=== PATIENT | female | born 1990 | race Caucasian/White ===

== ENCOUNTER 2020-06-14 10:40 | Outpatient (REF) | payer OTHER, SELFPAY | END 2020-06-14 10:41 | disposition home or self-care (01) | LOC: HO.LAB 10:40 | PROVIDERS: PCP Internal Medicine; Visit Provider Advanced Practice Midwife | DX: Z01.419 Encounter for gynecological examination (general) (routine) without abnormal findings (principal); N88.9 Noninflammatory disorder of cervix uteri, unspecified; B36.9 Superficial mycosis, unspecified | CPT/HCPCS: 88142 ==

== ENCOUNTER 2020-08-02 11:18 | Outpatient (REF) | payer OTHER, SELFPAY ==
[2020-08-02 17:09] LABS: CT PCR NOT DETECTED (Not Detect.); NG PCR NOT DETECTED (Not Detect.)
[2020-08-03 09:13] LABS: BV Int Neg Control Negative (Negative); BV Int Pos Control Positive (Positive)
== END 2020-08-02 11:19 | disposition home or self-care (01) ==
LOC: HO.LAB 11:18
PROVIDERS: Visit Provider Advanced Practice Midwife
DX: N89.8 Other specified noninflammatory disorders of vagina (principal); B37.3 Candidiasis of vulva and vagina
CPT/HCPCS: 81003; 81025; 87480; 87491; 87510; 87591; 87660; 99212

== ENCOUNTER → 2020-08-16 14:01 | Outpatient (BNVA) | payer OTHER, SELFPAY | PROVIDERS: Visit Provider Obstetrics & Gynecology | DX: N88.9 Noninflammatory disorder of cervix uteri, unspecified (principal) | CPT/HCPCS: 99212 ==

== ENCOUNTER 2021-02-17 09:26 | Outpatient (REF) | payer OTHER, SELFPAY ==
[2021-02-17 15:12] LABS: CT PCR NOT DETECTED (Not Detect.); NG PCR NOT DETECTED (Not Detect.)
[2021-02-18 14:47] LABS: BV Int Neg Control Negative (Negative); BV Int Pos Control Positive (Positive)
== END 2021-02-17 09:27 | disposition home or self-care (01) ==
LOC: HO.LAB 09:26
PROVIDERS: Visit Provider Advanced Practice Midwife
DX: Z01.419 Encounter for gynecological examination (general) (routine) without abnormal findings (principal); Z11.3 Encounter for screening for infections with a predominantly sexual mode of transmission; N89.8 Other specified noninflammatory disorders of vagina; Z20.2 Contact with and (suspected) exposure to infections with a predominantly sexual mode of transmission; B37.3 Candidiasis of vulva and vagina
CPT/HCPCS: 87480; 87491; 87510; 87591; 87660; 99212

== ENCOUNTER 2021-02-22 16:55 | Outpatient (REF) | payer OTHER, SELFPAY ==
[2021-02-22 17:49] LABS: Influenza A PCR NEGATIVE (Negative); Influenza B PCR NEGATIVE (Negative); Resp Syncy Virus RNA Qual PCR NEGATIVE (Negative); SARS COV2 PCR INHOUSE NEGATIVE (Negative)
== END 2021-02-22 16:56 | disposition home or self-care (01) ==
LOC: HO.LNP 16:55
PROVIDERS: Visit Provider Internal Medicine
DX: Z20.822 Contact with and (suspected) exposure to COVID-19 (principal); R43.9 Unspecified disturbances of smell and taste
CPT/HCPCS: 0241U

== ENCOUNTER 2021-07-06 11:36 | Outpatient (REF) | payer OTHER, SELFPAY ==
[2021-07-07 09:43] LABS: BV Int Neg Control Negative (Negative); BV Int Pos Control Positive (Positive)
[2021-07-07 09:46] LABS: CT PCR NOT DETECTED (Not Detect.); NG PCR NOT DETECTED (Not Detect.)
== END 2021-07-06 11:37 | disposition home or self-care (01) ==
LOC: HO.LAB 11:36
PROVIDERS: PCP Internal Medicine; Visit Provider Advanced Practice Midwife
DX: Z01.411 Encounter for gynecological examination (general) (routine) with abnormal findings (principal); L30.9 Dermatitis, unspecified; Z20.2 Contact with and (suspected) exposure to infections with a predominantly sexual mode of transmission
CPT/HCPCS: 87480; 87491; 87510; 87591; 87660

== ENCOUNTER 2021-11-24 09:23 | Outpatient (REF) | payer OTHER, SELFPAY ==
[2021-11-24 17:53] LABS: CT PCR NOT DETECTED (Not Detect.); NG PCR NOT DETECTED (Not Detect.)
[2021-11-25 15:12] LABS: BV Int Neg Control Negative (Negative); BV Int Pos Control Positive (Positive)
== END 2021-11-24 09:24 | disposition home or self-care (01) ==
LOC: HO.LAB 09:23
PROVIDERS: Visit Provider Advanced Practice Midwife
DX: Z30.09 Encounter for other general counseling and advice on contraception (principal); Z20.2 Contact with and (suspected) exposure to infections with a predominantly sexual mode of transmission; N92.6 Irregular menstruation, unspecified; D64.4 Congenital dyserythropoietic anemia
CPT/HCPCS: 87480; 87491; 87510; 87591; 87660; 99212

== ENCOUNTER 2021-12-13 12:08 | Outpatient (REF) | payer OTHER, SELFPAY ==
--- NOTE | ~2021-12-13 | XR_ITS ---
EXAMINATION: CERVICAL SPINE AND THORACIC SPINE CLINICAL INFORMATION: Neck pain and back pain COMPARISON: Cervical spine 05/12/2014 TECHNIQUE: 3 views cervical spine and 3 views dorsal spine. FINDINGS: Cervical spine: There is reversal of cervical lordosis. The vertebral heights and vertebral alignment is normal. Mild loss of C6-C7 and C7-T1 disc heights with mild ventral spondylosis. No visible acute fracture, dislocation or lytic process seen. The paravertebral soft tissues are normal. Dorsal spine: There is normal thoracic kyphosis. The vertebral heights and alignment is normal. There is mild dextro scoliosis mid dorsal spine. No aggressive lytic or sclerotic process seen. The paravertebral soft tissues are normal. XR/XR cervical spine 2V IMPRESSION: The disc changes C6-C7 and C7-T1 disc levels with moderate ventral bridging osteophyte. No acute fracture or dislocation seen. There is mild dextro scoliosis mid dorsal spine. No visible acute fracture or dislocation seen.
--- NOTE | ~2021-12-13 | XR_ITS ---
EXAMINATION: CERVICAL SPINE AND THORACIC SPINE CLINICAL INFORMATION: Neck pain and back pain COMPARISON: Cervical spine 05/12/2014 TECHNIQUE: 3 views cervical spine and 3 views dorsal spine. FINDINGS: Cervical spine: There is reversal of cervical lordosis. The vertebral heights and vertebral alignment is normal. Mild loss of C6-C7 and C7-T1 disc heights with mild ventral spondylosis. No visible acute fracture, dislocation or lytic process seen. The paravertebral soft tissues are normal. Dorsal spine: There is normal thoracic kyphosis. The vertebral heights and alignment is normal. There is mild dextro scoliosis mid dorsal spine. No aggressive lytic or sclerotic process seen. The paravertebral soft tissues are normal. XR/XR thoracic spine 2V IMPRESSION: The disc changes C6-C7 and C7-T1 disc levels with moderate ventral bridging osteophyte. No acute fracture or dislocation seen. There is mild dextro scoliosis mid dorsal spine. No visible acute fracture or dislocation seen.
== END 2021-12-13 12:09 | disposition home or self-care (01) ==
LOC: HO.XRAY 12:08
PROVIDERS: PCP Internal Medicine; Visit Provider Internal Medicine
DX: M54.6 Pain in thoracic spine (principal); M54.2 Cervicalgia
CPT/HCPCS: 72040; 72070

== ENCOUNTER → 2021-12-18 10:21 | Outpatient (BNVA) | payer OTHER, SELFPAY | PROVIDERS: PCP Internal Medicine; Visit Provider Anesthesiology | DX: M50.30 Other cervical disc degeneration, unspecified cervical region (principal); M47.812 Spondylosis without myelopathy or radiculopathy, cervical region; G56.01 Carpal tunnel syndrome, right upper limb; M41.9 Scoliosis, unspecified; G89.4 Chronic pain syndrome | CPT/HCPCS: 99202 ==

== ENCOUNTER 2022-01-02 | Outpatient (REF) | payer OTHER, SELFPAY | END 2022-01-02 00:01 | disposition home or self-care (01) | LOC: CF | PROVIDERS: Visit Provider Advanced Practice Midwife | DX: N89.8 Other specified noninflammatory disorders of vagina (principal); N88.8 Other specified noninflammatory disorders of cervix uteri; N86 Erosion and ectropion of cervix uteri | CPT/HCPCS: 99212 ==

== ENCOUNTER 2022-01-02 11:37 | Outpatient (REF) | payer OTHER, SELFPAY ==
[2022-01-03 05:17] LABS: CT PCR NOT DETECTED (Not Detect.); NG PCR NOT DETECTED (Not Detect.)
[2022-01-03 15:53] LABS: BV Int Neg Control Negative (Negative); BV Int Pos Control Positive (Positive)
== END 2022-01-02 11:38 | disposition home or self-care (01) ==
LOC: HO.LNP 11:37
PROVIDERS: Visit Provider Advanced Practice Midwife
DX: Z12.4 Encounter for screening for malignant neoplasm of cervix (principal); Z11.3 Encounter for screening for infections with a predominantly sexual mode of transmission; N89.8 Other specified noninflammatory disorders of vagina
CPT/HCPCS: 87480; 87491; 87510; 87591; 87660; 88142

== ENCOUNTER 2022-11-27 10:31 | Outpatient (AMB) | payer OTHER, SELFPAY ==
--- NOTE | 2022-11-27 10:39 | A.OFFVIS_ITS ---
Intake Vital Signs 11/27/22 10:41 Height 5 ft Weight 201 lb BMI 39.3 BP 124/72 Intake Visit Reasons: consult Intake Note: 3 hcg test at home and all were positive Saddle Mechanic Required: No Allergies sulfamethoxazole [From BACTRIM] Allergy (Unknown, Verified 11/27/22 10:44) HIVES trimethoprim [From BACTRIM] Allergy (Unknown, Verified 11/27/22 10:44) HIVES Medication List - Last Reconciled 11/27/22 by Sarah Orozco CNM No Known Home Meds Is last menstrual period known: Yes Last menstrual period: 10/16/22 Post menopausal: No Patient : Yes HPI consult HPI Details patient is here for test consult visit her LMP was October 16. And she had a period month before in August. She was not on control she and her partner were trying to get and then when they did not get they just decided to let it be what would happen. They are very happy about the and she is already told the children who are very happy as well. She denies any medical problems in her previous she has gained some weight over time she is home with the kids and they were both going to be in school this year. she delivered 1 baby at [facility] in 1 child here and is sad about the birthing center not being open. She feels used to the providers here in would like to stay here for care but I explained that we are sending women to [facility] to have their babies now and discussed all of the options that are available to her for care in the [facility] in also what circumstances would require transfer for care and what visits would occur here in any case and what ultrasounds would be ordered at [facility]. Discussed next steps if she decides to stay here which would include in this case an ultrasound for dating because her symptoms started exceptionally early given her LMP and we will have a follow-up visit after that and then after that if she decides to stay here next visit would be with the asp net software developer future visits would include a 12 week nuchal translucency ultrasound done at [facility]. I reviewed that no emergency facilities for are available at this [facility] now, so any obstetrical emergencies would be tended to at [facility] and she would be see evaluated at [facility]. I gave her list of practices at [facility] that she can consider and discussed pros and cons of having care here versus meeting the obstetrical team or midwifery team who might be involved in her care ahead of time also discussed the nausea she is having and offered her vitamin B6 and Unisom as well as the vitamins. I urged caution about weight gain as she has gained some weight over the last year. She had struggled with a lot of anxiety and she still does have anxiety but she is now seeing a therapist every week and finds that that really helps.. [facility] Medical History Allergic rhinitis Anxiety Neck pain Ophthalmoplegic migraine Surgical History No pertinent past surgical history Family History Mother COPD (chronic obstructive pulmonary disease) Social History Housing: Apartment Alcohol intake: never Patient Tobacco Use Status: Never used Tobacco e-Cigarette/Vaping Use: Never Used Second Hand Smoke Exposure: No service: No Current occupational status: unemployed Gender identity: Female Cognitive needs: No Hearing needs: No Vision needs: No Female Reproductive History Menstrual Age of Menarche: 15 Duration of menses: 3-5 days Date of last menstrual period: 10/16/22 control method: none Total pregnancies: 3 Full term: 2 Number of Living Children: 2 Date of last pap smear: 01/04/22 (unsatisfactory) History of abnormal pap smear: No Physical Exam Vital Signs: Last Vital Signs BP 124/72 11/27/22 10:41 BMI result Body Mass Index 39.3 Results AMB Test Urine AMB Test Urine Negative Last Edit by RUSS Duarte on 11/27/22 10:51 Results Reviewed Results Reviewed: Laboratory Last Values [facility] Negative 11/27/22 10:50 Assessment & Plan Assessment & Plan (1) at early stage: Code(s): Z34.90 - Encounter for supervision of normal , unspecified, unspecified trimester (2) Positive urine test: Code(s): Z32.01 - Encounter for test, result positive Plan patient is here for test consult visit her LMP was October 16. And she had a period month before in August. She was not on control she and her partner were trying to get and then when they did not get they just decided to let it be what would happen. They are very happy about the and she is already told the children who are very happy as well. She denies any medical problems in her previous she has gained some weight over time she is home with the kids and they were both going to be in school this year. she delivered 1 baby at [facility] in 1 child here and is sad about the birthing center not being open. She feels used to the providers here in would like to stay here for care but I explained that we are sending women to [facility] to have their babies now and discussed all of the options that are available to her for care in the [facility] in also what circumstances would require transfer for care and what visits would occur here in any case and what ultrasounds would be ordered at [facility]. Discussed next steps if she decides to stay here which would include in this case an ultrasound for dating because her symptoms started exceptionally early given her LMP and we will have a follow-up visit after that and then after that if she decides to stay here next visit would be with the asp net software developer future visits would include a 12 week nuchal translucency ultrasound done at [facility]. I reviewed that no emergency facilities for are available at this [facility] now, so any obstetrical emergencies would be tended to at [facility] and she would be see evaluated at [facility]. I gave her list of practices at [facility] that she can consider and discussed pros and cons of having care here versus meeting the obstetrical team or midwifery team who might be involved in her care ahead of time also discussed the nausea she is having and offered her vitamin B6 and Unisom as well as the vitamins. I urged caution about weight gain as she has gained some weight over the last year. She had struggled with a lot of anxiety and she still does have anxiety but she is now seeing a therapist every week and finds that that really helps.. Ultrasound ordered for dating and will have a follow up visit after that asp net software developer if she chooses to come here will be after that and nuchal translucency at 12 weeks if she chooses to come here. Orders: Orders US pelvic and transvaginal Today Z32.01 - Encounter for test, result positive, Z34.90 - Encounter for supervision of normal , unspecified, unspecified trimester AMB HCG Urine Test Today Z32.02 - Encounter for test, result negative Medications: New pyridoxine (vitamin B6) 25 mg PO TID 90 tabs 0RF PNV,calcium 79-pihe-nubnj acid 27 mg iron- 1 mg ( Vitamins Plus Low Iron) 1 tab PO DAILY 90 tabs 5RF doxylamine succinate (Unisom (doxylamine)) 25 mg PO BEDTIME PRN 30 tabs 0RF sleep Coding Level of Care Code Est Pt Level 3 (14663) Diagnoses at early stage Z34.90 Positive urine test Z32.01
[2022-11-27 10:41] VITALS: BP 124/72; BMI 39.3
== END 2022-11-27 11:34 | disposition home or self-care (01) ==
LOC: HO.HWS 10:31
PROVIDERS: PCP Internal Medicine; Visit Provider Advanced Practice Midwife
DX: Z34.90 Encounter for supervision of normal pregnancy, unspecified, unspecified trimester (principal)
CPT/HCPCS: 99213

== ENCOUNTER → 2022-11-27 10:31 | Outpatient (BNVA) | payer OTHER, SELFPAY | PROVIDERS: PCP Internal Medicine; Visit Provider Advanced Practice Midwife | DX: Z34.80 Encounter for supervision of other normal pregnancy, unspecified trimester (principal) | CPT/HCPCS: 81025; 99212 ==

== ENCOUNTER 2022-11-27 13:30 | Outpatient (REF) | payer OTHER, SELFPAY ==
--- NOTE | ~2022-11-27 | US_ITS ---
EXAMINATION: US OBSTETRICAL ULTRASOUND CLINICAL INFORMATION: Positive test. The ultrasound worksheet notes no quantitative beta-hCG available. Ultrasound exam requested to confirm dates. COMPARISON: None available. LMP: 10/16/2022. Gestational age by maternal dates is 6 weeks, 0 days. Estimated date of delivery by maternal dates is 07/23/2023. TECHNIQUE: Sonographic imaging of the pelvis performed using transabdominal and transvaginal transducers. FINDINGS: There is a single intrauterine gestational sac with visible yolk sac, embryo/fetus, and cardiac activity. No evidence of subchorionic hemorrhage. HR: 100 beats per minute. CRL (crown rump length): 0.43 cm (6 weeks, 1 day) DELORES (estimated date of delivery): 07/22/2023 MATERNAL ADNEXA: The right ovary is only visualized on transabdominal imaging and measures 3.4 x 1.9 x 2 cm. The left ovary is 4.1 x 2.6 x 4.3 cm. The left ovary has a follicle measuring up to 2.4 cm as well as a corpus luteum measuring up to 2.8 cm. US/US OB pelvic and transvaginal IMPRESSION: Single viable intrauterine gestation is present with ultrasound gestational age of 6 weeks, 1 day. The ultrasound dates are concordant with the clinical dates.
== END 2022-11-27 13:31 | disposition home or self-care (01) ==
LOC: HO.HMGCX 13:30
PROVIDERS: PCP Internal Medicine; Visit Provider Advanced Practice Midwife
DX: Z34.91 Encounter for supervision of normal pregnancy, unspecified, first trimester (principal)
CPT/HCPCS: 76801; 76817

== ENCOUNTER 2022-11-28 15:41 | Emergency (ER) | payer OTHER, SELFPAY ==
[2022-11-28 16:19] VITALS: BP 142/85; PULSE 95; RESP 18; TEMP 36.8; O2SAT 98; BMI 38.0
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
== END 2022-11-28 17:19 | disposition home or self-care (01) ==
LOC: HO.ED 17:07
PROVIDERS: Emergency Provider Emergency Medicine; PCP Internal Medicine
DX: O26.91 Pregnancy related conditions, unspecified, first trimester (principal); M54.2 Cervicalgia; M54.6 Pain in thoracic spine; Z3A.01 Less than 8 weeks gestation of pregnancy
CPT/HCPCS: 99282

== ENCOUNTER 2022-12-05 10:25 | Outpatient (AMB) | payer OTHER, SELFPAY ==
--- NOTE | 2022-12-05 10:45 | MHC.OFFVISPN ---
Intake Vital Signs 12/05/22 10:46 Height 5 ft Weight 200 lb BMI 39.1 BP 128/78 Blood Pressure Location Rt brachial Position Sitting Intake Visit Reasons: Ultrasound follow up Allergies sulfamethoxazole [From BACTRIM] Allergy (Unknown, Verified 12/05/22 10:46) HIVES trimethoprim [From BACTRIM] Allergy (Unknown, Verified 12/05/22 10:46) HIVES Medication List - Last Reconciled 12/05/22 by Sarah Orozco CNM doxylamine succinate (Unisom (doxylamine)) 25 mg PO BEDTIME PRN PNV,calcium 61-ytbm-pccea acid 27 mg iron- 1 mg ( Vitamins Plus Low Iron) 1 tab PO DAILY pyridoxine (vitamin B6) 25 mg PO TID Patient : Yes PFSH Medical History Allergic rhinitis Anxiety Neck pain Ophthalmoplegic migraine Surgical History No pertinent past surgical history Family History Mother COPD (chronic obstructive pulmonary disease) Social History Housing: Apartment Alcohol intake: never Patient Tobacco Use Status: Never used Tobacco e-Cigarette/Vaping Use: Never Used Second Hand Smoke Exposure: No Patient : Yes service: No Current occupational status: unemployed Gender identity: Female Cognitive needs: No Hearing needs: No Vision needs: No Female Reproductive History Menstrual Age of Menarche: 15 Total pregnancies: 3 Number of Living Children: 2 History History 3 Elective abortions Para Spontaneous abortions Hx # Term Pregnancies 2 Ectopic pregnancies Hx # Pregnancies Multiple births Questionnaire History History : 3 Coding Diagnoses
[2022-12-05 10:46] VITALS: BP 128/78; BMI 39.1
[2022-12-05 11:09] VITALS: BMI 39.1
--- NOTE | 2022-12-05 11:09 | MHC.OFFVIS ---
Intake Vital Signs 12/05/22 10:46 12/05/22 11:09 Height 5 ft Weight 200 lb BMI 39.1 39.1 BP 128/78 Blood Pressure Location Rt brachial Position Sitting Intake Visit Reasons: Ultrasound follow up Allergies sulfamethoxazole [From BACTRIM] Allergy (Unknown, Verified 12/05/22 10:46) HIVES trimethoprim [From BACTRIM] Allergy (Unknown, Verified 12/05/22 10:46) HIVES Medication List - Last Reconciled 12/05/22 by Sarah Orozco CNM doxylamine succinate (Unisom (doxylamine)) 25 mg PO BEDTIME PRN PNV,calcium 80-oheu-kelfn acid 27 mg iron- 1 mg ( Vitamins Plus Low Iron) 1 tab PO DAILY pyridoxine (vitamin B6) 25 mg PO TID HPI Ultrasound follow up HPI Details Patient is here for an ultrasound follow-up she had an ultrasound to verify the dates of her please see the previous visit for extensive discussion about issues with the and her history and options for going forward with care. She had the ultrasound on 11 27 and it was concordant with her dates giving her a EGA of 6 weeks and 1 day at that time. LMP was 10/16/2022 which would given DELORES of 07/24/2023. Ultrasound of 11/27/2022 6 weeks and 1 day would yield DELORES of 07/23/2023 concordant. So she is 7 weeks and 2 days today too early to listen to the heartbeat.. Her partner and children are with her very excited because they thought they were going to hear the heartbeat but it is too early. She has decided that she is going to stay here for her care because she likes coming here and even with her last she intended to meet everybody and the person new ended up helping her with her delivery with somebody she had never met. So she will be okay with meeting whoever she meets in labor. Her next visit will be with the RN for the intake, and labwork, and thereafter she will have the ultrasound for nuchal translucency and screening tests for anomalies at [facility] at 12 weeks [address] the order for and we will see her regularly here. She is has some nausea but is doing well with it and she has her vitamins and is not having any other issues and they are getting ready for school. [facility] Medical History Allergic rhinitis Anxiety Neck pain Ophthalmoplegic migraine Surgical History No pertinent past surgical history Family History Mother COPD (chronic obstructive pulmonary disease) Social History Housing: Apartment Alcohol intake: never Patient Tobacco Use Status: Never used Tobacco e-Cigarette/Vaping Use: Never Used Second Hand Smoke Exposure: No service: No Current occupational status: unemployed Gender identity: Female Cognitive needs: No Hearing needs: No Vision needs: No Female Reproductive History Menstrual Age of Menarche: 15 Physical Exam Vital Signs: Last Vital Signs BP 128/78 12/05/22 10:46 BMI result Body Mass Index 39.1 Results AMB Urinalysis, Automated UA Leukoctes 125 Ethan/uL Last Edit by Belkis Ferrara CMA on 12/05/22 11:28 UA Nitrite Last Edit by Belkis Ferrara CMA on 12/05/22 11:28 UA Urobilinogen 3.5 mg/dL Last Edit by Belkis Ferrara CMA on 12/05/22 11:28 UA Protein mg/dL Last Edit by Belkis Ferrara CMA on 12/05/22 11:28 UA pH 7.5 Last Edit by Belkis Ferrara CMA on 12/05/22 11:28 UA Blood John/uL Last Edit by Belkis Ferrara CMA on 12/05/22 11:28 UA Specific [place] 1.010 Last Edit by Belkis Ferrara CMA on 12/05/22 11:28 UA Ketone Last Edit by Belkis Ferrara CMA on 12/05/22 11:28 UA Bilirubin mg/dL Last Edit by Belkis Ferrara CMA on 12/05/22 11:28 UA Glucose mg/dL Last Edit by Belkis Ferrara CMA on 12/05/22 11:28 Results Reviewed Results Reviewed: [facility] [address] [address] Ultrasound Report Signed Patient: Monique Hayden MR#: [id number] : 1990 Acct:[id number] Age/Sex: 32 / F ADM Date: 11/27/22 Loc: HO.HMGCX Attending Dr: Sarah Orozco CNM Ordering Physician: Sarah Orozco CNM Date of Service: 11/27/22 Procedure(s): US OB pelvic and transvaginal Accession Number(s): [id number] cc: Sarah Orozco CNM~ EXAMINATION:? US OBSTETRICAL ULTRASOUND CLINICAL INFORMATION:? Positive test. The ultrasound worksheet notes no quantitative beta-hCG available. Ultrasound exam requested to confirm dates. COMPARISON:? None available.? LMP: 10/16/2022. Gestational age by maternal dates is 6 weeks, 0 days. Estimated date of delivery by maternal dates is 07/23/2023. TECHNIQUE: Sonographic imaging of the pelvis performed using transabdominal and transvaginal transducers. ? FINDINGS: There is a single intrauterine gestational sac with visible yolk sac, embryo/fetus, and cardiac activity.? No evidence of subchorionic hemorrhage. HR:? 100 beats per minute. CRL (crown rump length): ? 0.43 cm (6 weeks, 1 day) DELORES (estimated date of delivery): 07/22/2023 MATERNAL ADNEXA: The right ovary is only visualized on transabdominal imaging and measures 3.4 x 1.9 x 2 cm. The left ovary is 4.1 x 2.6 x 4.3 cm. The left ovary has a follicle measuring up to 2.4 cm as well as a corpus luteum measuring up to 2.8 cm. US/US OB pelvic and transvaginal IMPRESSION: Single viable intrauterine gestation is present with ultrasound gestational age of 6 weeks, 1 day. The ultrasound dates are concordant with the clinical dates. ? ? ? Dictated By: Sanchez Emery MD Signed By: <Electronically signed by Sanchez Emery MD in OV> 11/28/22 1510 DD/ 1404 TD/TT:? Sausage Inspector: PD Assessment & Plan Assessment & Plan (1) at early stage: Comment: LMP 10/16/22 DELORES 07/24/2023 ultrasound done 11/27/2022 at 6 and 1 sevens consistent yielding 07/23/2023. Use her DELORES. Code(s): Z34.90 - Encounter for supervision of normal , unspecified, unspecified trimester (2) Encounter for screening for malformation using ultrasound: Code(s): Z36.3 - Encounter for screening for malformations Plan Patient is here for an ultrasound follow-up she had an ultrasound to verify the dates of her please see the previous visit for extensive discussion about issues with the and her history and options for going forward with care. She had the ultrasound on 11 27 and it was concordant with her dates giving her a EGA of 6 weeks and 1 day at that time. LMP was 10/16/2022 which would given DELORES of 07/24/2023. Ultrasound of 11/27/2022 6 weeks and 1 day would yield DELORES of 07/23/2023 concordant. So she is 7 weeks and 2 days today too early to listen to the heartbeat.. Her partner and children are with her very excited because they thought they were going to hear the heartbeat but it is too early. She has decided that she is going to stay here for her care because she likes coming here and even with her last she intended to meet everybody and the person new ended up helping her with her delivery with somebody she had never met. So she will be okay with meeting whoever she meets in labor. Her next visit will be with the RN for the intake, and labwork, and thereafter she will have the ultrasound for nuchal translucency and screening tests for anomalies at [facility] at [address] the order for and we will see her regularly here. She is has some nausea but is doing well with it and she has her vitamins and is not having any other issues and they are getting ready for school. Orders: Orders US OB 1T nuc measure 5 Weeks Z34.90 - Encounter for supervision of normal , unspecified, unspecified trimester, Z36.3 - Encounter for screening for malformations AMB Urinalysis Automated Today Z32.01 - Encounter for test, result positive Coding Level of Care Code Est Pt Level 3 (75698) Diagnoses at early stage Z34.90 Encounter for screening for malformation using ultrasound Z36.3
== END 2022-12-05 11:26 | disposition home or self-care (01) ==
LOC: HO.HWS 10:25
PROVIDERS: PCP Internal Medicine; Visit Provider Advanced Practice Midwife
DX: Z34.90 Encounter for supervision of normal pregnancy, unspecified, unspecified trimester (principal); Z36.3 Encounter for antenatal screening for malformations; Z32.01 Encounter for pregnancy test, result positive
CPT/HCPCS: 99213

== ENCOUNTER → 2022-12-05 10:25 | Outpatient (BNVA) | payer OTHER, SELFPAY | PROVIDERS: PCP Internal Medicine; Visit Provider Advanced Practice Midwife | DX: Z36.3 Encounter for antenatal screening for malformations (principal); Z34.80 Encounter for supervision of other normal pregnancy, unspecified trimester; Z3A.01 Less than 8 weeks gestation of pregnancy | CPT/HCPCS: 81003; 99212 ==

== ENCOUNTER 2022-12-12 13:40 | Outpatient (AMB) | payer OTHER, SELFPAY ==
[2022-12-12 14:01] VITALS: BMI 37.2
--- NOTE | 2022-12-12 14:01 | A.OFFVISPN_ITS ---
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 Vertical Borer Required: No Allergies sulfamethoxazole [From BACTRIM] Allergy (Unknown, Verified 12/12/22 14:50) HIVES trimethoprim [From BACTRIM] Allergy (Unknown, Verified 12/12/22 14:50) HIVES Medication List - Last Reconciled 12/12/22 by Irina Mohr doxylamine succinate (Unisom (doxylamine)) 25 mg PO BEDTIME PRN PNV,calcium 38-vvib-gvuba acid 27 mg iron- 1 mg ( Vitamins Plus Low Iron) 1 tab PO DAILY pyridoxine (vitamin B6) 25 mg PO TID Is last menstrual period known: Yes Last menstrual period: 10/16/22 Post menopausal: No Patient : Yes Do you need a note to return to daycare/school/sports/work: No PFSH Medical History (Updated 12/12/22 @ 15:02 by Irina Mohr) Allergic rhinitis Anxiety Neck pain Ophthalmoplegic migraine Surgical History No pertinent past surgical history Family History Mother COPD (chronic obstructive pulmonary disease) Social History (Updated 12/12/22 @ 14:10 by Irina Mohr) Household Members: Spouse and Children Both parents involved: Yes Caregiver staying overnight: No Housing: Apartment Are you a primary dialysis patient care technician to a significant other at home: No Do you presently have visiting nurse or other home services: No 75 years or older and lives alone: No Alcohol intake: never Patient Tobacco Use Status: Never used Tobacco e-Cigarette/Vaping Use: Never Used Second Hand Smoke Exposure: No Agree to transfusion: Yes service: No Current occupational status: unemployed Current occupational exposures/hazards: No Gender identity: Female Cognitive needs: No Hearing needs: No Vision needs: No Female Reproductive History Menstrual Age of Menarche: 15 Duration of menses: 3-5 days Date of last menstrual period: 10/16/22 control method: none Total pregnancies: 3 Full term: 2 Premature: 0 Number of Living Children: 2 Ab induced: 0 Ab spontaneous: 0 Ectopics: 0 Multiple births: 0 History of abnormal pap smear: No History of STI: No History History 3 Elective abortions 0 Para 2 Spontaneous abortions 0 Hx # Term Pregnancies 2 Ectopic pregnancies 0 Hx # Pregnancies 0 Multiple births 0 Past Pregnancies Del. Date GA/Weeks Outcome Route Wt Inf Gender Labor Dilia Anesthesia Location Provider Complicate 05/13/13 42 live - full term vaginal delivery 9 lb 14 oz Male epidural [facility] none 12/06/17 40 live - full term vaginal delivery 7 lb Female epidural [facility] [place]- none Education First Trimester Education Checklist Plans/Education - by Trimester Counseled: Yes HIV and other routine tests: discussed Infectious disease exposure: chicken pox immunity discussed and hepatitis risk discussed Influenza vaccine: discussed Nutrition and weight gain counseling: special diet: discussed Sexual activity: discussed Exercise: discussed Tobacco use: No Alcohol use: No Substance use: No Environmental/home/work hazards: discussed Domestic violence: discussed Seatbelt use: discussed Toxoplasmosis precautions (cats/raw meat): discussed Testing education: group B strep education danger signs: Yes education packet: symptoms, vitamins and iron, diet and weight gain, fish and mercury intake, listeriosis prevention, caffeine use, exercise and activity, sexual activity, x-ray exposure, medication use, toxoplasmosis precautions, sauna/hot tub use and dental care Mental health: discussed Anticipated course of care: discussed Indications for ultrasound: discussed Health center information: personnel described, visit schedule reviewed, coverage 24 hours a day and signs of miscarriage reviewed Questionnaire History History : 3 Visit DELORES Calculator Estimated Delivery Date Method Current WG Current Estimate 07/23/23 LMP (Certain) 8w 1d Other Estimates 07/22/23 Ultrasound #1 8w 2d Expected Delivery Route/Plan Vaginal Specific Issues/Plans BMI 37.2--will order early glucose screen OB Visit Log Initial Weight: 200 lb Date -?-?-?-?-?-?-?-?-?-?-?-?- EGA Weight Gest Week Fundal Ht Present FHR move Efface % Edema BP PrePreg We Weight GTT -?-?-?-?-?-?-?-?-?-?-?-?- Glucose LV Protein Blood Type 12/12/22 -?-?-?-?-?-?-?-?-?-?-?-?- 8w 1d 197 lb 2 oz (-2 lb 14 oz) 197 lb 2 oz -?-?-?-?-?-?-?-?-?-?-?-?- Notes Visit Date: 12/12/22 Last Updated by: Irina Santacruz Onur Amaya is a very pleasant 32 year old here for nurse intake visit. This is her 3rd . She and her family are very excited about the . LMP 10/16/22 with DELORES 07/23/23 and GA today of 8w1d. Early US on 11/27/22 @ 6w1d gives DELORES of 07/22/23 and GA 8w2d. She is already scheduled for NT US/1st trimester screening [place] [facility] [place]. BMI 37.2 and early glucose has been added to labs. Pt was given the folder. She was advised MD coverage 12/11 and how to reach MD after hours/weekends and holidays. We discussed danger signs and to call or go to hospital if she experiences pelvic pain and or vaginal bleeding. Pt is aware she will deliver at [facility] and have ultrasounds there as well. Pt is having nausea and vomiting. She was given B 6/Unisom without relief. Pt was advised to take B6 tid even if she does not have nausea as it will work better. Taking Unisom before bed. She is also taking her PNV before bed. We reviewed first trimester education. Pt verbalizes understanding and agrees with plan. She will schedule her OB PE today and she is aware labs will be ordered. No further questions. Initial Infection History & Risk Profile History of STDs: No HIV risk evaluation: low risk Hepatitis B risk evaluation: low risk Patient or partner has history of Genital Herpes: No Varicella/chicken pox status: immunized Genetic Screening & Charge Authorizer Genetic Screening/Teratology Counseling - Includes patient, baby's father, or anyone in either family with: 1. Patient's age 35 years or older as of estimated date of delivery: No 2. Thalassemia (Korean, Russian, Mediterranean, or Background); MCV less than 80: No 3. Neural Tube Defect (Meningomyelocele, Spina Bifida, or Anencephaly): No 4. Congenital Heart Defect: No 5. Down Syndrome: No 6. Kayden-Sachs (Ashkenazi Shinto, Cajun, Azeri Icelandic): No 7. Aileen Disease (Ashkenazi Shinto): No 8. Familial Dysautonomia (Ashkenazi Shinto): No 9. Sickle Cell Disease or Trait (): No 10. Hemophilia or other blood disorders: No 11. Muscular Dystrophy: No 12. Cystic Fibrosis: No 13. Broadwater's Chorea: No 14. Intellectual disability/Autism: No 15. Other inherited genetic or chromosomal disorder: No 16. Maternal Metabolic Disorder (EG,TYPE 1 Diabetes, PKU): No 17. Patient or baby's father had a child with defects not listed above: No 18. Recurrent loss or a stillbirth: No 19. Medications (including supplements, vitamins, herbs or otc drugs)/illicit/recreational drugs/alcohol since last menstrual period: No Infection History 1. Live with someone with TB or exposed to TB: No 2. Rash or viral illness since last menstrual period: No 3. Hepatitis B,C: No Other (see comments) Source: [employer] Assessment & Plan Assessment & Plan (1) Obesity (BMI 35.0-39.9 without comorbidity): Code(s): E66.9 - Obesity, unspecified Category: Medical (2) at early stage: Comment: LMP 10/16/22 DELORES 07/24/2023 ultrasound done 11/27/2022 at 6 and 1 sevens consistent yielding 07/23/2023. Use her DELORES. Code(s): Z34.90 - Encounter for supervision of normal , unspecified, unspecified trimester Category: Medical (3) Anxiety: Code(s): F41.9 - Anxiety disorder, unspecified Category: Medical Orders: Orders Screen Today Z32. - Encounter for test, result positive CF Carrier Screen Today Z32. - Encounter for test, result positive Glucose 1 Hour PP 50gm Dose Today Z32. - Encounter for test, result positive Complete Blood Count no Diff Today Z32. - Encounter for test, result positive Urine Culture Today Z32. - Encounter for test, result positive Hepatitis B Surface Antigen Today Z32. - Encounter for test, result positive Hepatitis C Antibody Today Z32. - Encounter for test, result positive HIV Ab/Ag Today Z32.01 - Encounter for test, result positive Rubella IgG Antibody Today Z32.01 - Encounter for test, result positive Syphilis Screen Today Z32.01 - Encounter for test, result positive Varicella IgG Antibody Today Z32.01 - Encounter for test, result positive Drug Screen Urine Today Z32.01 - Encounter for test, result positive Coding Level of Care Code Established Pt Krista Patient Type Established History Problem Focused Medical Decision Making Low Complexity Diagnoses Obesity (BMI 35.0-39.9 without comorbidity) E66.9 at early stage Z34.90 Anxiety F41.9 Time Spent (min) 60
== END 2022-12-12 14:44 | disposition home or self-care (01) ==
LOC: HO.HWS 13:41
PROVIDERS: PCP Internal Medicine; Visit Provider Advanced Practice Midwife
DX: E66.9 Obesity, unspecified (principal); Z34.90 Encounter for supervision of normal pregnancy, unspecified, unspecified trimester; F41.9 Anxiety disorder, unspecified
CPT/HCPCS: 25942

== ENCOUNTER → 2022-12-12 13:40 | Outpatient (BNVA) | payer OTHER, SELFPAY | PROVIDERS: PCP Internal Medicine; Visit Provider Advanced Practice Midwife | DX: O99.211 Obesity complicating pregnancy, first trimester (principal); E66.9 Obesity, unspecified; O99.341 Other mental disorders complicating pregnancy, first trimester; F41.9 Anxiety disorder, unspecified; Z3A.08 8 weeks gestation of pregnancy | CPT/HCPCS: 99212 ==

== ENCOUNTER 2022-12-20 11:25 | Outpatient (AMB) | payer OTHER, SELFPAY ==
--- NOTE | 2022-12-20 11:35 | A.OFFVIS_ITS ---
Intake Vital Signs 12/20/22 11:36 Height 5 ft 1 in Weight 196 lb BMI 37.0 BP 130/80 Intake Visit Reasons: OBPE Allergies sulfamethoxazole [From BACTRIM] Allergy (Unknown, Verified 12/12/22 14:50) HIVES trimethoprim [From BACTRIM] Allergy (Unknown, Verified 12/12/22 14:50) HIVES PFSH Medical History Allergic rhinitis Anxiety Neck pain Ophthalmoplegic migraine Surgical History No pertinent past surgical history Family History Mother COPD (chronic obstructive pulmonary disease) Social History Household Members: Spouse and Children Both parents involved: Yes Caregiver staying overnight: No Housing: Apartment Are you a primary hearing care practitioner to a significant other at home: No Do you presently have visiting nurse or other home services: No 75 years or older and lives alone: No Alcohol intake: never Patient Tobacco Use Status: Never used Tobacco e-Cigarette/Vaping Use: Never Used Second Hand Smoke Exposure: No Agree to transfusion: Yes service: No Current occupational status: unemployed Current occupational exposures/hazards: No Gender identity: Female Cognitive needs: No Hearing needs: No Vision needs: No Female Reproductive History Menstrual Age of Menarche: 15 control method: none Total pregnancies: 3 Number of Living Children: 3 Date of last pap smear: 01/04/22 (unsatisfactory) Questionnaire Unity Depression Unity Depression Scale I have been able to laugh and see the funny side of things: As much as I always could I have looked forward with enjoyment to things: As much as I ever did I have blamed myself unnecessarily when things went wrong: No, never I have been anxious or worried for no reason: No, not at all I have felt scared of panicky for no very good reason at all: No, not at all Things have been getting on top of me: No, I have been coping as well as ever I have been so unhappy that I have had difficulty sleeping: No, not at all I have felt sad or miserable: No, not at all I have been so unhappy that I have been crying: No, never The thought of harming myself has occurred to me: Never 0 PHQ Assessment Billing PHQ Assessment Tool: PHQ Assessment 23821 Physical Exam Vital Signs: Last Vital Signs BP 130/80 12/20/22 11:36 BMI result Body Mass Index 37.0 Assessment & Plan Assessment & Plan Orders: Orders Bacterial Vaginosis Panel Today Z34.91 - Encounter for supervision of normal , unspecified, first trimester CT NG by PCR Today Z34.91 - Encounter for supervision of normal , unspecified, first trimester Pap Smear Today Z34.91 - Encounter for supervision of normal , unspeci fied, first trimester Coding Diagnoses
[2022-12-20 11:36] VITALS: BP 130/80; BMI 37.0
--- NOTE | 2022-12-20 12:39 | A.OFFVISPN_ITS ---
Intake Vital Signs 12/20/22 11:36 Height 5 ft 1 in Weight 196 lb BMI 37.0 BP 130/80 Intake Visit Reasons: OBPE Mold Setter Required: No Information Interpreted: non-clinical & clinical Peanut Grader: Peanut Grader Present ([place]am) Allergies sulfamethoxazole [From BACTRIM] Allergy (Unknown, Verified 12/20/22 12:39) HIVES trimethoprim [From BACTRIM] Allergy (Unknown, Verified 12/20/22 12:39) HIVES Medication List - Last Reconciled 12/20/22 by Sarah Oroczo CNM doxylamine succinate (Unisom (doxylamine)) 25 mg PO BEDTIME PRN PNV,calcium 65-mpoo-gyabe acid 27 mg iron- 1 mg ( Vitamins Plus Low Iron) 1 tab PO DAILY pyridoxine (vitamin B6) 25 mg PO TID Is last menstrual period known: Yes Last menstrual period: 10/16/22 Post menopausal: No Patient : Yes PFSH Medical History Allergic rhinitis Anxiety Neck pain Ophthalmoplegic migraine Surgical History No pertinent past surgical history Family History Mother COPD (chronic obstructive pulmonary disease) Social History Household Members: Spouse and Children Both parents involved: Yes Caregiver staying overnight: No Housing: Apartment Are you a primary day care provider to a significant other at home: No Do you presently have visiting nurse or other home services: No 75 years or older and lives alone: No Alcohol intake: never Patient Tobacco Use Status: Never used Tobacco e-Cigarette/Vaping Use: Never Used Second Hand Smoke Exposure: No Agree to transfusion: Yes service: No Current occupational status: unemployed Current occupational exposures/hazards: No Gender identity: Female Cognitive needs: No Hearing needs: No Vision needs: No Female Reproductive History Menstrual Age of Menarche: 15 Date of last menstrual period: 10/16/22 control method: none Date of last pap smear: 01/04/22 (unsatisfactory) History History 3 Elective abortions 0 Para 2 Spontaneous abortions 0 Hx # Term Pregnancies 2 Ectopic pregnancies 0 Hx # Pregnancies 0 Multiple births 0 Past Pregnancies Del. Date GA/Weeks Outcome Route Wt Inf Gender Labor Dilia Anesthesia Location Provider Complicate 05/13/13 42 live - full term vaginal delivery 9 lb 14 oz Male epidural [facility] none 12/06/17 40 live - full term vaginal delivery 7 lb Female epidural [facility] none Visit [facility] Calculator Estimated Delivery Date Method Current WG Current Estimate 07/23/23 LMP (Certain) 9w 2d Other Estimates 07/22/23 Ultrasound #1 9w 3d Expected Delivery Route/Plan Vaginal Specific Issues/Plans BMI 37.2--will order early glucose screen OB Visit Log Initial Weight: 200 lb Date -?-?-?-?-?-?-?-?-?-?-?-?- EGA Weight Gest Week Fundal Ht Present FHR move Efface % Edema BP PrePreg We Weight GTT -?-?-?-?-?-?-?-?-?-?-?-?- Glucose LV Protein Blood Type 12/12/22 -?-?-?-?-?-?-?-?-?-?-?-?- 8w 1d 197 lb 2 oz (-2 lb 14 oz) 197 lb 2 oz -?-?-?-?-?-?-?-?-?-?-?-?- 12/20/22 -?-?-?-?-?-?-?-?-?-?-?-?- 9w 2d 196 lb (-4 lb) 130/80 196 lb -?-?-?-?-?-?-?-?-?-?-?-?- Notes Visit Date: 12/20/22 Last Updated by: Sarah Orozco CNM Patient is here with her and little girl for their 1st visit her daughter is super excited about trying to be able to hear the heartbeat today she would be 9 weeks and 2 days by dates and ultrasound which concur essentially. She is starting to be able to eat a little bit more and has been eating a lot of watermelon and honeydew melon. She has her blood work already ordered but is going to be going some morning to get it because it involves a 1 hour GTT as well discussed caution with eating and trying not to gain much weight and being careful around carbs. Issues around care inside of delivery and ultrasounds of already been reviewed and she will have her nuchal translucency ultrasound on 01/03 at [facility]. She knows that for any complications we might transfer care. PE was within normal limits very difficult to palpate the uterus secondary to adipose Pap done as well as testing for STI and other vaginal shahid. Unable to auscultate heart despite efforts. Consistent with 9 weeks gestation with adipose. She will go for blood work some morning soon and NT ultrasound 914 I will see her in 1 month. Visit Date: 12/12/22 Last Updated by: Irina Santacruz Onur Amaya is a very pleasant 32 year old here for nurse intake visit. This is her 3rd . She and her family are very excited about the . LMP 10/16/22 with DELORES 07/23/23 and GA today of 8w1d. Early US on 11/27/22 @ 6w1d gives DELORES of 07/22/23 and GA 8w2d. She is already scheduled for NT US/1st trimester screening at [facility] on 01/03/23. BMI 37.2 and early glucose has been added to labs. Pt was given the folder. She was advised MD coverage 12/11 and how to reach MD after hours/weekends and holidays. We discussed danger signs and to call or go to hospital if she experiences pelvic pain and or vaginal bleeding. Pt is aware she will deliver at [facility] and have ultr asounds there as well. Pt is having nausea and vomiting. She was given B6/Unisom without relief. Pt was advised to take B6 tid even if she does not have nausea as it will work better. Taking Unisom before bed. She is also taking her PNV before bed. We reviewed first trimester education. Pt verbalizes understanding and agrees with plan. She will schedule her OB PE today and she is aware labs will be ordered. No further questions. Exam Const Constitutional General: cooperative, healthy appearing, comfortable, no acute distress and well developed Nutritional Appearance: average body habitus and well nourished Constitutional Limitations: no limitations HENMT Head: normocephalic and other Teeth and gingiva: dentition normal and gingiva normal Neck Thyroid: Thyroid normal Chest Breast/axilla inspection: normal inspection of the breasts and Other (nipples annie well) Breast/axilla palpation: normal palpation of the breasts and normal palpation of the axillae Resp Effort & Inspection: normal respiratory effort Auscultation: clear to auscultation bilaterally Cardio Heart sounds: S1 normal heart sound present and S2 normal heart sound present GI Inspection (GI): normal to inspection General Exam: Yes no CVA tenderness External Female Exam: normal external appearance Speculum exam - vagina: normal appearance of the vagina, normal discharge and other (normal appearance to vaginal secretions) Speculum Exam - Cervix: normal appearance of the cervix Bimanual exam- vagina & uterus: normal bimanual exam, uterine size normal (consistant w dating), consistency normal (consitent w gestational age), uterine mobility normal and uterine shape normal (c/w gestational age) Bimanual Exam- Adnexa, other: normal adnexae, no masses and normal (teaching re kegels done) Pelvic Support: normal (teaching re kegels done) OB/external & speculum: external exam normal Manual OB Exam: other (cervix =long/thick/closed/ and consistent w obstetric history) Assessment & Plan Assessment & Plan Orders: Orders Bacterial Vaginosis Panel Today Z34. - Encounter for supervision of normal , unspecified, first trimester CT NG by PCR Today Z34. - Encounter for supervision of normal , unspecified, first trimester Pap Smear Today Z34. - Encounter for supervision of normal , unspecified, first trimester Coding Level of Care Code [place] Diagnoses
== END 2022-12-20 15:06 | disposition home or self-care (01) ==
PROVIDERS: PCP Internal Medicine; Visit Provider Advanced Practice Midwife
DX: Z34.90 Encounter for supervision of normal pregnancy, unspecified, unspecified trimester (principal)
CPT/HCPCS: 25942

== ENCOUNTER 2022-12-20 11:25 | Outpatient (REF) | payer OTHER, SELFPAY ==
[2022-12-21 09:44] LABS: CT PCR NOT DETECTED (Not Detect.); NG PCR NOT DETECTED (Not Detect.)
[2022-12-21 12:07] LABS: BV Int Neg Control Negative (Negative); BV Int Pos Control Positive (Positive)
[2022-12-25 18:49] LABS: HPV mRNA E6/E7 rflx Not Detected (Not Detected)
== END 2022-12-20 11:26 | disposition home or self-care (01) ==
LOC: HO.LNP 11:25
PROVIDERS: PCP Internal Medicine; Visit Provider Advanced Practice Midwife
DX: Z34.91 Encounter for supervision of normal pregnancy, unspecified, first trimester (principal); Z3A.09 9 weeks gestation of pregnancy
CPT/HCPCS: 0353U; 87480; 87510; 87624; 87660; 88142; 99212

== ENCOUNTER 2023-01-17 10:36 | Outpatient (AMB) | payer OTHER, SELFPAY ==
--- NOTE | 2023-01-17 10:49 | MHC.OFFVISPN ---
Intake Vital Signs 01/17/23 10:50 Height 5 ft 1 in Weight 191 lb BMI 36.1 BP 112/70 Intake Visit Reasons: KIERRA Intake Note: The patient agreed to use of a medical billing and coding instructor during this encounter. Scribed for KRYSTEN Barber by Lauren Lynne, medical billing and coding instructor, on 01/17/2023 at 11:12 am EST. Allergies sulfamethoxazole [From BACTRIM] Allergy (Unknown, Verified 01/17/23 10:49) HIVES trimethoprim [From BACTRIM] Allergy (Unknown, Verified 01/17/23 10:49) HIVES Patient : Yes [facility] Medical History (Updated 01/17/23 @ 11:10 by Lauren Lynne) Encounter for supervision of other normal , second trimester Anxiety Neck pain Allergic rhinitis Ophthalmoplegic migraine Surgical History No pertinent past surgical history Family History Mother COPD (chronic obstructive pulmonary disease) Social History Household Members: Spouse and Children Both parents involved: Yes Caregiver staying overnight: No Housing: Apartment Are you a primary social worker palliative care to a significant other at home: No Do you presently have visiting nurse or other home services: No 75 years or older and lives alone: No Alcohol intake: never Patient Tobacco Use Status: Never used Tobacco e-Cigarette/Vaping Use: Never Used Second Hand Smoke Exposure: No Agree to transfusion: Yes service: No Current occupational status: unemployed Current occupational exposures/hazards: No Gender identity: Female Cognitive needs: No Hearing needs: No Vision needs: No Female Reproductive History Menstrual Age of Menarche: 15 History History 3 Elective abortions 0 Para 2 Spontaneous abortions 0 Hx # Term Pregnancies 2 Ectopic pregnancies 0 Hx # Pregnancies 0 Multiple births 0 Past Pregnancies Del. Date GA/Weeks Outcome Route Wt Inf Gender Labor Dilia Anesthesia Location Provider Complicate 05/13/13 42 live - full term vaginal delivery 9 lb 14 oz Male epidural [facility] none 12/06/17 40 live - full term vaginal delivery 7 lb Female epidural [facility] none Visit [facility] Calculator Estimated Delivery Date Method Current WG Current Estimate 07/23/23 LMP (Certain) 13w 2d Other Estimates 07/22/23 Ultrasound #1 13w 3d Expected Delivery Route/Plan Vaginal Specific Issues/Plans BMI 37.2--will order early glucose screen, 12/31/2022 diagnosed with COVID at [facility]. See telephone encounter activity EDC: 07/23/23 Problem List: 1. Obesity NT: pending 01/16/23... First trimester screen: FAS: WIC: enrolled Vaccination status: COVID: positive 12/2022 Tdap: Flu: Social hx: lives w/partner Romario, their two older children Labor support: Romario plan: control: OB Visit Log Initial Weight: 200 lb Date <del>?</del> EGA Weight Gest Week Fundal Ht Present FHR move Efface % Edema BP PrePreg We Weight GTT <del>?</del> Glucose LV Protein Blood Type 12/12/22 <del>?</del> 8w 1d 197 lb 2 oz (-2 lb 14 oz) 197 lb 2 oz <del>?</del> 12/20/22 <del>?</del> 9w 2d 196 lb (-4 lb) 130/80 196 lb <del>?</del> 01/17/23 <del>?</del> 13w 2d 191 lb (-9 lb) 160 112/70 191 lb <del>?</del> Notes Visit Date: 01/17/23 Last Updated by: Chely Redmond CNM Note author: Chely Redmond CNM/Lauren Lynne medical billing and coding instructor 13.2 wk KIERRA. Feeling well. Taking PNV. Hydrating well and good appetite Good FM, no LOF, VB or abd pain. Agreeable to do her Gtt. today due to nausea improving. Denies PEC, HTN or diabetes in previous . Discussed: PTL - LOF, VB, abd pain. FAS US in 5-6 weeks. NT is pending from 01/17. Call if any VB or other concerns. Informed re: Flu vaccine, she plans Flu vaccine when in stock at her next visit. Discussed to call the service here for any emergencies/deliveries to be directed to [facility]. All of her questions and concerns were addressed to the best of my ability and shared decision making. She is agreeable to plan of care. RTO 4 wks. Visit Date: 12/20/22 Last Updated by: Sarah Orozco CNM Patient is here with her and little girl for their 1st visit her daughter is super excited about trying to be able to hear the heartbeat today she would be 9 weeks and 2 days by dates and ultrasound which concur essentially. She is starting to be able to eat a little bit more and has been eating a lot of watermelon and honeydew melon. She has her blood work already ordered but is going to be going some morning to get it because it involves a 1 hour GTT as well discussed caution with eating and trying not to gain much weight and being careful around carbs. Issues around care inside of delivery and ultrasounds of already been reviewed and she will have her nuchal translucency ultrasound on 01/03 at [facility]. She knows that for any complications we might transfer care. PE was within normal limits very difficult to palpate the uterus secondary to adipose Pap done as well as testing for STI and other vaginal shahid. Unable to auscultate heart despite efforts. Consistent with 9 weeks gestation with adipose. She will go for blood work some morning soon and NT ultrasound 914 I will see her in 1 month. Visit Date: 12/12/22 Last Updated by: Irina Santacruz Onur Amaya is a very pleasant 32 year old here for nurse intake visit. This is her 3rd . She and her family are very excited about the . LMP 10/16/22 with DELORES 07/23/23 and GA today of 8w1d. Early US on 11/27/22 @ 6w1d gives DELORES of 07/22/23 and GA 8w2d. She is already scheduled for NT US/1st trimester screening at [facility] on 01/03/23. BMI 37.2 and early glucose has been added to labs. Pt was given the folder. She was advised MD coverage 12/11 and how to reach MD after hours/weekends and holidays. We discussed danger signs and to call or go to hospital if she experiences pelvic pain and or vaginal bleeding. Pt is aware she will deliver at [facility] and have ultrasounds there as well. Pt is having nausea and vomiting. She was given B6/Unisom without relief. Pt was advised to take B6 tid even if she does not have nausea as it will work better. Taking Unisom before bed. She is also taking her PNV before bed. We reviewed first trimester education. Pt verbalizes understanding and agrees with plan. She will schedule her OB PE today and she is aware labs will be ordered. No further questions. Results AMB Urinalysis, Automated UA Leukoctes 3 Ethan/uL Last Edit by RUSS Barnhart on 01/17/23 11:02 UA Nitrite Negative Last Edit by RUSS Barnhart on 01/17/23 11:02 UA Urobilinogen 0 mg/dL Last Edit by RUSS Barnhart on 01/17/23 11:02 UA Protein 1 mg/dL Last Edit by RUSS Barnhart on 01/17/23 11:02 UA pH 7.5 Last Edit by RUSS Barnhart on 01/17/23 11:02 UA Blood 0.5 John/uL Last Edit by VIVIAN Barnhart on 01/17/23 11:02 UA Specific [place] 1.015 Last Edit by RUSS Barnhart on 01/17/23 11:02 UA Ketone Negative Last Edit by Barbara Maguire Master on 01/17/23 11:02 UA Bilirubin 0 mg/dL Last Edit by RUSS Barnhart on 01/17/23 11:02 UA Glucose 0 mg/dL Last Edit by RUSS Barnhart on 01/17/23 11:02 Results Reviewed Results Reviewed: Laboratory Last Values Urine pH (Auto) 7.5 01/17/23 11:01 Specific [place] (Auto) 1.015 01/17/23 11:01 Urine Protein (Auto) 1 mg/dL 01/17/23 11:01 Glucose (UA)(Auto) 0 mg/dL 01/17/23 11:01 Urine Ketones (Auto) Negative 01/17/23 11:01 Urine Blood (Auto) 0.5 John/uL 01/17/23 11:01 Urine Nitrite (Auto) Negative 01/17/23 11:01 Urine Bilirubin (Auto) 0 mg/dL 01/17/23 11:01 Urine Urobilinogen (Auto) 0 mg/dL 01/17/23 11:01 Leukocyte Esterase (Auto) 3 Ethan/uL 01/17/23 11:01 Assessment & Plan Assessment & Plan (1) Encounter for supervision of other normal , second trimester: Code(s): Z34.82 - Encounter for supervision of other normal , second trimester Category: Medical Orders: Orders AMB Urinalysis Automated Today Z34.90 - Encounter for supervision of normal , unspecified, unspecified trimester US OB /maternal detail 02/20/23 Z34.82 - Encounter for supervision of other normal , second trimester Coding Level of Care Code [place] Diagnoses Encounter for supervision of other normal , second trimester Z34.82
[2023-01-17 10:50] VITALS: BP 112/70; BMI 36.1
== END 2023-01-17 11:28 | disposition home or self-care (01) ==
PROVIDERS: PCP Internal Medicine; Visit Provider Advanced Practice Midwife
DX: Z34.82 Encounter for supervision of other normal pregnancy, second trimester (principal); Z34.90 Encounter for supervision of normal pregnancy, unspecified, unspecified trimester
CPT/HCPCS: 25942

== ENCOUNTER → 2023-01-17 10:36 | Outpatient (BNVA) | payer OTHER, SELFPAY | PROVIDERS: PCP Internal Medicine; Visit Provider Advanced Practice Midwife | DX: Z34.82 Encounter for supervision of other normal pregnancy, second trimester (principal) | CPT/HCPCS: 81003; 99212 ==

== ENCOUNTER 2023-02-11 09:06 | Outpatient (REF) | payer OTHER, SELFPAY ==
[2023-02-11 09:43] LABS: Hematocrit 38.4 % (37.0-47.0); Hemoglobin 13.6 g/dl (12.0-16.0); Mean Corpuscular HGB Conc 35.4 g/dl (31.0-35.0); Mean Corpuscular Hemoglobin 29.9 pg (27.0-33.0); Mean Corpuscular Volume 84.4 fL (80.0-98.0); Mean Platelet Volume 9.2 fL (9.4-12.3); Platelet Count 417 X10*3/uL (160-400); Red Blood Count 4.55 X10*6/uL (4.20-5.50); Red Cell Distribution Width 12.3 % (11.0-16.0); White Blood Count 10.6 X10*3/uL (4.8-10.8)
[2023-02-11 10:30] LABS: HBsAGNum1 0.36 S/CO (0.00-0.99); HIV AB/AG Nonreactive (Nonreactive); HIV Num 1 0.05 S/CO (0.00-0.99); Hepatitis B Surface Antigen Negative (Negative); ~HepC Num1 0.06 S/CO (0.00-0.79); ~Hepatitis C Antibody Nonreactive (Nonreactive)
[2023-02-11 10:32] LABS: Syphilis Screen Nonreactive (Nonreactive)
[2023-02-11 11:41] LABS: Amphetamine Screen Urine Not Detected (Not Detect); Barbiturates, Urine Not Detected (Not Detect); Benzodiazepines Screen Urine Not Detected (Not Detect); Cannabinoid Screen Urine Not Detected (Not Detect); Cocaine Screen Urine Not Detected (Not Detect); Fentanyl, urine Not Detected (Not Detect); Opiate Screen Urine Not Detected (Not Detect); Phencyclidine Screen Urine Not Detected (Not Detect)
[2023-02-12 21:28] LABS: Varicella IgG Antibody <135.00 index
[2023-02-25 13:03] LABS: CF Ethnicity NG; Cystic Fibrosis NEGATIVE (NEGATIVE)
== END 2023-02-11 09:07 | disposition home or self-care (01) ==
LOC: HO.LAB 09:06
PROVIDERS: PCP Internal Medicine; Visit Provider Advanced Practice Midwife
DX: Z32.01 Encounter for pregnancy test, result positive (principal); E66.9 Obesity, unspecified
CPT/HCPCS: 80307; 81220; 85027; 86762; 86780; 86787; 86803; 86850; 86900; 87086; 87340; 87389

== ENCOUNTER 2023-02-14 13:06 | Outpatient (AMB) | payer OTHER, SELFPAY ==
[2023-02-14 13:08] VITALS: BP 110/74; BMI 35.3
--- NOTE | 2023-02-14 13:08 | A.OFFVISPN_ITS ---
Intake Vital Signs 02/14/23 13:08 Height 5 ft 1 in Weight 187 lb BMI 35.3 BP 110/74 Intake Visit Reasons: KIERRA Intake Note: The patient agreed to use of a medical physics teacher during this encounter. Scribed for KRYSTEN Barber by Clau Richardson medical physics teacher, on 02/14/2023 at 1:25 pm EST Allergies sulfamethoxazole [From BACTRIM] Allergy (Unknown, Verified 02/14/23 13:08) HIVES trimethoprim [From BACTRIM] Allergy (Unknown, Verified 02/14/23 13:08) HIVES Patient : Yes [facility] Medical History (Updated 01/17/23 @ 11:10 by Lauren Lynne) Encounter for supervision of other normal , second trimester Anxiety Neck pain Allergic rhinitis Ophthalmoplegic migraine Surgical History No pertinent past surgical history Family History Mother COPD (chronic obstructive pulmonary disease) Social History Household Members: Spouse and Children Both parents involved: Yes Caregiver staying overnight: No Housing: Apartment Are you a primary critical care educator to a significant other at home: No Do you presently have visiting nurse or other home services: No 75 years or older and lives alone: No Alcohol intake: never Patient Tobacco Use Status: Never used Tobacco e-Cigarette/Vaping Use: Never Used Second Hand Smoke Exposure: No Agree to transfusion: Yes service: No Current occupational status: unemployed Current occupational exposures/hazards: No Gender identity: Female Cognitive needs: No Hearing needs: No Vision needs: No Female Reproductive History Menstrual Age of Menarche: 15 History History 3 Elective abortions 0 Para 2 Spontaneous abortions 0 Hx # Term Pregnancies 2 Ectopic pregnancies 0 Hx # Pregnancies 0 Multiple births 0 Past Pregnancies Del. Date GA/Weeks Outcome Route Wt Inf Gender Labor Dilia Anesthesia Location Provider Complicate 05/13/13 42 live - full term vaginal delivery 9 lb 14 oz Male epidural [facility] none 12/06/17 40 live - full term vaginal delivery 7 lb Female epidural [facility] none Visit [facility] Calculator Estimated Delivery Date Method Current WG Current Estimate 07/23/23 LMP (Certain) 17w 2d Other Estimates 07/22/23 Ultrasound #1 17w 3d Expected Delivery Route/Plan Vaginal Specific Issues/Plans EDC: 07/23/23 O pos Problem List: 1. Obesity BMI 37.2--not able to tolerate the first Gtt due to being sick, will attempt th is again when feeling better. 2. Varicella non immune: advised pp vaccination 3. 12/31/2022 diagnosed with COVID at [facility]. See telephone encounter activity NT: pending 01/16/23... First trimester screen: FAS: 03/05/23 WIC: enrolled Vaccination status: COVID: positive 12/2022 Tdap: Flu: encouraged Social hx: lives w/partner Romario, their two older children Labor support: Romario plan: control: OB Visit Log Initial Weight: 200 lb Date -?-?-?-?-?-?-?-?-?-?-?-?- EGA Weight Gest Week Fundal Ht Present FHR move Efface % Edema BP PrePreg We Weight GTT -?-?-?-?-?-?-?-?-?-?-?-?- Glucose LV Protein Blood Type 12/12/22 -?-?-?-?-?-?-?-?-?-?-?-?- 8w 1d 197 lb 2 oz (-2 lb 14 oz) 197 lb 2 oz -?-?-?-?-?-?-?-?-?-?-?-?- 12/20/22 -?-?-?-?-?-?-?-?-?-?-?-?- 9w 2d 196 lb (-4 lb) 130/80 196 lb -?-?-?-?-?-?-?-?-?-?-?-?- 01/17/23 -?-?-?-?-?-?-?-?-?-?-?-?- 13w 2d 191 lb (-9 lb) 160 112/70 191 lb -?-?-?-?-?-?-?-?-?-?-?-?- 02/14/23 -?-?-?-?-?-?-?-?-?-?-?-?- 17w 2d 187 lb (-13 lb) 17 150 110/74 187 lb -?-?-?-?-?-?-?-?-?--?-?-?- Notes Visit Date: 02/14/23 Last Updated by: Chely eRdmond CNM Note author: Chely Redmond CNM/Clau Richardson, Performance Solutions Specialist. 17.2 wk. KIERRA. Taking PNV, Doing well with no concerns. Good appetite, stays well hydrated. Denies any LOF, VB, abd. pain. or urinary symptoms. Reports quickening. She had strep throat last week, feeling better. FAS is scheduled for 03/05/23. Could not tolerate GTT, vomited 2x. She has tried to do the test since feeling better. Discussed: PTL s/s-LOF/Ctx's/VB, when to seek emergent care. Hydrate well, 8-10 glasses of water daily. Encouraged flu vaccine. Recommended trying GTT next week. If she cannot tolerate, will consider glucometer testing. RTO 4 weeks. Visit Date: 01/17/23 Last Updated by: Chely Redmond CNM Note author: Chely Redmond CNM/Lauren Lynne medical physics teacher 13.2 wk KIERRA. Feeling well. Taking PNV. Hydrating well and good appetite Good FM, no LOF, VB or abd pain. Agreeable to do her Gtt. today due to nausea improving. Denies PEC, HTN or diabetes in previous . Discussed: PTL - LOF, VB, abd pain. FAS US in 5-6 weeks. NT is pending from 01/17. Call if any VB or other concerns. Informed re: Flu vaccine, she plans Flu vaccine when in stock at her next visit. Discussed to call the service here for any emergencies/deliveries to be directed to [facility]. All of her questions and concerns were addressed to the best of my ability and shared decision making. She is agreeable to plan of care. RTO 4 wks. Visit Date: 12/20/22 Last Updated by: Sarah Orozco CNM Patient is here with her and little girl for their 1st visit her daughter is super excited about trying to be able to hear the heartbeat today she would be 9 weeks and 2 days by dates and ultrasound which concur essentially. She is starting to be able to eat a little bit more and has been eating a lot of watermelon and honeydew melon. She has her blood work already ordered but is going to be going some morning to get it because it involves a 1 hour GTT as well discussed caution with eating and trying not to gain much weight and being careful around carbs. Issues around care inside of delivery and ultrasounds of already been reviewed and she will have her nuchal translucency ultrasound on 01/03 at [facility]. She knows that for any complications we might transfer care. PE was within normal limits very difficult to palpate the uterus secondary to adipose Pap done as well as testing for STI and other vaginal shahid. Unable to auscultate heart despite efforts. Consistent with 9 weeks gestation with adipose. She will go for blood work some morning soon and NT ultrasound 914 I will see her in 1 month. Visit Date: 12/12/22 Last Updated by: Irina Santacruz Onur Amaya is a very pleasant 32 year old here for nurse intake visit. This is her 3rd . She and her family are very excited about the . LMP 10/16/22 with DELORES 07/23/23 and GA today of 8w1d. Early US on 11/27/22 @ 6w1d gives DELORES of 07/22/23 and GA 8w2d. She is already scheduled for NT US/1st trimester screening [place] [facility] [place]. BMI 37.2 and early glucose has been added to labs. Pt was given the folder. She was advised MD coverage 12/11 and how to reach MD after hours/weekends and holidays. We discussed danger signs and to call or go to hospital if she experiences pelvic pain and or vaginal bleeding. Pt is aware she will deliver at [facility] and have ultrasounds there as well. Pt is having nausea and vomiting. She was given B6/Unisom without relief. Pt was advised to take B6 tid even if she does not have nausea as it will work better. Taking Unisom before bed. She is also taking her PNV before bed. We reviewed first trimester education. Pt verbalizes understanding and agrees with plan. She will schedule her OB PE today and she is aware labs will be ordered. No further questions. Results AMB Urinalysis, Automated UA Leukoctes 0.5 Ethan/uL Last Edit by [facility] on 02/14/23 13:1 5 UA Nitrite Negative Last Edit by Barbara [facility] on 02/14/23 13:15 UA Urobilinogen 0 mg/dL Last Edit by Barbara Maguire, [facility] on 02/14/23 13:1 5 UA Protein 0 mg/dL Last Edit by Barbara [facility] on 02/14/23 13:15 UA pH 6.0 Last Edit by Barbara Maguire, [facility] on 02/14/23 13:15 UA Blood 0.5 John/uL Last Edit by Barbara [facility] on 02/14/23 13:15 UA Specific [place] 1.015 Last Edit by Barbara [facility] on 02/14/23 13:15 UA Ketone Negative Last Edit by Barbara [facility] on 02/14/23 13:15 UA Bilirubin 0 mg/dL Last Edit by Barbara [facility] on 02/14/23 13:15 UA Glucose 0 mg/dL Last Edit by Barbara [facility] on 02/14/23 13:15 Results Reviewed Results Reviewed: Laboratory Last Values Urine pH (Auto) 6.0 02/14/23 13:15 Specific [place] (Auto) 1.015 02/14/23 13:15 Urine Protein (Auto) 0 mg/dL 02/14/23 13:15 Glucose (UA)(Auto) 0 mg/dL 02/14/23 13:15 Urine Ketones (Auto) Negative 02/14/23 13:15 Urine Blood (Auto) 0.5 John/uL 02/14/23 13:15 Urine Nitrite (Auto) Negative 02/14/23 13:15 Urine Bilirubin (Auto) 0 mg/dL 02/14/23 13:15 Urine Urobilinogen (Auto) 0 mg/dL 02/14/23 13:15 Leukocyte Esterase (Auto) 0.5 Ethan/uL 02/14/23 13:15 Assessment & Plan Assessment & Plan (1) Encounter for supervision of other normal , second trimester: Code(s): Z34.82 - Encounter for supervision of other normal , second trimester Category: Medical Orders: Orders AMB Urinalysis Automated Today Z34.82 - Encounter for supervision of other normal , second trimester Glucose 1 Hour PP 50gm Dose Today E66.9 - Obesity, unspecified Coding Level of Care Code [place] Diagnoses Encounter for supervision of other normal , second trimester Z34.82
== END 2023-02-14 14:17 | disposition home or self-care (01) ==
LOC: HO.HWS 13:06
PROVIDERS: PCP Internal Medicine; Visit Provider Advanced Practice Midwife
DX: Z34.82 Encounter for supervision of other normal pregnancy, second trimester (principal)
CPT/HCPCS: 25942

== ENCOUNTER → 2023-02-14 13:06 | Outpatient (BNVA) | payer OTHER, SELFPAY | PROVIDERS: PCP Internal Medicine; Visit Provider Advanced Practice Midwife | DX: Z34.82 Encounter for supervision of other normal pregnancy, second trimester (principal); Z3A.17 17 weeks gestation of pregnancy | CPT/HCPCS: 81003; 99212 ==

== ENCOUNTER 2023-03-12 10:18 | Outpatient (AMB) | payer OTHER, SELFPAY ==
--- NOTE | 2023-03-12 10:20 | A.OFFVISPN_ITS ---
Intake Vital Signs 03/12/23 10:21 Height 5 ft 1 in Weight 189 lb BMI 35.7 BP 114/66 Intake Visit Reasons: KIERRA 20-24 week Allergies sulfamethoxazole [From BACTRIM] Allergy (Unknown, Verified 03/12/23 10:20) HIVES trimethoprim [From BACTRIM] Allergy (Unknown, Verified 03/12/23 10:20) HIVES Patient : Yes [facility] Medical History (Updated 01/17/23 @ 11:10 by Lauren Lynne) Encounter for supervision of other normal , second trimester Anxiety Neck pain Allergic rhinitis Ophthalmoplegic migraine Surgical History No pertinent past surgical history Family History Mother COPD (chronic obstructive pulmonary disease) Household Members: Spouse and Children Both parents involved: Yes Caregiver staying overnight: No Housing: Apartment Are you a primary child care centre director to a significant other at home: No Do you presently have visiting nurse or other home services: No 75 years or older and lives alone: No Alcohol intake: never Patient Tobacco Use Status: Never used Tobacco e-Cigarette/Vaping Use: Never Used Second Hand Smoke Exposure: No Agree to transfusion: Yes service: No Current occupational status: unemployed Current occupational exposures/hazards: No Gender identity: Female Cognitive needs: No Hearing needs: No Vision needs: No Female Reproductive History Menstrual Age of Menarche: 15 History History 3 Elective abortions 0 Para 2 Spontaneous abortions 0 Hx # Term Pregnancies 2 Ectopic pregnancies 0 Hx # Pregnancies 0 Multiple births 0 Past Pregnancies Del. Date GA/Weeks Outcome Route Wt Inf Gender Labor Dilia Anesthesia Location Provider Complicate 05/13/13 42 live - full term vaginal delivery 9 lb 14 oz Male epidural [facility] none 12/06/17 40 live - full term vaginal delivery 7 lb Female epidural [facility] none Visit [facility] Calculator Estimated Delivery Date Method Current WG Current Estimate 07/23/23 LMP (Certain) 21w 0d Other Estimates 07/22/23 Ultrasound #1 21w 1d Expected Delivery Route/Plan Vaginal Specific Issues/Plans EDC: 07/23/23 O pos Problem List: 1. Obesity BMI 37.2--not able to tolerate the first Gtt due to being sick, will attempt this again when feeling better. 2. Varicella non immune: advised pp vaccination 3. 12/31/2022 diagnosed with COVID at [facility]. See telephone encounter activity NT: pending 01/16/23... First trimester screen: FAS: 03/05/23 WIC: enrolled Vaccination status: COVID: positive 12/2022 Tdap: Flu: Social hx: lives w/partner Romario, their two older children Labor support: Romario plan: control: OB Visit Log Initial Weight: 200 lb Date -?-?-?-?-?-?-?-?-?-?-?-?- EGA Weight Gest Week Fundal Ht Present FHR move Efface % Edema BP PrePreg We Weight GTT -?-?-?-?-?-?-?-?-?-?-?-?- Glucose LV Protein Blood Type 12/12/22 -?-?-?-?-?-?-?-?-?-?-?-?- 8w 1d 197 lb 2 oz (-2 lb 14 oz) 197 lb 2 oz -?-?-?-?-?-?-?-?-?-?-?-?- 12/20/22 -?-?-?-?-?-?-?-?-?-?-?-?- 9w 2d 196 lb (-4 lb) 130/80 196 lb -?-?-?-?-?-?-?-?-?-?-?-?- 01/17/23 -?-?-?-?-?-?-?-?-?-?-?-?- 13w 2d 191 lb (-9 lb) 160 112/70 191 lb -?-?-?-?-?-?-?-?-?-?-?-?- 02/14/23 -?-?-?-?-?-?-?-?-?-?-?-?- 17w 2d 187 lb (-13 lb) 17 150 110/74 187 lb -?-?-?-?-?-?-?-?-?-?-?-?- 03/12/23 -?-?-?-?-?-?-?-?-?-?-?-?- 21w 0d 189 lb (-11 lb) 22 150 114/66 189 lb -?-?-?-?-?-?-?-?-?-?-?-?- Notes Visit Date: 03/12/23 Last Updated by: Chely Redmond CNM Note author: Chely Redmond CNM 21wk. KIERRA. Taking PNV, Doing well with no concerns. Good appetite, stays well hydrated. Denies any LOF, VB, abd. pain. or urinary symptoms. Quickening noted. Had US and is concerned about the placenta she was told to speak to me about. Ant. marginal insertion noted. Reviewed: PTL s/s-LOF/Ctx's/VB, when to seek emergent care. discomforts, self help measures. Kick counts/FM and when to call for further evaluation. Encouraged a healthy well balanced diet, regular walking/exercise in . Hydrate well, 8-10 glasses of water daily. Flu vaccine today. Placenta, findings. follow up 3rd trimester growth check or prn. RTO 4wk. Visit Date: 02/14/23 Last Updated by: Chely Redmond CNM Note author: Chely Redmond CNM/Clau Richardson, Parts Counter Sales Person. 17.2 wk. KIERRA. Taking PNV, Doing well with no concerns. Good appetite, stays well hydrated. Denies any LOF, VB, abd. pain. or urinary symptoms. Reports quickening. She had strep throat last week, feeling better. FAS is scheduled for 03/05/23. Could not tolerate GTT, vomited 2x. She has tried to do the test since feeling better. Discussed: PTL s/s-LOF/Ctx's/VB, when to seek emergent care. Hydrate well, 8-10 glasses of water daily. Encouraged flu vaccine. Recommended trying GTT next week. If she cannot tolerate, will consider glucometer testing. RTO 4 weeks. Visit Date: 01/17/23 Last Updated by: Chely Redmond CNM Note author: Chely Redmond CNM/Lauren Lynne medical billing supervisor 13.2 wk KIERRA. Feeling well. Taking PNV. Hydrating well and good appetite Good FM, no LOF, VB or abd pain. Agreeable to do her Gtt. today due to nausea improving. Denies PEC, HTN or diabetes in previous . Discussed: PTL - LOF, VB, abd pain. FAS US in 5-6 weeks. NT is pending from 01/17. Call if any VB or other concerns. Informed re: Flu vaccine, she plans Flu vaccine when in stock at her next visit. Discussed to call the service here for any emergencies/deliveries to be directed to [facility]. All of her questions and concerns were addressed to the best of my ability and shared decision making. She is agreeable to plan of care. RTO 4 wks. Visit Date: 12/20/22 Last Updated by: Sarah Orozco CNM Patient is here with her and little girl for their 1st visit her daughter is super excited about trying to be able to hear the heartbeat today she would be 9 weeks and 2 days by dates and ultrasound which concur essentially. She is starting to be able to eat a little bit more and has been eating a lot of watermelon and honeydew melon. She has her blood work already ordered but is going to be going some morning to get it because it involves a 1 hour GTT as well discussed caution with eating and trying not to gain much weight and being careful around carbs. Issues around care inside of delivery and ultrasounds of already been reviewed and she will have her nuchal translucency ultrasound on 01/03 at [facility]. She knows that for any complications we might transfer care. PE was within normal limits very difficult to palpate the uterus secondary to adipose Pap done as well as testing for STI and other vaginal shahid. Unable to auscultate heart despite efforts. Consistent with 9 weeks gestation with adipose. She will go for blood work some morning soon and NT ultrasound 914 I will see her in 1 month. Visit Date: 12/12/22 Last Updated by: Irina Santacruz Onur Amaya is a very pleasant 32 year old here for nurse intake visit. This is her 3rd . She and her family are very excited about the . LMP 10/16/22 with DELORES 07/23/23 and GA today of 8w1d. Early US on 11/27/22 @ 6w1d gives DELORES of 07/22/23 and GA 8w2d. She is already scheduled for NT US/1st trimester screening at [facility] on 01/03/23. BMI 37.2 and early glucose has been added to labs. Pt was given the folder. She was advised MD coverage 12/11 and how to reach MD after hours/weekends and holidays. We discussed danger signs and to call or go to hospital if she experiences pelvic pain and or vaginal bleeding. Pt is aware she will deliver at [facility] and have ultrasounds there as well. Pt is having nausea and vomiting. She was given B6/Unisom without relief. Pt was advised to take B6 tid even if she does not have nausea as it will work better. Taking Unisom before bed. She is also taking her PNV before bed. We reviewed first trimester education. Pt verbalizes understanding and agrees with plan. She will schedule her OB PE today and she is aware labs will be ordered. No further questions. Office Procedures Flu Questionnaire Does the patient have a severe egg allergy?: No Does the patient have severe life threatening allergies?: No Does the patient have a fever or illness today?: No Has the patient ever had Guillain-[place] Syndrome?: No Has the patient ever had any past reaction to a flu shot?: No Results AMB Urinalysis, Automated UA Leukoctes 2 Ethan/uL Last Edit by RUSS Barnhart on 03/12/23 10:29 UA Nitrite Negative Last Edit by RUSS Barnhart on 03/12/23 10:29 UA Urobilinogen 0 mg/dL Last Edit by RUSS Barnhart on 03/12/23 10:2 9 UA Protein 0.5 mg/dL Last Edit by RUSS Barnhart on 03/12/23 10:29 UA pH 6.0 Last Edit by RUSS Barnhart on 03/12/23 10:29 UA Blood 0 John/uL Last Edit by RUSS Barnhart on 03/12/23 10:29 UA Specific [place] 1.025 Last Edit by RUSS Barnhart on 03/12/23 10:29 UA Ketone Negative Last Edit by RUSS Barnhart on 03/12/23 10:29 UA Bilirubin 0 mg/dL Last Edit by RUSS Barnhart on 03/12/23 10:29 UA Glucose 0 mg/dL Last Edit by RUSS Barnhart on 03/12/23 10:29 Immunizations flu vacc [id number] 6mos up(PF) 60 mcg(15 mcgx4)/0.5 mL IM syringe Performing Provider: Chely Redmond CNM Performing Location: [facility] Administered by: Irina Mohr on 03/12/23 11:23 Dose Route Admin Location Dispensed Lot Number Expiration Date [facility] [employer] 0.5 mL IM Right Deltoid 0.5 mL [id number] 10/20/23 [id number] Medical Envelope VIS Given Date VIS Provided VIS Publication Date 03/12/23 Single Vaccine 20 Eligibility Eligibility Date Funding Source Not [facility] Eligible 03/12/23 Private Results Reviewed Results Reviewed: Laboratory Last Values Urine pH (Auto) 6.0 03/12/23 10:28 Specific [place] (Auto) 1.025 03/12/23 10:28 Urine Protein (Auto) 0.5 mg/dL 03/12/23 10:28 Glucose (UA)(Auto) 0 mg/dL 03/12/23 10:28 Urine Ketones (Auto) Negative 03/12/23 10:28 Urine Blood (Auto) 0 John/uL 03/12/23 10:28 Urine Nitrite (Auto) Negative 03/12/23 10:28 Urine Bilirubin (Auto) 0 mg/dL 03/12/23 10:28 Urine Urobilinogen (Auto) 0 mg/dL 03/12/23 10:28 Leukocyte Esterase (Auto) 2 Ethan/uL 03/12/23 10:28 Assessment & Plan Assessment & Plan Orders: Orders AMB Urinalysis Automated Today Z34.82 - Encounter for supervision of other normal , second trimester Influenza [id number] Immunization Today Z23 - Encounter for immunization Coding Level of Care Code [place]
[2023-03-12 10:21] VITALS: BP 114/66; BMI 35.7
== END 2023-03-12 11:14 | disposition home or self-care (01) ==
LOC: HO.HWS 10:18
PROVIDERS: PCP Internal Medicine; Visit Provider Advanced Practice Midwife
DX: Z23 Encounter for immunization (principal); Z34.82 Encounter for supervision of other normal pregnancy, second trimester
CPT/HCPCS: 25942

== ENCOUNTER → 2023-03-12 10:18 | Outpatient (BNVA) | payer OTHER, SELFPAY | PROVIDERS: PCP Internal Medicine; Visit Provider Advanced Practice Midwife | DX: Z34.82 Encounter for supervision of other normal pregnancy, second trimester (principal); Z23 Encounter for immunization; Z3A.21 21 weeks gestation of pregnancy | CPT/HCPCS: 81003; 90471; 90686; 99212 ==

== ENCOUNTER 2023-04-09 08:52 | Outpatient (AMB) | payer OTHER, SELFPAY ==
[2023-04-09 09:06] VITALS: BP 100/66; BMI 35.5
--- NOTE | 2023-04-09 09:06 | MHC.OFFVISPN ---
Intake Vital Signs 04/09/23 09:06 Height 5 ft 1 in Weight 188 lb BMI 35.5 BP 100/66 Intake Visit Reasons: KIERRA Allergies sulfamethoxazole [From BACTRIM] Allergy (Unknown, Verified 04/09/23 09:06) HIVES trimethoprim [From BACTRIM] Allergy (Unknown, Verified 04/09/23 09:06) HIVES Patient : Yes [facility] Medical History (Updated 04/09/23 @ 09:27 by Chely Redmond CNM) Marginal insertion of umbilical cord affecting management of mother Encounter for supervision of other normal , second trimester Anxiety Neck pain Allergic rhinitis Ophthalmoplegic migraine Surgical History No pertinent past surgical history Family History Mother COPD (chronic obstructive pulmonary disease) Social History Household Members: Spouse and Children Both parents involved: Yes Caregiver staying overnight: No Housing: Apartment Are you a primary respiratory care technician to a significant other at home: No Do you presently have visiting nurse or other home services: No 75 years or older and lives alone: No Alcohol intake: never Patient Tobacco Use Status: Never used Tobacco e-Cigarette/Vaping Use: Never Used Second Hand Smoke Exposure: No Agree to transfusion: Yes service: No Current occupational status: unemployed Current occupational exposures/hazards: No Gender identity: Female Cognitive needs: No Hearing needs: No Vision needs: No Female Reproductive History Menstrual Age of Menarche: 15 History History 3 Elective abortions 0 Para 2 Spontaneous abortions 0 Hx # Term Pregnancies 2 Ectopic pregnancies 0 Hx # Pregnancies 0 Multiple births 0 Past Pregnancies Del. Date GA/Weeks Outcome Route Wt Inf Gender Labor Dilia Anesthesia Location Provider Complicate 05/13/13 42 live - full term vaginal delivery 9 lb 14 oz Male epidural [facility] none 12/06/17 40 live - full term vaginal delivery 7 lb Female epidural [facility] none Visit [facility] Calculator Estimated Delivery Date Method Current WG Current Estimate 07/23/23 LMP (Certain) 25w 0d Other Estimates 07/22/23 Ultrasound #1 25w 1d Expected Delivery Route/Plan Vaginal Specific Issues/Plans EDC: 07/23/23 O pos Problem List: 1. Obesity BMI 37.2--not able to tolerate the first Gtt due to being sick, will attempt this again when feeling better. 2. Varicella non immune: advised pp vaccination 3. 12/31/2022 diagnosed with COVID at [facility]. See telephone encounter activity 4. Marginal insertion cord. Follow up 32 wks. NT: pending 01/16/23... 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 Labor support: Romario plan: control: OB Visit Log Initial Weight: 200 lb Date <del>?</del> EGA Weight Gest Week Fundal Ht Present FHR move Efface % Edema BP PrePreg We Weight GTT <del>?</del> Glucose LV Protein Blood Type 12/12/22 <del>?</del> 8w 1d 197 lb 2 oz (-2 lb 14 oz) 197 lb 2 oz <del>?</del> 12/20/22 <del>?</del> 9w 2d 196 lb (-4 lb) 130/80 196 lb <del>?</del> 01/17/23 <del>?</del> 13w 2d 191 lb (-9 lb) 160 112/70 191 lb <del>?</del> 02/14/23 <del>?</del> 17w 2d 187 lb (-13 lb) 17 150 110/74 187 lb <del>?</del> 03/12/23 <del>?</del> 21w 0d 189 lb (-11 lb) 22 150 114/66 189 lb <del>?</del> 04/09/23 <del>?</del> 25w 0d 188 lb (-12 lb) 25 140 active 100/66 188 lb <del>?</del> Notes Visit Date: 04/09/23 Last Updated by: Chely Redmond CNM Note author: Chely Redmond CNM. 25wk. KIERRA. Taking PNV, Doing well with no concerns. Good appetite, stays well hydrated. Denies any LOF, VB, abd. pain or urinary symptoms. Good FM. Reviewed: PTL s/s-LOF/Ctx's/VB, when to seek emergent care. discomforts, self help measures. FMC and when to call for further evaluation. Encouraged a healthy well balanced diet, regular walking/exercise in . Hydrate well, 8-10 glasses of water daily. Glucose testing at next visit. RSV information provided. Discussed control-uncertain. Follow-up ultrasound for third-trimester ordered. Consider transferred to [facility] to meet the midwives in [facility]. She declines, and reports she did that with the [place] midwives, met several of them but when it came time to deliver not 1 of them she met was present, her preference is to stay here for the remaining . RTO 3. Visit Date: 03/12/23 Last Updated by: Chely Redmond CNM Note author: Chely Redmond CNM 21wk. KIERRA. Taking PNV, Doing well with no concerns. Good appetite, stays well hydrated. Denies any LOF, VB, abd. pain. or urinary symptoms. Quickening noted. Had US and is concerned about the placenta she was told to speak to me about. Ant. marginal insertion noted. Reviewed: PTL s/s-LOF/Ctx's/VB, when to seek emergent care. discomforts, self help measures. Kick counts/FM and when to call for further evaluation. Encouraged a healthy well balanced diet, regular walking/exercise in . Hydrate well, 8-10 glasses of water daily. Flu vaccine today. Placenta, findings. follow up 3rd trimester growth check or prn. RTO 4wk. Visit Date: 02/14/23 Last Updated by: Chely Redmond CNM Note author: Chely Redmond CNM/Clau Richardson Design Quality Engineer. 17.2 wk. KIERRA. Taking PNV, Doing well with no concerns. Good appetite, stays well hydrated. Denies any LOF, VB, abd. pain. or urinary symptoms. Reports quickening. She had strep throat last week, feeling better. FAS is scheduled for 03/05/23. Could not tolerate GTT, vomited 2x. She has tried to do the test since feeling better. Discussed: PTL s/s-LOF/Ctx's/VB, when to seek emergent care. Hydrate well, 8-10 glasses of water daily. Encouraged flu vaccine. Recommended trying GTT next week. If she cannot tolerate, will consider glucometer testing. RTO 4 weeks. Visit Date: 01/17/23 Last Updated by: Chely Redmond CNM Note author: Chely Redmond CNM/Lauren Lynne medical staff director 13.2 wk KIERRA. Feeling well. Taking PNV. Hydrating well and good appetite Good FM, no LOF, VB or abd pain. Agreeable to do her Gtt. today due to nausea improving. Denies PEC, HTN or diabetes in previous . Discussed: PTL - LOF, VB, abd pain. FAS US in 5-6 weeks. NT is pending from 01/17. Call if any VB or other concerns. Informed re: Flu vaccine, she plans Flu vaccine when in stock at her next visit. Discussed to call the service here for any emergencies/deliveries to be directed to [facility]. All of her questions and concerns were addressed to the best of my ability and shared decision making. She is agreeable to plan of care. RTO 4 wks. Visit Date: 12/20/22 Last Updated by: Sarah Orozco CNM Patient is here with her and little girl for their 1st visit her daughter is super excited about trying to be able to hear the heartbeat today she would be 9 weeks and 2 days by dates and ultrasound which concur essentially. She is starting to be able to eat a little bit more and has been eating a lot of watermelon and honeydew melon. She has her blood work already ordered but is going to be going some morning to get it because it involves a 1 hour GTT as well discussed caution with eating and trying not to gain much weight and being careful around carbs. Issues around care inside of delivery and ultrasounds of already been reviewed and she will have her nuchal translucency ultrasound on 01/03 at [facility]. She knows that for any complications we might transfer care. PE was within normal limits very difficult to palpate the uterus secondary to adipose Pap done as well as testing for STI and other vaginal shahid. Unable to auscultate heart despite efforts. Consistent with 9 weeks gestation with adipose. She will go for blood work some morning soon and NT ultrasound 914 I will see her in 1 month. Visit Date: 12/12/22 Last Updated by: Irina Santacruz Onur Amaya is a very pleasant 32 year old here for nurse intake visit. This is her 3rd . She and her family are very excited about the . LMP 10/16/22 with DELORES 07/23/23 and GA today of 8w1d. Early US on 11/27/22 @ 6w1d gives DELORES of 07/22/23 and GA 8w2d. She is already scheduled for NT US/1st trimester screening at [facility] on 01/03/23. BMI 37.2 and early glucose has been added to labs. Pt was given the folder. She was advised MD coverage 12/11 and how to reach MD after hours/weekends and holidays. We discussed danger signs and to call or go to hospital if she experiences pelvic pain and or vaginal bleeding. Pt is aware she will deliver at [facility] and have ultrasounds there as well. Pt is having nausea and vomiting. She was given B6/Unisom without relief. Pt was advised to take B6 tid even if she does not have nausea as it will work better. Taking Unisom before bed. She is also taking her PNV before bed. We reviewed first trimester education. Pt verbalizes understanding and agrees with plan. She will schedule her OB PE today and she is aware labs will be ordered. No further questions. Results AMB Urinalysis, Automated UA Leukoctes 0.5 Ethan/uL Last Edit by RUSS Barnhart on 04/09/23 09:15 UA Nitrite Negative Last Edit by Barbara Maguire [facility] on 04/09/23 09:15 UA Urobilinogen 0 mg/dL Last Edit by Barbara Maguire [facility] on 04/09/23 09:15 UA Protein 0.5 mg/dL Last Edit by Barbara Maguire A on 04/09/23 09:15 UA pH 6.0 Last Edit by Barbara Maguire [facility] on 04/09/23 09:15 UA Blood 0 John/uL Last Edit by Barbara Maguire A on 04/09/23 09:15 UA Specific [place] 1.025 Last Edit by Barbara Maguire [facility] on 04/09/23 09:15 UA Ketone Negative Last Edit by Barbara Maguire [facility] on 04/09/23 09:15 UA Bilirubin 0 mg/dL Last Edit by Barbara Maguire [facility] on 04/09/23 09:15 UA Glucose 0 mg/dL Last Edit by Barbara Maguire [facility] on 04/09/23 09:15 Results Reviewed Results Reviewed: Laboratory Last Values Urine pH (Auto) 6.0 04/09/23 09:14 Specific [place] (Auto) 1.025 04/09/23 09:14 Urine Protein (Auto) 0.5 mg/dL 04/09/23 09:14 Glucose (UA)(Auto) 0 mg/dL 04/09/23 09:14 Urine Ketones (Auto) Negative 04/09/23 09:14 Urine Blood (Auto) 0 John/uL 04/09/23 09:14 Urine Nitrite (Auto) Negative 04/09/23 09:14 Urine Bilirubin (Auto) 0 mg/dL 04/09/23 09:14 Urine Urobilinogen (Auto) 0 mg/dL 04/09/23 09:14 Leukocyte Esterase (Auto) 0.5 Ethan/uL 04/09/23 09:14 Coding Level of Care Code Jansen Diagnoses Encounter for supervision of other normal , second trimester Z34.82 Marginal insertion of umbilical cord affecting management of mother O43.199 Assessment & Plan Assessment & Plan (1) Encounter for supervision of other normal , second trimester: Code(s): Z34.82 - Encounter for supervision of other normal , second trimester Category: Medical (2) Marginal insertion of umbilical cord affecting management of mother: Code(s): O43.199 - Other malformation of placenta, unspecified trimester Category: Medical Orders: Orders AMB Urinalysis Automated Today Z34.82 - Encounter for supervision of other normal , second trimester Syphilis Screen Today Z20.2 - Contact with and (suspected) exposure to infections with a predominantly sexual mode of transmission, Z34.82 - Encounter for supervision of other normal , second trimester Complete Blood Count no Diff Today Z34.82 - Encounter for supervision of other normal , second trimester Glucose 1 Hour PP 50gm Dose Today Z34.82 - Encounter for supervision of other normal , second trimester OB follow up 05/28/23 O43.199 - Other malformation of placenta, unspecified trimester
== END 2023-04-09 09:35 | disposition home or self-care (01) ==
LOC: HO.HWS 08:52
PROVIDERS: PCP Internal Medicine; Visit Provider Advanced Practice Midwife
DX: Z34.82 Encounter for supervision of other normal pregnancy, second trimester (principal); O43.199 Other malformation of placenta, unspecified trimester
CPT/HCPCS: 25942

== ENCOUNTER → 2023-04-09 08:52 | Outpatient (BNVA) | payer OTHER, SELFPAY | PROVIDERS: PCP Internal Medicine; Visit Provider Advanced Practice Midwife | DX: O43.192 Other malformation of placenta, second trimester (principal); Z3A.25 25 weeks gestation of pregnancy | CPT/HCPCS: 81003; 99212 ==

== ENCOUNTER 2023-04-30 09:29 | Outpatient (AMB) | payer OTHER, SELFPAY ==
--- NOTE | 2023-04-30 09:40 | A.OFFVISPN_ITS ---
Intake Vital Signs 04/30/23 09:42 Height 5 ft 1 in Weight 193 lb BMI 36.5 BP 120/70 Intake Visit Reasons: KIERRA Utilization Management Manager Required: No Information Interpreted: clinical only Allergies sulfamethoxazole [From BACTRIM] Allergy (Unknown, Verified 04/30/23 09:45) HIVES trimethoprim [From BACTRIM] Allergy (Unknown, Verified 04/30/23 09:45) HIVES Patient : Yes Do you need a note to return to daycare/school/sports/work: No PFSH Medical History Marginal insertion of umbilical cord affecting management of mother Encounter for supervision of other normal , second trimester Anxiety Neck pain Allergic rhinitis Ophthalmoplegic migraine Surgical History No pertinent past surgical history Family History Mother COPD (chronic obstructive pulmonary disease) Social History Household Members: Spouse and Children Both parents involved: Yes Caregiver staying overnight: No Housing: Apartment Are you a primary client care coordinator to a significant other at home: No Do you presently have visiting nurse or other home services: No 75 years or older and lives alone: No Alcohol intake: never Patient Tobacco Use Status: Never used Tobacco e-Cigarette/Vaping Use: Never Used Second Hand Smoke Exposure: No Agree to transfusion: Yes Patient : Yes service: No Current occupational status: unemployed Current occupational exposures/hazards: No Gender identity: Female Cognitive needs: No Hearing needs: No Vision needs: No Female Reproductive History Menstrual Age of Menarche: 15 Total pregnancies: 3 Full term: 2 History History 3 Elective abortions 0 Para 2 Spontaneous abortions 0 Hx # Term Pregnancies 2 Ectopic pregnancies 0 Hx # Pregnancies 0 Multiple births 0 Past Pregnancies Del. Date GA/Weeks Outcome Route Wt Inf Gender Labor Dilia Anesthesia Location Provider Complicate 05/13/13 42 live - full term vaginal delivery 9 lb 14 oz Male epidural [facility] none 12/06/17 40 live - full term vaginal delivery 7 lb Female epidural [facility] none Questionnaire History History : 3 Visit [facility] Calculator Estimated Delivery Date Method Current WG Current Estimate 07/23/23 LMP (Certain) 28w 0d Other Estimates 07/22/23 Ultrasound #1 28w 1d Expected Delivery Route/Plan Vaginal Specific Issues/Plans EDC: 07/23/23 O pos Problem List: 1. Obesity BMI 37.2--not able to tolerate the first Gtt due to being sick, will attempt this again when feeling better. 2. Varicella non immune: advised pp vaccination 3. 12/31/2022 diagnosed with COVID at [facility]. See telephone encounter activity 4. Marginal insertion cord. Follow up 32 wks. NT: pending 01/16/23... 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 Labor support: Romario plan: control: ? [place] OB Visit Log Initial Weight: 200 lb Date -?-?-?-?-?-?-?-?-?-?-?-?- EGA Weight Gest Week Fundal Ht Present FHR move Efface % Edema BP PrePreg We Weight GTT -?-?-?-?-?-?-?-?-?-?-?-?- Glucose LV Protein Blood Type 12/12/22 -?-?-?-?-?-?-?-?-?-?-?-?- 8w 1d 197 lb 2 oz (-2 lb 14 oz) 197 lb 2 oz -?-?-?-?-?-?-?-?-?-?-?-?- 12/20/22 -?-?-?-?-?-?-?-?-?-?-?-?- 9w 2d 196 lb (-4 lb) 130/80 196 lb -?-?-?-?-?-?-?-?-?-?-?-?- 01/17/23 -?-?-?-?-?-?-?-?-?-?-?-?- 13w 2d 191 lb (-9 lb) 160 112/70 191 lb -?-?-?-?-?-?-?-?-?-?-?-?- 02/14/23 -?-?-?-?-?-?-?-?-?-?-?-?- 17w 2d 187 lb (-13 lb) 17 150 110/74 187 lb -?-?-?-?-?-?-?-?-?-?-?-?- 03/12/23 -?-?-?-?-?-?-?-?-?-?-?-?- 21w 0d 189 lb (-11 lb) 22 150 114/66 189 lb -?-?-?-?-?-?-?-?-?-?-?-?- 04/09/23 -?-?-?-?-?-?-?-?-?-?-?-?- 25w 0d 188 lb (-12 lb) 25 140 active 100/66 188 lb -?-?-?-?-?-?-?-?-?-?-?-?- 04/30/23 -?-?-?-?-?-?-?-?-?-?-?-?- 28w 0d 193 lb (-7 lb) 29 140 active 120/70 193 lb -?-?-?-?-?-?-?-?-?-?-?-?- Notes Visit Date: 04/30/23 Last Updated by: Chely Redmond CNM Note author: Chely Redmond CNM. 28wk. KIERRA. Taking PNV, Doing well with concerns: She reports heartburn, not taking anything. Good appetite, stays well hydrated. Denies any LOF, VB, abd. pain or urinary symptoms. Good FM. Romario in. US follow up 06/17/23. Reviewed: Tdap, RSV. Rx for Pepcid, diet avoidances/triggers. discomforts, self help measures. FMC and when to call for further evaluation. Encouraged a healthy well balanced diet, regular walking/exercise in . Hydrate well, 8-10 glasses of water daily. Plans 28wk labs tomorrow. RTO 2 wks. Visit Date: 04/09/23 Last Updated by: Chely Redmond CNM Note author: Chely Redmond CNM. 25wk. KIERRA. Taking PNV, Doing well with no concerns. Good appetite, stays well hydrated. Denies any LOF, VB, abd. pain or urinary symptoms. Good FM. Reviewed: PTL s/s-LOF/Ctx's/VB, when to seek emergent care. discomforts, self help measures. FMC and when to call for further evaluation. Encouraged a healthy well balanced diet, regular walking/exercise in . Hydrate well, 8-10 glasses of water daily. Glucose testing at next visit. RSV information provided. Discussed control-uncertain. Follow-up ultrasound for third-trimester ordered. Consider transferred to [facility] to meet the midwives in [facility]. She declines, and reports she did that with the [place] midwives, met several of them but when it came time to deliver not 1 of them she met was present, her preference is to stay here for the remaining . RTO 3. Visit Date: 03/12/23 Last Updated by: Chely Redmond CNM Note author: Chely Redmond CNM 21wk. KIERRA. Taking PNV, Doing well with no concerns. Good appetite, stays well hydrated. Denies any LOF, VB, abd. pain. or urinary symptoms. Quickening noted. Had US and is concerned about the placenta she was told to speak to me about. Ant. marginal insertion noted. Reviewed: PTL s/s-LOF/Ctx's/VB, when to seek emergent care. discomforts, self help measures. Kick counts/FM and when to call for further evaluation. Encouraged a healthy well balanced diet, regular walking/exercise in . Hydrate well, 8-10 glasses of water daily. Flu vaccine today. Placenta, findings. follow up 3rd trimester growth check or prn. RTO 4wk. Visit Date: 02/14/23 Last Updated by: Chely Redmond CNM Note author: Chely Redmond CNM/Clau Richardson, Air Conditioning Equipment Mechanic. 17.2 wk. KIERRA. Taking PNV, Doing well with no concerns. Good appetite, stays well hydrated. Denies any LOF, VB, abd. pain. or urinary symptoms. Reports quickening. She had strep throat last week, feeling better. FAS is scheduled for 03/05/23. Could not tolerate GTT, vomited 2x. She has tried to do the test since feeling better. Discussed: PTL s/s-LOF/Ctx's/VB, when to seek emergent care. Hydrate well, 8-10 glasses of water daily. Encouraged flu vaccine. Recommended trying GTT next week. If she cannot tolerate, will consider glucometer testing. RTO 4 weeks. Visit Date: 01/17/23 Last Updated by: Chely Redmond CNM Note author: Chely Redmond CNM/Lauren Lynne ophthalmic medical assistant 13.2 wk KIERRA. Feeling well. Taking PNV. Hydrating well and good appetite Good FM, no LOF, VB or abd pain. Agreeable to do her Gtt. today due to nausea improving. Denies PEC, HTN or diabetes in previous . Discussed: PTL - LOF, VB, abd pain. FAS US in 5-6 weeks. NT is pending from 01/17. Call if any VB or other concerns. Informed re: Flu vaccine, she plans Flu vaccine when in stock at her next visit. Discussed to call the service here for any emergencies/deliveries to be di rected to [facility]. All of her questions and concerns were addressed to the best of my ability and shared decision making. She is agreeable to plan of care. RTO 4 wks. Visit Date: 12/20/22 Last Updated by: Sarah Orozco CNM Patient is here with her and little girl for their 1st visit her daughter is super excited about trying to be able to hear the heartbeat today she would be 9 weeks and 2 days by dates and ultrasound which concur essentially. She is starting to be able to eat a little bit more and has been eating a lot of watermelon and honeydew melon. She has her blood work already ordered but is going to be going some morning to get it because it involves a 1 hour GTT as well discussed caution with eating and trying not to gain much weight and being careful around carbs. Issues around care inside of delivery and ultrasounds of already been reviewed and she will have her nuchal translucency ultrasound on 01/03 at [facility]. She knows that for any complications we might transfer care. PE was within normal limits very difficult to palpate the uterus secondary to adipose Pap done as well as testing for STI and other vaginal shahid. Unable to auscultate heart despite efforts. Consistent with 9 weeks gestation with adipose. She will go for blood work some morning soon and NT ultrasound 914 I will see her in 1 month. Visit Date: 12/12/22 Last Updated by: Irina Santacruz Onur Amaya is a very pleasant 32 year old here for nurse intake visit. This is her 3rd . She and her family are very excited about the . LMP 10/16/22 with DELORES 07/23/23 and GA today of 8w1d. Early US on 11/27/22 @ 6w1d gives DELORES of 07/22/23 and GA 8w2d. She is already scheduled for NT US/1st trimester screening at [facility] on 01/03/23. BMI 37.2 and early glucose has been added to labs. Pt was given the folder. She was advised MD coverage 12/11 and how to reach MD after hours/weekends and holidays. We discussed danger signs and to call or go to hospital if she experiences pelvic pain and or vaginal bleeding. Pt is aware she will deliver at [facility] and have ultrasounds there as well. Pt is having nausea and vomiting. She was given B6/Unisom without relief. Pt was advised to take B6 tid even if she does not have nausea as it will work better. Taking Unisom before bed. She is also taking her PNV before bed. We reviewed first trimester education. Pt verbalizes understanding and agrees with plan. She will schedule her OB PE today and she is aware labs will be ordered. No further questions. Results AMB Urinalysis, Automated UA Leukoctes 0 Ethan/uL Last Edit by Siobhan Motley CMA on 04/30/23 10:09 UA Nitrite Negative Last Edit by Siobhan Motley CMA on 04/30/23 10:09 UA Urobilinogen 0 mg/dL Last Edit by Siobhan Motley CMA on 04/30/23 10:09 3.5 Siobhan Motley 04/30/23 10:09 UA Protein 0 mg/dL Last Edit by Siobhan Motley CMA on 04/30/23 10:09 UA pH 6.0 Last Edit by Siobhan Motley CMA on 04/30/23 10:09 UA Blood 0 John/uL Last Edit by Siobhan Motley CMA on 04/30/23 10:09 UA Specific [place] 1.015 Last Edit by Siobhan Motley CMA on 04/30/23 10: 09 UA Ketone Negative Last Edit by Siobhan Motley CMA on 04/30/23 10:09 UA Bilirubin 0 mg/dL Last Edit by Siobhan Motley CMA on 04/30/23 10:09 UA Glucose 0 mg/dL Last Edit by Siobhan Motley CMA on 04/30/23 10:09 Coding Level of Care Code [place] Assessment & Plan Assessment & Plan Orders: Orders AMB Urinalysis Automated Today Z34.82 - Encounter for supervision of other normal , second trimester Medications: New famotidine (Pepcid AC) 10 mg PO BID 30 days 120 tabs 1RF
[2023-04-30 09:42] VITALS: BP 120/70; BMI 36.5
== END 2023-04-30 10:27 | disposition home or self-care (01) ==
LOC: HO.HWS 09:29
PROVIDERS: PCP Internal Medicine; Visit Provider Advanced Practice Midwife
DX: Z34.82 Encounter for supervision of other normal pregnancy, second trimester (principal)
CPT/HCPCS: 25942

== ENCOUNTER → 2023-04-30 09:29 | Outpatient (BNVA) | payer OTHER, SELFPAY | PROVIDERS: PCP Internal Medicine; Visit Provider Advanced Practice Midwife | DX: Z34.83 Encounter for supervision of other normal pregnancy, third trimester (principal); Z3A.28 28 weeks gestation of pregnancy | CPT/HCPCS: 81003; 99212 ==

== ENCOUNTER 2023-05-15 15:48 | Outpatient (AMB) | payer OTHER, SELFPAY ==
--- NOTE | 2023-05-15 16:00 | A.OFFVISPN_ITS ---
Intake Vital Signs 05/15/23 16:01 Height 5 ft 1 in Weight 196 lb BMI 37.0 BP 120/72 Intake Visit Reasons: KIERRA Accompanied by: Spouse Allergies sulfamethoxazole [From BACTRIM] Allergy (Unknown, Verified 05/15/23 16:01) HIVES trimethoprim [From BACTRIM] Allergy (Unknown, Verified 05/15/23 16:01) HIVES Patient : Yes PFSH Medical History Marginal insertion of umbilical cord affecting management of mother Encounter for supervision of other normal , second trimester Anxiety Neck pain Allergic rhinitis Ophthalmoplegic migraine Surgical History No pertinent past surgical history Family History Mother COPD (chronic obstructive pulmonary disease) Social History Household Members: Spouse and Children Both parents involved: Yes Caregiver staying overnight: No Housing: Apartment Are you a primary intensive care unit nurse to a significant other at home: No Do you presently have visiting nurse or other home services: No 75 years or older and lives alone: No Alcohol intake: never Patient Tobacco Use Status: Never used Tobacco e-Cigarette/Vaping Use: Never Used Second Hand Smoke Exposure: No Agree to transfusion: Yes service: No Current occupational status: unemployed Current occupational exposures/hazards: No Gender identity: Female Cognitive needs: No Hearing needs: No Vision needs: No Female Reproductive History Menstrual Age of Menarche: 15 History History 3 Elective abortions 0 Para 2 Spontaneous abortions 0 Hx # Term Pregnancies 2 Ectopic pregnancies 0 Hx # Pregnancies 0 Multiple births 0 Past Pregnancies Del. Date GA/Weeks Outcome Route Wt Inf Gender Labor Dilia Anesthesia Location Provider Complicate 05/13/13 42 live - full term vaginal delivery 9 lb 14 oz Male epidural [facility] none 12/06/17 40 live - full term vaginal delivery 7 lb Female epidural [facility] none Visit [facility] Calculator Estimated Delivery Date Method Current WG Current Estimate 07/23/23 LMP (Certain) 30w 1d Other Estimates 07/22/23 Ultrasound #1 30w 2d Expected Delivery Route/Plan Vaginal Specific Issues/Plans EDC: 07/23/23 O pos Problem List: 1. Obesity BMI 37.2--not able to tolerate the first Gtt due to being sick, will attempt this again when feeling better. 2. Varicella non immune: advised pp vaccination 3. 12/31/2022 diagnosed with COVID at [facility]. See telephone encounter activity 4. Marginal insertion cord. Follow up 32 wks. NT: pending 01/16/23... 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 Labor support: Romario plan: control: ? Nj OB Visit Log Initial Weight: 200 lb Date -?-?-?-?-?-?-?-?-?-?-?-?- EGA Weight Gest Week Fundal Ht Present FHR move Efface % Edema BP PrePreg We Weight GTT -?-?-?-?-?-?-?-?-?-?-?-?- Glucose LV Protein Blood Type 12/12/22 -?-?-?-?-?-?-?-?-?-?-?-?- 8w 1d 197 lb 2 oz (-2 lb 14 oz) 197 lb 2 oz -?--?-?-?-?-?-?-?-?-?-?-?- 12/20/22 -?-?-?-?-?-?-?-?-?-?-?-?- 9w 2d 196 lb (-4 lb) 130/80 196 lb -?-?-?-?-?-?-?-?-?-?-?-?- 01/17/23 -?-?-?-?-?-?-?-?-?-?-?-?- 13w 2d 191 lb (-9 lb) 160 112/70 191 lb -?-?-?-?-?-?-?-?-?-?-?-?- 02/14/23 -?-?-?-?-?-?-?-?-?-?-?-?- 17w 2d 187 lb (-13 lb) 17 150 110/74 187 lb -?-?-?-?-?-?-?-?-?-?-?-?- 03/12/23 -?-?-?-?-?-?-?-?-?-?-?-?- 21w 0d 189 lb (-11 lb) 22 150 114/66 189 lb -?-?-?-?-?-?-?-?-?-?-?-?- 04/09/23 -?-?-?-?-?-?-?-?-?-?-?-?- 25w 0d 188 lb (-12 lb) 25 140 active 100/66 188 lb -?-?-?-?-?-?-?-?-?-?-?-?- 04/30/23 -?-?-?-?-?-?-?-?-?-?-?-?- 28w 0d 193 lb (-7 lb) 29 140 active 120/70 193 lb -?-?-?-?-?-?-?-?-?-?-?-?- 05/15/23 -?-?-?-?-?-?-?-?-?-?-?-?- 30w 1d 196 lb (-4 lb) 32 140 active 120/72 196 lb -?-?-?-?-?-?-?-?-?-?-?-?- Notes Visit Date: 05/15/23 Last Updated by: Chely Redmond CNM Note author: Chely Redmond CNM. 30wk. KIERRA. Taking PNV, Doing well with no concerns. Good appetite, stays well hydrated. Denies any LOF, VB, abd. pain or urinary symptoms. Romario an kids in today's visit. Reviewed: PTL s/s-LOF/Ctx's/VB, when to seek emergent care. discomforts, self help measures. FM and when to call the office for further eval. Encouraged a healthy well balanced diet, regular walking/exercise in . Hydrate well, 8-10 glasses of water daily. RTO 2wks. Visit Date: 04/30/23 Last Updated by: Chely Redmond CNM Note author: Chely Redmond CNM. 28wk. KIERRA. Taking PNV, Doing well with concerns: She reports heartburn, not taking anything. Good appetite, stays well hydrated. Denies any LOF, VB, abd. pain or urinary symptoms. Good FM. Romario in. US follow up 06/17/23. Reviewed: Tdap, RSV. Rx for Pepcid, diet avoidances/triggers. discomforts, self help measures. FMC and when to call for further evaluation. Encouraged a healthy well balanced diet, regular walking/exercise in . Hydrate well, 8-10 glasses of water daily. Plans 28wk labs tomorrow. RTO 2 wks. Visit Date: 04/09/23 Last Updated by: Chely Redmond CNM Note author: Chely Redmond CNM. 25wk. KIERRA. Taking PNV, Doing well with no concerns. Good appetite, stays well hydrated. Denies any LOF, VB, abd. pain or urinary symptoms. Good FM. Reviewed: PTL s/s-LOF/Ctx's/VB, when to seek emergent care. discomforts, self help measures. FMC and when to call for further evaluation. Encouraged a healthy well balanced diet, regular walking/exercise in . Hydrate well, 8-10 glasses of water daily. Glucose testing at next visit. RSV information provided. Discussed control-uncertain. Follow-up ultrasound for third-trimester ordered. Consider transferred to [facility] to meet the midwives in [facility]. She declines, and reports she did that with the [facility] midwives, met several of them but when it came time to deliver not 1 of them she met was present, her preference is to stay here for the remaining . RTO 3. Visit Date: 03/12/23 Last Updated by: Chely Redmond CNM Note author: Chely Redmond CNM 21wk. KIERRA. Taking PNV, Doing well with no concerns. Good appetite, stays well hydrated. Denies any LOF, VB, abd. pain. or urinary symptoms. Quickening noted. Had US and is concerned about the placenta she was told to speak to me about. Ant. marginal insertion noted. Reviewed: PTL s/s-LOF/Ctx's/VB, when to seek emergent care. discomforts, self help measures. Kick counts/FM and when to call for further evaluation. Encouraged a healthy well balanced diet, regular walking/exercise in . Hydrate well, 8-10 glasses of water daily. Flu vaccine today. Placenta, findings. follow up 3rd trimester growth check or prn. RTO 4wk. Visit Date: 02/14/23 Last Updated by: Chely Redmond CNM Note author: Chely Redmond CNM/Clau Richardson, Ui Programmer. 17.2 wk. KIERRA. Taking PNV, Doing well with no concerns. Good appetite, stays well hydrated. Denies any LOF, VB, abd. pain. or urinary symptoms. Reports quickening. She had strep throat last week, feeling better. FAS is scheduled for 03/05/23. Could not tolerate GTT, vomited 2x. She has tried to do the test since feeling better. Discussed: PTL s/s-LOF/Ctx's/VB, when to seek emergent care. Hydrate well, 8-10 glasses of water daily. Encouraged flu vaccine. Recommended trying GTT next week. If she cannot tolerate, will consider glucometer testing. RTO 4 weeks. Visit Date: 01/17/23 Last Updated by: Chely Redmond CNM Note author: Chely Redmond CNM/Lauren Lynne medical certification specialist 13.2 wk KIERRA. Feeling well. Taking PNV. Hydrating well and good appetite Good FM, no LOF, VB or abd pain. Agreeable to do her Gtt. today due to nausea improving. Denies PEC, HTN or diabetes in previous . Discussed: PTL - LOF, VB, abd pain. FAS US in 5-6 weeks. NT is pending from 01/17. Call if any VB or other concerns. Informed re: Flu vaccine, she plans Flu vaccine when in stock at her next visit. Discussed to call the service here for any emergencies/deliveries to be directed to [facility]. All of her questions and concerns were addressed to the best of my ability and shared decision making. She is agreeable to plan of care. RTO 4 wks. Visit Date: 12/20/22 Last Updated by: Sarah Orozco CNM Patient is here with her and little girl for their 1st visit her daughter is super excited about trying to be able to hear the heartbeat today she would be 9 weeks and 2 days by dates and ultrasound which concur essentially. She is starting to be able to eat a little bit more and has been eating a lot of watermelon and honeydew melon. She has her blood work already ordered but is going to be going some morning to get it because it invol ves a 1 hour GTT as well discussed caution with eating and trying not to gain much weight and being careful around carbs. Issues around care inside of delivery and ultrasounds of already been reviewed and she will have her nuchal translucency ultrasound on 01/03 at [facility]. She knows that for any complications we might transfer care. PE was within normal limits very difficult to palpate the uterus secondary to adipose Pap done as well as testing for STI and other vaginal shahid. Unable to auscultate heart despite efforts. Consistent with 9 weeks gestation with adipose. She will go for blood work some morning soon and NT ultrasound 914 I will see her in 1 month. Visit Date: 12/12/22 Last Updated by: Irina Santacruz Onur Amaya is a very pleasant 32 year old here for nurse intake visit. This is her 3rd . She and her family are very excited about the pre gnancy. LMP 10/16/22 with DELORES 07/23/23 and GA today of 8w1d. Early US on 11/27/22 @ 6w1d gives DELORES of 07/22/23 and GA 8w2d. She is already scheduled for NT US/1st trimester screening at [facility] on 01/03/23. BMI 37.2 and early glucose has been added to labs. Pt was given the folder. She was advised MD coverage 12/11 and how to reach MD after hours/weekends and holidays. We discussed danger signs and to call or go to hospital if she experiences pelvic pain and or vaginal bleeding. Pt is aware she will deliver at [facility] and have ultrasounds there as well. Pt is having nausea and vomiting. She was given B6/Unisom without relief. Pt was advised to take B6 tid even if she does not have nausea as it will work better. Taking Unisom before bed. She is also taking her PNV before bed. We reviewed first trimester education. Pt verbalizes understanding and agrees with plan. She will schedule her OB PE today and she is aware labs will be ordered. No further questions. Results AMB Urinalysis, Automated UA Leukoctes 0 Ethan/uL Last Edit by RUSS Barnhart on 05/15/23 16:03 UA Nitrite Negative Last Edit by RUSS Barnhart on 05/15/23 16:03 UA Urobilinogen 0 mg/dL Last Edit by Barbara Maguire Master on 05/15/23 16:0 3 UA Protein 0 mg/dL Last Edit by RUSS Barnhart on 05/15/23 16:03 UA pH 7.5 Last Edit by Barbara Maguire [facility] on 05/15/23 16:03 UA Blood 0 John/uL Last Edit by Barbara Maguire Master on 05/15/23 16:03 UA Specific [place] 1.015 Last Edit by RUSS Barnahrt on 05/15/23 16:03 UA Ketone Negative Last Edit by Barbara Maguire Master on 05/15/23 16:03 UA Bilirubin 0 mg/dL Last Edit by RUSS Barnhart on 05/15/23 16:03 UA Glucose 0 mg/dL Last Edit by Barbara Maguire Master on 05/15/23 16:03 Results Reviewed Results Reviewed: Laboratory Last Values Urine pH (Auto) 7.5 05/15/23 16:02 Specific [place] (Auto) 1.015 05/15/23 16:02 Urine Protein (Auto) 0 mg/dL 05/15/23 16:02 Glucose (UA)(Auto) 0 mg/dL 05/15/23 16:02 Urine Ketones (Auto) Negative 05/15/23 16:02 Urine Blood (Auto) 0 John/uL 05/15/23 16:02 Urine Nitrite (Auto) Negative 05/15/23 16:02 Urine Bilirubin (Auto) 0 mg/dL 05/15/23 16:02 Urine Urobilinogen (Auto) 0 mg/dL 05/15/23 16:02 Leukocyte Esterase (Auto) 0 Ethan/uL 05/15/23 16:02 Coding Level of Care Code Krista Assessment & Plan Assessment & Plan Orders: Orders AMB Urinalysis Automated Today Z34.93 - Encounter for supervision of normal , unspecified, third trimester
[2023-05-15 16:01] VITALS: BP 120/72; BMI 37.0
== END 2023-05-15 16:22 | disposition home or self-care (01) ==
LOC: HO.HWS 15:48
PROVIDERS: PCP Internal Medicine; Visit Provider Advanced Practice Midwife
DX: Z34.93 Encounter for supervision of normal pregnancy, unspecified, third trimester (principal)
CPT/HCPCS: 25942

== ENCOUNTER → 2023-05-15 15:48 | Outpatient (BNVA) | payer OTHER, SELFPAY | PROVIDERS: PCP Internal Medicine; Visit Provider Advanced Practice Midwife | DX: Z34.83 Encounter for supervision of other normal pregnancy, third trimester (principal); Z3A.30 30 weeks gestation of pregnancy | CPT/HCPCS: 81003; 99212 ==

== ENCOUNTER 2023-05-28 13:26 | Outpatient (REF) | payer OTHER, SELFPAY ==
[2023-05-28 15:25] LABS: Hematocrit 32.1 % (37.0-47.0); Hemoglobin 11.3 g/dl (12.0-16.0); Mean Corpuscular HGB Conc 35.2 g/dl (31.0-35.0); Mean Corpuscular Hemoglobin 30.1 pg (27.0-33.0); Mean Corpuscular Volume 85.4 fL (80.0-98.0); Mean Platelet Volume 9.7 fL (9.4-12.3); Platelet Count 271 X10*3/uL (160-400); Red Blood Count 3.76 X10*6/uL (4.20-5.50); Red Cell Distribution Width 12.8 % (11.0-16.0); White Blood Count 8.5 X10*3/uL (4.8-10.8)
[2023-05-28 16:01] LABS: Glucose 1 Hour PP 50gm Dose 112 mg/dL (60-140)
[2023-05-29 05:02] LABS: Syphilis Screen Nonreactive (Nonreactive)
== END 2023-05-28 13:27 | disposition home or self-care (01) ==
LOC: HO.LAB 13:26
PROVIDERS: PCP Internal Medicine; Visit Provider Advanced Practice Midwife
DX: Z34.82 Encounter for supervision of other normal pregnancy, second trimester (principal); Z20.2 Contact with and (suspected) exposure to infections with a predominantly sexual mode of transmission
CPT/HCPCS: 36415; 82950; 85027; 86780

== ENCOUNTER 2023-06-07 14:01 | Outpatient (AMB) | payer OTHER, SELFPAY ==
--- NOTE | 2023-06-07 14:05 | A.OFFVISPN_ITS ---
Intake Vital Signs 06/07/23 14:09 Height 5 ft 1 in Weight 195 lb BMI 36.8 BP 118/72 Intake Visit Reasons: KIERRA Manager R D Required: No Information Interpreted: non-clinical & clinical Accompanied by: Spouse Allergies sulfamethoxazole [From BACTRIM] Allergy (Unknown, Verified 06/07/23 14:10) HIVES trimethoprim [From BACTRIM] Allergy (Unknown, Verified 06/07/23 14:10) HIVES Patient : Yes PFSH Medical History Marginal insertion of umbilical cord affecting management of mother Encounter for supervision of other normal , second trimester Anxiety Neck pain Allergic rhinitis Ophthalmoplegic migraine Surgical History No pertinent past surgical history Family History Mother COPD (chronic obstructive pulmonary disease) Social History Household Members: Spouse and Children Both parents involved: Yes Caregiver staying overnight: No Housing: Apartment Are you a primary infant caregiver to a significant other at home: No Do you presently have visiting nurse or other home services: No 75 years or older and lives alone: No Alcohol intake: never Patient Tobacco Use Status: Never used Tobacco e-Cigarette/Vaping Use: Never Used Second Hand Smoke Exposure: No Agree to transfusion: Yes Patient : Yes service: No Current occupational status: unemployed Current occupational exposures/hazards: No Gender identity: Female Cognitive needs: No Hearing needs: No Vision needs: No Female Reproductive History Menstrual Age of Menarche: 15 History History 3 Elective abortions 0 Para 2 Spontaneous abortions 0 Hx # Term Pregnancies 2 Ectopic pregnancies 0 Hx # Pregnancies 0 Multiple births 0 Past Pregnancies Del. Date GA/Weeks Outcome Route Wt Inf Gender Labor Dilia Anesthesia Location Provider Complicate 05/13/13 42 live - full term vaginal delivery 9 lb 14 oz Male epidural [facility] none 12/06/17 40 live - full term vaginal delivery 7 lb Female epidural [facility] none Visit [facility] Calculator Estimated Delivery Date Method Current WG Current Estimate 07/23/23 LMP (Certain) 33w 3d Other Estimates 07/22/23 Ultrasound #1 33w 4d Expected Delivery Route/Plan Vaginal Specific Issues/Plans EDC: 07/23/23 O pos Problem List: 1. Obesity BMI 37.2--not able to tolerate the first Gtt due to being sick, will attempt this again when feeling better. 2. Varicella non immune: advised pp vaccination 3. 12/31/2022 diagnosed with COVID at [facility]. See telephone encounter activity 4. Marginal insertion cord. Follow up 32 wks. 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 Labor support: Romario plan: control: ? Nj OB Visit Log Initial Weight: 200 lb Date -?-?-?-?-?-?-?-?-?-?-?-?- EGA Weight Gest Week Fundal Ht Present FHR move Efface % Edema BP PrePreg We Weight GTT -?-?-?-?-?-?-?-?-?-?-?-?- Glucose LV Protein Blood Type 12/12/22 -?-?-?-?-?-?-?-?-?-?-?-?- 8w 1d 197 lb 2 oz (-2 lb 14 oz) 197 lb 2 oz -?-?-?-?-?-?-?-?-?-?-?-?- 12/20/22 -?-?-?-?-?-?-?-?-?-?-?-?- 9w 2d 196 lb (-4 lb) 130/80 196 lb -?-?-?-?-?-?-?-?-?-?-?-?- 01/17/23 -?-?-?-?-?-?-?-?-?-?-?-?- 13w 2d 191 lb (-9 lb) 160 112/70 191 lb -?-?-?-?-?-?-?-?-?-?-?-?- 02/14/23 -?-?-?-?-?-?-?-?-?-?-?-?- 17w 2d 187 lb (-13 lb) 17 150 110/74 187 lb -?-?-?-?-?-?-?-?-?-?-?-?- 03/12/23 -?-?-?-?-?-?-?-?-?-?-?-?- 21w 0d 189 lb (-11 lb) 22 150 114/66 189 lb -?-?-?-?-?-?-?-?--?-?-?-?- 04/09/23 -?-?-?-?-?-?-?-?-?-?-?-?- 25w 0d 188 lb (-12 lb) 25 140 active 100/66 188 lb -?-?-?-?-?-?-?-?-?-?-?-?- 04/30/23 -?-?-?-?-?-?-?-?-?-?-?-?- 28w 0d 193 lb (-7 lb) 29 140 active 120/70 193 lb -?-?-?-?-?-?-?-?-?-?-?-?- 05/15/23 -?-?-?-?-?-?-?-?-?-?-?-?- 30w 1d 196 lb (-4 lb) 32 140 active 120/72 196 lb -?-?-?-?-?-?-?-?-?-?-?-?- 06/07/23 -?-?-?-?-?-?-?-?-?-?-?-?- 33w 3d 195 lb (-5 lb) 34 140 active 118/72 195 lb -?-?-?-?-?-?-?-?-?-?-?-?- Notes Visit Date: 06/07/23 Last Updated by: Chely Redmond CNM Note author: Chely Redmond CNM. 33.2wk. KIERRA. Taking PNV, and iron. Doing well with no concerns. Good appetite, stays well hydrated. Denies any LOF, VB, abd. pain or urinary symptoms. Good FM. US growth check 05/28/23-nl scan. Reviewed: PTL s/s-LOF/Ctx's/VB, when to seek emergent care. discomforts, self help measures. FMC and when to call for further evaluation. Plan Tdap today. RTO 2wks. Visit Date: 05/15/23 Last Updated by: Chely Redmond CNM Note author: Chely Redmond CNM. 30wk. KIERRA. Taking PNV, Doing well with no concerns. Good appetite, stays well hydrated. Denies any LOF, VB, abd. pain or urinary symptoms. Romario an kids in today's visit. Reviewed: PTL s/s-LOF/Ctx's/VB, when to seek emergent care. discomforts, self help measures. FM and when to call the office for further eval. Encouraged a healthy well balanced diet, regular walking/exercise in . Hydrate well, 8-10 glasses of water daily. RTO 2wks. Visit Date: 04/30/23 Last Updated by: Chely Redmond CNM Note author: Chely Redmond CNM. 28wk. KIERRA. Taking PNV, Doing well with concerns: She reports heartburn, not taking anything. Good appetite, stays well hydrated. Denies any LOF, VB, abd. pain or urinary symptoms. Good FM. Romario in. US follow up 06/17/23. Reviewed: Tdap, RSV. Rx for Pepcid, diet avoidances/triggers. discomforts, self help measures. FMC and when to call for further evaluation. Encouraged a healthy well balanced diet, regular walking/exercise in . Hydrate well, 8-10 glasses of water daily. Plans 28wk labs tomorrow. RTO 2 wks. Visit Date: 04/09/23 Last Updated by: Chely Redmond CNM Note author: Chely Redmond CNM. 25wk. KIERRA. Taking PNV, Doing well with no concerns. Good appetite, stays well hydrated. Denies any LOF, VB, abd. pain or urinary symptoms. Good FM. Reviewed: PTL s/s-LOF/Ctx's/VB, when to seek emergent care. discomforts, self help measures. FMC and when to call for further evaluation. Encouraged a healthy well balanced diet, regular walking/exercise in . Hydrate well, 8-10 glasses of water daily. Glucose testing at next visit. RSV information provided. Discussed control-uncertain. Follow-up ultrasound for third-trimester ordered. Consider transferred to [facility] to meet the midwives in [facility]. She declines, and reports she did that with the [facility] midwives, met several of them but when it came time to deliver not 1 of them she met was present, her preference is to stay here for the remaining . RTO 3. Visit Date: 03/12/23 Last Updated by: Chely Redmond CNM Note author: Chely Redmond CNM 21wk. KIERRA. Taking PNV, Doing well with no concerns. Good appetite, stays well hydrated. Denies any LOF, VB, abd. pain. or urinary symptoms. Quickening noted. Had US and is concerned about the placenta she was told to speak to me about. Ant. marginal insertion noted. Reviewed: PTL s/s-LOF/Ctx's/VB, when to seek emergent care. discomforts, self help measures. Kick counts/FM and when to call for further evaluation. Encouraged a healthy well balanced diet, regular walking/exercise in . Hydrate well, 8-10 glasses of water daily. Flu vaccine today. Placenta, findings. follow up 3rd trimester growth check or prn. RTO 4wk. Visit Date: 02/14/23 Last Updated by: Chely Redmond CNM Note author: Chely Redmond CNM/Clau Richardson, Clothing Room Supervisor. 17.2 wk. KIERRA. Taking PNV, Doing well with no concerns. Good appetite, stays well hydrated. Denies any LOF, VB, abd. pain. or urinary symptoms. Reports quickening. She had strep throat last week, feeling better. FAS is scheduled for 03/05/23. Could not tolerate GTT, vomited 2x. She has tried to do the test since feeling better. Discussed: PTL s/s-LOF/Ctx's/VB, when to seek emergent care. Hydrate well, 8-10 glasses of water daily. Encouraged flu vaccine. Recommended trying GTT next week. If she cannot tolerate, will consider glucometer testing. RTO 4 weeks. Visit Date: 01/17/23 Last Updated by: Chely Redmond CNM Note author: Chely Redmond CNM/Lauren Lynne medical dosimetrist 13.2 wk KIERRA. Feeling well. Taking PNV. Hydrating well and good appetite Good FM, no LOF, VB or abd pain. Agreeable to do her Gtt. today due to nausea improving. Denies PEC, HTN or diabetes in previous . Discussed: PTL - LOF, VB, abd pain. FAS US in 5-6 weeks. NT is pending from 01/17. Call if any VB or other concerns. Informed re: Flu vaccine, she plans Flu vaccine when in stock at her next visit. Discussed to call the service here for any emergencies/deliveries to be directed to [facility]. All of her questions and concerns were addressed to the best of my ability and shared decision making. She is agreeable to plan of care. RTO 4 wks. Visit Date: 12/20/22 Last Updated by: Sarah Orozco CNM Patient is here with her and little girl for their 1st visit her daughter is super excited about trying to be able to hear the heartbeat today she would be 9 weeks and 2 days by dates and ultrasound which concur essentially. She is starting to be able to eat a little bit more and has been eating a lot of watermelon and honeydew melon. She has her blood work already ordered but is going to be going some morning to get it because it involves a 1 hour GTT as well discussed caution with eating and trying not to gain much weight and being careful around carbs. Issues around care inside of delivery and ultrasounds of already been reviewed and she will have her nuchal translucency ultrasound on 01/03 at [facility]. She knows that for any complications we might transfer care. PE was within normal limits very difficult to palpate the uterus secondary to adipose Pap done as well as testing for STI and other vaginal shahid. Unable to auscultate heart despite efforts. Consistent with 9 weeks gestation with adipose. She will go for blood work some morning soon and NT ultrasound 914 I will see her in 1 month. Visit Date: 12/12/22 Last Updated by: Irina Jimunique Amaya is a very pleasant 32 year old here for nurse intake visit. This is her 3rd . She and her family are very excited about the . LMP 10/16/22 with DELORES 07/23/23 and GA today of 8w1d. Early US on 11/27/22 @ 6w1d gives DELORES of 07/22/23 and GA 8w2d. She is already scheduled for NT US/1st trimester screening at [facility] on 01/03[facility]23. BMI 37.2 and early glucose has been added to labs. Pt was given the folder. She was advised MD coverage 12/11 and how to reach MD after hours/weekends and holidays. We discussed danger signs and to call or go to hospital if she experiences pelvic pain and or vaginal bleeding. Pt is aware she will deliver at [facility] and have ultrasounds there as well. Pt is having nausea and vomiting. She was given B6/Unisom without relief. Pt was advised to take B6 tid even if she does not campbell ve nausea as it will work better. Taking Unisom before bed. She is also taking her PNV before bed. We reviewed first trimester education. Pt verbalizes understanding and agrees with plan. She will schedule her OB PE today and she is aware labs will be ordered. No further questions. Immunizations Boostrix Tdap 2.5 Lf unit-8 mcg-5 Lf/0.5 mL intramuscular suspension Performing Provider: Chely Redmond CNM Performing Location: [facility] Administered by: Irina Mohr on 06/07/23 15:07 Dose Route Admin Location Dispensed Lot Number Expiration Date [facility] Marketing Information Coordinator 0.5 mL IM Right Deltoid 0.5 mL [id number] 01/15/25 [id number] Triangulate VIS Given Date VIS Provided VIS Publication Date 06/07/23 Single Vaccine 20 Eligibility Eligibility Date Funding Source Not [facility] Eligible 06/07/23 Private Coding Level of Care Code Preston Assessment & Plan Assessment & Plan Orders: Orders TDaP Immunization Today Z23 - Encounter for immunization
[2023-06-07 14:09] VITALS: BP 118/72; BMI 36.8
== END 2023-06-07 14:48 | disposition home or self-care (01) ==
LOC: HO.HWS 14:01
PROVIDERS: PCP Internal Medicine; Visit Provider Advanced Practice Midwife
DX: Z23 Encounter for immunization (principal); Z34.90 Encounter for supervision of normal pregnancy, unspecified, unspecified trimester
CPT/HCPCS: 25942

== ENCOUNTER → 2023-06-07 14:01 | Outpatient (BNVA) | payer OTHER, SELFPAY | PROVIDERS: PCP Internal Medicine; Visit Provider Advanced Practice Midwife | DX: Z34.83 Encounter for supervision of other normal pregnancy, third trimester (principal); Z3A.33 33 weeks gestation of pregnancy; Z23 Encounter for immunization | CPT/HCPCS: 90471; 90715; 96360; 99212 ==

== ENCOUNTER 2023-06-20 15:44 | Outpatient (AMB) | payer OTHER, SELFPAY ==
[2023-06-20 15:50] VITALS: BP 134/72; BMI 38.0
--- NOTE | 2023-06-20 15:50 | A.OFFVISPN_ITS ---
Intake Vital Signs 06/20/23 15:50 Height 5 ft 1 in Weight 201 lb BMI 38.0 BP 134/72 Intake Visit Reasons: KIERRA Hands Hanger Required: No Accompanied by: family Allergies sulfamethoxazole [From BACTRIM] Allergy (Unknown, Verified 06/20/23 16:03) HIVES trimethoprim [From BACTRIM] Allergy (Unknown, Verified 06/20/23 16:03) HIVES Is last menstrual period known: Yes Last menstrual period: 10/16/22 Post menopausal: No Patient : Yes PFSH Medical History Marginal insertion of umbilical cord affecting management of mother Encounter for supervision of other normal , second trimester Anxiety Neck pain Allergic rhinitis Ophthalmoplegic migraine Surgical History No pertinent past surgical history Family History Mother COPD (chronic obstructive pulmonary disease) Social History Household Members: Spouse and Children Both parents involved: Yes Caregiver staying overnight: No Housing: Apartment Are you a primary rn care manager to a significant other at home: No Do you presently have visiting nurse or other home services: No 75 years or older and lives alone: No Alcohol intake: never Patient Tobacco Use Status: Never used Tobacco e-Cigarette/Vaping Use: Never Used Second Hand Smoke Exposure: No Agree to transfusion: Yes Patient : Yes service: No Current occupational status: unemployed Current occupational exposures/hazards: No Gender identity: Female Cognitive needs: No Hearing needs: No Vision needs: No Female Reproductive History Menstrual Age of Menarche: 15 Date of last menstrual period: 10/16/22 control method: none Total pregnancies: 3 Full term: 2 Number of Living Children: 2 Date of last pap smear: 12/21/22 (negative) History History 3 Elective abortions 0 Para 2 Spontaneous abortions 0 Hx # Term Pregnancies 2 Ectopic pregnancies 0 Hx # Pregnancies 0 Multiple births 0 Past Pregnancies Del. Date GA/Weeks Outcome Route Wt Inf Gender Labor Dilia Anesthesia Location Provider Complicate 05/13/13 42 live - full term vaginal delivery 9 lb 14 oz Male epidural [facility] none 12/06/17 40 live - full term vaginal delivery 7 lb Female epidural [facility] none Questionnaire History History : 3 Visit [facility] Calculator Estimated Delivery Date Method Current WG Current Estimate 07/23/23 LMP (Certain) 35w 2d Other Estimates 07/22/23 Ultrasound #1 35w 3d Expected Delivery Route/Plan Vaginal Specific Issues/Plans EDC: 07/23/23 O pos Problem List: 1. Obesity BMI 37.2--not able to tolerate the first Gtt due to being sick, will attempt this again when feeling better. 2. Varicella non immune: advised pp vaccination 3. 12/31/2022 diagnosed with COVID at [facility]. See telephone encounter activity 4. Marginal insertion cord. 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 Labor support: Romario plan: Prefers a birthing center atmosphere control: ? [place] [facility] Visit Log Initial Weight: 200 lb Date -?-?-?-?-?-?-?-?-?-?-?-?- EGA Weight Gest Week Fundal Ht Present FHR move Efface % Edema BP PrePreg We Weight GTT -?-?-?-?-?-?-?-?-?-?-?-?- Glucose LV Protein Blood Type 12/12/22 -?-?-?-?-?-?-?-?-?-?-?-?- 8w 1d 197 lb 2 oz (-2 lb 14 oz) 197 lb 2 oz -?-?-?-?-?-?-?-?-?-?-?-?- 12/20/22 -?-?-?-?-?-?-?-?-?-?-?-?- 9w 2d 196 lb (-4 lb) 130/80 196 lb -?-?-?-?-?-?-?-?-?-?-?-?- 01/17/23 -?-?-?-?-?-?-?-?-?-?-?-?- 13w 2d 191 lb (-9 lb) 160 112/70 191 lb -?-?-?-?-?-?-?-?-?-?-?-?- 02/14/23 -?-?-?-?-?-?-?-?-?-?-?-?- 17w 2d 187 lb (-13 lb) 17 150 110/74 187 lb -?-?-?-?-?-?-?-?-?-?-?-?- 03/12/23 -?-?-?-?-?-?-?-?-?-?-?-?- 21w 0d 189 lb (-11 lb) 22 150 114/66 189 lb -?-?-?-?-?-?-?-?-?-?-?-?- 04/09/23 -?-?-?-?-?-?-?-?-?-?-?-?- 25w 0d 188 lb (-12 lb) 25 140 active 100/66 188 lb -?--?-?-?-?-?-?-?-?-?-?-?- 04/30/23 -?-?-?-?-?-?-?-?-?-?-?-?- 28w 0d 193 lb (-7 lb) 29 140 active 120/70 193 lb -?-?-?-?-?-?-?-?-?-?-?-?- 05/15/23 -?-?-?-?-?-?-?-?-?-?-?-?- 30w 1d 196 lb (-4 lb) 32 140 active 120/72 196 lb -?-?-?-?-?-?-?-?-?-?-?-?- 06/07/23 -?-?-?-?-?-?-?-?-?-?-?-?- 33w 3d 195 lb (-5 lb) 34 140 active 118/72 195 lb -?-?-?-?-?-?-?-?-?-?-?-?- 06/20/23 -?-?-?-?-?-?-?-?-?-?-?-?- 35w 2d 201 lb (+16 oz) 36 vtx 130 active 134/72 201 lb -?-?-?-?-?-?-?-?-?-?-?-?- Notes Visit Date: 06/20/23 Last Updated by: Chely Redmond CNM Note author: Chely Redmond CNM. 35.2wk. KIERRA. Family in for her visit today. Taking PNV, Doing well with no concerns. Good appetite, stays well hydrated. Denies any LOF, VB, abd. pain or urinary symptoms. Prepping at home this weekend for the new baby. Reviewed: PTL s/s-LOF/Ctx's/VB, when to seek emergent care. FM and when to call the office for further eval. Encouraged a healthy well balanced diet, regular walking/exercise in pregn riki. Hydrate well, 8-10 glasses of water daily. Has decided to transition her care to the [address] [place] [address], records provided today. She has an appointment on June 24 for her consult and tour. Advised she will need her group B strep done at her next visit. RTO 1wks. Visit Date: 06/07/23 Last Updated by: Chely Redmond CNM Note author: Chely Redmond CNM. 33.2wk. KIERRA. Taking PNV, and iron. Doing well with no concerns. Good appetite, stays well hydrated. Denies any LOF, VB, abd. pain or urinary symptoms. Good FM. US growth check 05/28/23-nl scan. Reviewed: PTL s/s-LOF/Ctx's/VB, when to seek emergent care. discomforts, self help measures. FMC and when to call for further evaluation. Plan Tdap today. RTO 2wks. Visit Date: 05/15/23 Last Updated by: Chely Redmond CNM Note author: Chely Redmond CNM. 30wk. KIERRA. Taking PNV, Doing well with no concerns. Good appetite, stays well hydrated. Denies any LOF, VB, abd. pain or urinary symptoms. Romario an kids in today's visit. Reviewed: PTL s/s-LOF/Ctx's/VB, when to seek emergent care. discomforts, self help measures. FM and when to call the office for further eval. Encouraged a healthy well balanced diet, regular walking/exercise in . Hydrate well, 8-10 glasses of water daily. RTO 2wks. Visit Date: 04/30/23 Last Updated by: Chely Redmond CNM Note author: Chely Redmond CNM. 28wk. KIERRA. Taking PNV, Doing well with concerns: She reports heartburn, not taking anything. Good appetite, stays well hydrated. Denies any LOF, VB, abd. pain or urinary symptoms. Good FM. Romario in. follow up 06/17/23. Reviewed: Tdap, RSV. Rx for Pepcid, diet avoidances/triggers. discomforts, self help measures. FMC and when to call for further evaluation. Encouraged a healthy well balanced diet, regular walking/exercise in . Hydrate well, 8-10 glasses of water daily. Plans 28wk labs tomorrow. RTO 2 wks. Visit Date: 04/09/23 Last Updated by: Chely Redmond CNM Note author: Chely Redmond CNM. 25wk. KIERRA. Taking PNV, Doing well with no concerns. Good appetite, stays well hydrated. Denies any LOF, VB, abd. pain or urinary symptoms. Good FM. Reviewed: PTL s/s-LOF/Ctx's/VB, when to seek emergent care. discomforts, self help measures. FMC and when to call for further evaluation. Encouraged a healthy well balanced diet, regular walking/exercise in . Hydrate well, 8-10 glasses of water daily. Glucose testing at next visit. RSV information provided. Discussed control-uncertain. Follow-up ultrasound for third-trimester ordered. Consider transferred to [facility] to meet the midwives in [facility] care. She declines, and reports she did that with the [facility] midwives, met several of them but when it came time to deliver not 1 of them she met was present, her preference is to stay here for the remaining . RTO 3. Visit Date: 03/12/23 Last Updated by: Chely Redmond CNM Note author: Chely Redmond CNM 21wk. KIERRA. Taking PNV, Doing well with no concerns. Good appetite, stays well hydrated. Denies any LOF, VB, abd. pain. or urinary symptoms. Quickening noted. Had US and is concerned about the placenta she was told to speak to me about. Ant. marginal insertion noted. Reviewed: PTL s/s-LOF/Ctx's/VB, when to seek emergent care. discomforts, self help measures. Kick counts/FM and when to call for further evaluation. Encouraged a healthy well balanced diet, regular walking/exercise in . Hydrate well, 8-10 glasses of water daily. Flu vaccine today. Placenta, findings. follow up 3rd trimester growth check or prn. RTO 4wk. Visit Date: 02/14/23 Last Updated by: Chely Redmond CNM Note author: Chely Redmond CNM/Clau Richardson, Pricing Coordinator. 17.2 wk. KIERRA. Taking PNV, Doing well with no concerns. Good appetite, stays well hydrated. Denies any LOF, VB, abd. pain. or urinary symptoms. Reports quickening. She had strep throat last week, feeling better. FAS is scheduled for 03/05/23. Could not tolerate GTT, vomited 2x. She has tried to do the test since feeling better. Discussed: PTL s/s-LOF/Ctx's/VB, when to seek emergent care. Hydrate well, 8-10 glasses of water daily. Encouraged flu vaccine. Recommended trying GTT next week. If she cannot tolerate, will consider glucometer testing. RTO 4 weeks. Visit Date: 01/17/23 Last Updated by: Chely Redmond CNM Note author: Chely Redmond CNM/Lauren Lynne medical records director 13.2 wk KIERRA. Feeling well. Taking PNV. Hydrating well and good appetite Good FM, no LOF, VB or abd pain. Agreeable to do her Gtt. today due to nausea improving. Denies PEC, HTN or diabetes in previous . Discussed: PTL - LOF, VB, abd pain. FAS US in 5-6 weeks. NT is pending from 01/17. Call if any VB or other concerns. Informed re: Flu vaccine, she plans Flu vaccine when in stock at her next visit. Discussed to call the service here for any emergencies/deliveries to be directed to [facility]. All of her questions and concerns were addressed to the best of my ability and shared decision making. She is agreeable to plan of care. RTO 4 wks. Visit Date: 12/20/22 Last Updated by: Sarah Orozco CNM Patient is here with her and little girl for their 1st visit her daughter is super excited about trying to be able to hear the heartbeat today she would be 9 weeks and 2 days by dates and ultrasound which concur essentially. She is starting to be able to eat a little bit more and has been eating a lot of watermelon and honeydew melon. She has her blood work already ordered but is going to be going some morning to get it because it involves a 1 hour GTT as well discussed caution with eating and trying not to gain much weight and being careful around carbs. Issues around care inside of delivery and ultrasounds of already been reviewed and she will have her nuchal translucency ultrasound on 01/03 at [facility]. She knows that for any complications we might transfer care. PE was within normal limits very difficult to palpate the uterus secondary to adipose Pap done as well as testing for STI and other vaginal shahid. Unable to auscultate heart despite efforts. Consistent with 9 weeks gestation with adipose. She will go for blood work some morning soon and NT ultrasound 914 I will see her in 1 month. Visit Date: 12/12/22 Last Updated by: Irina Santacruz Onur Amaya is a very pleasant 32 year old here for nurse intake visit. This is her 3rd . She and her family are very excited about the . LMP 10/16/22 with DELORES 07/23/23 and GA today of 8w1d. Early US on 11/27/22 @ 6w1d gives DELORES of 07/22/23 and GA 8w2d. She is already scheduled for NT US/1st trimester screening at [facility] on 01/03/23. BMI 37.2 and early glucose has been added to labs. Pt was given the folder. She was advised MD coverage 12/11 and how to reach MD after hours/weekends and holidays. We discussed danger signs and to call or go to hospital if she experiences pelvic pain and or vaginal bleeding. Pt is aware she will deliver at [facility] and have ultrasounds there as well. Pt is having nausea and vomiting. She was given B6/Unisom without relief. Pt was advised to take B6 tid even if she does not have nausea as it will work better. Taking Unisom before bed. She is also taking her PNV before bed. We reviewed first trimester education. Pt verbalizes und erstanding and agrees with plan. She will schedule her OB PE today and she is aware labs will be ordered. No further questions. Coding Level of Care Code Krista
== END 2023-06-20 16:19 | disposition home or self-care (01) ==
LOC: HO.HWS 15:45
PROVIDERS: PCP Internal Medicine; Visit Provider Advanced Practice Midwife
DX: Z34.90 Encounter for supervision of normal pregnancy, unspecified, unspecified trimester (principal)
CPT/HCPCS: 25942

== ENCOUNTER → 2023-06-20 15:44 | Outpatient (BNVA) | payer OTHER, SELFPAY | PROVIDERS: PCP Internal Medicine; Visit Provider Advanced Practice Midwife | DX: Z34.83 Encounter for supervision of other normal pregnancy, third trimester (principal); Z3A.35 35 weeks gestation of pregnancy | CPT/HCPCS: 99212 ==

== ENCOUNTER 2023-06-26 15:19 | Outpatient (REF) | payer OTHER, SELFPAY ==
[2023-06-27 02:42] LABS: CT PCR NOT DETECTED (Not Detect.); NG PCR NOT DETECTED (Not Detect.)
== END 2023-06-26 15:20 | disposition home or self-care (01) ==
LOC: HO.LNP 15:19
PROVIDERS: PCP Internal Medicine; Visit Provider Advanced Practice Midwife
DX: Z34.93 Encounter for supervision of normal pregnancy, unspecified, third trimester (principal); Z3A.36 36 weeks gestation of pregnancy
CPT/HCPCS: 0353U; 81003; 87081; 87147; 99212

== ENCOUNTER 2023-06-26 15:19 | Outpatient (AMB) | payer OTHER, SELFPAY ==
[2023-06-26 15:29] VITALS: BP 100/60; BMI 37.4
--- NOTE | 2023-06-26 15:29 | A.OFFVISPN_ITS ---
Intake Vital Signs 06/26/23 15:29 Height 5 ft 1 in Weight 198 lb BMI 37.4 BP 100/60 Intake Visit Reasons: KIERRA Intake Note: 07/02/23 Chari Intake appointment Seo Specialist: Seo Specialist Present (Sima) Allergies sulfamethoxazole [From [facility]ACTRIM] Allergy (Unknown, Verified 06/26/23 15:29) HIVES trimethoprim [From BACTRIM] Allergy (Unknown, Verified 06/26/23 15:29) HIVES Patient : Yes PFSH Medical History Marginal insertion of umbilical cord affecting management of mother Encounter for supervision of other normal , second trimester Anxiety Neck pain Allergic rhinitis Ophthalmoplegic migraine Surgical History No pertinent past surgical history Family History Mother COPD (chronic obstructive pulmonary disease) Social History Household Members: Spouse and Children Both parents involved: Yes Caregiver staying overnight: No Housing: Apartment Are you a primary career services officer to a significant other at home: No Do you presently have visiting nurse or other home services: No 75 years or older and lives alone: No Alcohol intake: never Patient Tobacco Use Status: Never used Tobacco e-Cigarette/Vaping Use: Never Used Second Hand Smoke Exposure: No Agree to transfusion: Yes service: No Current occupational status: unemployed Current occupational exposures/hazards: No Gender identity: Female Cognitive needs: No Hearing needs: No Vision needs: No Female Reproductive History Menstrual Age of Menarche: 15 History History 3 Elective abortions 0 Para 2 Spontaneous abortions 0 Hx # Term Pregnancies 2 Ectopic pregnancies 0 Hx # Pregnancies 0 Multiple births 0 Past Pregnancies Del. Date GA/Weeks Outcome Route Wt Inf Gender Labor Dilia Anesthesia Location Provider Complicate 05/13/13 42 live - full term vaginal delivery 9 lb 14 oz Male epidural [facility] none 12/06/17 40 live - full term vaginal delivery 7 lb Female epidural [facility] none Visit [facility] Calculator Estimated Delivery Date Method Current WG Current Estimate 07/23/23 LMP (Certain) 36w 1d Other Estimates 07/22/23 Ultrasound #1 36w 2d Expected Delivery Route/Plan Vaginal Specific Issues/Plans EDC: 07/23/23 O pos Problem List: 1. Obesity BMI 37.2--not able to tolerate the first Gtt due to being sick, will attempt this again when feeling better. 2. Varicella non immune: advised pp vaccination 3. 12/31/2022 diagnosed with COVID at [facility]. See telephone encounter activity 4. Marginal insertion cord. 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 Labor support: Romario plan: Prefers a birthing center atmosphere control: ? [facility] Visit Log Initial Weight: 200 lb Date -?-?-?-?-?-?-?-?-?-?-?-?- EGA Weight Gest Week Fundal Ht Present FHR move Efface % Edema BP PrePreg We Weight GTT -?-?-?-?-?-?-?-?-?-?-?-?- Glucose LV Protein Blood Type 12/12/22 -?-?-?-?-?-?-?-?-?-?-?-?- 8w 1d 197 lb 2 oz (-2 lb 14 oz) 197 lb 2 oz -?-?-?-?-?-?-?-?-?-?-?-?- 12/20/22 -?-?-?-?-?-?-?-?-?-?-?-?- 9w 2d 196 lb (-4 lb) 130/80 196 lb -?-?-?-?-?-?-?-?-?-?-?-?- 01/17/23 -?-?-?-?-?-?-?-?-?-?-?-?- 13w 2d 191 lb (-9 lb) 160 112/70 191 lb -?-?-?-?-?-?-?-?-?-?-?-?- 02/14/23 -?-?-?-?-?-?-?-?-?-?-?-?- 17w 2d 187 lb (-13 lb) 17 150 110/74 187 lb -?-?-?-?-?-?-?-?-?-?-?-?- 03/12/23 -?-?-?-?-?-?-?-?-?-?-?-?- 21w 0d 189 lb (-11 lb) 22 150 114/66 189 lb -?-?-?-?-?-?-?-?-?--?-?-?- 04/09/23 -?-?-?-?-?-?-?-?-?-?-?-?- 25w 0d 188 lb (-12 lb) 25 140 active 100/66 188 lb -?-?-?-?-?-?-?-?-?-?-?-?- 04/30/23 -?-?-?-?-?-?-?-?-?-?-?-?- 28w 0d 193 lb (-7 lb) 29 140 active 120/70 193 lb -?-?-?-?-?-?-?-?-?-?-?-?- 05/15/23 -?-?-?-?-?-?-?-?-?-?-?-?- 30w 1d 196 lb (-4 lb) 32 140 active 120/72 196 lb -?-?-?-?-?-?-?-?-?-?-?-?- 06/07/23 -?-?-?-?-?-?-?-?-?-?-?-?- 33w 3d 195 lb (-5 lb) 34 140 active 118/72 195 lb -?-?-?-?-?-?-?-?-?-?-?-?- 06/20/23 -?-?-?-?-?-?-?-?-?-?-?-?- 35w 2d 201 lb (+16 oz) 36 vtx 130 active 134/72 201 lb -?-?-?-?-?-?-?-?-?-?-?-?- 06/26/23 -?-?-?-?-?-?-?-?-?-?-?-?- 36w 1d 198 lb (-2 lb) 37 vtx 140 active 100/60 198 l b -?-?-?-?-?-?-?-?-?-?-?-?- Notes Visit Date: 06/26/23 Last Updated by: Chely Redmond CNM Note author: Chely Redmond CNM. 36.1wk. KIERRA. Taking PNV, Doing well with no concerns. Good appetite, stays well hydrated. Denies any LOF, VB, abd. pain or urinary symptoms. Good FM. Monique had an interview at [address] [place] [address] this week and decided not to go there due to the short stay of 4 hours, and the inability to have an epidural if she desired. She was referred to [facility] as her 2nd choice and has an intake on 07/02/23. GBS, GC chlamydia obtained, cervix long thick and closed. Reviewed: Labor s/s-LOF/Ctx's/VB, when to seek emergent care. [facility]MC and when to call for further evaluation. Sign a release of records to [facility]. Lab results available in 2 days. RTO 1wks. Visit Date: 06/20/23 Last Updated by: Chely Redmond CNM Note author: Chely Redmond CNM. 35.2wk. KIERRA. Family in for her visit today. Taking PNV, Doing well with no concerns. Good appetite, stays well hydrated. Denies any LOF, VB, abd. pain or urinary symptoms. Prepping at home this weekend for the new baby. Reviewed: PTL s/s-LOF/Ctx's/VB, when to seek emergent care. FM and when to call the office for further eval. Encouraged a healthy well balanced diet, regular walking/exercise in . Hydrate well, 8-10 glasses of water daily. Has decided to transition her care to the [address] [place] [address], re cords provided today. She has an appointment on June 24 for her consult and tour. Advised she will need her group B strep done at her next visit. RTO 1wks. Visit Date: 06/07/23 Last Updated by: Chely Redmond CNM Note author: Chely Redmond CNM. 33.2wk. KIERRA. Taking PNV, and iron. Doing well with no concerns. Good appetite, stays well hydrated. Denies any LOF, VB, abd. pain or urinary symptoms. Good FM. US growth check 05/28/23-nl scan. Reviewed: PTL s/s-LOF/Ctx's/VB, when to seek emergent care. discomforts, self help measures. FMC and when to call for further evaluation. Plan Tdap today. RTO 2wks. Visit Date: 05/15/23 Last Updated by: Chely Redmond CNM Note author: Chely Redmond CNM. 30wk. KIERRA. Taking PNV, Doing well with no concerns. Good appetite, stays well hydrated. Denies any LOF, VB, abd. pain or urinary symptoms. Romario an kids in today's visit. Reviewed: PTL s/s-LOF/Ctx's/VB, when to seek emergent care. discomforts, self help measures. FM and when to call the office for further eval. Encouraged a healthy well balanced diet, regular walking/exercise in preg ken. Hydrate well, 8-10 glasses of water daily. RTO 2wks. Visit Date: 04/30/23 Last Updated by: Chely Redmond CNM Note author: Chely Redmond CNM. 28wk. KIERRA. Taking PNV, Doing well with concerns: She reports heartburn, not taking anything. Good appetite, stays well hydrated. Denies any LOF, VB, abd. pain or urinary symptoms. Good FM. Romario in. US follow up 06/17/23. Reviewed: Tdap, RSV. Rx for Pepcid, diet avoidances/triggers. discomforts, self help measures. FMC and when to call for further evaluation. Encouraged a healthy well balanced diet, regular walking/exercise in . Hydrate well, 8-10 glasses of water daily. Plans 28wk labs tomorrow. RTO 2 wks. Visit Date: 04/09/23 Last Updated by: Chely Redmond CNM Note author: Chely Redmond CNM. 25wk. KIERRA. Taking PNV, Doing well with no concerns. Good appetite, stays well hydrated. Denies any LOF, VB, abd. pain or urinary symptoms. Good FM. Reviewed: PTL s/s-LOF/Ctx's/VB, when to seek emergent care. discomforts, self help measures. FMC and when to call for further evaluation. Encouraged a healthy well balanced diet, regular walking/exercise in . Hydrate well, 8-10 glasses of water daily. Glucose testing at next visit. RSV information provided. Discussed control-uncertain. Follow-up ultrasound for third-trimester ordered. Consider transferred to [facility] to meet the midwives in [facility]. She declines, and reports she did that with the [facility] midwives, met several of them but when it came time to deliver not 1 of them she met was present, her preference is to stay here for the remaining . RTO 3. Visit Date: 03/12/23 Last Updated by: Chely Redmond CNM Note author: Chely Redmond CNM 21wk. KIERRA. Taking PNV, Doing well with no concerns. Good appetite, stays well hydrated. Denies any LOF, VB, abd. pain. or urinary symptoms. Quickening noted. Had US and is concerned about the placenta she was told to speak to me about. Ant. marginal insertion noted. Reviewed: PTL s/s-LOF/Ctx's/VB, when to seek emergent care. discomforts, self help measures. Kick counts/FM and when to call for further evaluation. Encouraged a healthy well balanced diet, regular walking/exercise in . Hydrate well, 8-10 glasses of water daily. Flu vaccine today. Placenta, findings. follow up 3rd trimester growth check or prn. RTO 4wk. Visit Date: 02/14/23 Last Updated by: Chely Redmond CNM Note author: Chely Redmond CNM/Clau Richardson Canal Tender. 17.2 wk. KIERRA. Taking PNV, Doing well with no concerns. Good appetite, stays well hydrated. Denies any LOF, VB, abd. pain. or urinary symptoms. Reports quickening. She had strep throat last week, feeling better. FAS is scheduled for 03/05/23. Could not tolerate GTT, vomited 2x. She has tried to do the test since feeling better. Discussed: PTL s/s-LOF/Ctx's/VB, when to seek emergent care. Hydrate well, 8-10 glasses of water daily. Encouraged flu vaccine. Recommended trying GTT next week. If she cannot tolerate, will consider glucometer testing. RTO 4 weeks. Visit Date: 01/17/23 Last Updated by: Chely Redmond CNM Note author: Chely Redmond CNM/Lauren Lynne hospitalist medical director 13.2 wk KIERRA. Feeling well. Taking PNV. Hydrating well and good appetite Good FM, no LOF, VB or abd pain. Agreeable to do her Gtt. today due to nausea improving. Denies PEC, HTN or diabetes in previous . Discussed: PTL - LOF, VB, abd pain. FAS US in 5-6 weeks. NT is pending from 01/17. Call if any VB or other concerns. Informed re: Flu vaccine, she plans Flu vaccine when in stock at her next visit. Discussed to call the service here for any emergencies/deliveries to be directed to [facility]. All of her questions and concerns were addressed to the best of my ability and shared decision making. She is agreeable to plan of care. RTO 4 wks. Visit Date: 12/20/22 Last Updated by: Sarah Orozco CNM Patient is here with her and little girl for their 1st visit her daughter is super excited about trying to be able to hear the heartbeat today she would be 9 weeks and 2 days by dates and ultrasound which concur essentially. She is starting to be able to eat a little bit more and has been eating a lot of watermelon and honeydew melon. She has her blood work already ordered but is going to be going some morning to get it because it involves a 1 hour GTT as well discussed caution with eating and trying not to gain much weight and being careful around carbs. Issues around care inside of delivery and ultrasounds of already been reviewed and she will have her nuchal translucency ultrasound on 01/03 at [facility]. She knows that for any complications we might transfer care. PE was within normal limits very difficult to palpate the uterus secondary to adipose Pap done as well as testing for STI and other vaginal shahid. Unable to auscultate heart despite efforts. Consistent with 9 weeks gestation with adipose. She will go for blood work some morning soon and NT ultrasound 914 I will see her in 1 month. Visit Date: 12/12/22 Last Updated by: Irina Santacruz Onur Amaya is a very pleasant 32 year old here for nurse intake visit. This is her 3rd . She and her family are very excited about the . LMP 10/16/22 with DELORES 07/23/23 and GA today of 8w1d. Early US on 11/27/22 @ 6w1d gives DELORES of 07/22/23 and GA 8w2d. She is already scheduled for NT US/1st trimester screening at [facility] on 01/03/23. BMI 37.2 and early glucose has been added to labs. Pt was given the folder. She was advised MD coverage 12/11 and how to reach MD after hours/weekends and holidays. We discussed danger signs and to call or go to hospital if she experiences pelvic pain and or vaginal bleeding. Pt is aware she will deliver at [facility] and have ultrasounds there as well. Pt is having nausea and vomiting. She was given B6/Unisom without relief. Pt was advised to take B6 tid even if she does not have nausea as it will work better. Taking Unisom before bed. She is also taking her PNV before bed. We reviewed first trimester education. Pt verbalizes understanding and agrees with plan. She will schedule her OB PE today and she is aware labs will be ordered. No further questions. Results AMB Urinalysis, Automated UA Leukoctes 0.5 Ethan/uL Last Edit by RUSS Barnhart on 06/26/23 15:3 4 UA Nitrite Negative Last Edit by RUSS Barnhart on 06/26/23 15:34 UA Urobilinogen 0 mg/dL Last Edit by RUSS Barnhart on 06/26/23 15:3 4 UA Protein 0 mg/dL Last Edit by RUSS Barnhart on 06/26/23 15:34 UA pH 6.5 Last Edit by RUSS Barnhart on 06/26/23 15:34 UA Blood 0 John/uL Last Edit by RUSS Barnhart on 06/26/23 15:34 UA Specific Garfield 1.015 Last Edit by RUSS Barnhart on 06/26/23 15:34 UA Ketone Negative Last Edit by RUSS Barnhart on 06/26/23 15:34 UA Bilirubin 0 mg/dL Last Edit by RUSS Barnhart on 06/26/23 15:34 UA Glucose 0 mg/dL Last Edit by RUSS Barnhart on 06/26/23 15:34 Results Reviewed Results Reviewed: Laboratory Last Values Urine pH (Auto) 6.5 06/26/23 15:33 Specific Garfield (Auto) 1.015 06/26/23 15:33 Urine Protein (Auto) 0 mg/dL 06/26/23 15:33 Glucose (UA)(Auto) 0 mg/dL 06/26/23 15:33 Urine Ketones (Auto) Negative 06/26/23 15:33 Urine Blood (Auto) 0 John/uL 06/26/23 15:33 Urine Nitrite (Auto) Negative 06/26/23 15:33 Urine Bilirubin (Auto) 0 mg/dL 06/26/23 15:33 Urine Urobilinogen (Auto) 0 mg/dL 06/26/23 15:33 Leukocyte Esterase (Auto) 0.5 Ethan/uL 06/26/23 15:33 Coding Level of Care Code [place] Assessment & Plan Assessment & Plan Orders: Orders AMB Urinalysis Automated Today Z34 - Encounter for supervision of normal pre gnancy, unspecified, third trimester Group B Strep Culture Today Z34. - Encounter for supervision of normal , unspecified, third trimester CT NG by PCR Today Z34.93 - Encounter for supervision of normal , unspecified, third trimester
== END 2023-06-26 16:00 | disposition home or self-care (01) ==
LOC: HO.HWS 15:19
PROVIDERS: PCP Internal Medicine; Visit Provider Advanced Practice Midwife
DX: Z34.93 Encounter for supervision of normal pregnancy, unspecified, third trimester (principal)
CPT/HCPCS: 25942

== ENCOUNTER 2023-07-03 15:23 | Outpatient (AMB) | payer OTHER, SELFPAY ==
--- NOTE | 2023-07-03 15:24 | A.OFFVISPN_ITS ---
Intake Vital Signs 07/03/23 15:25 Height 5 ft 1 in Weight 199 lb BMI 37.6 BP 118/82 Intake Visit Reasons: KIERRA Allergies sulfamethoxazole [From [facility]ACTRIM] Allergy (Unknown, Verified 07/03/23 15:25) HIVES trimethoprim [From BACTRIM] Allergy (Unknown, Verified 07/03/23 15:25) HIVES Patient : Yes PFSH Medical History Marginal insertion of umbilical cord affecting management of mother Encounter for supervision of other normal , second trimester Anxiety Neck pain Allergic rhinitis Ophthalmoplegic migraine Surgical History No pertinent past surgical history Family History Mother COPD (chronic obstructive pulmonary disease) Social History Household Members: Spouse and Children Both parents involved: Yes Caregiver staying overnight: No Housing: Apartment Are you a primary career coordinator to a significant other at home: No Do you presently have visiting nurse or other home services: No 75 years or older and lives alone: No Alcohol intake: never Patient Tobacco Use Status: Never used Tobacco e-Cigarette/Vaping Use: Never Used Second Hand Smoke Exposure: No Agree to transfusion: Yes service: No Current occupational status: unemployed Current occupational exposures/hazards: No Gender identity: Female Cognitive needs: No Hearing needs: No Vision needs: No Female Reproductive History Menstrual Age of Menarche: 15 History History 3 Elective abortions 0 Para 2 Spontaneous abortions 0 Hx # Term Pregnancies 2 Ectopic pregnancies 0 Hx # Pregnancies 0 Multiple births 0 Past Pregnancies Del. Date GA/Weeks Outcome Route Wt Inf Gender Labor Dilia Anesthesia Location Provider Complicate 05/13/13 42 live - full term vaginal delivery 9 lb 14 oz Male epidural [facility] none 12/06/17 40 live - full term vaginal delivery 7 lb Female epidural [facility] none Visit [facility] Calculator Estimated Delivery Date Method Current WG Current Estimate 07/23/23 LMP (Certain) 37w 1d Other Estimates 07/22/23 Ultrasound #1 37w 2d Expected Delivery Route/Plan Vaginal Specific Issues/Plans EDC: 07/23/23 O pos Problem List: 1. Obesity BMI 37.2--not able to tolerate the first Gtt due to being sick, will attempt this again when feeling better. 2. Varicella non immune: advised pp vaccination 3. 12/31/2022 diagnosed with COVID at [facility]. See telephone encounter activity 4. Marginal insertion cord. 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 Labor support: Romario plan: Prefers a birthing center atmosphere control: ? [facility] Visit Log Initial Weight: 200 lb Date -?-?-?-?-?-?-?-?-?-?-?-?- EGA Weight Gest Week Fundal Ht Present FHR move Efface % Edema BP PrePreg We Weight GTT -?-?-?-?-?-?-?-?-?-?-?-?- Glucose LV Protein Blood Type 12/12/22 -?-?-?-?-?-?-?-?-?-?-?-?- 8w 1d 197 lb 2 oz (-2 lb 14 oz) 197 lb 2 oz -?-?-?-?-?-?-?-?-?-?-?-?- 12/20/22 -?-?-?-?-?-?-?-?-?-?-?-?- 9w 2d 196 lb (-4 lb) 130/80 196 lb -?-?-?-?-?-?-?-?-?-?-?-?- 01/17/23 -?-?-?-?-?-?-?-?-?-?-?-?- 13w 2d 191 lb (-9 lb) 160 112/70 191 lb -?-?-?-?-?-?-?-?-?-?-?-?- 02/14/23 -?-?-?-?-?-?-?-?-?-?-?-?- 17w 2d 187 lb (-13 lb) 17 150 110/74 187 lb -?-?-?-?-?-?-?-?-?-?-?-?- 03/12/23 -?-?-?-?-?-?-?-?-?-?-?-?- 21w 0d 189 lb (-11 lb) 22 150 114/66 189 lb -?-?-?-?-?-?-?-?-?-?-?-?- 04/09/23 -?-?-?-?-?-?-?-?-?-?-?-?- 25w 0d 188 lb (-12 lb) 25 140 active 100/66 188 lb -?-?-?-?-?-?-?-?-?-?-?-?- 04/30/23 -?-?-?-?-?-?-?-?-?-?-?-?- 28w 0d 193 lb (-7 lb) 29 140 active 120/70 193 lb -?-?-?-?-?-?-?-?-?-?-?-?- 05/15/23 -?-?-?-?-?-?-?-?-?-?-?-?- 30w 1d 196 lb (-4 lb) 32 140 active 120/72 196 lb -?-?-?-?-?-?-?-?-?-?-?-?- 06/07/23 -?-?-?-?-?-?-?-?-?-?-?-?- 33w 3d 195 lb (-5 lb) 34 140 active 118/72 195 lb -?-?-?-?-?-?-?-?-?-?-?-?- 06/20/23 -?-?-?-?-?-?-?-?-?-?-?-?- 35w 2d 201 lb (+16 oz) 36 vtx 130 active 134/72 201 lb -?-?-?-?-?-?-?-?-?-?-?-?- 06/26/23 -?-?-?-?-?-?-?-?-?-?-?-?- 36w 1d 198 lb (-2 lb) 37 vtx 140 active 100/60 198 l b -?-?-?-?-?-?-?-?-?-?-?-?- 07/03/23 -?-?-?-?-?-?-?-?-?-?-?-?- 37w 1d 199 lb (-16 oz) 38 vtx 140 active 118/82 199 lb -?-?-?-?-?-?-?-?-?-?-?-?- Notes Visit Date: 07/03/23 Last Updated by: Chely Redmond CNM Note author: Chely Redmond CNM. 37.1wk. KIERRA. Taking PNV, Doing well with no concerns. Patient has appointment at [facility] was canceled she was told she needed to be seen in person but then there was no availability to be seen. Has a good appetite, stays well hydrated. Denies any LOF, VB, abd. pain or urinary symptoms. Good FM. GBS positive patient counseled about treatment in labor and delivery. Reviewed: Labor/ LOF/Ctx's/VB, when to seek emergent care. [facility] and when to call for further evaluation. Encouraged a healthy well balanced diet, regular walking/exercise in . Hydrate well, 8-10 glasses of water daily. Up-to-date chart copies to be sent to [facility] along with the GBS report. RTO 1wks. Visit Date: 06/26/23 Last Updated by: Chely Redmond CNM Note author: Chely Redmond CNM. 36.1wk. KIERRA. Taking PNV, Doing well with no concerns. Good appetite, stays well hydrated. Denies any LOF, VB, abd. pain or urinary symptoms. Good FM. Monique had an interview at [address] [place] [address] this week and decided not to go there due to the short stay of 4 hours, and the inability to have an epidural if she desired. She was referred to [facility] as her 2nd choice and has an intake on 07/02/23. GBS, GC chlamydia obtained, cervix long thick and closed. Reviewed: Labor s/s-LOF/Ctx's/VB, when to seek emergent care. [facility]MC and when to call for further evaluation. Sign a release of records to [facility]. Lab results available in 2 days. RTO 1wks. Visit Date: 06/20/23 Last Updated by: Chely Redmond CNM Note author: Chely Redmond CNM. 35.2wk. KIERRA. Family in for her visit today. Taking PNV, Doing well with no concerns. Good appetite, stays well hydrated. Denies any LOF, VB, abd. pain or urinary symptoms. Prepping at home this weekend for the new baby. Reviewed: PTL s/s-LOF/Ctx's/VB, when to seek emergent care. FM and when to call the office for further eval. Encouraged a healthy well balanced diet, regular walking/exercise in . Hydrate well, 8-10 glasses of water daily. Has decided to transition her care to the [address] [place] [address], records provided today. She has an appointment on June 24 for her consult and tour. Advised she will need her group B strep done at her next visit. RTO 1wks. Visit Date: 06/07/23 Last Updated by: Chely Redmond CNM Note author: Chely Redmond CNM. 33.2wk. KIERRA. Taking PNV, and iron. Doing well with no concerns. Good appetite, stays well hydrated. Denies any LOF, VB, abd. pain or urinary symptoms. Good FM. US growth check 05/28/23-nl scan. Reviewed: PTL s/s-LOF/Ctx's/VB, when to seek emergent care. discomforts, self help measures. FMC and when to call for further evaluation. Plan Tdap today. RTO 2wks. Visit Date: 05/15/23 Last Updated by: Chely Redmond CNM Note author: Chely Redmond CNM. 30wk. KIERRA. Taking PNV, Doing well with no concerns. Good appetite, stays well hydrated. Denies any LOF, VB, abd. pain or urinary symptoms. Romario an kids in today's visit. Reviewed: PTL s/s-LOF/Ctx's/VB, when to seek emergent care. discomforts, self help measures. FM and when to call the office for further eval. Encouraged a healthy well balanced diet, regular walking/exercise in . Hydrate well, 8-10 glasses of water daily. RTO 2wks. Visit Date: 04/30/23 Last Updated by: Chely Redmond CNM Note author: Chely Redmond CNM. 28wk. KIERRA. Taking PNV, Doing well with concerns: She reports heartburn, not taking anything. Good appetite, stays well hydrated. Denies any LOF, VB, abd. pain or urinary symptoms. Good FM. Romario in. US follow up 06/17/23. Reviewed: Tdap, RSV. Rx for Pepcid, diet avoidances/triggers. discomforts, self help measures. FMC and when to call for further evaluation. Encouraged a healthy well balanced diet, regular walking/exercise in . Hydrate well, 8-10 glasses of water daily. Plans 28wk labs tomorrow. RTO 2 wks. Visit Date: 04/09/23 Last Updated by: Chely Redmond CNM Note author: Chely Redmond CNM. 25wk. KIERRA. Taking PNV, Doing well with no concerns. Good appetite, stays well hydrated. Denies any LOF, VB, abd. pain or urinary symptoms. Good FM. Reviewed: PTL s/s-LOF/Ctx's/VB, when to seek emergent care. discomforts, self help measures. FMC and when to call for further evaluation. Encouraged a healthy well balanced diet, regular walking/exercise in . Hydrate well, 8-10 glasses of water daily. Glucose testing at next visit. RSV information provided. Discussed control-uncertain. Follow-up ultrasound for third-trimester ordered. Consider transferred to [facility] to meet the midwives in count includes the [facility] care. She declines, and reports she did that with the [facility] midwives, met several of them but when it came time to deliver not 1 of them she met was present, her preference is to stay here for the remaining . RTO 3. Visit Date: 03/12/23 Last Updated by: Chely Redmond CNM Note author: Chely Redmond CNM 21wk. KIERRA. Taking PNV, Doing well with no concerns. Good appetite, stays well hydrated. Denies any LOF, VB, abd. pain. or urinary symptoms. Quickening noted. Had US and is concerned about the placenta she was told to speak to me about. Ant. marginal insertion noted. Reviewed: PTL s/s-LOF/Ctx's/VB, when to seek emergent care. discomforts, self help measures. Kick counts/FM and when to call for further evaluation. Encouraged a healthy well balanced diet, regular walking/exercise in . Hydrate well, 8-10 glasses of water daily. Flu vaccine today. Placenta, findings. follow up 3rd trimester growth check or prn. RTO 4wk. Visit Date: 02/14/23 Last Updated by: Chely Redmond CNM Note author: Chely Redmond CNM/Clau Richardson Permanent Waver. 17.2 wk. KIERRA. Taking PNV, Doing well with no concerns. Good appetite, stays well hydrated. Denies any LOF, VB, abd. pain. or urinary symptoms. Reports quickening. She had strep throat last week, feeling better. FAS is scheduled for 03/05/23. Could not tolerate GTT, vomited 2x. She has tried to do the test since feeling better. Discussed: PTL s/s-LOF/Ctx's/VB, when to seek emergent care. Hydrate well, 8-10 glasses of water daily. Encouraged flu vaccine. Recommended trying GTT next week. If she cannot tolerate, will consider glucometer testing. RTO 4 weeks. Visit Date: 01/17/23 Last Updated by: Chely Redmond CNM Note author: Chely Redmond CNM/Lauren Lynne bilingual medical receptionist 13.2 wk KIERRA. Feeling well. Taking PNV. Hydrating well and good appetite Good FM, no LOF, VB or abd pain. Agreeable to do her Gtt. today due to nausea improving. Denies PEC, HTN or diabetes in previous . Discussed: PTL - LOF, VB, abd pain. FAS US in 5-6 weeks. NT is pending from 01/17. Call if any VB or other concerns. Informed re: Flu vaccine, she plans Flu vaccine when in stock at her next visit. Discussed to call the service here for any emergencies/deliveries to be directed to [facility]. All of her questions and concerns were addressed to the best of my ability and shared decision making. She is agreeable to plan of care. RTO 4 wks. Visit Date: 12/20/22 Last Updated by: Sarah Orozco CNM Patient is here with her and little girl for their 1st visit her daughter is super excited about trying to be able to hear the heartbeat today she would be 9 weeks and 2 days by dates and ultrasound which concur essentially. She is starting to be able to eat a little bit more and has been eating a lot of watermelon and honeydew melon. She has her blood work already ordered but is going to be going some morning to get it because it involves a 1 hour GTT as well discussed caution with eating and trying not to gain much weight and being careful around carbs. Issues around care inside of delivery and ultrasounds of already been reviewed and she will have her nuchal translucency ultrasound on 01/03 at [facility]. She knows that for any complications we might transfer care. PE was within normal limits very difficult to palpate the uterus secondary to adipose Pap done as well as testing for STI and other vaginal shahid. Unable to auscultate heart despite efforts. Consistent with 9 weeks gestation with adipose. She will go for blood work some morning soon and NT ultrasound 914 I will see her in 1 month. Visit Date: 12/12/22 Last Updated by: Irina Santacruz Onur Amaya is a very pleasant 32 year old here for nurse intake visit. This is her 3rd . She and her family are very excited about the . LMP 10/16/22 with DELORES 07/23/23 and GA today of 8w1d. Early US on 11/27/22 @ 6w1d gives DELORES of 07/22/23 and GA 8w2d. She is already scheduled for NT US/1st trimester screening at [facility] on 01/03/23. BMI 37.2 and early glucose has been added to labs. Pt was given the folder. She was advised MD coverage 12/11 and how to reach MD after hours/weekends and holidays. We discussed danger signs and to call or go to hospital if she experiences pelvic pain and or vaginal bleeding. Pt is aware she will deliver at [facility] and have ultrasounds there as well. Pt is having nausea and vomiting. She was given B6/Unisom without relief. Pt was advised to take B6 tid even if she does not have nausea as it will work better. Taking Unisom before bed. She is also taking her PNV before bed. We reviewed first trimester education. Pt verbalizes understanding and agrees with plan. She will schedule her OB PE today and she is aware labs will be ordered. No further questions. Results AMB Urinalysis, Automated UA Leukoctes 1 Ethan/uL Last Edit by RUSS Barnhart on 07/03/23 15:47 UA Nitrite Negative Last Edit by Barbara Maguire [facility] on 07/03/23 15:47 UA Urobilinogen 0 mg/dL Last Edit by RUSS Barnhart on 07/03/23 15:4 7 UA Protein 0.5 mg/dL Last Edit by RUSS Barnhart on 07/03/23 15:47 UA pH 6.0 Last Edit by RUSS Barnhart on 07/03/23 15:47 UA Blood 0 John/uL Last Edit by Barbara Maguire [facility] on 07/03/23 15:47 UA Specific Natalia 1.025 Last Edit by RUSS Barnhart on 07/03/23 15:47 UA Ketone Positive Last Edit by RUSS Barnhart on 07/03/23 15:47 3 Barbara Maguire 07/03/23 15:47 UA Bilirubin 0 mg/dL Last Edit by RUSS Barnhart on 07/03/23 15:47 UA Glucose 0 mg/dL Last Edit by Barbara Maguire [facility] on 07/03/23 15:47 Results Reviewed Results Reviewed: Laboratory Last Values Urine pH (Auto) 6.0 07/03/23 15:46 Specific Natalia (Auto) 1.025 07/03/23 15:46 Urine Protein (Auto) 0.5 mg/dL 07/03/23 15:46 Glucose (UA)(Auto) 0 mg/dL 07/03/23 15:46 Urine Ketones (Auto) Positive 07/03/23 15:46 Urine Blood (Auto) 0 John/uL 07/03/23 15:46 Urine Nitrite (Auto) Negative 07/03/23 15:46 Urine Bilirubin (Auto) 0 mg/dL 07/03/23 15:46 Urine Urobilinogen (Auto) 0 mg/dL 07/03/23 15:46 Leukocyte Esterase (Auto) 1 Ethan/uL 07/03/23 15:46 Coding Level of Care Code [place] Assessment & Plan Assessment & Plan Orders: Orders AMB Urinalysis Automated Today Z34.93 - Encounter for supervision of normal , unspecified, third trimester
[2023-07-03 15:25] VITALS: BP 118/82; BMI 37.6
== END 2023-07-03 15:49 | disposition home or self-care (01) ==
LOC: HO.HWS 15:23
PROVIDERS: PCP Internal Medicine; Visit Provider Advanced Practice Midwife
DX: Z34.93 Encounter for supervision of normal pregnancy, unspecified, third trimester (principal)
CPT/HCPCS: 25942

== ENCOUNTER → 2023-07-03 15:23 | Outpatient (BNVA) | payer OTHER, SELFPAY | PROVIDERS: PCP Internal Medicine; Visit Provider Advanced Practice Midwife | DX: O99.213 Obesity complicating pregnancy, third trimester (principal); Z3A.37 37 weeks gestation of pregnancy; Z68.37 Body mass index [BMI] 37.0-37.9, adult | CPT/HCPCS: 81003; 99212 ==

== ENCOUNTER → 2023-07-10 14:48 | Outpatient (BNVA) | payer OTHER, SELFPAY | PROVIDERS: PCP Internal Medicine; Visit Provider Advanced Practice Midwife ==

== ENCOUNTER 2023-07-11 12:40 | Outpatient (AMB) | payer OTHER, SELFPAY ==
--- NOTE | 2023-07-11 12:40 | A.OFFVISPN_ITS ---
Intake Vital Signs 07/11/23 12:41 Height 5 ft 1 in Weight 201 lb BMI 38.0 BP 120/84 Blood Pressure Location Rt brachial Position Sitting Intake Visit Reasons: myah Intake Note: Pt presents to the office today for MYAH. She states she is feeling well. Allergies sulfamethoxazole [From BACTRIM] Allergy (Unknown, Verified 07/11/23 12:41) HIVES trimethoprim [From BACTRIM] Allergy (Unknown, Verified 07/11/23 12:41) HIVES Patient : Yes PFSH Medical History Marginal insertion of umbilical cord affecting management of mother Encounter for supervision of other normal , second trimester Anxiety Neck pain Allergic rhinitis Ophthalmoplegic migraine Surgical History No pertinent past surgical history Family History Mother COPD (chronic obstructive pulmonary disease) Social History Household Members: Spouse and Children Both parents involved: Yes Caregiver staying overnight: No Housing: Apartment Are you a primary child day care teacher to a significant other at home: No Do you presently have visiting nurse or other home services: No 75 years or older and lives alone: No Alcohol intake: never Patient Tobacco Use Status: Never used Tobacco e-Cigarette/Vaping Use: Never Used Second Hand Smoke Exposure: No Agree to transfusion: Yes service: No Current occupational status: unemployed Current occupational exposures/hazards: No Gender identity: Female Cognitive needs: No Hearing needs: No Vision needs: No Female Reproductive History Menstrual Age of Menarche: 15 Total pregnancies: 3 Full term: 2 Date of last pap smear: 12/21/22 History of abnormal pap smear: No History History 3 Elective abortions 0 Para 2 Spontaneous abortions 0 Hx # Term Pregnancies 2 Ectopic pregnancies 0 Hx # Pregnancies 0 Multiple births 0 Past Pregnancies Del. Date GA/Weeks Outcome Route Wt Inf Gender Labor Dilia Anesthesia Location Provider Complicate 05/13/13 42 live - full term vaginal delivery 9 lb 14 oz Male epidural [facility] none 12/06/17 40 live - full term vaginal delivery 7 lb Female epidural [facility] none Questionnaire History History : 3 Visit [facility] Calculator Estimated Delivery Date Method Current WG Current Estimate 07/23/23 LMP (Certain) 38w 2d Other Estimates 07/22/23 Ultrasound #1 38w 3d Expected Delivery Route/Plan Vaginal Specific Issues/Plans EDC: 07/23/23 O pos Problem List: 1. Obesity BMI 37.2--not able to tolerate the first Gtt due to being sick, will attempt this again when feeling better. 2. Varicella non immune: advised pp vaccination 3. 12/31/2022 diagnosed with COVID at [facility]. See telephone encounter activity 4. Marginal insertion cord. Follow up 32 wks.- growth at 58% NT: nl First trimester screen: FAS: 03/05/23 5. 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 Labor support: Romario plan: Prefers a birthing center atmosphere control: ? [place] [facility] Visit Log Initial Weight: 200 lb Date -?-?-?-?-?-?-?-?-?-?-?-?- EGA Weight Gest Week Fundal Ht Present FHR move Efface % Edema BP PrePreg We Weight GTT -?-?-?-?-?-?-?-?-?-?-?-?- Glucose LV Protein Blood Type 12/12/22 -?-?-?-?-?-?-?-?-?-?-?-?- 8w 1d 197 lb 2 oz (-2 lb 14 oz) 197 lb 2 oz -?-?-?-?-?-?-?-?-?-?-?-?- 12/20/22 -?-?-?-?-?-?-?-?-?-?-?-?- 9w 2d 196 lb (-4 lb) 130/80 196 lb -?-?-?-?-?-?-?-?-?-?-?-?- 01/17/23 -?-?-?-?-?-?-?-?-?-?-?-?- 13w 2d 191 lb (-9 lb) 160 112/70 191 lb -?-?-?-?-?-?-?-?-?-?-?-?- 02/14/23 -?-?-?-?-?-?-?-?-?-?-?-?- 17w 2d 187 lb (-13 lb) 17 150 110/74 187 lb -?-?-?-?-?-?-?-?-?-?-?-?- 03/12/23 -?-?-?-?-?-?-?-?-?-?-?-?- 21w 0d 189 lb (-11 lb) 22 150 114/66 189 lb -?-?-?-?-?-?-?-?-?-?-?-?- 04/09/23 -?-?-?-?-?-?-?-?-?-?-?-?- 25w 0d 188 lb (-12 lb) 25 140 active 100/66 188 lb -?-?-?-?-?-?-?-?-?-?-?-?- 04/30/23 -?-?-?-?-?-?-?-?-?-?-?-?- 28w 0d 193 lb (-7 lb) 29 140 active 120/70 193 lb -?-?-?-?-?-?-?-?-?-?-?-?- 05/15/23 -?-?-?-?-?-?-?-?-?-?-?-?- 30w 1d 196 lb (-4 lb) 32 140 active 120/72 196 lb -?-?-?-?-?-?-?-?-?-?-?-?- 06/07/23 -?-?-?-?-?-?-?-?-?-?-?-?- 33w 3d 195 lb (-5 lb) 34 140 active 118/72 195 lb -?-?-?-?-?-?-?-?-?-?-?-?- 06/20/23 -?-?-?-?-?-?-?-?-?-?-?-?- 35w 2d 201 lb (+16 oz) 36 vtx 130 active 134/72 201 lb -?-?-?-?-?-?-?-?-?-?-?-?- 06/26/23 -?-?-?-?-?-?-?-?-?-?-?-?- 36w 1d 198 lb (-2 lb) 37 vtx 140 active 100/60 198 l b -?-?-?-?-?-?-?-?-?-?-?-?- 07/03/23 -?-?-?-?-?-?-?-?-?-?-?-?- 37w 1d 199 lb (-16 oz) 38 vtx 140 active 118/82 199 lb -?-?-?-?-?-?-?-?-?-?-?-?- 07/11/23 -?-?-?-?-?-?-?-?-?-?-?-?- 38w 2d 201 lb (+16 oz) term 40 op 140 active 120/84 201 lb -?-?-?-?-?-?-?-?-?-?-?-?- Notes Visit Date: 07/11/23 Last Updated by: Sarah Orozco CNM Patient is here the [facility] office today, with her Romario for her visit at 38 weeks and 2 days she is having some tightening but no real contractions. She has no questions really about when to go to the hospital she re told her labor stories her 1st baby was delivered at 42 weeks 9 lb 14 oz. Her 2nd baby at 40 weeks. She is planning on an epidural. She knows she is group B strep positive she is NOT penicillin allergic so she will be getting penicillin IV in labor. She is sticking with [facility] at this point she had consider transferring elsewhere but it was too complicated. She says she had not decided about control so we discussed it she did not like how she felt on the control pills. She was thinking about an IUD this time but she had not decided which 1 I discussed the differences between the hormone using Mirena IU S and the hormone free ParaGard IUD and there different sets of side effects. She said that with her own periods she can liked how she felt and her periods were not a problem for her. She may choose to get a ParaGard IUD but she is going to think about it for the next week and I recommend if she that is the 1 she wants that she signed the p aperwork so it could be ordered so it is available to her when it is necessary . I also discussed that they may offer her a Mirena IU S immediately at [facility] and that is something she could consider and the concern there is that sometimes they may not stay but that is something that can be checked. Discussed also that if she is getting an IUD placed we would not want to inserted until at least 8 weeks and in fact if her uterus is very expanded from having a very large baby at term i.e. if she had a 10 pounder, she might want to wait even a week or 2 longer to make sure that involution is complete. At this point might estimated EFW by [facility]era[facility] is 7-3/4-8 lb baby feels 0 P today extremely active. RTC 1 week and weekly until delivered in the office of her choice. Visit Date: 07/03/23 Last Updated by: Chely Redmond CNM Note author: Chely Redmond CNM. 37.1wk. MYAH. Taking PNV, Doing well with no concerns. Patient has appointment at [facility] was canceled she was told she needed to be seen in person but then there was no availability to be seen. Has a good appetite, stays well hydrated. Denies any LOF, VB, abd. pain or urinary symptoms. Good FM. GBS positive patient counseled about treatment in labor and delivery. Reviewed: Labor/ LOF/Ctx's/VB, when to seek emergent care. [facility]MC and when to call for further evaluation. Encouraged a healthy well balanced diet, regular walking/exercise in . Hydrate well, 8-10 glasses of water daily. Up-to-date chart copies to be sent to [facility] along with the GBS report. RTO 1wks. Visit Date: 06/26/23 Last Updated by: Chely Redmond CNM Note author: Chely Redmond CNM. 36.1wk. MYAH. Taking PNV, Doing well with no concerns. Good appetite, stays well hydrated. Denies any LOF, VB, abd. pain or urinary symptoms. Good FM. Monique had an interview at [address] [place] [address] this week and decided not to go there due to the short stay of 4 hours, and the inability to have an epidural if she desired. She was referred to [facility] as her 2nd choice and has an intake on 07/02/23. GBS, GC chlamydia obtained, cervix long thick and closed. Reviewed: Labor s/s-LOF/Ctx's/VB, when to seek emergent care. [facility]MC and when to call for further evaluation. Sign a release of records to [facility]. Lab results available in 2 days. RTO 1wks. Visit Date: 06/20/23 Last Updated by: Chely Redmond CNM Note author: Chely Redmond CNM. 35.2wk. MYAH. Family in for her visit today. Taking PNV, Doing well with no concerns. Good appetite, stays well hydrated. Denies any LOF, VB, abd. pain or urinary symptoms. Prepping at home this weekend for the new baby. Reviewed: PTL s/s-LOF/Ctx's/VB, when to seek emergent care. FM and when to call the office for further eval. Encouraged a healthy well balanced diet, regular walking/exercise in . Hydrate well, 8-10 glasses of water daily. Has decided to transition her care to the [address] [place] [address], records provided today. She has an appointment on June 24 for her consult and tour. Advised she will need her group B strep done at her next visit. RTO 1wks. Visit Date: 06/07/23 Last Updated by: Chely Redmond CNM Note author: Chely Redmond CNM. 33.2wk. MYAH. Taking PNV, and iron. Doing well with no concerns. Good appe tite, stays well hydrated. Denies any LOF, VB, abd. pain or urinary symptoms. Good FM. US growth check 05/28/23-nl scan. Reviewed: PTL s/s-LOF/Ctx's/VB, when to seek emergent care. discomforts, self help measures. FMC and when to call for further evaluation. Plan Tdap today. RTO 2wks. Visit Date: 05/15/23 Last Updated by: Chely Redmond CNM Note author: Chely Redmond CNM. 30wk. MYAH. Taking PNV, Doing well with no concerns. Good appetite, stays well hydrated. Denies any LOF, VB, abd. pain or urinary symptoms. Romario an kids in today's visit. Reviewed: PTL s/s-LOF/Ctx's/VB, when to seek emergent care. discomforts, self help measures. FM and when to call the office for further eval. Encouraged a healthy well balanced diet, regular walking/exercise in . Hydrate well, 8-10 glasses of water daily. RTO 2wks. Visit Date: 04/30/23 Last Updated by: Chely Redmond CNM Note author: Chely Redmond CNM. 28wk. MYAH. Taking PNV, Doing well with concerns: She reports heartburn, not taking anything. Good appetite, stays well hydrated. Denies any LOF, VB, abd. pain or urinary symptoms. Good FM. Romario in. follow up 06/17/23. Reviewed: Tdap, RSV. Rx for Pepcid, diet avoidances/triggers. discomforts, self help measures. FMC and when to call for further evaluation. Encouraged a healthy well balanced diet, regular walking/exercise in . Hydrate well, 8-10 glasses of water daily. Plans 28wk labs tomorrow. RTO 2 wks. Visit Date: 04/09/23 Last Updated by: Chely Redmond CNM Note author: Chely Redmond CNM. 25wk. MYAH. Taking PNV, Doing well with no concerns. Good appetite, stays well hydrated. Denies any LOF, VB, abd. pain or urinary symptoms. Good FM. Reviewed: PTL s/s-LOF/Ctx's/VB, when to seek emergent care. discomforts, self help measures. FMC and when to call for further evaluation. Encouraged a healthy well balanced diet, regular walking/exercise in . Hydrate well, 8-10 glasses of water daily. Glucose testing at next visit. RSV information provided. Discussed control-uncertain. Follow-up ultrasound for third-trimester ordered. Consider transferred to [facility] to meet the midwives in [facility] care. She declines, and reports she did that with the [facility] midwives, met several of them but when it came time to deliver not 1 of them she met was present, her preference is to stay here for the remaining . RTO 3. Visit Date: 03/12/23 Last Updated by: Chely Redmond CNM Note author: Chely Redmond CNM 21wk. MYAH. Taking PNV, Doing well with no concerns. Good appetite, stays well hydrated. Denies any LOF, VB, abd. pain. or urinary symptoms. Quickening noted. Had US and is concerned about the placenta she was told to speak to me about. Ant. marginal insertion noted. Reviewed: PTL s/s-LOF/Ctx's/VB, when to seek emergent care. discomforts, self help measures. Kick counts/FM and when to call for further evaluation. Encouraged a healthy well balanced diet, regular walking/exercise in p regnancy. Hydrate well, 8-10 glasses of water daily. Flu vaccine today. Placenta, findings. follow up 3rd trimester growth check or prn. RTO 4wk. Visit Date: 02/14/23 Last Updated by: Chely Redmond CNM Note author: Chely Redmond CNM/Clau Richardson, Emergency Care Attendant. 17.2 wk. MYAH. Taking PNV, Doing well with no concerns. Good appetite, stays well hydrated. Denies any LOF, VB, abd. pain. or urinary symptoms. Reports quickening. She had strep throat last week, feeling better. FAS is scheduled for 03/05/23. Could not tolerate GTT, vomited 2x. She has tried to do the test since feeling better. Discussed: PTL s/s-LOF/Ctx's/VB, when to seek emergent care. Hydrate well, 8-10 glasses of water daily. Encouraged flu vaccine. Recommended trying GTT next week. If she cannot tolerate, will consider glucometer testing. RTO 4 weeks. Visit Date: 01/17/23 Last Updated by: Chely Redmond CNM Note author: Chely Redmond CNM/Lauren Lynne clinical medical assistant 13.2 wk MYAH. Feeling well. Taking PNV. Hydrating well and good appetite Good FM, no LOF, VB or abd pain. Agreeable to do her Gtt. today due to nausea improving. Denies PEC, HTN or diabetes in previous . Discussed: PTL - LOF, VB, abd pain. FAS US in 5-6 weeks. NT is pending from 01/17. Call if any VB or other concerns. Informed re: Flu vaccine, she plans Flu vaccine when in stock at her next visit. Discussed to call the service here for any emergencies/deliveries to be directed to [facility]. All of her questions and concerns were addressed to the best of my ability and shared decision making. She is agreeable to plan of care. RTO 4 wks. Visit Date: 12/20/22 Last Updated by: Sarah Orozco CNM Patient is here with her and little girl for their 1st visit her daughter is super excited about trying to be able to hear the heartbeat today she would be 9 weeks and 2 days by dates and ultrasound which concur essentially. She is starting to be able to eat a little bit more and has been eating a lot of watermelon and honeydew melon. She has her blood work already ordered but is going to be going some morning to get it because it involves a 1 hour GTT as well discussed caution with eating and trying not to gain much weight and being careful around carbs. Issues around care inside of delivery and ultrasounds of already been reviewed and she will have her nuchal translucency ultrasound on 01/03 at [facility]. She knows that for any complications we might transfer care. PE was within normal limits very difficult to palpate the uterus secondary to adipose Pap done as well as testing for STI and other vaginal shahid. Unable to auscultate heart despite efforts. Consistent with 9 weeks gestation with adipose. She will go for blood work some morning soon and NT ultrasound 914 I will see her in 1 month. Visit Date: 12/12/22 Last Updated by: Irina Santacruz Onur Amaya is a very pleasant 32 year old here for nurse intake visit. This is her 3rd . She and her family are very excited about the . LMP 10/16/22 with DELORES 07/23/23 and GA today of 8w1d. Early US on 11/27/22 @ 6w1d gives DELORES of 07/22/23 and GA 8w2d. She is already scheduled for NT US/1st trimester screening at [facility] on 01/03/23. BMI 37.2 and early glucose has been added to labs. Pt was given the folder. She was advised MD coverage 12/11 and how to reach MD after hours/weekends and holidays. We discussed danger signs and to call or go to hospital if she experiences pelvic pain and or vaginal bleeding. Pt is aware she will deliver at [facility] and have ultrasounds there as well. Pt is having nausea and vomiting. She was given B6/Unisom without relief. Pt was advised to take B6 tid even if she does not have nausea as it will work better. Taking Unisom before bed. She is also taking her PNV before bed. We reviewed first trimester education. Pt verbalizes understanding and agrees with plan. She will schedule her OB PE today and she is aware labs will be ordered. No further questions. Results AMB Urinalysis Dipstick UR Leukocytes Small Last Edit by Deysi Garcia MA on 07/11/23 13:10 UR Nitrite Negative Last Edit by Deysi Garcia MA on 07/11/23 13:10 UR Urobilinogen Last Edit by Deysi Garcia MA on 07/11/23 13:10 UR Protein 30 Last Edit by Deysi Garcia MA on 07/11/23 13:10 UR Ph 6.5 Last Edit by Deysi Garcia MA on 07/11/23 13:10 UR Blood Negative Last Edit by Deysi Garcia MA on 07/11/23 13:10 UR Specific [place] 1.020 Last Edit by Deysi Garcia MA on 07/11/23 13:10 UR Ketone Trace Last Edit by Deysi Garcia MA on 07/11/23 13:10 UR Bilirubin Last Edit by Deysi Garcia MA on 07/11/23 13:10 UR Glucose 100 Last Edit by Deysi Garcia MA on 07/11/23 13:10 Coding Level of Care Code [place] Diagnoses Encounter for supervision of normal in third trimester Z34.93 Assessment & Plan Assessment & Plan (1) Encounter for supervision of normal in third trimester: Code(s): Z34.93 - Encounter for supervision of normal , unspecified, third trimester Category: Medical Orders: Orders AMB Urinalysis Dipstick Today Z13.9 - Encounter for screening, unspecified
[2023-07-11 12:41] VITALS: BP 120/84; BMI 38.0
== END 2023-07-11 13:22 | disposition home or self-care (01) ==
LOC: HO.HWSM 12:40
PROVIDERS: PCP Internal Medicine; Visit Provider Advanced Practice Midwife
DX: Z34.93 Encounter for supervision of normal pregnancy, unspecified, third trimester (principal)
CPT/HCPCS: 25942

== ENCOUNTER → 2023-07-11 12:40 | Outpatient (BNVA) | payer OTHER, SELFPAY | PROVIDERS: PCP Internal Medicine; Visit Provider Advanced Practice Midwife | DX: O99.213 Obesity complicating pregnancy, third trimester (principal); Z3A.38 38 weeks gestation of pregnancy | CPT/HCPCS: 99212 ==

== ENCOUNTER 2023-07-18 15:07 | Outpatient (AMB) | payer OTHER, SELFPAY ==
--- NOTE | 2023-07-18 15:10 | A.OFFVISPN_ITS ---
Intake Vital Signs 07/18/23 15:11 Height 5 ft 1 in Weight 202 lb BMI 38.2 BP 118/72 Intake Visit Reasons: KIERRA Allergies sulfamethoxazole [From BACTRIM] Allergy (Unknown, Verified 07/18/23 15:10) HIVES trimethoprim [From BACTRIM] Allergy (Unknown, Verified 07/18/23 15:10) HIVES Patient : Yes PFSH Medical History Marginal insertion of umbilical cord affecting management of mother Encounter for supervision of other normal , second trimester Anxiety Neck pain Allergic rhinitis Ophthalmoplegic migraine Surgical History No pertinent past surgical history Family History Mother COPD (chronic obstructive pulmonary disease) Social History Household Members: Spouse and Children Both parents involved: Yes Caregiver staying overnight: No Housing: Apartment Are you a primary pediatric critical care nurse to a significant other at home: No Do you presently have visiting nurse or other home services: No 75 years or older and lives alone: No Alcohol intake: never Patient Tobacco Use Status: Never used Tobacco e-Cigarette/Vaping Use: Never Used Second Hand Smoke Exposure: No Agree to transfusion: Yes service: No Current occupational status: unemployed Current occupational exposures/hazards: No Gender identity: Female Cognitive needs: No Hearing needs: No Vision needs: No Female Reproductive History Menstrual Age of Menarche: 15 History History 3 Elective abortions 0 Para 2 Spontaneous abortions 0 Hx # Term Pregnancies 2 Ectopic pregnancies 0 Hx # Pregnancies 0 Multiple births 0 Past Pregnancies Del. Date GA/Weeks Outcome Route Wt Inf Gender Labor Dilia Anesthesia Location Provider Complicate 05/13/13 42 live - full term vaginal delivery 9 lb 14 oz Male epidural [facility] none 12/06/17 40 live - full term vaginal delivery 7 lb Female epidural [facility] none Visit DELORES Calculator Estimated Delivery Date Method Current WG Current Estimate 07/23/23 LMP (Certain) 39w 2d Other Estimates 07/22/23 Ultrasound #1 39w 3d Expected Delivery Route/Plan Vaginal Specific Issues/Plans EDC: 07/23/23 O pos Problem List: 1. Obesity BMI 37.2--not able to tolerate the first Gtt due to being sick, will attempt this again when feeling better. 2. Varicella non immune: advised pp vaccination 3. 12/31/2022 diagnosed with COVID at [facility]. See telephone encounter activity 4. Marginal insertion cord. Follow up 32 wks.- growth at 58% NT: nl First trimester screen: FAS: 03/05/23 5. gbs positive 6. 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 Labor support: Romario plan: Prefers a birthing center atmosphere control: ? [place] [facility] Visit Log Initial Weight: 200 lb Date -?-?-?-?-?-?-?-?-?-?-?-?- EGA Weight Gest Week Fundal Ht Present FHR move Efface % Edema BP PrePreg We Weight GTT -?-?-?-?-?-?-?-?-?-?-?-?- Glucose LV Protein Blood Type 12/12/22 -?-?-?-?-?-?-?-?-?-?-?-?- 8w 1d 197 lb 2 oz (-2 lb 14 oz) 197 lb 2 oz -?-?-?-?-?-?-?-?-?-?-?-?- 12/20/22 -?-?-?-?-?-?-?-?-?-?-?-?- 9w 2d 196 lb (-4 lb) 130/80 196 lb -?-?-?-?-?-?-?-?-?-?-?-?- 01/17/23 -?-?-?-?-?-?-?-?-?-?-?-?- 13w 2d 191 lb (-9 lb) 160 112/70 191 lb -?-?-?-?-?-?-?-?-?-?-?-?- 02/14/23 -?-?-?-?-?-?-?-?-?-?-?-?- 17w 2d 187 lb (-13 lb) 17 150 110/74 187 lb -?-?-?-?-?-?-?-?-?-?-?-?- 03/12/23 -?-?-?-?-?-?-?-?-?-?-?-?- 21w 0d 189 lb (-11 lb) 22 150 114/66 189 lb -?-?-?-?-?-?-?-?-?-?-?-?- 04/09/23 -?-?-?-?-?-?-?-?-?-?-?-?- 25w 0d 188 lb (-12 lb) 25 140 active 100/66 188 lb -?-?-?-?-?-?-?-?-?-?-?-?- 04/30/23 -?-?-?-?-?-?-?-?-?-?-?-?- 28w 0d 193 lb (-7 lb) 29 140 active 120/70 193 lb -?-?-?-?-?-?-?-?-?-?-?-?- 05/15/23 -?-?-?-?-?-?-?-?-?-?-?-?- 30w 1d 196 lb (-4 lb) 32 140 active 120/72 196 lb -?-?-?-?-?-?-?-?-?-?-?-?- 06/07/23 -?-?-?-?-?-?-?-?-?-?-?-?- 33w 3d 195 lb (-5 lb) 34 140 active 118/72 195 lb -?-?-?-?-?-?-?-?-?-?-?-?- 06/20/23 -?-?-?-?-?-?-?-?-?-?-?-?- 35w 2d 201 lb (+16 oz) 36 vtx 130 active 134/72 201 lb -?-?-?-?-?-?-?-?-?-?-?-?- 06/26/23 -?-?-?-?-?-?-?-?-?-?-?-?- 36w 1d 198 lb (-2 lb) 37 vtx 140 active 100/60 198 l b -?-?-?-?-?-?-?-?-?-?-?-?- 07/03/23 -?-?-?-?-?-?-?-?-?-?-?-?- 37w 1d 199 lb (-16 oz) 38 vtx 140 active 118/82 199 lb -?-?-?-?-?-?-?-?-?-?-?-?- 07/11/23 -?-?-?-?-?-?-?-?-?-?-?-?- 38w 2d 201 lb (+16 oz) term 40 op 140 active 120/84 201 lb -?-?-?-?-?-?-?-?-?--?-?-?- 07/18/23 -?-?-?-?-?-?-?-?-?-?-?-?- 39w 2d 202 lb (+2 lb) 40 vtx 150 active 118/72 202 l b -?-?-?-?-?-?-?-?-?-?-?-?- Notes Visit Date: 07/18/23 Last Updated by: Chely Redmond CNM Note author: Chely Redmond CNM. 39.2wk. KIERRA. Taking PNV, Doing well with concerns: Back pain keeping her up at night, she is tried everything in the past nothing helps she is hoping to deliver soon. She has a plan with pain management and has to see a neurosurgeon for possible spinal surgery. Good appetite, stays well hydrated. Denies any LOF, VB, abd. pain or urinary symptoms. She reports pressure and some contractions noted during her visit, VE-1 cm, thick, vertex -2. Reviewed: Labor s/s-LOF/Ctx's/VB, when to seek emergent care. GBS treatment in labor discomforts, self help measures, including heating pad ice to the back [id number] medications. FM and when to call the office for further eval. Encouraged a healthy well balanced diet, regular walking/exercise in . Hydrate well, 8-10 glasses of water daily. RTO 1wks. Visit Date: 07/11/23 Last Updated by: Sarah Orozco CNM Patient is here the [facility] office today, with her Romario for her visit at 38 weeks and 2 days she is having some tightening but no real contractions. She has no questions really about when to go to the hospital she re told her labor stories her 1st baby was delivered at 42 weeks 9 lb 14 oz. Her 2nd baby at 40 weeks. She is planning on an epidural. She knows she is group B strep positive she is NOT penicillin allergic so she will be getting penicillin IV in labor. She is sticking with [facility] at this point she had consider transferring elsewhere but it was too complicated. She says she had not decided about control so we discussed it she did not like how she felt on the control pills. She was thinking about an IUD this time but she had not decided which 1 I discussed the differences between the hormone using Mirena IU S and the hormone free ParaGard IUD and there different sets of side effects. She said that with her own periods she can liked how she felt and her periods were not a problem for her. She may choose to get a ParaGard IUD but she is going to think about it for the next week and I recommend if she that is the 1 she wants that she signed the paperwork so it could be ordered so it is available to her when it is necessary . I also discussed that they may offer her a Mirena IU S immediately at [facility] and that is something she could consider and the concern there is that sometimes they may not stay but that is something that can be checked. Discussed also that if she is getting an IUD placed we would not want to inserted until at least 8 weeks and in fact if her uterus is very expanded from having a very large baby at term i.e. if she had a 10 pounder, she might want to wait even a week or 2 longer to make sure that involution is complete. At this point might estimated EFW by Gera's is 7-3/4-8 lb baby feels 0 P today extremely active. RTC 1 week and weekly until delivered in the office of her choice. Visit Date: 07/03/23 Last Updated by: Chely Redmond CNM Note author: Chely Redmond CNM. 37.1wk. KIERRA. Taking PNV, Doing well with no concerns. Patient has appointment at [facility] was canceled she was told she needed to be seen in person but then there was no availability to be seen. Has a good appetite, stays well hydrated. Denies any LOF, VB, abd. pain or urinary symptoms. Good FM. GBS positive patient counseled about treatment in labor and delivery. Reviewed: Labor/ LOF/Ctx's/VB, when to seek emergent care. FMC and when to call for further evaluation. Encouraged a healthy well balanced diet, regular walking/exercise in . Hydrate well, 8-10 glasses of water daily. Up-to-date chart copies to be sent to [facility] along with the GBS report. RTO 1wks. Visit Date: 06/26/23 Last Updated by: Chely Redmond CNM Note author: Chely Redmond CNM. 36.1wk. KIERRA. Taking PNV, Doing well with no concerns. Good appetite, stays well hydrated. Denies any LOF, VB, abd. pain or urinary symptoms. Good FM. Monique had an interview at [address] [place] [address] this week and decided not to go there due to the short stay of 4 hours, and the inability to have an epidural if she desired. She was referred to [facility] as her 2nd choice and has an intake on 07/02/23. GBS, GC chlamydia obtained, cervix long thick and closed. Reviewed: Labor s/s-LOF/Ctx's/VB, when to seek emergent care. FMC and when to call for further evaluation. Sign a release of records to [facility]. Lab results available in 2 days. RTO 1wks. Visit Date: 06/20/23 Last Updated by: Chely Redmond CNM Note author: Chely Redmond CNM. 35.2wk. KIERRA. Family in for her visit today. Taking PNV, Doing well with no concerns. Good appetite, stays well hydrated. Denies any LOF, VB, abd. pain or urinary symptoms. Prepping at home this weekend for the new baby. Reviewed: PTL s/s-LOF/Ctx's/VB, when to seek emergent care. FM and when to call the office for further eval. Encouraged a healthy well balanced diet, regular walking/exercise in . Hydrate well, 8-10 glasses of water daily. Has decided to transition her care to the [address] [place] [address], records provided today. She has an appointment on June 24 for her consult and tour. Advised she will need her group B strep done at her next visit. RTO 1wks. Visit Date: 06/07/23 Last Updated by: Chely Redmond CNM Note author: Chely Redmond CNM. 33.2wk. KIERRA. Taking PNV, and iron. Doing well with no concerns. Good appetite, stays well hydrated. Denies any LOF, VB, abd. pain or urinary symptoms. Good FM. US growth check 05/28/23-nl scan. Reviewed: PTL s/s-LOF/Ctx's/VB, when to seek emergent care. discomforts, self help measures. FMC and when to call for further evaluation. Plan Tdap today. RTO 2wks. Visit Date: 05/15/23 Last Updated by: Chely Redmond CNM Note author: Chely Redmond CNM. 30wk. KIERRA. Taking PNV, Doing well with no concerns. Good appetite, stays well hydrated. Denies any LOF, VB, abd. pain or urinary symptoms. Romario an kids in today's visit. Reviewed: PTL s/s-LOF/Ctx's/VB, when to seek emergent care. discomforts, self help measures. FM and when to call the office for further eval. Encouraged a healthy well balanced diet, regular walking/exercise in . Hydrate well, 8-10 glasses of water daily. RTO 2wks. Visit Date: 04/30/23 Last Updated by: Chely Redmond CNM Note author: Chely Redmond CNM. 28wk. KIERRA. Taking PNV, Doing well with concerns: She reports heartburn, not taking anything. Good appetite, stays well hydrated. Denies any LOF, VB, abd. pain or urinary symptoms. Good FM. Romario in. US follow up 06/17/23. Reviewed: Tdap, RSV. Rx for Pepcid, diet avoidances/triggers. discomforts, self help measures. FMC and when to call for further evaluation. Encouraged a healthy well balanced diet, regular walking/exercise in . Hydrate well, 8-10 glasses of water daily. Plans 28wk labs tomorrow. RTO 2 wks. Visit Date: 04/09/23 Last Updated by: Chely Redmond CNM Note author: Chely Redmond CNM. 25wk. KIERRA. Taking PNV, Doing well with no concerns. Good appetite, stays well hydrated. Denies any LOF, VB, abd. pain or urinary symptoms. Good FM. Reviewed: PTL s/s-LOF/Ctx's/VB, when to seek emergent care. discomforts, self help measures. FMC and when to call for further evaluation. Encouraged a healthy well balanced diet, regular walking/exercise in . Hydrate well, 8-10 glasses of water daily. Glucose testing at next visit. RSV information provided. Discussed control-uncertain. Follow-up ultrasound for third-trimester ordered. Consider transferred to [facility] to meet the midwives in [facility]. She declines, and reports she did that with the [place] midwives, met several of them but when it came time to deliver not 1 of them she met was present, her preference is to stay here for the remaining . RTO 3. Visit Date: 03/12/23 Last Updated by: Chely Redmond CNM Note author: Chely Redmond CNM 21wk. KIERRA. Taking PNV, Doing well with no concerns. Good appetite, stays well hydrated. Denies any LOF, VB, abd. pain. or urinary symptoms. Quickening noted. Had US and is concerned about the placenta she was told to speak to me about. Ant. marginal insertion noted. Reviewed: PTL s/s-LOF/Ctx's/VB, when to seek emergent care. discomforts, self help measures. Kick counts/FM and when to call for further evaluation. Encouraged a healthy well balanced diet, regular walking/exercise in . Hydrate well, 8-10 glasses of water daily. Flu vaccine today. Placenta, findings. follow up 3rd trimester growth check or prn. RTO 4wk. Visit Date: 02/14/23 Last Updated by: Chely Redmond CNM Note author: Chely Redmond CNM/Clau Richardson, Fixture Maker. 17.2 wk. KIERRA. Taking PNV, Doing well with no concerns. Good appetite, stays well hydrated. Denies any LOF, VB, abd. pain. or urinary symptoms. Reports quickening. She had strep throat last week, feeling better. FAS is scheduled for 03/05/23. Could not tolerate GTT, vomited 2x. She has tried to do the test since feeling better. Discussed: PTL s/s-LOF/Ctx's/VB, when to seek emergent care. Hydrate well, 8-10 glasses of water daily. Encouraged flu vaccine. Recommended trying GTT next week. If she cannot tolerate, will consider glucometer testing. RTO 4 weeks. Visit Date: 01/17/23 Last Updated by: Chely Redmond CNM Note author: Chely Redmond CNM/Lauren Lynne medical specialist 13.2 wk KIERRA. Feeling well. Taking PNV. Hydrating well and good appetite Good FM, no LOF, VB or abd pain. Agreeable to do her Gtt. today due to nausea improving. Denies PEC, HTN or diabetes in previous . Discussed: PTL - LOF, VB, abd pain. FAS US in 5-6 weeks. NT is pending from 01/17. Call if any VB or other concerns. Informed re: Flu vaccine, she plans Flu vaccine when in stock at her next visit. Discussed to call the service here for any emergencies/deliveries to be directed to [facility]. All of her questions and concerns were addressed to the best of my ability and shared decision making. She is agreeable to plan of care. RTO 4 wks. Visit Date: 12/20/22 Last Updated by: Sarah Orozco CNM Patient is here with her and little girl for their 1st visit her daughter is super excited about trying to be able to hear the heartbeat today she would be 9 weeks and 2 days by dates and ultrasound which concur essentially. She is starting to be able to eat a little bit more and has been eating a lot of watermelon and honeydew melon. She has her blood work already ordered but is going to be going some morning to get it because it involves a 1 hour GTT as well discussed caution with eating and trying not to gain much weight and being careful around carbs. Issues around care inside of delivery and ultrasounds of already been reviewed and she will have her nuchal translucency ultrasound on 01/03 at [facility]. She knows that for any complications we might transfer care. PE was within normal limits very difficult to palpate the uterus secondary to adipose Pap done as well as testing for STI and other vaginal shahid. Unable to auscultate heart despite efforts. Consistent with 9 weeks gestation with adipose. She will go for blood work some morning soon and NT ultrasound 914 I will see her in 1 month. Visit Date: 12/12/22 Last Updated by: Irina Santacruz Onur Amaya is a very pleasant 32 year old here for nurse intake visit. This is her 3rd . She and her family are very excited about the . LMP 10/16/22 with DELORES 07/23/23 and GA today of 8w1d. Early US on 11/27/22 @ 6w1d gives DELORES of 07/22/23 and GA 8w2d. She is already scheduled for NT US/1st trimester screening at [facility] on 01/03/23. BMI 37.2 and early glucose has been added to labs. Pt was given the folder. She was advised MD coverage 12/11 and how to reach MD after hours/weekends and holidays. We discussed danger signs and to call or go to hospital if she experiences pelvic pain and or vaginal bleeding. Pt is aware she will deliver at [facility] and have ultrasounds there as well. Pt is having nausea and vomiting. She was given B6/Un gutierrez without relief. Pt was advised to take B6 tid even if she does not have nausea as it will work better. Taking Unisom before bed. She is also taking her PNV before bed. We reviewed first trimester education. Pt verbalizes understanding and agrees with plan. She will schedule her OB PE today and she is aware labs will be ordered. No further questions. Results AMB Urinalysis, Automated UA Leukoctes 2 Ethan/uL Last Edit by RUSS Barnhart on 07/18/23 15:17 UA Nitrite Negative Last Edit by RUSS Barnhart on 07/18/23 15:17 UA Urobilinogen 0 mg/dL Last Edit by Barbara Maguire A on 07/18/23 15:1 7 UA Protein 0 mg/dL Last Edit by Barbara Maguire A on 07/18/23 15:17 UA pH 8.0 Last Edit by Barbara Maguire A on 07/18/23 15:17 UA Blood 0 John/uL Last Edit by Barbara Maguire [facility] on 07/18/23 15:17 UA Specific [place] 1.010 Last Edit by Barbara Maguire A on 07/18/23 15:17 UA Ketone Negative Last Edit by Barbara Maguire A on 07/18/23 15:17 UA Bilirubin 0 mg/dL Last Edit by Barbara Maguire [facility] on 07/18/23 15:17 UA Glucose 0 mg/dL Last Edit by Barbara Maguire A on 07/18/23 15:17 Results Reviewed Results Reviewed: Laboratory Last Values Urine pH (Auto) 8.0 07/18/23 15:16 Specific [place] (Auto) 1.010 07/18/23 15:16 Urine Protein (Auto) 0 mg/dL 07/18/23 15:16 Glucose (UA)(Auto) 0 mg/dL 07/18/23 15:16 Urine Ketones (Auto) Negative 07/18/23 15:16 Urine Blood (Auto) 0 John/uL 07/18/23 15:16 Urine Nitrite (Auto) Negative 07/18/23 15:16 Urine Bilirubin (Auto) 0 mg/dL 07/18/23 15:16 Urine Urobilinogen (Auto) 0 mg/dL 07/18/23 15:16 Leukocyte Esterase (Auto) 2 Ethan/uL 07/18/23 15:16 Coding Level of Care Code [place] Assessment & Plan Assessment & Plan Orders: Orders AMB Urinalysis Automated Today Z34.93 - Encounter for supervision of normal , unspecified, third trimester
[2023-07-18 15:11] VITALS: BP 118/72; BMI 38.2
== END 2023-07-18 15:33 | disposition home or self-care (01) ==
LOC: HO.HWS 15:07
PROVIDERS: PCP Internal Medicine; Visit Provider Advanced Practice Midwife
DX: Z34.93 Encounter for supervision of normal pregnancy, unspecified, third trimester (principal)
CPT/HCPCS: 25942; 59426

== ENCOUNTER → 2023-07-18 15:07 | Outpatient (BNVA) | payer OTHER, SELFPAY | PROVIDERS: PCP Internal Medicine; Visit Provider Advanced Practice Midwife | DX: Z34.83 Encounter for supervision of other normal pregnancy, third trimester (principal); Z3A.39 39 weeks gestation of pregnancy | CPT/HCPCS: 81003; 99212 ==

== ENCOUNTER 2023-09-06 14:43 | Outpatient (REF) | payer OTHER, SELFPAY ==
[2023-09-07 03:57] LABS: CT PCR NOT DETECTED (Not Detect.); NG PCR NOT DETECTED (Not Detect.)
== END 2023-09-06 14:44 | disposition home or self-care (01) ==
LOC: HO.LNP 14:43
PROVIDERS: PCP Internal Medicine; Visit Provider Advanced Practice Midwife
DX: Z39.2 Encounter for routine postpartum follow-up (principal); Z20.2 Contact with and (suspected) exposure to infections with a predominantly sexual mode of transmission
CPT/HCPCS: 0353U

== ENCOUNTER 2023-09-06 14:43 | Outpatient (AMB) | payer OTHER, SELFPAY ==
[2023-09-06 14:58] VITALS: BP 106/74; BMI 33.1
--- NOTE | 2023-09-06 14:58 | MHC.OFFVISPN ---
Intake Vital Signs 09/06/23 14:58 Height 5 ft 1 in Weight 79.379 kg BMI 33.1 BP 106/74 Intake Visit Reasons: 6 week post Training Generalist Required: No Information Interpreted: non-clinical & clinical Physical Education Professor: Physical Education Professor Present (Crystal Ernst RUSS) Accompanied by: Self / Same As Patient Allergies sulfamethoxazole [From BACTRIM] Allergy (Unknown, Verified 09/06/23 14:59) HIVES trimethoprim [From BACTRIM] Allergy (Unknown, Verified 09/06/23 14:59) HIVES PFSH Medical History Marginal insertion of umbilical cord affecting management of mother Encounter for supervision of other normal , second trimester Anxiety Neck pain Allergic rhinitis Ophthalmoplegic migraine Surgical History No pertinent past surgical history Family History Mother COPD (chronic obstructive pulmonary disease) Social History Household Members: Spouse and Children Both parents involved: Yes Caregiver staying overnight: No Housing: Apartment Are you a primary menagerie caretaker to a significant other at home: No Do you presently have visiting nurse or other home services: No 75 years or older and lives alone: No Alcohol intake: never Patient Tobacco Use Status: Never used Tobacco e-Cigarette/Vaping Use: Never Used Second Hand Smoke Exposure: No Agree to transfusion: Yes service: No Current occupational status: unemployed Current occupational exposures/hazards: No Gender identity: Female Cognitive needs: No Hearing needs: No Vision needs: No Female Reproductive History Menstrual Age of Menarche: 15 History History 3 Elective abortions 0 Para 2 Spontaneous abortions 0 Hx # Term Pregnancies 2 Ectopic pregnancies 0 Hx # Pregnancies 0 Multiple births 0 Past Pregnancies Del. Date GA/Weeks Outcome Route Wt Inf Gender Labor Dilia Anesthesia Location Provider Complicate 05/13/13 42 live - full term vaginal delivery 4.479 kg Male epidural [facility] none 12/06/17 40 live - full term vaginal delivery 3.175 kg Female epidural [facility] none Visit [facility] Calculator Estimated Delivery Date Method Current WG Current Estimate 07/23/23 LMP (Certain) 46w 3d Other Estimates 07/22/23 Ultrasound #1 46w 4d Expected Delivery Route/Plan Vaginal Specific Issues/Plans EDC: 07/23/23 O pos Problem List: 1. Obesity BMI 37.2--not able to tolerate the first Gtt due to being sick, will attempt this again when feeling better. 2. Varicella non immune: advised pp vaccination 3. 12/31/2022 diagnosed with COVID at [facility]. See telephone encounter activity 4. Marginal insertion cord. Follow up 32 wks.- growth at 58% NT: nl First trimester screen: FAS: 03/05/23 5. gbs positive 6. 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 Labor support: Romario plan: Prefers a birthing center atmosphere control: ? [place] Patient is here today for a 6 weeks examination. OB Visit Log Initial Weight: 90.718 kg Date <del>?</del> EGA Weight Gest Week Fundal Ht Present FHR move Efface % Edema BP PrePreg We Weight GTT <del>?</del> Glucose LV Protein Blood Type 12/12/22 <del>?</del> 8w 1d 89.414 kg (-1.304 kg) 89.414 kg <del>?</del> 12/20/22 <del>?</del> 9w 2d 88.904 kg (-1.814 kg) 130/80 88.904 kg <del>?</del> 01/17/23 <del>?</del> 13w 2d 86.636 kg (-4.082 kg) 160 112/70 86.636 kg <del>?</del> 02/14/23 <del>?</del> 17w 2d 84.822 kg (-5.897 kg) 17 150 110/74 84.822 kg <del>?</del> 03/12/23 <del>?</del> 21w 0d 85.729 kg (-4.99 kg) 22 150 114/66 85.729 kg <del>?</del> 04/09/23 <del>?</del> 25w 0d 85.275 kg (-5.443 kg) 25 140 active 100/66 85.275 kg <del>?</del> 04/30/23 <del>?</del> 28w 0d 87.543 kg (-3.175 kg) 29 140 active 120/70 87.543 kg <del>?</del> 05/15/23 <del>?</del> 30w 1d 88.904 kg (-1.814 kg) 32 140 active 120/72 88.904 kg <del>?</del> 06/07/23 <del>?</del> 33w 3d 88.451 kg (-2.268 kg) 34 140 active 118/72 88.451 kg <del>?</del> 06/20/23 <del>?</del> 35w 2d 91.172 kg (+453.592 g) 36 vtx 130 active 134/72 91.172 kg <del>?</del> 06/26/23 <del>?</del> 36w 1d 89.811 kg (-907.185 g) 37 vtx 140 active 100/60 89.811 kg <del>?</del> 07/03/23 <del>?</del> 37w 1d 90.265 kg (-453.593 g) 38 vtx 140 active 118/82 90.265 kg <del>?</del> 07/11/23 <del>?</del> 38w 2d 91.172 kg (+453.592 g) term 40 op 140 active 120/84 91.172 kg <del>?</del> 07/18/23 <del>?</del> 39w 2d 91.626 kg (+907.184 g) 40 vtx 150 active 118/72 91.626 kg <del>?</del> Notes Visit Date: 07/18/23 Last Updated by: Chely Redmond CNM Note author: Chely Redmond CNM. 39.2wk. KIERRA. Taking PNV, Doing well with concerns: Back pain keeping her up at night, she is tried everything in the past nothing helps she is hoping to deliver soon. She has a plan with pain management and has to see a neurosurgeon for possible spinal surgery. Good appetite, stays well hydrated. Denies any LOF, VB, abd. pain or urinary symptoms. She reports pressure and some contractions noted during her visit, VE-1 cm, thick, vertex -2. Reviewed: Labor s/s-LOF/Ctx's/VB, when to seek emergent care. GBS treatment in labor discomforts, self help measures, including heating pad ice to the back [id number] medications. FM and when to call the office for further eval. Encouraged a healthy well balanced diet, regular walking/exercise in . Hydrate well, 8-10 glasses of water daily. RTO 1wks. Visit Date: 07/11/23 Last Updated by: Sarah Orozco CNM Patient is here the [facility] office today, with her Romario for her visit at 38 weeks and 2 days she is having some tightening but no real contractions. She has no questions really about when to go to the hospital she re told her labor stories her 1st baby was delivered at 42 weeks 9 lb 14 oz. Her 2nd baby at 40 weeks. She is planning on an epidural. She knows she is group B strep positive she is NOT penicillin allergic so she will be getting penicillin IV in labor. She is sticking with [facility] at this point she had consider transferring elsewhere but it was too complicated. She says she had not decided about control so we discussed it she did not like how she felt on the control pills. She was thinking about an IUD this time but she had not decided which 1 I discussed the differences between the hormone using Mirena IU S and the hormone free ParaGard IUD and there different sets of side effects. She said that with her own periods she can liked how she felt and her periods were not a problem for her. She may choose to get a ParaGard IUD but she is going to think about it for the next week and I recommend if she that is the 1 she wants that she signed the paperwork so it could be ordered so it is available to her when it is necessary . I also discussed that they may offer her a Mirena IU S immediately at [facility] and that is something she could consider and the concern there is that sometimes they may not stay but that is something that can be checked. Discussed also that if she is getting an IUD placed we would not want to inserted until at least 8 weeks and in fact if her uterus is very expanded from having a very large baby at term i.e. if she had a 10 pounder, she might want to wait even a week or 2 longer to make sure that involution is complete. At this point might estimated EFW by Gera's is 7-3/4-8 lb baby feels 0 P today extremely active. RTC 1 week and weekly until delivered in the office of her choice. Visit Date: 07/03/23 Last Updated by: Chely Redmond CNM Note author: Chely Redmond, CNM. 37.1wk. KIERRA. Taking PNV, Doing well with no concerns. Patient has appointment at [facility] was canceled she was told she needed to be seen in person but then there was no availability to be seen. Has a good appetite, stays well hydrated. Denies any LOF, VB, abd. pain or urinary symptoms. Good FM. GBS positive patient counseled about treatment in labor and delivery. Reviewed: Labor/ LOF/Ctx's/VB, when to seek emergent care. [facility]MC and when to call for further evaluation. Encouraged a healthy well balanced diet, regular walking/exercise in . Hydrate well, 8-10 glasses of water daily. Up-to-date chart copies to be sent to [facility] along with the GBS report. RTO 1wks. Visit Date: 06/26/23 Last Updated by: Chely Redmond CNM Note author: Chely Redmond CNM. 36.1wk. KIERRA. Taking PNV, Doing well with no concerns. Good appetite, stays well hydrated. Denies any LOF, VB, abd. pain or urinary symptoms. Good FM. Monique had an interview at [address] [place] [address] this week and decided not to go there due to the short stay of 4 hours, and the inability to have an epidural if she desired. She was referred to [facility] as her 2nd choice and has an intake on 07/02/23. GBS, GC chlamydia obtained, cervix long thick and closed. Reviewed: Labor s/s-LOF/Ctx's/VB, when to seek emergent care. [facility] and when to call for further evaluation. Sign a release of records to [facility]. Lab results available in 2 days. RTO 1wks. Visit Date: 06/20/23 Last Updated by: Chely Redmond CNM Note author: Chely Redmond CNM. 35.2wk. KIERRA. Family in for her visit today. Taking PNV, Doing well with no concerns. Good appetite, stays well hydrated. Denies any LOF, VB, abd. pain or urinary symptoms. Prepping at home this weekend for the new baby. Reviewed: PTL s/s-LOF/Ctx's/VB, when to seek emergent care. FM and when to call the office for further eval. Encouraged a healthy well balanced diet, regular walking/exercise in . Hydrate well, 8-10 glasses of water daily. Has decided to transition her care to the [address] [place] [address], records provided today. She has an appointment on June 24 for her consult and tour. Advised she will need her group B strep done at her next visit. RTO 1wks. Visit Date: 06/07/23 Last Updated by: Chely Redmond CNM Note author: Chely Redmond CNM. 33.2wk. KIERRA. Taking PNV, and iron. Doing well with no concerns. Good appetite, stays well hydrated. Denies any LOF, VB, abd. pain or urinary symptoms. Good FM. US growth check 05/28/23-nl scan. Reviewed: PTL s/s-LOF/Ctx's/VB, when to seek emergent care. discomforts, self help measures. [facility]MC and when to call for further evaluation. Plan Tdap today. RTO 2wks. Visit Date: 05/15/23 Last Updated by: Chely Redmond CNM Note author: Chely Redmond CNM. 30wk. KIERRA. Taking PNV, Doing well with no concerns. Good appetite, stays well hydrated. Denies any LOF, VB, abd. pain or urinary symptoms. Romario desais in today's visit. Reviewed: PTL s/s-LOF/Ctx's/VB, when to seek emergent care. discomforts, self help measures. FM and when to call the office for further eval. Encouraged a healthy well balanced diet, regular walking/exercise in . Hydrate well, 8-10 glasses of water daily. RTO 2wks. Visit Date: 04/30/23 Last Updated by: Chely Redmond CNM Note author: Chely Redmond CNM. 28wk. KIERRA. Taking PNV, Doing well with concerns: She reports heartburn, not taking anything. Good appetite, stays well hydrated. Denies any LOF, VB, abd. pain or urinary symptoms. Good FM. Romario in. US follow up 06/17/23. Reviewed: Tdap, RSV. Rx for Pepcid, diet avoidances/triggers. discomforts, self help measures. FMC and when to call for further evaluation. Encouraged a healthy well balanced diet, regular walking/exercise in . Hydrate well, 8-10 glasses of water daily. Plans 28wk labs tomorrow. RTO 2 wks. Visit Date: 04/09/23 Last Updated by: Chely Redmond CNM Note author: Chely Redmond CNM. 25wk. KIERRA. Taking PNV, Doing well with no concerns. Good appetite, stays well hydrated. Denies any LOF, VB, abd. pain or urinary symptoms. Good FM. Reviewed: PTL s/s-LOF/Ctx's/VB, when to seek emergent care. discomforts, self help measures. [facility]MC and when to call for further evaluation. Encouraged a healthy well balanced diet, regular walking/exercise in . Hydrate well, 8-10 glasses of water daily. Glucose testing at next visit. RSV information provided. Discussed control-uncertain. Follow-up ultrasound for third-trimester ordered. Consider transferred to [facility] to meet the midwives in [facility] care. She declines, and reports she did that with the [facility] midwives, met several of them but when it came time to deliver not 1 of them she met was present, her preference is to stay here for the remaining . RTO 3. Visit Date: 03/12/23 Last Updated by: Chely Redmond CNM Note author: Chely Redmond CNM 21wk. KIERRA. Taking PNV, Doing well with no concerns. Good appetite, stays well hydrated. Denies any LOF, VB, abd. pain. or urinary symptoms. Quickening noted. Had US and is concerned about the placenta she was told to speak to me about. Ant. marginal insertion noted. Reviewed: PTL s/s-LOF/Ctx's/VB, when to seek emergent care. discomforts, self help measures. Kick counts/FM and when to call for further evaluation. Encouraged a healthy well balanced diet, regular walking/exercise in . Hydrate well, 8-10 glasses of water daily. Flu vaccine today. Placenta, findings. follow up 3rd trimester growth check or prn. RTO 4wk. Visit Date: 02/14/23 Last Updated by: Chely Redmond CNM Note author: Chely Redmond CNM/Clau Richardson, Aviculturist. 17.2 wk. KIERRA. Taking PNV, Doing well with no concerns. Good appetite, stays well hydrated. Denies any LOF, VB, abd. pain. or urinary symptoms. Reports quickening. She had strep throat last week, feeling better. FAS is scheduled for 03/05/23. Could not tolerate GTT, vomited 2x. She has tried to do the test since feeling better. Discussed: PTL s/s-LOF/Ctx's/VB, when to seek emergent care. Hydrate well, 8-10 glasses of water daily. Encouraged flu vaccine. Recommended trying GTT next week. If she cannot tolerate, will consider glucometer testing. RTO 4 weeks. Visit Date: 01/17/23 Last Updated by: Chely Redmond CNM Note author: Chely Redmond CNM/Lauren Lynne medical technician assistant 13.2 wk KIERRA. Feeling well. Taking PNV. Hydrating well and good appetite Good FM, no LOF, VB or abd pain. Agreeable to do her Gtt. today due to nausea improving. Denies PEC, HTN or diabetes in previous . Discussed: PTL - LOF, VB, abd pain. FAS US in 5-6 weeks. NT is pending from 01/17. Call if any VB or other concerns. Informed re: Flu vaccine, she plans Flu vaccine when in stock at her next visit. Discussed to call the service here for any emergencies/deliveries to be directed to [facility]. All of her questions and concerns were addressed to the best of my ability and shared decision making. She is agreeable to plan of care. RTO 4 wks. Visit Date: 12/20/22 Last Updated by: Sarah Orozco CNM Patient is here with her and little girl for their 1st visit her daughter is super excited about trying to be able to hear the heartbeat today she would be 9 weeks and 2 days by dates and ultrasound which concur essentially. She is starting to be able to eat a little bit more and has been eating a lot of watermelon and honeydew melon. She has her blood work already ordered but is going to be going some morning to get it because it involves a 1 hour GTT as well discussed caution with eating and trying not to gain much weight and being careful around carbs. Issues around care inside of delivery and ultrasounds of already been reviewed and she will have her nuchal translucency ultrasound on 01/03 at [facility]. She knows that for any complications we might transfer care. PE was within normal limits very difficult to palpate the uterus secondary to adipose Pap done as well as testing for STI and other vaginal shahid. Unable to auscultate heart despite efforts. Consistent with 9 weeks gestation with adipose. She will go for blood work some morning soon and NT ultrasound 914 I will see her in 1 month. Visit Date: 12/12/22 Last Updated by: Irina Jimunique Amaya is a very pleasant 32 year old here for nurse intake visit. This is her 3rd . She and her family are very excited about the . LMP 10/16/22 with DELORES 07/23/23 and GA today of 8w1d. Early US on 11/27/22 @ 6w1d gives DELORES of 07/22/23 and GA 8w2d. She is already scheduled [place]/1st trimester [place] [facility] [place]. BMI 37.2 and early glucose has been added to labs. Pt was given the folder. She was advised MD coverage 12/11 and how to reach MD after hours/weekends and holidays. We discussed danger signs and to call or go to hospital if she experiences pelvic pain and or vaginal bleeding. Pt is aware she will deliver [place] [facility] and [place] there as well. Pt is having nausea and vomiting. She was given B6/Unisom without relief. Pt was advised to take B6 tid even if she does not have nausea as it will work better. Taking Unisom before bed. She is also taking her PNV before bed. We reviewed first trimester education. Pt verbalizes understanding and agrees with plan. She will schedule her OB PE today and she is aware labs will be ordered. No further questions. Coding
--- NOTE | 2023-09-06 14:58 | MHC.OFFVISPN ---
Intake Vital Signs 09/06/23 14:58 Height 5 ft 1 in Weight 175 lb BMI 33.1 BP 106/74 Intake Visit Reasons: 6 week post Allergies sulfamethoxazole [From BACTRIM] Allergy (Unknown, Verified 09/06/23 14:59) HIVES trimethoprim [From BACTRIM] Allergy (Unknown, Verified 09/06/23 14:59) HIVES PFSH Medical History (Updated 09/06/23 @ 15:08 by Chely Redmond CNM) Obesity (BMI 35.0-39.9 without comorbidity) Anxiety Neck pain Allergic rhinitis Ophthalmoplegic migraine Surgical History No pertinent past surgical history Family History Mother COPD (chronic obstructive pulmonary disease) Social History Household Members: Spouse and Children Both parents involved: Yes Caregiver staying overnight: No Housing: Apartment Are you a primary care manager to a significant other at home: No Do you presently have visiting nurse or other home services: No 75 years or older and lives alone: No Alcohol intake: never Patient Tobacco Use Status: Never used Tobacco e-Cigarette/Vaping Use: Never Used Second Hand Smoke Exposure: No Agree to transfusion: Yes service: No Current occupational status: unemployed Current occupational exposures/hazards: No Gender identity: Female Cognitive needs: No Hearing needs: No Vision needs: No Female Reproductive History Menstrual Age of Menarche: 15 History History 3 Elective abortions 0 Para 2 Spontaneous abortions 0 Hx # Term Pregnancies 2 Ectopic pregnancies 0 Hx # Pregnancies 0 Multiple births 0 Past Pregnancies Del. Date GA/Weeks Outcome Route Wt Inf Gender Labor Dilia Anesthesia Location Provider Complicate 05/13/13 42 live - full term vaginal delivery 9 lb 14 oz Male epidural [facility] none 12/06/17 40 live - full term vaginal delivery 7 lb Female epidural [facility] none Questionnaire Portland Depression Portland Depression Scale I have been able to laugh and see the funny side of things: Not at all I have looked forward with enjoyment to things: Hardly at all I have blamed myself unnecessarily when things went wrong: No, never I have been anxious or worried for no reason: No, not at all I have felt scared of panicky for no very good reason at all: No, not at all Things have been getting on top of me: No, I have been coping as well as ever I have been so unhappy that I have had difficulty sleeping: No, not at all I have felt sad or miserable: No, not at all I have been so unhappy that I have been crying: No, never The thought of harming myself has occurred to me: Never 6 Visit DELORES Calculator Estimated Delivery Date Method Current WG Current Estimate 07/23/23 LMP (Certain) 46w 3d Other Estimates 07/22/23 Ultrasound #1 46w 4d Expected Delivery Route/Plan Vaginal Specific Issues/Plans EDC: 07/23/23 O pos Problem List: 1. Obesity BMI 37.2--not able to tolerate the first Gtt due to being sick, will attempt this again when feeling better. 2. Varicella non immune: advised pp vaccination 3. 12/31/2022 diagnosed with COVID at [facility]. See telephone encounter activity 4. Marginal insertion cord. Follow up 32 wks.- growth at 58% NT: nl First trimester screen: FAS: 03/05/23 5. gbs positive 6. 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 Labor support: Romario plan: Prefers a birthing center atmosphere control: [facility] Initial Weight: 200 lb Date <del>?</del> EGA Weight Gest Week Fundal Ht Present FHR move Efface % Edema BP PrePreg We Weight GTT <del>?</del> Glucose LV Protein Blood Type 12/12/22 <del>?</del> 8w 1d 197 lb 2 oz (-2 lb 14 oz) 197 lb 2 oz <del>?</del> 12/20/22 <del>?</del> 9w 2d 196 lb (-4 lb) 130/80 196 lb <del>?</del> 01/17/23 <del>?</del> 13w 2d 191 lb (-9 lb) 160 112/70 191 lb <del>?</del> 02/14/23 <del>?</del> 17w 2d 187 lb (-13 lb) 17 150 110/74 187 lb <del>?</del> 03/12/23 <del>?</del> 21w 0d 189 lb (-11 lb) 22 150 114/66 189 lb <del>?</del> 04/09/23 <del>?</del> 25w 0d 188 lb (-12 lb) 25 140 active 100/66 188 lb <del>?</del> 04/30/23 <del>?</del> 28w 0d 193 lb (-7 lb) 29 140 active 120/70 193 lb <del>?</del> 05/15/23 <del>?</del> 30w 1d 196 lb (-4 lb) 32 140 active 120/72 196 lb <del>?</del> 06/07/23 <del>?</del> 33w 3d 195 lb (-5 lb) 34 140 active 118/72 195 lb <del>?</del> 06/20/23 <del>?</del> 35w 2d 201 lb (+16 oz) 36 vtx 130 active 134/72 201 lb <del>?</del> 06/26/23 <del>?</del> 36w 1d 198 lb (-2 lb) 37 vtx 140 active 100/60 198 lb <del>?</del> 07/03/23 <del>?</del> 37w 1d 199 lb (-16 oz) 38 vtx 140 active 118/82 199 lb <del>?</del> 07/11/23 <del>?</del> 38w 2d 201 lb (+16 oz) term 40 op 140 active 120/84 201 lb <del>?</del> 07/18/23 <del>?</del> 39w 2d 202 lb (+2 lb) 40 vtx 150 active 118/72 202 lb <del>?</del> 09/06/23 <del>?</del> 46w 3d 175 lb (-25 lb) 106/74 175 lb <del>?</del> Notes Visit Date: 09/06/23 Last Updated by: Chely Redmond CNM Patient is here today for a 6 weeks examination. Delivered 07/26/23, girl, , 9lb.,bottle feeding, no stitched. She is interested in control, worried she will forget pills. Hx. of optical migraine, Counseled regarding options including for the IUDs, she is decided to try the Mirena IUD. Visit Date: 07/18/23 Last Updated by: Chely Redmond CNM Note author: Chely Redmond CNM. 39.2wk. KIERRA. Taking PNV, Doing well with concerns: Back pain keeping her up at night, she is tried everything in the past nothing helps she is hoping to deliver soon. She has a plan with pain management and has to see a neurosurgeon for possible spinal surgery. Good appetite, stays well hydrated. Denies any LOF, VB, abd. pain or urinary symptoms. She reports pressure and some contractions noted during her visit, VE-1 cm, thick, vertex -2. Reviewed: Labor s/s-LOF/Ctx's/VB, when to seek emergent care. GBS treatment in labor discomforts, self help measures, including heating pad ice to the back [id number] medications. FM and when to call the office for further eval. Encouraged a healthy well balanced diet, regular walking/exercise in . Hydrate well, 8-10 glasses of water daily. RTO 1wks. Visit Date: 07/11/23 Last Updated by: Sarah Orozco CNM Patient is here the [facility] office today, with her Romario for her visit at 38 weeks and 2 days she is having some tightening but no real contractions. She has no questions really about when to go to the hospital she re told her labor stories her 1st baby was delivered at 42 weeks 9 lb 14 oz. Her 2nd baby at 40 weeks. She is planning on an epidural. She knows she is group B strep positive she is NOT penicillin allergic so she will be getting penicillin IV in labor. She is sticking with [facility] at this point she had consider transferring elsewhere but it was too complicated. She says she had not decided about control so we discussed it she did not like how she felt on the control pills. She was thinking about an IUD this time but she had not decided which 1 I discussed the differences between the hormone using Mirena IU S and the hormone free ParaGard IUD and there different sets of side effects. She said that with her own periods she can liked how she felt and her periods were not a problem for her. She may choose to get a ParaGard IUD but she is going to think about it for the next week and I recommend if she that is the 1 she wants that she signed the paperwork so it could be ordered so it is available to her when it is necessary . I also discussed that they may offer her a Mirena IU S immediately at [facility] and that is something she could consider and the concern there is that sometimes they may not stay but that is something that can be checked. Discussed also that if she is getting an IUD placed we would not want to inserted until at least 8 weeks and in fact if her uterus is very expanded from having a very large baby at term i.e. if she had a 10 pounder, she might want to wait even a week or 2 longer to make sure that involution is complete. At this point might estimated EFW by [facility]era[facility] is 7-3/4-8 lb baby feels 0 P today extremely active. RTC 1 week and weekly until delivered in the office of her choice. Visit Date: 07/03/23 Last Updated by: Chely Redmond CNM Note author: Chely Redmond CNM. 37.1wk. KIERRA. Taking PNV, Doing well with no concerns. Patient has appointment at [facility] was canceled she was told she needed to be seen in person but then there was no availability to be seen. Has a good appetite, stays well hydrated. Denies any LOF, VB, abd. pain or urinary symptoms. Good FM. GBS positive patient counseled about treatment in labor and delivery. Reviewed: Labor/ LOF/Ctx's/VB, when to seek emergent care. [facility] and when to call for further evaluation. Encouraged a healthy well balanced diet, regular walking/exercise in . Hydrate well, 8-10 glasses of water daily. Up-to-date chart copies to be sent to [facility] along with the GBS report. RTO 1wks. Visit Date: 06/26/23 Last Updated by: Chely Redmond CNM Note author: Chely Redmond CNM. 36.1wk. KIERRA. Taking PNV, Doing well with no concerns. Good appetite, stays well hydrated. Denies any LOF, VB, abd. pain or urinary symptoms. Good FM. Monique had an interview at [address] [place] [address] this week and decided not to go there due to the short stay of 4 hours, and the inability to have an epidural if she desired. She was referred to [facility] as her 2nd choice and has an intake on 07/02/23. GBS, GC chlamydia obtained, cervix long thick and closed. Reviewed: Labor s/s-LOF/Ctx's/VB, when to seek emergent care. FMC and when to call for further evaluation. Sign a release of records to [facility]. Lab results available in 2 days. RTO 1wks. Visit Date: 06/20/23 Last Updated by: Chely Redmond CNM Note author: Chely Redmond CNM. 35.2wk. KIERRA. Family in for her visit today. Taking PNV, Doing well with no concerns. Good appetite, stays well hydrated. Denies any LOF, VB, abd. pain or urinary symptoms. Prepping at home this weekend for the new baby. Reviewed: PTL s/s-LOF/Ctx's/VB, when to seek emergent care. FM and when to call the office for further eval. Encouraged a healthy well balanced diet, regular walking/exercise in . Hydrate well, 8-10 glasses of water daily. Has decided to transition her care to the [address] [place] [address], records provided today. She has an appointment on June 24 for her consult and tour. Advised she will need her group B strep done at her next visit. RTO 1wks. Visit Date: 06/07/23 Last Updated by: Chely Redmond CNM Note author: Chely Redmond CNM. 33.2wk. KIERRA. Taking PNV, and iron. Doing well with no concerns. Good appetite, stays well hydrated. Denies any LOF, VB, abd. pain or urinary symptoms. Good FM. US growth check 05/28/23-nl scan. Reviewed: PTL s/s-LOF/Ctx's/VB, when to seek emergent care. discomforts, self help measures. FMC and when to call for further evaluation. Plan Tdap today. RTO 2wks. Visit Date: 05/15/23 Last Updated by: Chely Redmond CNM Note author: Chely Redmond CNM. 30wk. KIERRA. Taking PNV, Doing well with no concerns. Good appetite, stays well hydrated. Denies any LOF, VB, abd. pain or urinary symptoms. Romario an kids in today's visit. Reviewed: PTL s/s-LOF/Ctx's/VB, when to seek emergent care. discomforts, self help measures. FM and when to call the office for further eval. Encouraged a healthy well balanced diet, regular walking/exercise in . Hydrate well, 8-10 glasses of water daily. RTO 2wks. Visit Date: 04/30/23 Last Updated by: Chely Redmond CNM Note author: Chely Redmond CNM. 28wk. KIERRA. Taking PNV, Doing well with concerns: She reports heartburn, not taking anything. Good appetite, stays well hydrated. Denies any LOF, VB, abd. pain or urinary symptoms. Good FM. Romario in. US follow up 06/17/23. Reviewed: Tdap, RSV. Rx for Pepcid, diet avoidances/triggers. discomforts, self help measures. FMC and when to call for further evaluation. Encouraged a healthy well balanced diet, regular walking/exercise in . Hydrate well, 8-10 glasses of water daily. Plans 28wk labs tomorrow. RTO 2 wks. Visit Date: 04/09/23 Last Updated by: Chely Redmond CNM Note author: Chely Redmond CNM. 25wk. KIERRA. Taking PNV, Doing well with no concerns. Good appetite, stays well hydrated. Denies any LOF, VB, abd. pain or urinary symptoms. Good FM. Reviewed: PTL s/s-LOF/Ctx's/VB, when to seek emergent care. discomforts, self help measures. FMC and when to call for further evaluation. Encouraged a healthy well balanced diet, regular walking/exercise in . Hydrate well, 8-10 glasses of water daily. Glucose testing at next visit. RSV information provided. Discussed control-uncertain. Follow-up ultrasound for third-trimester ordered. Consider transferred to [facility] to meet the midwives in [facility] care. She declines, and reports she did that with the [facility] midwives, met several of them but when it came time to deliver not 1 of them she met was present, her preference is to stay here for the remaining . RTO 3. Visit Date: 03/12/23 Last Updated by: Chely Redmond CNM Note author: Chely Redmond CNM 21wk. KIERRA. Taking PNV, Doing well with no concerns. Good appetite, stays well hydrated. Denies any LOF, VB, abd. pain. or urinary symptoms. Quickening noted. Had US and is concerned about the placenta she was told to speak to me about. Ant. marginal insertion noted. Reviewed: PTL s/s-LOF/Ctx's/VB, when to seek emergent care. discomforts, self help measures. Kick counts/FM and when to call for further evaluation. Encouraged a healthy well balanced diet, regular walking/exercise in . Hydrate well, 8-10 glasses of water daily. Flu vaccine today. Placenta, findings. follow up 3rd trimester growth check or prn. RTO 4wk. Visit Date: 02/14/23 Last Updated by: Chely Redmond CNM Note author: Chely Redmond CNM/Clau Richardson, Body Coverer. 17.2 wk. KIERRA. Taking PNV, Doing well with no concerns. Good appetite, stays well hydrated. Denies any LOF, VB, abd. pain. or urinary symptoms. Reports quickening. She had strep throat last week, feeling better. FAS is scheduled for 03/05/23. Could not tolerate GTT, vomited 2x. She has tried to do the test since feeling better. Discussed: PTL s/s-LOF/Ctx's/VB, when to seek emergent care. Hydrate well, 8-10 glasses of water daily. Encouraged flu vaccine. Recommended trying GTT next week. If she cannot tolerate, will consider glucometer testing. RTO 4 weeks. Visit Date: 01/17/23 Last Updated by: Chely Redmond CNM Note author: Chely Redmond CNM/Lauren Lynne medical biller 13.2 wk KIERRA. Feeling well. Taking PNV. Hydrating well and good appetite Good FM, no LOF, VB or abd pain. Agreeable to do her Gtt. today due to nausea improving. Denies PEC, HTN or diabetes in previous . Discussed: PTL - LOF, VB, abd pain. FAS US in 5-6 weeks. NT is pending from 01/17. Call if any VB or other concerns. Informed re: Flu vaccine, she plans Flu vaccine when in stock at her next visit. Discussed to call the service here for any emergencies/deliveries to be [facility]. All of her questions and concerns were addressed to the best of my ability and shared decision making. She is agreeable to plan of care. RTO 4 wks. Visit Date: 12/20/22 Last Updated by: Sarah Orozoc CNM Patient is here with her and little girl for their 1st visit her daughter is super excited about trying to be able to hear the heartbeat today she would be 9 weeks and 2 days by dates and ultrasound which concur essentially. She is starting to be able to eat a little bit more and has been eating a lot of watermelon and honeydew melon. She has her blood work already ordered but is going to be going some morning to get it because it involves a 1 hour GTT as well discussed caution with eating and trying not to gain much weight and being careful around carbs. Issues around care inside of delivery and ultrasounds of already been reviewed and she will have her nuchal translucency ultrasound on 01/03 at [facility]. She knows that for any complications we might transfer care. PE was within normal limits very difficult to palpate the uterus secondary to adipose Pap done as well as testing for STI and other vaginal shahid. Unable to auscultate heart despite efforts. Consistent with 9 weeks gestation with adipose. She will go for blood work some morning soon and NT ultrasound 914 I will see her in 1 month. Visit Date: 12/12/22 Last Updated by: Irina Santacruz Onur Amaya is a very pleasant 32 year old here for nurse intake visit. This is her 3rd . She and her family are very excited about the . LMP 10/16/22 with DELORES 07/23/23 and GA today of 8w1d. Early US on 11/27/22 @ 6w1d gives DELORES of 07/22/23 and GA 8w2d. She is already scheduled for NT US/1st trimester screening at [facility] on 01/03/23. BMI 37.2 and early glucose has been added to labs. Pt was given the folder. She was advised MD coverage 12/11 and how to reach MD after hours/weekends and holidays. We discussed danger signs and to call or go to hospital if she experiences pelvic pain and or vaginal bleeding. Pt is aware she will deliver at [facility] and have ultrasounds there as well. Pt is having nausea and vomiting. She was given B6/Unisom without relief. Pt was advised to take B6 tid even if she does not have nausea as it will work better. Taking Unisom before bed. She is also taking her PNV before bed. We reviewed first trimester education. Pt verbalizes understanding and agrees with plan. She will schedule her OB PE today and she is aware labs will be ordered. No further questions. Review of Systems Const All systems reviewed & are unremarkable except as noted in HPI and below Reports as per HPI Eyes Reports no additional complaints ENT Reports no additional complaints Card Reports no additional complaints Resp Reports no additional complaints GI Reports as per HPI and Reports no additional complaints Reports as per HPI Musc Reports no additional complaints Skin/Breast Reports as per HPI Neuro Reports no additional complaints Psych Reports no additional complaints Endo Reports no additional complaints Vincent/Lymph Reports no additional complaints Aller/Immun Reports no additional complaints Exam Const Constitutional General: cooperative, healthy appearing and no acute distress Orientation/consciousness: patient oriented x3 HENMT Head: normal to inspection Eyes General: appearance normal, both eyes and all related structures Neck Neck: normal visual inspection Thyroid: Thyroid normal Chest Chest palpation & inspection: normal inspection of the chest and other (no puckering, dimpling, peau de orange, retraction, discharge, masses) Breast/axilla inspection: normal inspection of the breasts Breast/axilla palpation: normal palpation of the breasts Resp Effort & Inspection: normal respiratory effort GI Inspection (GI): normal to inspection Palpation (GI): Soft to palpation and Other GI palpation findings present (Nontender) General Exam: Yes bladder normal to palpation External Female Exam: normal appearance of the urethra Urethra: normal appearance of the urethra Speculum exam - vagina: normal appearance of the vagina and normal discharge Speculum Exam - Cervix: normal appearance of the cervix Bimanual exam- vagina & uterus: normal bimanual exam, normal palpation, uterine size normal, bladder normal to palpation, normal palpation, uterine shape normal and non-tender Bimanual Exam- Adnexa, other: normal adnexae Skin General skin exam: no rashes or lesions noted Rashes: no rashes Neuro Cognition (Neuro): normal cognition Extrem General: normal to inspection Psych Attitude: cooperative Thought process: Normal thought process present Coding Level of Care Code [place] Diagnoses exam Z39.2 Assessment & Plan Assessment & Plan (1) exam: Code(s): Z39.2 - Encounter for routine follow-up Plan Discussed: transitioning, exercising including Kegel's and abdominal toning, safe sex condoms or abstinence to prevent any unwanted until the Mirena is established. No UPI. Return to the office in 2 weeks for a Mirena insert, informed of pre insertion planning with eating and having something to drink and take 2 Tylenol or 3 ibuprofen if no contraindications, per manufacture's recommendation 1 hour before the procedure. Mirena booklet given. Counseled on Mirena IUD side effects, procedure anticipatory guidance, and general information on the device expulsion rate, rate, migration rate, and common side effects as noted. GC and chlamydia cultures obtained today. All of her questions and concerns were addressed to the best of my ability and shared decision making. She is agreeable to the plan of care. This note is constructed using voice recognition software. While every effort has been made to ensure accuracy, trombone slide assembler errors may have been included. Orders: Orders CT NG by PCR Today Z11.3 - Encounter for screening for infections with a predominantly sexual mode of transmission
== END 2023-09-06 15:27 | disposition home or self-care (01) ==
LOC: HO.HWS 14:43
PROVIDERS: PCP Internal Medicine; Visit Provider Advanced Practice Midwife
DX: Z39.2 Encounter for routine postpartum follow-up (principal)
CPT/HCPCS: 59430

== ENCOUNTER 2023-12-03 15:11 | Outpatient (AMB) | payer OTHER, SELFPAY ==
--- NOTE | 2023-12-03 15:14 | MHC.OFFVIS ---
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 She reports her cycles are normal since her delivery. LMP November 07. She also reports hair loss and some fatigue, has 3 children. Currently bottle-feeding. She denies any contraindications to control such as: migraines with aura, history of DVT or pulmonary emboli, high blood pressure, liver disease, thrombolic disorders, Lupus, +CAYDEN, breast cancer, or smoking. [facility] Medical History (Updated 09/06/23 @ 15:08 by Chely Redmond CNM) Obesity (BMI 35.0-39.9 without comorbidity) Anxiety Neck pain Allergic rhinitis Ophthalmoplegic migraine Surgical History No pertinent past surgical history Family History Mother COPD (chronic obstructive pulmonary disease) Social History Household Members: Spouse and Children Both parents involved: Yes Caregiver staying overnight: No Housing: Apartment Are you a primary intensive care medicine specialist to a significant other at home: No Do you presently have visiting nurse or other home services: No 75 years or older and lives alone: No Alcohol intake: never Patient Tobacco Use Status: Never used Tobacco e-Cigarette/Vaping Use: Never Used Second Hand Smoke Exposure: No Agree to transfusion: Yes service: No Current occupational status: unemployed Current occupational exposures/hazards: No Gender identity: Female Cognitive needs: No Hearing needs: No Vision needs: No Female Reproductive History Menstrual Age of Menarche: 15 Date of last menstrual period: 11/08/23 Review of Systems Const All systems reviewed & are unremarkable except as noted in HPI and below Endo Reports no additional complaints Physical Exam Vital Signs: Last Vital Signs BP 100/60 12/03/23 15:16 Const General: cooperative, healthy appearing and no acute distress Psych Appearance: well kempt Attitude: cooperative Thought process: Normal thought process present Assessment & Plan Assessment & Plan (1) control counseling: Code(s): Z30.09 - Encounter for other general counseling and advice on contraception Plan Discussed: Reviewed control options with the use of CDC guidelines, to include all methods including vasectomy. She is interested in going on the control pills, and possibly doing the Mirena IUD later on. Instructed on pill use. Contraindications with smokers over the age of 35. Persons with a history of blood clots (DVT) or breast cancer. Start of pill: within 5 days of a normal menses, if greater than that, use a back up method or abstain for 7 days. Also may start if NO unprotected intimacy since the last normal menses (use a back up method for seven days)9. How to take: Take at the same time of day. Take with food if nausea occurs, and closer to bedtime may be helpful. What to do when missing a pill or taking one late: take as soon as you remember, and use a back up method (condoms, or abstinence is required) for 7 days. Side effects: break through bleeding, nausea, mood changes, breast tenderness, headaches, bloating. Most of these all resolve in the first 2-3 months of use. Warnings: serious complications from the pill associated with a DVT (deep viem thrombosis), risks to stroke, PE (pulmonary emboli), potentially fatal. Report any serious side effects: call 911 and seek medical emergenct treatment for any ACHES . Abdominal pain (sever). Chest pain (difficulty breathing). Headache (severe). Extremity pain(sudden pain in one extermity). Sudden blindness/loss of vision. Report any medical changes to our office so that we can determine if the pill is an appropriate method for continued use. Keep all follow up appointments for pill use surveilance as directed. Pill check in 3 months. Plan labs for CBC and thyroid, encouraged to healthy balanced diet including proteins. Discuss normal hair loss in the 1st year . Follow up with her PCP if any other concerns including checking her vitamin-D level she reports her follow up with her PCP is in April. Orders: Orders Thyroid Stimulating Hormone Today L65.9 - Nonscarring hair loss, unspecified, R53.83 - Other fatigue Complete Blood Count no Diff Today L65.9 - Nonscarring hair loss, unspecified, R53.83 - Other fatigue Coding Level of Care Code Est Pt Level 3 (11094) Diagnoses control counseling Z30.09
[2023-12-03 15:16] VITALS: BP 100/60
== END 2023-12-03 15:54 | disposition home or self-care (01) ==
LOC: HO.HWS 15:11
PROVIDERS: PCP Internal Medicine; Visit Provider Advanced Practice Midwife
DX: Z30.09 Encounter for other general counseling and advice on contraception (principal)
CPT/HCPCS: 99213

== ENCOUNTER → 2023-12-03 15:11 | Outpatient (BNVA) | payer OTHER, SELFPAY | PROVIDERS: PCP Internal Medicine; Visit Provider Advanced Practice Midwife | DX: Z30.09 Encounter for other general counseling and advice on contraception (principal) | CPT/HCPCS: 99212 ==

== ENCOUNTER 2024-05-07 15:49 | Outpatient (AMB) | payer OTHER, SELFPAY ==
--- NOTE | 2024-05-07 15:53 | A.OFFPC_ITS ---
Vital Signs 05/07/24 15:54 Height 5 ft 1 in Weight 177 lb BMI 33.4 BP 126/80 Blood Pressure Location Lt brachial Position Sitting Intake Visit Reasons: Physical Intake Note: Patient here for a physical exam Head Of Conservation Required: No Accompanied by: Self / Same As Patient Allergies sulfamethoxazole [From BACTRIM] Allergy (Unknown, Verified 05/07/24 16:12) HIVES trimethoprim [From BACTRIM] Allergy (Unknown, Verified 05/07/24 16:12) HIVES Medication List - Last Reconciled 05/07/24 by Madeline Joseph MD desogestrel-ethinyl estradiol 0.15-0.03 mg (Apri) 1 tab PO DAILY 90 days fluticasone propionate 50 mcg/actuation (Flonase Allergy Relief) 1 spray intranasal DAILY 30 days methocarbamol 750 mg PO Q8H 5 days mupirocin 2% 1 appl topical BID 2 weeks oxycodone 5 mg PO BID PRN 14 days sumatriptan succinate 25 mg PO Q2-4H PRN Tobacco use date assessed: 05/07/24 Dental Screening Dental Screen Date: 05/07/24 Did you have a dental visit in the last 12 months?: Yes Did you have a dental problem in the last 6 months where you did not have access to dental care?: No Was dental information given to patient?: Patient has dentist HPI HPI Comments History of Present Illness Details The patient is a 34-year-old female presenting for her annual physical examination. She reports intermittent neck and back pain that has worsened over time, particularly since the of her daughter nine months ago. The pain radiates down her right side from the neck to the calf, sometimes causing her leg to feel as though it might give way while walking. There have been no previous surgeries, though an X-ray was conducted in the past which she wishes to follow up on due to worsening symptoms. The patient has a family history notable for her mother, who is alive but has been diagnosed with Chronic Obstructive Pulmonary Disease (COPD) and small cell lung cancer, the latter currently stabilized with unspecified treatment thought to be radiotherapy or a similar therapeutic regimen. 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 The patient denies consumption of alcohol, smoking, or drug use. - Pap smear in 2022, normal with HPV neg ative. - Regular screenings for cholesterol, pulido gar, kidney, and liver function were planned. - Discussions regarding weight managemen t were held, with recommendations for dietary adjustments and exercise. [facility] Medical History (Updated 05/07/24 @ 16:25 by Madeline Joseph MD) Obesity (BMI 35.0-39.9 without comorbidity) Anxiety Neck pain Allergic rhinitis Ophthalmoplegic migraine Surgical History No pertinent past surgical history Family History (Updated 05/07/24 @ 16:17 by Madeline Joseph MD) Mother COPD (chronic obstructive pulmonary disease) Small cell lung cancer Social History Household Members: Spouse and Children Both parents involved: Yes Caregiver staying overnight: No Housing: Apartment Are you a primary career services coordinator to a significant other at home: No Do you presently have visiting nurse or other home services: No 75 years or older and lives alone: No Alcohol intake: never Patient Tobacco Use Status: Never used Tobacco e-Cigarette/Vaping Use: Never Used Second Hand Smoke Exposure: No Agree to transfusion: Yes service: No Current occupational status: unemployed Current occupational exposures/hazards: No Gender identity: Female Cognitive needs: No Hearing needs: No Vision needs: No Female Reproductive History Menstrual Age of Menarche: 15 Questionnaire PHQ-9 Over the last 2 weeks, how often have you been bothered by any of the following problems? 1. Little interest or pleasure in doing things: not at all 2. Feeling down, depressed, or hopeless: not at all 3. Trouble falling or staying asleep, or sleeping too much: several days 4. Feeling tired or having little energy: several days 5. Poor appetite or overeating: not at all 6. Feeling bad about yourself - or that you are a failure or have let yourself or your family down: not at all 7. Trouble concentrating on things, such as reading the newspaper or watching television: not at all 8. Moving or speaking so slowly that other people could have noticed. Or the opposite - being so fidgety or restless that you have been moving around a lot more than usual: not at all 9. Thoughts that you would be better off or of hurting yourself in some way: not at all Total score: 2 Depression Screening Interpretation: Negative Depression Screening Done: Yes 58322 - PHQ-9 Billing: Yes Source: Developed by Drs. Max Wang, Anastasiya Kidd, Bereket Ramirez and colleagues, with an educational colby from [employer]. Thrive Questionnaire Date Thrive assessed: 05/07/24 I am a: Patient What is your living situation today?: I have a steady place to live Within the past 12 months, did the food you bought not last and you didn't have the money to get more?: Never true Within the past 12 months, did you worry whether your food would run out before you got money to buy more?: Never true Do you have trouble paying for medicines?: No Do you have trouble getting transportation to medical appointments?: No Do you have trouble paying your heating and electricity bill?: No Do you have trouble taking care of your child, family member or friend?: No Do you have trouble with day-to-day activities such as bathing, preparing meals, shopping, managing finances, etc.?: No Are you currently unemployed and looking for a job?: No Are you interested in more education?: No Please select the resources that you would like help with: None Currently or been in a relationship where the following occur: No concerns reported THRIVE Score: 0 AUDIT C Alcohol Use Questionnaire (AUDIT-C) 1. How often do you have a drink containing alcohol?: Never Total Score: 0 Score Reviewed/Action Taken: No RONNIE-7 AMB Questionnaire RONNIE-7 Date RONNIE - 7 assessed: 05/07/24 Feeling nervous, anxious, or on edge: 0 = Not at all Not being able to stop or control worryin = Not at all Worrying too much about different things: 0 = Not at all Trouble relaxin = Not at all Being so restless that it is hard to sit still: 0 = Not at all Becoming easily annoyed or irritable: 0 = Not at all Feeling afraid as if something awful might happen: 0 = Not at all Total RONNIE-7 score (0-4 normal; 5-9 mild; 10-14 moderate; 15-21 severe): 0 Source: Developed by Drs. Max Wang, Anastasiya Kidd, Bereket Ramirez and colleagues, with an educational colby from [employer]. RONNIE-7 Assessment Billing RONNIE-7 Assessment Tool: RONNIE-7 Assessment 73621 Review of Systems Const All systems reviewed & are unremarkable except as noted in HPI and below Card Denies chest pain at rest, Denies chest pain with activity, Denies edema, Denies irregular heart rhythm, Denies claudication, Denies dyspnea, Denies dyspnea on exertion, Denies orthopnea, Denies paroxysmal nocturnal dyspnea and Denies slow heart rate Resp Denies cough, Denies dyspnea and Denies dyspnea on exertion Physical exam (Primary Care) Vital Signs: Last Vital Signs BP 126/80 05/07/24 15:54 BMI result Body Mass Index 33.4 Tobacco/Smoking Status: Tobacco use Status Tobacco use date assessed 05/07/24 05/07/24 15:59 Patient Tobacco Use Status Never used Tobacco 05/07/24 15:59 e-Cigarette/Vaping Use Never Used 05/07/24 15:59 PHQ-9: PHQ-9 Score PHQ-9: Total score 2 05/07/24 16:25 Depression Screening Interpretation: Negative Thrive Assessment: Date of Thrive Assessment Date Thrive assessed 05/07/24 05/07/24 15:59 Currently or been in a relationship where the following occur: No concerns reported [facility] Head: Yes normal to inspection, Yes normocephalic and Yes atraumatic Ears: external ears normal Eyes General: appearance normal, both eyes and all related structures Eyelids: Yes eyelids normal Conjunctivae: conjunctivae normal Neck Neck: Yes normal visual inspection and Yes supple Resp Effort & Inspection: normal respiratory effort Auscultation: clear to auscultation bilaterally Cardio Jugular venous distension: no JVD Rate: regular rate Rhythm: regular rhythm Heart sounds: S1 normal heart sound present and S2 normal heart sound present GI Inspection: Yes normal to inspection Palpation (GI): Soft to palpation and nontender Auscultation: normal bowel sounds Skin General skin exam: no rashes or lesions noted Neuro General: no focal motor deficits Extrem General: Yes full ROM Psych Appearance: grossly normal Office Procedures Flu Questionnaire Does the patient have a severe egg allergy?: No Immunizations Fluarix Triv [id number] (PF) 45 mcg (15 mcg x 3)/0.5 mL IM syringe Performing Provider: Madeline Joseph MD [facility] Documented (not given) by: RUSS Valencia on 05/07/24 16:25 Reason Not Given: Not Given Coding Level of Care Code Est Pt Level 3 (85613) Est Pt Prev Care 18-39y(11915) Diagnoses Physical exam Z00.00 Lumbar radiculopathy M54.16 Spondylosis, cervical M47.812 Additional Codes RONNIE-7 Assessment Billing - RONNIE-7 Assessment Tool: RONNIE-7 Assessment 27374 ([id number]) PHQ-9 - 58138 - PHQ-9 Billing: Yes ([id number]) Time Spent (min) 33 Assessment & Plan Assessment & Plan (1) Physical exam: Code(s): Z00.00 - Encounter for general adult medical examination without abnormal findings Category: Medical (2) Lumbar radiculopathy: Code(s): M54.16 - Radiculopathy, lumbar region Category: Medical (3) Spondylosis, cervical: Code(s): M47.812 - Spondylosis without myelopathy or radiculopathy, cervical region Category: Medical Plan - Order X-rays for further evaluation of worsening neck and back pain. - Referral to Pain Management for ongoing treatment of neck and back pain. - Conduct blood work to assess cholesterol, blood sugar, renal, and hepatic function. - Follow up with a polisher dial or neurologist as needed based on X-ray results and pain management findings. - Continue anxiety management, with therapy sessions maintained for mental health support. Patient was informed and verbally consented to the use of an ambient scribe for clinic note documentation during this visit. I discussed the management of the patient's neck and back pain, highlighting the referral to Pain Management to ensure comprehensive evaluation and treatment plans. Blood tests have been ordered to establish baseline metrics for marcos sterol, liver, and renal function. We addressed the risks associated with non- modifiable family history conditions and provided guidance for lifestyle modifications appropriate for obesity management. The patient was informed about the necessity of ongoing mental health monitoring, particularly in relation to her resolved depression. Orders: Orders IRON PROFILE 05/07/24 D64.9 - Anemia, unspecified XR cervical spine 2V 05/07/24 M47.812 - Spondylosis without myelopathy or radiculopathy, cervical region XR lumbar spine 2-3V 05/07/24 M54.16 - Radiculopathy, lumbar region Comprehensive Marine. Panel Fast 05/07/24 Z00.00 - Encounter for general adult medical examination without abnormal findings Complete Blood Count Auto Diff 05/07/24 D64.9 - Anemia, unspecified Influenza [id number] Immunization 05/07/24 Z23 - Encounter for immunization Referrals Pain Management Referral M47.812 - Spondylosis without myelopathy or radiculopathy, cervical region, M54.16 - Radiculopathy, lumbar region Medications: Refilled fluticasone propionate 50 mcg/actuation (Flonase Allergy Relief) administer into each nostril 1 spray intranasal DAILY 16 grams 0RF 30 days Patient Instructions: - Attend scheduled X-ray appointment. - Follow up with Pain Management as directed. - Adhere to dietary recommendations and exercise plan for weight management. - Continue therapy and follow-up sessions for anxiety management. - Maintain regular health check-ups and blood work evaluations.
[2024-05-07 15:54] VITALS: BP 126/80; BMI 33.4
== END 2024-05-07 16:25 | disposition home or self-care (01) ==
PROVIDERS: PCP Internal Medicine; Visit Provider Internal Medicine
DX: Z23 Encounter for immunization (principal)

== ENCOUNTER → 2024-05-07 15:49 | Outpatient (BNVA) | payer OTHER, SELFPAY | PROVIDERS: PCP Internal Medicine; Visit Provider Internal Medicine | DX: Z00.00 Encounter for general adult medical examination without abnormal findings (principal); M54.16 Radiculopathy, lumbar region; M47.812 Spondylosis without myelopathy or radiculopathy, cervical region | CPT/HCPCS: 90471; 96127; 99212; 99395 ==

== ENCOUNTER 2024-05-21 07:32 | Outpatient (AMB) | payer OTHER, SELFPAY ==
--- NOTE | 2024-05-21 07:41 | A.OFFVIS_ITS ---
Intake Visit Reasons: vag irritation Check Grader: Check Grader Present (Sima) Allergies sulfamethoxazole [From BACTRIM] Allergy (Unknown, Verified 05/21/24 07:41) HIVES trimethoprim [From BACTRIM] Allergy (Unknown, Verified 05/21/24 07:41) HIVES Is last menstrual period known: Yes Last menstrual period: 04/18/24 HPI Comments Details: Patient is here today with concerns of vaginal irritation. She reports her pe riod was twice in March early in the month and later on 04/18. Uses condoms consistently. UPT today is positive. She denies any pelvic pain or vaginal bleeding outside of her LMP. Delivered 10 months ago. [facility] Medical History Obesity (BMI 35.0-39.9 without comorbidity) Anxiety Neck pain Allergic rhinitis Ophthalmoplegic migraine Surgical History No pertinent past surgical history Family History (Updated 05/07/24 @ 16:17 by Madeline Joseph MD) Mother COPD (chronic obstructive pulmonary disease) Small cell lung cancer Social History Household Members: Spouse and Children Housing: Apartment Are you a primary assistant child care teacher to a significant other at home: No Do you presently have visiting nurse or other home services: No Alcohol intake: never Patient Tobacco Use Status: Never used Tobacco e-Cigarette/Vaping Use: Never Used Second Hand Smoke Exposure: No Agree to transfusion: Yes service: No Current occupational status: unemployed Current occupational exposures/hazards: No Gender identity: Female Cognitive needs: No Hearing needs: No Vision needs: No Female Reproductive History Menstrual Age of Menarche: 15 Date of last menstrual period: 04/18/24 Review of Systems Const All systems reviewed & are unremarkable except as noted in HPI and below Physical Exam Const General: cooperative, healthy appearing and no acute distress Orientation/consciousness: patient oriented x3 GI Inspection: Yes normal to inspection Palpation (GI): Soft to palpation and Other GI palpation findings present (Nontender) Rectal Exam - Female: visual inspection normal General: Yes bladder normal to palpation External Female Exam: normal appearance of the urethra and erythema Speculum Exam - Vagina: normal appearance of the vagina, normal palpation and no rmal vaginal discharge (Pale yellow) Speculum Exam - Cervix: normal appearance of the cervix and normal palpation Bimanual exam- vagina & uterus: normal bimanual exam, normal palpation, uterine size normal, bladder normal to palpation, normal palpation, uterine shape normal and non-tender Bimanual Exam- Adnexa, other: normal adnexae Neuro General: patient oriented x3 Results AMB Test Urine AMB Test Urine Positive Last Edit by RUSS Barnhart on 05/21/24 07:55 AMB Urinalysis, Automated UA Leukoctes 3 Ethan/uL Last Edit by Barbara Maguire Master on 05/21/24 07:55 UA Nitrite Negative Last Edit by Barbara Maguire Master on 05/21/24 07:55 UA Urobilinogen 0 mg/dL Last Edit by RUSS Barnhart on 05/21/24 07:5 5 UA Protein 0.5 mg/dL Last Edit by Barbara Maguire Master on 05/21/24 07:55 UA pH 5.5 Last Edit by Barbara Maguire [facility] on 05/21/24 07:55 UA Blood 0 John/uL Last Edit by Barbara Maguire Master on 05/21/24 07:55 UA Specific [place] 1.025 Last Edit by Barbara Maguire [facility] on 05/21/24 07:55 UA Ketone Negative Last Edit by Barbara Maguire Master on 05/21/24 07:55 UA Bilirubin 0 mg/dL Last Edit by Barbara Maguire [facility] on 05/21/24 07:55 UA Glucose 0 mg/dL Last Edit by Barbara Maguire [facility] on 05/21/24 07:55 Results Reviewed Results Reviewed: Laboratory Last Values Urine pH (Auto) 5.5 05/21/24 07:49 Specific [place] (Auto) 1.025 05/21/24 07:49 Urine Protein (Auto) 0.5 mg/dL 05/21/24 07:49 Glucose (UA)(Auto) 0 mg/dL 05/21/24 07:49 Urine Ketones (Auto) Negative 05/21/24 07:49 Urine Blood (Auto) 0 John/uL 05/21/24 07:49 Urine Nitrite (Auto) Negative 05/21/24 07:49 Urine Bilirubin (Auto) 0 mg/dL 05/21/24 07:49 Urine Urobilinogen (Auto) 0 mg/dL 05/21/24 07:49 Leukocyte Esterase (Auto) 3 Ethan/uL 05/21/24 07:49 Tst Clinic Positive 05/21/24 07:49 Assessment & Plan Assessment & Plan (1) Acute vaginitis: Code(s): N76.0 - Acute vaginitis Plan: Instructions: Clean with warm water, no soaps, scented products. Wear loose, cotton underclothes, avoid tight outer clothing. Air when possible. No coitus until well healed. Complete all medications as prescribed. Await final pending results for any changes in the plan of care. Call the office if there is no improvement in 24-48hrs., or if worsening sympto ms. (2) Unplanned unwanted : Code(s): Z64.0 - Problems related to unwanted Plan: Discussed options, she prefers to not continue with -[facility] information provided. (3) Encounter for general counseling and advice on contraceptive management: Code(s): Z30.09 - Encounter for other general counseling and advice on contraception Plan: Counseled regarding control options, reviewed CDC efficacy chart, was considering a tubal ligation and has now decided to do a Mirena IUD. Agrees to call when ready for insertion, advised in the 1st 5 days of her cycle and to take 3 Advil with food and fluids 1 hour before her insertion time. Call sooner if any concerns or questions. Plan The patient expressed understanding and agreement with the plan of care. All of her questions and concerns were addressed to the best of my ability. This note is constructed using voice recognition software. While every effort has been made to ensure accuracy, manager life sciences errors may have been included. Orders: Orders AMB HCG Urine Test Today Z32.01 - Encounter for test, result positive AMB Urinalysis Automated Today N89.8 - Other specified noninflammatory disorders of vagina Bacterial Vaginosis Panel Today N89.8 - Other specified noninflammatory disorders of vagina CT NG by PCR Today N89.8 - Other specified noninflammatory disorders of vagina Medications: New clotrimazole-betamethasone 1-0.05 % apply a thin coat to the area 1 appl topical BID 45 grams 0RF itching 7 days Coding Level of Care Code Est Pt Level 4 (78311) Diagnoses Acute vaginitis N76.0 Unplanned unwanted Z64.0 Encounter for general counseling and advice on contraceptive management Z30.09
--- OUTSIDE RECORDS SUMMARY | 2024-05-21 10:37 | XMS_ITS | Clinical Summary ---
Author Organization [facility] Address [address] [place] [address] Phone Care Team Providers Care Grease Rack Worker Name Role Phone Unavailable Primary Care Provider Unavailabl e Immunizations Name Administration Dates Next Due DTP 04/11/1995, 3,1991,08/26,1991 HPV, Quadrivalent 06/15/2008,02/10/2008,12/09/19 08 Hep B, ped/adol 07/18/1995,01/17/1995,11/29/1994 Hib (PRP-T) 07/21/1992, 2,1991,06/24 MMR 1996,07/21/1992 Meningococcal Conj (Menactra) MCV4P 06/13/2006 OPV 08/14/1996, 3,1991,06/24 Td (adult) (MBL), 2 Lf tetan us toxoid, PF, adsorbed 08/26/2003 Tdap 12/14/2008 Unknown Vaccine 06/15/2006 Varicella 12/09/2007,05/26/1996 Family History Relation Name Status Comments Mother Alive Mother: Alive a nd well Sister Alive Sister: Alive a nd well Social History Tobacco Use Types Packs/Day Years Used Date Smoking Tobacco: Never Comments:Never smoker Comments Unknown Sex and Gender Information Value Date Recorded Sex Assigned at Not on file Legal Sex Female 4:39 PM EDT Gender Identity Not on file Sexual Orientation Not on file Last Filed Vital Signs Vital Sign Reading Time Taken Comments Blood Pressure 102/60 07/18/2011 12:00 AM EDT Pulse - - Temperature 36.4 ??C (97.5 ??F) 01/16/2011 12:00 AM E DT Respiratory Rate - - Oxygen Saturation - - Inhaled Oxygen Concentration - - Weight 49 kg (108 lb) 07/18/2011 12:00 AM EDT Height 158.2 cm (5' 2.3 ) 07/18/2011 12:00 AM ED T Body Mass Index 19.56 07/18/2011 12:00 AM EDT Plan of Treatment Health Maintenance Due Date Last Done Comments DTaP,Tdap,and Td Vaccines (7 - Td or Tdap) 12/14/2018 12/14/2008, 08/26/2003, 04/11/1995, Additional history exists Influenza Vaccines (#1) 2023 COVID-19 Vaccine ( season) 2023 HIB Vaccines Completed 07/21/1992, 10/20, 1991, Additional history exists Hepatitis B Vaccines Completed 07/18/1995, 01/17/1995, 11/29/1994 MMR Vaccines Completed 1996, 07/21/1992 IPV Vaccines Completed 08/14/1996, 04/1992, 1991, Additional history exists Meningococcal Vaccine Aged Out 06/13/2006 No sabiha james eligible based on patient's age to complete this topic Varicella Vaccines Completed 12/09/2007, 05/26/1996 HPV Vaccines Completed 06/15/2008, 01/21, 12/09/2007 Hepatitis A Vaccines Aged Out No long er eligible based on patient's age to complete this topic Men B Vaccine Aged Out No longer elig ible based on patient's age to complete this topic Pneumococcal Vaccine Aged Out No long er eligible based on patient's age to complete this topic Procedures * Due to [place] law, this organization might not be sharing sensitive test results. Procedure Name Priority Date/Time Associated Diagnosis Comments CHLAMYDIA AND GONORRHEA, AMPLIFIED Routine 07/19/2011 1:02 PM EDT from Last 3 Months or Most Recently Relevant to Health Maintenance Results * Due to [place] law, this organization might not be sharing sensitive test results. * Chlamydia and Gonorrhoea, Amplified (07/19/2011 1:02 PM EDT) URINE GC AMP PROBE NEGATIVE [facility] Comment: NO NEISSERIA GONORRHOEAE RNA DETECTED IN THIS PATIENT'S SAMPLE. ? (REFERENCE RANGE/NORMAL VALUE: NOT DETECTED) ? NOTE: THIS TEST USES ACETYLENE CYLINDER PACKING MIXER MEDIATED AMPLIFICATION METHOD TO DETECT rRNA FROM C.TRACHOMATIS AND N.GONORRHOEAE. A NEGATIVE RESULT DOES NOT PRECLUDE INFECTION WITH C.TRACHOMATIS OR N.GONORRHOEAE BECAUSE RESULTS ARE DEPENDENT ON ADEQUATE SPECIMEN COLLECTION, ABSENCE OF INHIBITORS, AND SUFFICIENT rRNA TO BE DETECTED. THE APTIMA COMBO2 ASSAY IS NOT INTENDED FOR THE EVALUATION OF SUSPECTED SEXUAL ABUSE OR FOR OTHER MEDICO LEGAL INDICATIONS. IS TRUE FOR ALL NON CULTURE METHODS, A POSITIVE SPECIMEN OBTAINED FROM A PATIENT AFTER THERAPEUTIC TREATMENT CANNOT BE INTERPRETED INDICATING THE PRESENCE OF VIABLE C.TRACHOMATIS OR N.GONORRHOEAE. THERAPEUTIC FAILURE OR SUCCESS CANNOT BE DETERMINED WITH THE APTIMA COMBO2 ASSAY SINCE NUCLEIC ACID MAY PERSIST FOLLOWING APPROPRIATE ANTIMICROBIAL THERAPY. A NEGATIVE URINE RESULT FOR A PATIENT WHO IS CLINICALLY SUSPECTED OF HAVING A CHLAMYDIAL OR GONOCOCCAL INFECTION DOES NOT RULE OUT THE PRESENCE OF C.TRACHOMATIS OR N.GONORRHOEAE IN THE UROGENITAL TRACT. TESTING OF AN ENDOCERVICAL(FEMALE) OR URETHRAL(MALE) SPECIMEN IS RECOMMENDED IF THERE IS HIGH CLINICAL SUSPICION OF INFECTION. PRESERVCYT LIQUID PAP AND URINE SAMPLING ARE NOT DESIGNED TO REPLACE CERVICAL EXAMS AND ENDOCERVICAL SAMPLES FOR DIAGNOSIS OF FEMALE UROGENITAL INFECTIONS. PATIENTS MAY HAVE CERVICITIS, URETHRITIS, URINARY TRACT INFECTIONS, OR VAGINAL INFECTIONS DUE TO OTHER CAUSES OR CONCURRENT INFECTIONS WITH OTHER AGENTS. URINE CHLAMYDIA AMP PROBE NEGATIVE [facility] Comment: NO CHLAMYDIA TRACHOMATIS RNA DETECTED IN THIS PATIENT'S SAMPLE. ? (REFERENCE RANGE/NORMAL VALUE: NOT DETECTED) 07/19/2011 1:02 PM EDT Narrative [facility] - 07/19/2011 1:02 PM EDT URINE CHLAMYDIA GC AMP PROBE us Daly Canales MD LAB MICROBIOLOGY - GENERAL ORDERABLES Final Result [facility] [address] [place] [address], [place] from Last 3 Months or Most Recently Relevant to Health Maintenance
--- OUTSIDE RECORDS SUMMARY | 2024-05-21 10:37 | XMS_ITS | Encounter Summary ---
Author Organization [facility] Address [address] [place] [phone] Phone Care Team Providers Care Electromedical Equipment Repairer Name Role Phone Daly Canales MD Primary Care Provider [phone] Encounter Details Date Type Department Care Team (Late st Contact Info) Description 09/16/2013 Documentation [facility] [place] [facility] [address] [place] [address] Family Medicine, Physician [address] [place], [place] [phone] Social History Tobacco Use Types Packs/Day Years Used Date Smoking Tobacco: Never Assessed Comments Unknown Sex and Gender Information Value Date Recorded Sex Assigned at Not on file Legal Sex Female 4:39 PM EDT Gender Identity Not on file Sexual Orientation Not on file documented as of this encounter Plan of Treatment Not on file documented as of this encounter Visit Diagnoses Not on filedocumented in this encounter Care Teams Electromedical Equipment Repairer Relationship Specialty Start Date End Date Daly Canales MD [address] [place] [id number] PCP - General 11/30/16 08/01/22 documented as of this encounter
--- OUTSIDE RECORDS SUMMARY | 2024-05-21 10:37 | XMS_ITS | Encounter Summary ---
Author Organization [facility] Address [address] [place] [address] Phone Care Team Providers Care Oil Well Services Field Supervisor Name Role Phone Daly Canales MD Primary Care Provider Encounter Details Date Type Department Care Team (Late st Contact Info) Description 12/06/2016 Conversion Encounter [facility] [place] [address] [place] [address] Social History Tobacco Use Types Packs/Day Years [...] on filedocumented in this encounter Care Teams Oil [employer] Services Field Supervisor Relationship Specialty Start Date End Date Daly Canales MD [address] [place] [address] PCP - General 11/30/16 08/01/22 documented as of this encounter
--- OUTSIDE RECORDS SUMMARY | 2024-05-21 10:37 | XMS_ITS | Encounter Summary ---
Author Organization [facility] Address [address] [place] [phone] Phone Care Team Providers Care Nibbler Operator Name Role Phone Daly Canales MD Primary Care Provider Encounter Details Date Type Department Care Team (Late st Contact Info) Description 12/19/2009 Documentation [facility] [place] [address] [place] [address] Family Medicine, Physician [address] [place], [place] [phone] Social History Tobacco Use Types Packs/Day Years [...] on filedocumented in this encounter Care Teams Nibbler Operator Relationship Specialty Start Date End Date Daly Canales MD [address] [place] [id number] PCP - General 11/30/16 08/01/22 documented as of this encounter
--- OUTSIDE RECORDS SUMMARY | 2024-05-21 10:37 | XMS_ITS | Encounter Summary ---
Author Organization [facility] Address [address] [place] [phone] Phone Care Team Providers Care Size Cutter Name Role Phone Daly Canales MD Primary Care Provider Encounter Details Date Type Department Care Team (Late st Contact Info) Description 12/19/2009 Documentation [facility] [place] [facility] [address] [place] [address] Family Medicine, Physician [address] [place], [place] [phone] Social History Tobacco Use Types Packs/Day Years [...] on filedocumented in this encounter Care Teams Size Cutter Relationship Specialty Start Date End Date Daly Canales MD [address] [place] [id number] PCP - General 11/30/16 08/01/22 documented as of this encounter
== END 2024-05-21 08:13 | disposition home or self-care (01) ==
LOC: HO.HWS 07:32
PROVIDERS: PCP Internal Medicine; Visit Provider Advanced Practice Midwife
DX: N76.0 Acute vaginitis (principal); Z64.0 Problems related to unwanted pregnancy; Z30.09 Encounter for other general counseling and advice on contraception; Z32.01 Encounter for pregnancy test, result positive; N89.8 Other specified noninflammatory disorders of vagina
CPT/HCPCS: 99214

== ENCOUNTER 2024-05-21 07:32 | Outpatient (REF) | payer OTHER, SELFPAY ==
[2024-05-22 05:40] LABS: CT PCR NOT DETECTED (Not Detect.); NG PCR NOT DETECTED (Not Detect.)
[2024-05-22 10:25] LABS: Bacterial Vaginosis PCR NEGATIVE (Negative); Candida Group PCR NOT DETECTED (Not Detect); Candida glab krusei PCR NOT DETECTED (Not Detect); Trichomonas vaginalis PCR DETECTED (Not Detect)
== END 2024-05-21 07:33 | disposition home or self-care (01) ==
LOC: HO.LAB 07:32
PROVIDERS: PCP Internal Medicine; Visit Provider Advanced Practice Midwife
DX: N76.0 Acute vaginitis (principal); Z30.09 Encounter for other general counseling and advice on contraception; Z64.0 Problems related to unwanted pregnancy
CPT/HCPCS: 81003; 81025; 81515; 87491; 87591; 99212

== ENCOUNTER 2024-05-21 08:06 | Outpatient (REF) | payer OTHER, SELFPAY | END 2024-05-21 08:07 | disposition home or self-care (01) | LOC: HO.LNP 08:06 | PROVIDERS: Visit Provider Advanced Practice Midwife | DX: Z13.89 Encounter for screening for other disorder (principal) ==

== ENCOUNTER → 2024-05-25 12:56 | Outpatient (BNV) | payer OTHER, SELFPAY | PROVIDERS: PCP Internal Medicine; Visit Provider Radiology Diagnostic Radiology | DX: M54.16 Radiculopathy, lumbar region (principal); M25.551 Pain in right hip; M47.812 Spondylosis without myelopathy or radiculopathy, cervical region | CPT/HCPCS: 72040; 72100; 73502 ==

== ENCOUNTER 2024-05-25 13:28 | Outpatient (AMB) | payer OTHER, SELFPAY ==
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
[2024-05-25 13:38] VITALS: BP 173/90; PULSE 83; BMI 33.0
== END 2024-05-25 14:04 | disposition home or self-care (01) ==
PROVIDERS: PCP Internal Medicine; Visit Provider Nurse Practitioner Family
DX: M54.6 Pain in thoracic spine (principal); M47.812 Spondylosis without myelopathy or radiculopathy, cervical region; M50.30 Other cervical disc degeneration, unspecified cervical region; M41.9 Scoliosis, unspecified; M25.551 Pain in right hip; M54.50 Low back pain, unspecified; M79.604 Pain in right leg; G89.4 Chronic pain syndrome
CPT/HCPCS: 99214; G2211

== ENCOUNTER 2024-07-01 07:41 | Outpatient (AMB) | payer OTHER, SELFPAY ==
--- NOTE | 2024-07-01 07:42 | MHC.OFFVIS ---
Vital Signs 07/01/24 07:54 BP 122/76 Intake Visit Reasons: ANNETTA Road Crossing Guard: Road Crossing Guard Present (Sima) Allergies sulfamethoxazole [From BACTRIM] Allergy (Unknown, Verified 07/01/24 07:53) HIVES trimethoprim [From BACTRIM] Allergy (Unknown, Verified 07/01/24 07:53) HIVES Is last menstrual period known: Yes Last menstrual period: 04/18/24 HPI Comments Details: Patient is here today for a follow up test of cure for Trichomonas. She reports her partner and her have completed treatment. He tested negative. She is ambivalent about [facility], still questioning her decision on and has a uncertainty. She is currently taking a multivitamin. Denies any pelvic pain or bleeding. LMP April 19 through April 22. [facility] Medical History (Updated 05/25/24 @ 14:38 by ERNST Hunter) Chronic pain syndrome Sinusitis Spondylosis, cervical Degeneration, intervertebral disc, cervical Thoracic scoliosis Thoracic spine pain Obesity (BMI 35.0-39.9 without comorbidity) Anxiety Neck pain Allergic rhinitis Ophthalmoplegic migraine Surgical History No pertinent past surgical history Family History Mother COPD (chronic obstructive pulmonary disease) Small cell lung cancer Social History Household Members: Spouse and Children Housing: Apartment Are you a primary health careers instructor to a significant other at home: No Do you presently have visiting nurse or other home services: No Alcohol intake: never Patient Tobacco Use Status: Never used Tobacco e-Cigarette/Vaping Use: Never Used Second Hand Smoke Exposure: No Agree to transfusion: Yes service: No Current occupational status: unemployed Current occupational exposures/hazards: No Gender identity: Female Cognitive needs: No Hearing needs: No Vision needs: No Female Reproductive History Menstrual Age of Menarche: 15 Date of last menstrual period: 04/18/24 Review of Systems Const All systems reviewed & are unremarkable except as noted in HPI and below Physical Exam Vital Signs: Last Vital Signs BP 122/76 07/01/24 07:54 Const General: cooperative, healthy appearing and no acute distress Orientation/consciousness: patient oriented x3 GI Inspection: Yes normal to inspection Palpation (GI): Soft to palpation and Other GI palpation findings present (Nontender) Rectal Exam - Female: visual inspection normal General: Yes bladder normal to palpation External Female Exam: normal appearance of the urethra Speculum Exam - Vagina: normal appearance of the vagina, normal palpation and normal vaginal discharge Speculum Exam - Cervix: normal appearance of the cervix and normal palpation Bimanual exam- vagina & uterus: normal bimanual exam, normal palpation, uterine size normal, bladder normal to palpation, normal palpation, uterine shape normal and non-tender Bimanual Exam- Adnexa, other: normal adnexae Neuro General: patient oriented x3 Assessment & Plan Assessment & Plan (1) Trichomonas contact, treated: Code(s): Z20.2 - Contact with and (suspected) exposure to infections with a predominantly sexual mode of transmission Plan Discussed: BV panel and GC chlamydia obtained. Await results for plan of care. Discussed options for her either to continue or [facility] Encouraged time spent with partner xavi to evaluate her plan. Notify office if she needs a follow up here. The patient expressed understanding and agreement with the plan of care. All of her questions and concerns were addressed to the best of my ability. This note is constructed using voice recognition software. While every effort has been made to ensure accuracy, cathode ray tube salvage processor errors may have been included. Orders: Orders Bacterial Vaginosis Panel Today Z20.2 - Contact with and (suspected) exposure to infections with a predominantly sexual mode of transmission CT NG by PCR Today Z20.2 - Contact with and (suspected) exposure to infections with a predominantly sexual mode of transmission Coding Level of Care Code Est Pt Level 3 (97957) Diagnoses Trichomonas contact, treated Z20.2
--- OUTSIDE RECORDS SUMMARY | 2024-07-01 07:44 | XMS_ITS | Clinical Summary ---
Author Organization [facility] Address [address] [place] [address] Phone Care Team Providers Care Billiard Table Mechanic Name Role Phone Unavailable Primary Care Provider Unavailabl e Immunizations Immunization Administration Dates Next Due DTP 04/11/1995, 3,1991,08/26,1991 [...] complete this topic Procedures * Due to [place] [employer] law, this organization might not be sharing sensitive test results. Procedure Name Priority Date/Time Associated Diagnosis Comments CHLAMYDIA AND GONORRHEA, AMPLIFIED Routine 07/19/2011 1:02 PM EDT from Last 3 Months or Most Recently Relevant to Health Maintenance Results * Due to [place] [employer] law, this organization might not be sharing sensitive test results. * Chlamydia and Gonorrhoea, Amplified (07/19/2011 1:02 PM EDT) URINE GC AMP PROBE NEGATIVE [facility] Comment: NO NEISSERIA GONORRHOEAE RNA DETECTED IN THIS PATIENT'S SAMPLE. ? (REFERENCE RANGE/NORMAL VALUE: NOT DETECTED) ? NOTE: THIS TEST USES ACCOUNTANT ASSISTANT MEDIATED AMPLIFICATION METHOD TO DETECT rRNA FROM [...] OTHER AGENTS. URINE CHLAMYDIA AMP PROBE NEGATIVE [facility] Comment: NO CHLAMYDIA TRACHOMATIS RNA DETECTED IN THIS PATIENT'S SAMPLE. ? (REFERENCE RANGE/NORMAL VALUE: NOT DETECTED) 07/19/2011 1:02 PM EDT Narrative [facility] - 07/19/2011 1:02 PM EDT URINE CHLAMYDIA GC AMP PROBE us Daly Canales MD LAB MICROBIOLOGY - GENERAL ORDERABLES Final Result [facility] [address] [place] [address], [place] from Last 3 Months or Most Recently Relevant to Health Maintenance
--- OUTSIDE RECORDS SUMMARY | 2024-07-01 07:44 | XMS_ITS | Encounter Summary ---
Author Organization [facility] Address [address] [place] [address] Phone Care Team Providers Care Diabetes Specialist Name Role Phone Daly Canales MD Primary Care Provider [phone] Encounter Details Date Type Department Care Team (Late st Contact Info) Description 12/19/2009 Documentation [facility] Family Medicine [address] [place] [address] Family Medicine, Physician [address] [place], [place] [phone] Social History Tobacco Use Types Packs/Day Years [...] on filedocumented in this encounter Care Teams Diabetes Specialist Relationship Specialty Start Date End Date aDly Canales MD [address] [place] [address] PCP - General 11/30/16 08/01/22 documented as of this encounter
--- OUTSIDE RECORDS SUMMARY | 2024-07-01 07:44 | XMS_ITS | Encounter Summary ---
Author Organization [facility] Address [address] [place] [address] Phone Care Team Providers Care Project Administrator Name Role Phone Daly Canales MD Primary Care Provider [phone] Encounter Details Date Type Department Care Team (Late st Contact Info) Description 12/06/2016 Conversion Encounter [facility] [address] [place] [address] Social History Tobacco Use Types Packs/Day Years [...] on filedocumented in this encounter Care Teams Project Administrator Relationship Specialty Start Date End Date Daly Canales MD [address] [place] [address] PCP - General 11/30/16 08/01/22 documented as of this encounter
--- OUTSIDE RECORDS SUMMARY | 2024-07-01 07:44 | XMS_ITS | Encounter Summary ---
Author Organization [facility] Address [address] [place] [address] Phone Care Team Providers Care Cable Installation Manager Name Role Phone Daly Canales MD Primary Care Provider [phone] Encounter Details Date Type Department Care Team (Late st Contact Info) Description 12/19/2009 Documentation [facility] Family Medicine [address] [place] [address] Family Medicine, Physician [address] [place], [place] [phone] Social History Tobacco Use Types Packs/Day Years [...] on filedocumented in this encounter Care Teams Cable Installation Manager Relationship Specialty Start Date End Date Daly Canales MD [address] [place] [address] PCP - General 11/30/16 08/01/22 documented as of this encounter
--- OUTSIDE RECORDS SUMMARY | 2024-07-01 07:44 | XMS_ITS | Encounter Summary ---
Author Organization [facility] Address [address] [place] [address] Phone Care Team Providers Care Rating Clerk Name Role Phone Daly Canales MD Primary Care Provider Encounter Details Date Type Department Care Team (Late st Contact Info) Description 09/16/2013 Documentation [facility] Family Medicine [address] [place] [address] Family Medicine, Physician [address] [place], [place] [phone] Social History Tobacco Use Types Packs/Day Years [...] on filedocumented in this encounter Care Teams Rating Clerk Relationship Specialty Start Date End Date Daly Canales MD [address] [place] [address] PCP - General 11/30/16 08/01/22 documented as of this encounter
[2024-07-01 07:54] VITALS: BP 122/76
== END 2024-07-01 08:04 | disposition home or self-care (01) ==
LOC: HO.HWS 07:41
PROVIDERS: PCP Internal Medicine; Visit Provider Advanced Practice Midwife
DX: Z20.2 Contact with and (suspected) exposure to infections with a predominantly sexual mode of transmission (principal)
CPT/HCPCS: 99213

== ENCOUNTER 2024-07-01 07:41 | Outpatient (REF) | payer OTHER, SELFPAY | END 2024-07-01 07:42 | disposition home or self-care (01) | LOC: HO.LAB 07:41 | PROVIDERS: PCP Internal Medicine; Visit Provider Advanced Practice Midwife | DX: Z20.2 Contact with and (suspected) exposure to infections with a predominantly sexual mode of transmission (principal) | CPT/HCPCS: 99212 ==

== ENCOUNTER 2024-07-01 07:58 | Outpatient (REF) | payer OTHER, SELFPAY ==
[2024-07-02 05:37] LABS: CT PCR NOT DETECTED (Not Detect.); NG PCR NOT DETECTED (Not Detect.)
[2024-07-02 09:00] LABS: Bacterial Vaginosis PCR NEGATIVE (Negative); Candida Group PCR NOT DETECTED (Not Detect); Candida glab krusei PCR NOT DETECTED (Not Detect); Trichomonas vaginalis PCR NOT DETECTED (Not Detect)
== END 2024-07-01 07:59 | disposition home or self-care (01) ==
LOC: HO.LNP 07:58
PROVIDERS: Visit Provider Advanced Practice Midwife
DX: Z20.2 Contact with and (suspected) exposure to infections with a predominantly sexual mode of transmission (principal)
CPT/HCPCS: 81515; 87491; 87591

== ENCOUNTER 2024-09-02 14:16 | Outpatient (REF) | payer OTHER, SELFPAY ==
--- OUTSIDE RECORDS SUMMARY | 2024-09-02 15:02 | XMS_ITS | Clinical Summary ---
Author Organization [facility] Address [address] [place] [address] Phone Care Team Providers Care Corporate Logistics Manager Name Role Phone Unavailable Primary Care Provider [...] complete this topic Procedures * Due to [place] [employer] law, this organization might not be sharing sensitive test results. Procedure Name Priority Date/Time Associated Diagnosis Comments CHLAMYDIA AND GONORRHEA, AMPLIFIED Routine 07/19/2011 1:02 PM EDT from Last 3 Months or Most Recently Relevant to Health Maintenance Results * Due to [place] [employer] law, this organization might not be sharing sensitive test results. * Chlamydia and Gonorrhoea, Amplified (07/19/2011 1:02 PM EDT) URINE GC AMP PROBE NEGATIVE [facility] Comment: NO NEISSERIA GONORRHOEAE RNA DETECTED IN THIS PATIENT'S SAMPLE. ? (REFERENCE RANGE/NORMAL VALUE: NOT DETECTED) ? NOTE: THIS TEST USES METAL BUMPER MEDIATED AMPLIFICATION METHOD TO DETECT rRNA FROM [...] Result [facility] [address] [place] [address], [place] from Last 3 Months or Most Recently Relevant to Health Maintenance
--- OUTSIDE RECORDS SUMMARY | 2024-09-02 15:02 | XMS_ITS | Encounter Summary ---
Author Organization [facility] Address [address] [place] [address] Phone Care Team Providers Care Gristmill Operator Name Role Phone Daly Canales MD Primary Care Provider Encounter Details Date Type Department Care Team (Late st Contact Info) Description 12/19/2009 Documentation [facility] Family Medicine [address] [place] [address] Family Medicine, Physician [address] [place], [place] [phone] Social History Tobacco Use Types Packs/Day Years [...] on filedocumented in this encounter Care Teams Gristmill Operator Relationship Specialty Start Date End Date Daly Canales MD [address] [place] [address] PCP - General 11/30/16 08/01/22 documented as of this encounter
--- OUTSIDE RECORDS SUMMARY | 2024-09-02 15:02 | XMS_ITS | Encounter Summary ---
Author Organization [facility] Address [address] [place] [address] Phone Care Team Providers Care Lieutenant Firefighter Name Role Phone Daly Canales MD Primary Care Provider Encounter Details Date Type Department Care Team (Late st Contact Info) Description 12/06/2016 Conversion Encounter [facility] [place] [address] [place] [address] Social History Tobacco Use Types Packs/Day Years [...] on filedocumented in this encounter Care Teams Lieutenant Firefighter Relationship Specialty Start Date End Date Daly Canales MD [address] [place] [address] PCP - General 11/30/16 08/01/22 documented as of this encounter
--- OUTSIDE RECORDS SUMMARY | 2024-09-02 15:02 | XMS_ITS | Encounter Summary ---
Author Organization [facility] Address [address] [place] [address] Phone Care Team Providers Care Ingredient Handler Name Role Phone Daly Canales MD Primary Care Provider Encounter Details Date Type Department Care Team (Late st Contact Info) Description 12/19/2009 Documentation [facility] [place] Family Medicine [address] [place] [address] Family Medicine, Physician [address] [place], [place] [phone] Social History Tobacco Use Types Packs/Day Years [...] on filedocumented in this encounter Care Teams Ingredient Handler Relationship Specialty Start Date End Date Daly Canales MD [address] [place] [address] PCP - General 11/30/16 08/01/22 documented as of this encounter
--- OUTSIDE RECORDS SUMMARY | 2024-09-02 15:02 | XMS_ITS | Encounter Summary ---
Author Organization [facility] Address [address] [address] Phone Care Team Providers Care Relay Shop Tester Name Role Phone Daly Canales MD Primary Care Provider [phone] Encounter Details Date Type Department Care Team (Late st Contact Info) Description 09/16/2013 Documentation [facility] Family Medicine [address] [place] [address] Family Medicine, Physician [address] [place], [place] [phone] Social History Tobacco Use Types Packs/Day Years [...] on filedocumented in this encounter Care Teams Relay Shop Tester Relationship Specialty Start Date End Date Daly Canales MD [address] [place] [address] PCP - General 11/30/16 08/01/22 documented as of this encounter
[2024-09-02 17:59] LABS: Bacterial Vaginosis PCR NEGATIVE (Negative); Candida Group PCR NOT DETECTED (Not Detect); Candida glab krusei PCR NOT DETECTED (Not Detect); Trichomonas vaginalis PCR NOT DETECTED (Not Detect)
[2024-09-02 21:58] LABS: CT PCR NOT DETECTED (Not Detect.); NG PCR NOT DETECTED (Not Detect.)
== END 2024-09-02 14:17 | disposition home or self-care (01) ==
LOC: HO.LAB 14:16
PROVIDERS: PCP Internal Medicine; Visit Provider Advanced Practice Midwife
DX: O09.32 Supervision of pregnancy with insufficient antenatal care, second trimester (principal); Z36.9 Encounter for antenatal screening, unspecified
CPT/HCPCS: 81515; 87491; 87591; 99395; 99459

== ENCOUNTER 2024-09-02 14:16 | Outpatient (AMB) | payer OTHER, SELFPAY ==
--- OUTSIDE RECORDS SUMMARY | 2024-09-02 14:21 | XMS_ITS | Encounter Summary ---
Author Organization [facility] Address [address] [place] [address] Phone Care Team Providers Care Specimen Processor Name Role Phone Daly Canales MD Primary Care Provider Encounter Details Date Type Department Care Team (Late st Contact Info) Description 12/06/2016 Conversion Encounter [facility] [address] [place] [address] Social History Tobacco Use Types Packs/Day Years [...] on filedocumented in this encounter Care Teams Specimen Processor Relationship Specialty Start Date End Date Daly Canales MD [address] [place] [address] PCP - General 11/30/16 08/01/22 documented as of this encounter
--- OUTSIDE RECORDS SUMMARY | 2024-09-02 14:21 | XMS_ITS | Encounter Summary ---
Author Organization [facility] Address [address] [place] [address] Phone Care Team Providers Care Bookkeeper Name Role Phone Daly Canales MD Primary Care Provider Encounter Details Date Type Department Care Team (Late st Contact Info) Description 09/16/2013 Documentation [facility] Family Medicine [address] [place] [address] Family Medicine, Physician [address] [place], [place] [phone] Social History Tobacco Use Types Packs/Day Years [...] on filedocumented in this encounter Care Teams Bookkeeper Relationship Specialty Start Date End Date Daly Canales MD [address] [place] [address] PCP - General 11/30/16 08/01/22 documented as of this encounter
--- OUTSIDE RECORDS SUMMARY | 2024-09-02 14:21 | XMS_ITS | Encounter Summary ---
Author Organization [facility] Address [address] [place] [address] Phone Care Team Providers Care Clutch Rebuilder Name Role Phone Daly Canales MD Primary Care Provider Encounter Details Date Type Department Care Team (Late st Contact Info) Description 12/19/2009 Documentation [facility] [place] [address] [place] [address] Family Medicine, Physician [address] [place], [place] [phone] Social History Tobacco Use Types Packs/Day Years [...] on filedocumented in this encounter Care Teams Clutch Rebuilder Relationship Specialty Start Date End Date Daly Canales MD [address] [place] [address] PCP - General 11/30/16 08/01/22 documented as of this encounter
--- OUTSIDE RECORDS SUMMARY | 2024-09-02 14:21 | XMS_ITS | Encounter Summary ---
Author Organization [facility] Address [address] [place] [address] Phone Care Team Providers Care Contracting Specialist Name Role Phone Daly Canales MD Primary Care Provider Encounter Details Date Type Department Care Team (Late st Contact Info) Description 12/19/2009 Documentation [facility] Family Medicine [address] [place] [address] Family Medicine, Physician [address] [place], [place] [phone] Social History Tobacco Use Types Packs/Day Years [...] on filedocumented in this encounter Care Teams Contracting Specialist Relationship Specialty Start Date End Date Daly Canales MD [address] [place] [address] PCP - General 11/30/16 08/01/22 documented as of this encounter
--- OUTSIDE RECORDS SUMMARY | 2024-09-02 14:21 | XMS_ITS | Clinical Summary ---
Author Organization [facility] Address [address] [place] [address] Phone Care Team Providers Care Internal Grinder Set Up Operator Name Role Phone Unavailable Primary Care Provider [...] complete this topic Procedures * Due to [place] [employer] law, this organization might not be sharing sensitive test results. Procedure Name Priority Date/Time Associated Diagnosis Comments CHLAMYDIA AND GONORRHEA, AMPLIFIED Routine 07/19/2011 1:02 PM EDT from Last 3 Months or Most Recently Relevant to Health Maintenance Results * Due to [place] [employer] law, this organization might not be sharing sensitive test results. * Chlamydia and Gonorrhoea, Amplified (07/19/2011 1:02 PM EDT) URINE GC AMP PROBE NEGATIVE [facility] Comment: NO NEISSERIA GONORRHOEAE RNA DETECTED IN THIS PATIENT'S SAMPLE. ? (REFERENCE RANGE/NORMAL VALUE: NOT DETECTED) ? NOTE: THIS TEST USES AQUATIC LABORER MEDIATED AMPLIFICATION METHOD TO DETECT rRNA FROM [...] OTHER AGENTS. URINE CHLAMYDIA AMP PROBE NEGATIVE [facility] Comment: NO CHLAMYDIA TRACHOMATIS RNA DETECTED IN THIS PATIENT'S SAMPLE. ? (REFERENCE RANGE/NORMAL VALUE: NOT DETECTED) 07/19/2011 1:02 PM EDT Narrative [facility] - 07/19/2011 1:02 PM EDT URINE CHLAMYDIA GC AMP PROBE us Daly Canales MD LAB MICROBIOLOGY - GENERAL ORDERABLES Final Result [facility] [address] [place] [address], [place] from Last 3 Months or Most Recently Relevant to Health Maintenance
--- NOTE | 2024-09-02 14:26 | MHC.OFFVIS ---
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 Currently unknown LMP, [facility]24 was approximately 14.2 weeks gestation. Reports movements. Denies any vaginal bleeding. leakage of fluid or abdominal pain. Taking vitamins. Desires to remain in the practice and not be transferred at this time to [facility]. Pap 2022. [facility] Medical History Encounter for supervision of other normal , second trimester Chronic pain syndrome Sinusitis Spondylosis, cervical Degeneration, intervertebral disc, cervical Thoracic scoliosis Thoracic spine pain Obesity (BMI 35.0-39.9 without comorbidity) Anxiety Neck pain Allergic rhinitis Ophthalmoplegic migraine Surgical History No pertinent past surgical history Family History Mother COPD (chronic obstructive pulmonary disease) Small cell lung cancer Social History Household Members: Spouse and Children Both parents involved: Yes Caregiver staying overnight: No Housing: Apartment Are you a primary career coordinator to a significant other at home: No Do you presently have visiting nurse or other home services: No 75 years or older and lives alone: No Alcohol intake: never Patient Tobacco Use Status: Never used Tobacco e-Cigarette/Vaping Use: Never Used Second Hand Smoke Exposure: No Agree to transfusion: Yes service: No Current occupational status: unemployed Current occupational exposures/hazards: No Gender identity: Female Cognitive needs: No Hearing needs: No Vision needs: No Female Reproductive History Menstrual Age of Menarche: 15 Total pregnancies: 4 Full term: 3 Number of Living Children: 3 Date of last pap smear: 12/20/22 (neg pap and hpv) History of STI: Yes (05/21/24 +Trich) Review of Systems Const All systems reviewed & are unremarkable except as noted in HPI and below Reports as per HPI Eyes Reports no additional complaints ENT Reports no additional complaints Card Reports no additional complaints Resp Reports no additional complaints GI Reports as per HPI and Reports no additional complaints Reports as per HPI Musc Reports no additional complaints Skin/Breast Reports as per HPI Neuro Reports no additional complaints Psych Reports no additional complaints Endo Reports no additional complaints Vincent/Lymph Reports no additional complaints Aller/Immun Reports no additional complaints Physical Exam Vital Signs: Last Vital Signs BP 114/70 09/02/24 14:27 BMI result Body Mass Index 32.3 Const General: cooperative, healthy appearing, no acute distress, well developed and alert Orientation/consciousness: patient oriented x3 HEENT Head: Yes normal to inspection Eyes General: appearance normal, both eyes and all related structures Neck Neck: Yes normal visual inspection Thyroid: Thyroid normal Chest Chest palpation & inspection: normal inspection of the chest and other (no puckering, dimpling, peau de orange, retraction, discharge, masses) Breast/axilla inspection: normal inspection of the breasts Breast/axilla palpation: normal palpation of the breasts Resp Effort & Inspection: normal respiratory effort Auscultation: clear to auscultation bilaterally Cardio Rate: regular rate Rhythm: regular rhythm Heart sounds: S1 normal heart sound present GI Inspection: Yes normal to inspection Palpation (GI): Soft to palpation Rectal Exam - Female: deferred General: Yes bladder normal to palpation External Female Exam: normal external appearance and normal appearance of the urethra Speculum Exam - Vagina: normal appearance of the vagina, normal palpation and normal vaginal discharge (Yellow, creamy) Speculum Exam - Cervix: normal appearance of the cervix and normal palpation Bimanual exam- vagina & uterus: normal bimanual exam, normal palpation, uterine size normal, bladder normal to palpation, normal palpation, non-tender and enlarged (20wk, heart rate 150BPM) Bimanual Exam- Adnexa, other: no masses Skin General skin exam: no rashes or lesions noted Rashes: no rashes Neuro General: patient oriented x3 Cognition (Neuro): normal cognition Extrem General: Yes normal to inspection Psych Attitude: cooperative Thought process: Normal thought process present Assessment & Plan Assessment & Plan (1) Encounter for supervision of other normal , second trimester: Code(s): Z34.82 - Encounter for supervision of other normal , second trimester Category: Medical (2) Well woman exam with routine gynecological exam: Code(s): Z01.419 - Encounter for gynecological examination (general) (routine) without abnormal findings Category: Medical (3) Late care affecting : Code(s): O09.30 - Supervision of with insufficient care, unspecified trimester Qualifiers: Trimester: second trimester Qualified Code(s): O09.32 - Supervision of with insufficient care, second trimester Plan Continue with vitamins. Encouraged healthy well-balanced diet. GC chlamydia and BV panel obtained. warnings reviewed and when to call for emergent care and to be seen at [facility] for emergency services. Return to the office in 4 weeks for OB visit. Counseled and is aware of options for OB care. FSA ordered to be scheduled. Plan OB workup with the nurse and labs. The patient expressed understanding and agreement with the plan of care. All of her questions and concerns were addressed to the best of my ability. This note is constructed using voice recognition software. While every effort has been made to ensure accuracy, regional training manager errors may have been included. Orders: Orders Bacterial Vaginosis Panel Today Z34.82 - Encounter for supervision of other normal , second trimester CT NG by PCR Today Z34.82 - Encounter for supervision of other normal , second trimester US OB /maternal detail Today Z34.82 - Encounter for supervision of other normal , second trimester Coding Level of Care Code Est Pt Prev Care [id number]) Diagnoses Encounter for supervision of other normal , second trimester Z34.82 Well woman exam with routine gynecological exam Z01.419 Late care affecting in second trimester O09.32 Trimester: second trimester
[2024-09-02 14:27] VITALS: BP 114/70; BMI 32.3
== END 2024-09-02 15:27 | disposition home or self-care (01) ==
LOC: HO.HWS 14:17
PROVIDERS: PCP Internal Medicine; Visit Provider Advanced Practice Midwife
DX: Z01.419 Encounter for gynecological examination (general) (routine) without abnormal findings (principal)
CPT/HCPCS: 99395; 99459

== ENCOUNTER 2024-09-02 14:58 | Outpatient (REF) | payer OTHER, SELFPAY | END 2024-09-02 14:59 | disposition home or self-care (01) | LOC: HO.LNP 14:58 | PROVIDERS: Visit Provider Advanced Practice Midwife | DX: Z13.89 Encounter for screening for other disorder (principal) ==

== ENCOUNTER 2024-09-07 09:55 | Outpatient (AMB) | payer OTHER, SELFPAY ==
[2024-09-07 10:00] VITALS: BMI 32.3
--- NOTE | 2024-09-07 10:00 | MHC.OFFVISPN ---
Intake Vital Signs 09/07/24 10:00 Height 5 ft 1 in Weight 171 lb BMI 32.3 Intake Visit Reasons: OB intake Aerial Tram Operator Required: No Allergies sulfamethoxazole [From BACTRIM] Allergy (Unknown, Verified 09/07/24 10:02) HIVES trimethoprim [From BACTRIM] Allergy (Unknown, Verified 09/07/24 10:02) HIVES Medication List - Last Reconciled 09/07/24 by Poonam Vargas LPN acetaminophen 500 mg PO Q6H PRN 30 days fluticasone propionate 50 mcg/actuation (Flonase Allergy Relief) 1 spray intranasal DAILY 30 days methocarbamol 750 mg PO Q8H 5 days oxycodone 5 mg PO BID PRN 14 days PNV [id number] 90 mg iron- 1 mg-200 mg 1 cap PO DAILY Is last menstrual period known: Yes Last menstrual period: 04/18/24 Post menopausal: No Patient : Yes Do you need a note to return to daycare/school/sports/work: No [facility] Medical History Encounter for supervision of other normal , second trimester Chronic pain syndrome Sinusitis Spondylosis, cervical Degeneration, intervertebral disc, cervical Thoracic scoliosis Thoracic spine pain Obesity (BMI 35.0-39.9 without comorbidity) Anxiety Neck pain Allergic rhinitis Ophthalmoplegic migraine Surgical History No pertinent past surgical history Family History Mother COPD (chronic obstructive pulmonary disease) Small cell lung cancer Social History Household Members: Spouse and Children Both parents involved: Yes Caregiver staying overnight: No Housing: Apartment Are you a primary primary care provider to a significant other at home: No Do you presently have visiting nurse or other home services: No 75 years or older and lives alone: No Alcohol intake: never Patient Tobacco Use Status: Never used Tobacco e-Cigarette/Vaping Use: Never Used Second Hand Smoke Exposure: No Agree to transfusion: Yes service: No Current occupational status: unemployed Current occupational exposures/hazards: No Gender identity: Female Cognitive needs: No Hearing needs: No Vision needs: No Female Reproductive History Menstrual Age of Menarche: 15 Duration of menses: 3-5 days Date of last menstrual period: 04/18/24 control method: none Total pregnancies: 4 Full term: 3 Premature: 0 Number of Living Children: 3 Ab induced: 0 Ab spontaneous: 0 Ectopics: 0 Multiple births: 0 Date of last pap smear: 08/01/22 History of abnormal pap smear: No History of STI: Yes History History 4 Elective abortions 0 Para 3 Spontaneous abortions 0 Hx # Term Pregnancies 3 Ectopic pregnancies 0 Hx # Pregnancies 0 Multiple births 0 History Other: Late to care, HX of positive GBS. Past Pregnancies Del. Date GA/Weeks Outcome Route Wt Inf Gender Labor Dilia Anesthesia Location Provider Complicate 05/13/13 42 live - full term vaginal delivery 9 lb 14 oz Male epidural [facility] none 12/06/17 40 live - full term vaginal delivery 7 lb Female epidural [facility] none 07/26/23 41 live - full term vaginal delivery 9 lb Female 6 epidural [facility] other Education First Trimester Education Checklist Plans/Education - by Trimester Counseled: Yes HIV and other routine tests: discussed Infectious disease exposure: chicken pox immunity discussed Influenza vaccine: discussed Nutrition and weight gain counseling: special diet: discussed Sexual activity: discussed Exercise: discussed Tobacco use: No Smoking counseling: discussed Alcohol use: No Alcohol (Ask, Advise, Assess, Assist, and Arrange): discussed Use of any medications (including supplements, vitamins, herbs, or OTC drugs): discussed Substance use: No Substance use (Ask, Advise, Assess, Assist, and Arrange): discussed Environmental/home/work hazards: discussed Domestic violence: discussed Travel: discussed Seatbelt use: discussed Toxoplasmosis precautions (cats/raw meat): discussed Childbirth education/discussion: symptoms education/discussion and group B strep education/discussion Risk factors identified by history: discussed Testing education: cystic fibrosis testing education done danger signs: Yes education packet: Child education class information, symptoms, vitamins and iron, diet and weight gain, fish and mercury intake, listeriosis prevention, caffeine use, eating disorder history, exercise and activity, work issues, sexual activity, x-ray exposure, medication use, toxoplasmosis precautions, sauna/hot tub use, dental care and HIV education and counseling Mental health: discussed (Pt has Counselor) Anticipated course of care: discussed Indications for ultrasound: discussed Health center information: nature of practice discussed, personnel described, visit schedule reviewed, no show policy reviewed, ultrasounds policy reviewed, coverage 24 hours a day, participation of father in care and office visits and signs of miscarriage reviewed Questionnaire History History : 4 Marital status: unmarried, living together Visit [facility] Calculator Estimated Delivery Date Method Current WG Current Estimate 01/18/25 Ultrasound #1 21w 0d Other Estimates 01/23/25 LMP (Certain) 20w 2d Comments: Monique is here today for her OB history. Pt is . Pt is late to care, reports feeling well, and good movement. Pt reports she is eating healthy, drinking plenty of fluids. Reviewed healthy food choices, avoid cold cuts and blue and feta cheeses. Pt is scheduled for her FAS on 09/17/24 @13:00. Pt aware she will [place] [facility] [place] FOB is involved. Good FHT heard today. Discussed how to reach chemical dependency professional MD after hours. Pt is scheduled for her next visit in 4 weeks. Pt aware if any issues she is to be seen at [facility]. Pt verbs understanding. labs ordered. Expected Delivery Route/Plan Specific Issues/Plans LATE to care, HX GBS positive OB Visit Log Initial Weight: 175 lb Initial Infection History & Risk Profile History of STDs: Yes HIV risk evaluation: low risk Hepatitis B risk evaluation: low risk Patient or partner has history of Genital Herpes: No Varicella/chicken pox status: immunized Genetic Screening & Final Dressing Cutter Genetic Screening/Teratology Counseling - Includes patient, baby's father, or anyone in either family with: 1. Patient's age 35 years or older as of estimated date of delivery: No 2. Thalassemia (Cameroonian, Persian, Mediterranean, or Background); MCV less than 80: No 3. Neural Tube Defect (Meningomyelocele, Spina Bifida, or Anencephaly): No 4. Congenital Heart Defect: No 5. Down Syndrome: No 6. Kayden-Sachs (Ashkenazi Confucianism, Cajun, Burundian Andorran): No 7. Aileen Disease (Ashkenazi Confucianism): No 8. Familial Dysautonomia (Ashkenazi Confucianism): No 9. Sickle Cell Disease or Trait (): No 10. Hemophilia or other blood disorders: No 11. Muscular Dystrophy: No 12. Cystic Fibrosis: No 13. Hopewell's Chorea: No 14. Intellectual disability/Autism: No 15. Other inherited genetic or chromosomal disorder: No 16. Maternal Metabolic Disorder (EG,TYPE 1 Diabetes, PKU): No 17. Patient or baby's father had a child with defects not listed above: No 18. Recurrent loss or a stillbirth: No 19. Medications (including supplements, vitamins, herbs or otc drugs)/illicit/recreational drugs/alcohol since last menstrual period: Yes 20. Any other: No Infection History 1. Live with someone with TB or exposed to TB: No 2. Rash or viral illness since last menstrual period: No 3. Hepatitis B,C: No Other (see comments) Comments: hx of Trichomonas Source: [employer] Coding Level of Care Code Established Pt Krista Patient Type Established History Problem Focused Exam Problem Focused Medical Decision Making Low Complexity Time Spent (min) 60 Assessment & Plan Assessment & Plan Orders: Orders Complete Blood Count no Diff Today Z32. - Encounter for test, result positive Syphilis Screen Today Z32. - Encounter for test, result positive Hepatitis C Antibody Today 32. - Encounter for test, result positive HIV Ab/Ag Today Z32. - Encounter for test, result positive Drug Screen Urine Today Z32. - Encounter for test, result positive Screen Today Z32. - Encounter for test, result positive Rubella IgG Antibody Today Z32. - Encounter for test, result positive CF Carrier Screen Today Z32. - Encounter for test, result positive Hepatitis B Surface Antigen Today Z32. - Encounter for test, result positive Varicella IgG Antibody Today Z32. - Encounter for test, result positive Urine Culture Today Z32. - Encounter for test, result positive
--- OUTSIDE RECORDS SUMMARY | 2024-09-07 10:16 | XMS_ITS | Encounter Summary ---
Author Organization [facility] Address [address] [place] [phone] Phone Care Team Providers Care Parlor Maid Name Role Phone Daly Canales MD Primary Care Provider Encounter Details Date Type Department Care Team (Late st Contact Info) Description 12/19/2009 Documentation [facility] [place] Family Medicine [address] [place] [address] Family Medicine, Physician [address] [place], [place] [phone] Social History Tobacco Use Types Packs/Day Years [...] on filedocumented in this encounter Care Teams Parlor Maid Relationship Specialty Start Date End Date Daly Canales MD [address] [place] [phone] PCP - General 11/30/16 08/01/22 documented as of this encounter
--- OUTSIDE RECORDS SUMMARY | 2024-09-07 10:16 | XMS_ITS | Encounter Summary ---
Author Organization [facility] Address [address] [place] [phone] Phone Care Team Providers Care Print Designer Name Role Phone Daly Canales MD Primary Care Provider Encounter Details Date Type Department Care Team (Late st Contact Info) Description 09/16/2013 Documentation [facility] [place] Family Medicine [address] [place] [address] Family Medicine, Physician [address] [place], [place] [phone] Social History Tobacco Use Types Packs/Day Years [...] on filedocumented in this encounter Care Teams Print Designer Relationship Specialty Start Date End Date Daly Canales MD [address] [place] [phone] PCP - General 11/30/16 08/01/22 documented as of this encounter
--- OUTSIDE RECORDS SUMMARY | 2024-09-07 10:16 | XMS_ITS | Clinical Summary ---
Author Organization [facility] Address [address] [place] [phone] Phone Care Team Providers Care Game Attendant Name Role Phone Unavailable Primary Care Provider [...] complete this topic Procedures * Due to [place] M[place] law, this organization might not be sharing sensitive test results. Procedure Name Priority Date/Time Associated Diagnosis Comments CHLAMYDIA AND GONORRHEA, AMPLIFIED Routine 07/19/2011 1:02 PM EDT from Last 3 Months or Most Recently Relevant to Health Maintenance Results * Due to [place] M[place] law, this organization might not be sharing sensitive test results. * Chlamydia and Gonorrhoea, Amplified (07/19/2011 1:02 PM EDT) URINE GC AMP PROBE NEGATIVE [facility] Comment: NO NEISSERIA GONORRHOEAE RNA DETECTED IN THIS PATIENT'S SAMPLE. ? (REFERENCE RANGE/NORMAL VALUE: NOT DETECTED) ? NOTE: THIS TEST USES TRANSPORTATION MODELER MEDIATED AMPLIFICATION METHOD TO DETECT rRNA FROM [...] OTHER AGENTS. URINE CHLAMYDIA AMP PROBE NEGATIVE [facility] Comment: NO CHLAMYDIA TRACHOMATIS RNA DETECTED IN THIS PATIENT'S SAMPLE. ? (REFERENCE RANGE/NORMAL VALUE: NOT DETECTED) 07/19/2011 1:02 PM EDT Narrative [facility] - 07/19/2011 1:02 PM EDT URINE CHLAMYDIA GC AMP PROBE us Daly Canales MD LAB MICROBIOLOGY - GENERAL ORDERABLES Final Result [facility] [address] [place] [address], [place] from Last 3 Months or Most Recently Relevant to Health Maintenance
--- OUTSIDE RECORDS SUMMARY | 2024-09-07 10:16 | XMS_ITS | Encounter Summary ---
Author Organization [facility] Address [address] [place] [address] Phone Care Team Providers Care Boat Wrapper Name Role Phone Daly Canales MD Primary Care Provider Encounter Details Date Type Department Care Team (Late st Contact Info) Description 12/06/2016 Conversion Encounter [facility] [place] [address] [place] [address] Social History Tobacco Use Types Packs/Day Years [...] on filedocumented in this encounter Care Teams Boat Wrapper Relationship Specialty Start Date End Date Daly Canales MD [address] [place] [address] PCP - General 11/30/16 08/01/22 documented as of this encounter
--- OUTSIDE RECORDS SUMMARY | 2024-09-07 10:16 | XMS_ITS | Encounter Summary ---
Author Organization [facility] Address [address] [place] [phone] Phone Care Team Providers Care Data Systems Analyst Name Role Phone Daly Canales MD Primary Care Provider Encounter Details Date Type Department Care Team (Late st Contact Info) Description 12/19/2009 Documentation [facility] [place] Family Medicine [address] [place] [address] Family Medicine, Physician [address] [place], [place] [phone] Social History Tobacco Use Types Packs/Day Years [...] on filedocumented in this encounter Care Teams Data Systems Analyst Relationship Specialty Start Date End Date Daly Canales MD [address] [place] [phone] PCP - General 11/30/16 08/01/22 documented as of this encounter
== END 2024-09-07 16:28 | disposition home or self-care (01) ==
LOC: HO.HWS 09:55
PROVIDERS: PCP Internal Medicine; Visit Provider Advanced Practice Midwife
DX: Z34.90 Encounter for supervision of normal pregnancy, unspecified, unspecified trimester (principal)
CPT/HCPCS: 25942

== ENCOUNTER → 2024-09-07 09:55 | Outpatient (BNVA) | payer OTHER, SELFPAY | PROVIDERS: PCP Internal Medicine; Visit Provider Advanced Practice Midwife | DX: Z34.80 Encounter for supervision of other normal pregnancy, unspecified trimester (principal) | CPT/HCPCS: 99212 ==

== ENCOUNTER 2024-10-06 10:13 | Outpatient (AMB) | payer OTHER, SELFPAY ==
--- NOTE | 2024-10-06 10:25 | A.OFFVISPN_ITS ---
Intake Vital Signs 10/06/24 10:26 Height 5 ft 1 in Weight 172 lb BMI 32.5 BP 124/80 Intake Visit Reasons: KIERRA Allergies sulfamethoxazole [From BACTRIM] Allergy (Unknown, Verified 10/06/24 10:25) HIVES trimethoprim [From BACTRIM] Allergy (Unknown, Verified 10/06/24 10:25) HIVES Patient : Yes PFS Medical History Encounter for supervision of other normal , second trimester Chronic pain syndrome Sinusitis Spondylosis, cervical Degeneration, intervertebral disc, cervical Thoracic scoliosis Thoracic spine pain Obesity (BMI 35.0-39.9 without comorbidity) Anxiety Neck pain Allergic rhinitis Ophthalmoplegic migraine Surgical History No pertinent past surgical history Family History Mother COPD (chronic obstructive pulmonary disease) Small cell lung cancer Social History Household Members: Spouse and Children Both parents involved: Yes Caregiver staying overnight: No Housing: Apartment Are you a primary career resource specialist to a significant other at home: No Do you presently have visiting nurse or other home services: No 75 years or older and lives alone: No Alcohol intake: never Patient Tobacco Use Status: Never used Tobacco e-Cigarette/Vaping Use: Never Used Second Hand Smoke Exposure: No Agree to transfusion: Yes service: No Current occupational status: unemployed Current occupational exposures/hazards: No Gender identity: Female Cognitive needs: No Hearing needs: No Vision needs: No Female Reproductive History Menstrual Age of Menarche: 15 History History 4 Elective abortions 0 Para 3 Spontaneous abortions 0 Hx # Term Pregnancies 3 Ectopic pregnancies 0 Hx # Pregnancies 0 Multiple births 0 Past Pregnancies Del. Date GA/Weeks Outcome Route Wt Inf Gender Labor Dilia Anesthesia Location Provider Complicate 05/13/13 42 live - full term vaginal delivery 9 lb 14 oz Male epidural [facility] none 12/06/17 40 live - full term vaginal delivery 7 lb Female epidural [facility] none 07/26/23 41 live - full term vaginal delivery 9 lb Female 6 epidural [facility] other Visit [facility] Calculator Estimated Delivery Date Method Current WG Current Estimate 01/18/25 Ultrasound #1 25w 1d Other Estimates 01/23/25 LMP (Certain) 24w 3d Expected Delivery Route/Plan Specific Issues/Plans Ob template yr. old G P EDC: by Blood type: O pos Problem List: 1. ambivalence, last care. 2. Hx GBS positive. Testing: Panorama: NT scan: AFP: FAS: Choroid plexus cyst seen Glucose: early 28 wk glucose: CBC 1st Tri: 28 wk. CBC: GBS: Vaccinations: Flu: completed Covid: x2 Tdap: RSV: [id number]: Education/Services WIC: enrolled Social Supports/stressors: mom 10/05/24 Living situation: Partner, her 3 children. Supports: Partner-Romario Work/school: unemployed Transportation: owns car Labor, and Concerns: Labor support: Romario Plan: Infant Feeding Plans: bottle control: OB Visit Log Initial Weight: 175 lb Date -?-?-?-?-?-?-?-?-?-?-?-?- EGA Weight Gest Week Fundal Ht Present FHR move Efface % Edema BP PrePreg We Weight GTT -?-?-?-?-?-?-?-?-?-?-?-?- Glucose LV Protein Blood Type 10/06/24 -?-?-?-?--?-?-?-?-?-?-?-?- 25w 1d 172 lb (-3 lb) 26 150 active 124/80 172 lb -?-?-?-?-?-?-?-?-?-?-?-?- Notes Visit Date: 10/06/24 Last Updated by: Chely Redmond CNM Note author: Chely Redmond CNM. 25.1wk. KIERRA. Taking PNV, Doing well with no concerns. Good appetite, stays well hydrated. Denies any LOF, VB, abd. pain or urinary symptoms. Good FM. Her mom yesterday of lung cancer. Reviewed ultrasound findings. Reviewed: PTL s/s-LOF/Ctx's/VB, when to seek emergent care. discomforts, self help measures. [facility] and when to call for further evaluation. Encouraged a healthy well balanced diet, regular walking/exercise in . Hydrate well, 10-12 glasses of water daily. Strongly encouraged to do her labs today. Discussed grief and self-care. RTO 3 wks. Results AMB Urinalysis, Automated UA Leukoctes 2 Ethan/uL Last Edit by Barbara Maguire [facility] on 10/06/24 10:27 UA Nitrite Negative Last Edit by Barbara Maguire [facility] on 10/06/24 10:27 UA Urobilinogen 0 mg/dL Last Edit by Barbara Maguire [facility] on 10/06/24 10:2 7 UA Protein 0.5 mg/dL Last Edit by Barbara Maguire [facility] on 10/06/24 10:27 UA pH 7.0 Last Edit by Barbara Maguire [facility] on 10/06/24 10:27 UA Blood 0 John/uL Last Edit by Barbara Maguire [facility] on 10/06/24 10:27 UA Specific Partridge 1.010 Last Edit by Barbara Maguire [facility] on 10/06/24 10:27 UA Ketone Negative Last Edit by Barbara Maguire [facility] on 10/06/24 10:27 UA Bilirubin 0 mg/dL Last Edit by Barbara Maguire [facility] on 10/06/24 10:27 UA Glucose 0 mg/dL Last Edit by Barbara Maguire [facility] on 10/06/24 10:27 Results Reviewed Results Reviewed: Laboratory Last Values Urine pH (Auto) 7.0 10/06/24 10:26 Specific Partridge (Auto) 1.010 10/06/24 10:26 Urine Protein (Auto) 0.5 mg/dL 10/06/24 10:26 Glucose (UA)(Auto) 0 mg/dL 10/06/24 10:26 Urine Ketones (Auto) Negative 10/06/24 10:26 Urine Blood (Auto) 0 John/uL 10/06/24 10:26 Urine Nitrite (Auto) Negative 10/06/24 10:26 Urine Bilirubin (Auto) 0 mg/dL 10/06/24 10:26 Urine Urobilinogen (Auto) 0 mg/dL 10/06/24 10:26 Leukocyte Esterase (Auto) 2 Ethan/uL 10/06/24 10:26 Coding Level of Care Code [place] Assessment & Plan Assessment & Plan Orders: Orders AMB Urinalysis Automated Today Z34.82 - Encounter for supervision of other normal , second trimester
[2024-10-06 10:26] VITALS: BP 124/80; BMI 32.5
--- OUTSIDE RECORDS SUMMARY | 2024-10-06 11:41 | XMS_ITS | Encounter Summary ---
Author Organization [facility] Address [address] [place] [phone] Phone Care Team Providers Care Research Food Technologist Name Role Phone Daly Canales MD Primary Care Provider Encounter Details Date Type Department Care Team (Late st Contact Info) Description 12/19/2009 Documentation [facility] [place] Family Medicine [address] [place] [address] Family Medicine, Physician [address] [place], [place] [phone] Social History Tobacco Use Types Packs/Day Years [...] on filedocumented in this encounter Care Teams Research Food Technologist Relationship Specialty Start Date End Date Daly Canales MD [address] [place] [phone] PCP - General 11/30/16 08/01/22 documented as of this encounter
== END 2024-10-06 10:54 | disposition home or self-care (01) ==
LOC: HO.HWS 10:13
PROVIDERS: PCP Internal Medicine; Visit Provider Advanced Practice Midwife
DX: Z34.82 Encounter for supervision of other normal pregnancy, second trimester (principal)
CPT/HCPCS: 25942

== ENCOUNTER → 2024-10-06 10:13 | Outpatient (BNVA) | payer OTHER, SELFPAY | PROVIDERS: PCP Internal Medicine; Visit Provider Advanced Practice Midwife | DX: Z34.82 Encounter for supervision of other normal pregnancy, second trimester (principal) | CPT/HCPCS: 81003; 99212 ==

== ENCOUNTER 2024-11-05 06:55 | Outpatient (REF) | payer OTHER, SELFPAY ==
--- OUTSIDE RECORDS SUMMARY | 2024-11-05 06:59 | XMS_ITS | Encounter Summary ---
Author Organization [facility] Address [address] [place] [phone] Phone Care Team Providers Care Cut Off Saw Tender Metal Name Role Phone Daly Canales MD Primary Care Provider Encounter Details Date Type Department Care Team (Late st Contact Info) Description 12/19/2009 Documentation [facility] [place] [address] [place] [address] Family Medicine, Physician [address] [place], [place] [phone] Social History Tobacco Use Types Packs/Day Years [...] on filedocumented in this encounter Care Teams Cut Off Saw Tender Metal Relationship Specialty Start Date End Date Daly Canales MD [address] [place] [phone] PCP - General 11/30/16 08/01/22 documented as of this encounter
[2024-11-05 08:25] LABS: Hematocrit 32.6 % (37.0-47.0); Hemoglobin 11.4 g/dl (12.0-16.0); Mean Corpuscular HGB Conc 35.0 g/dl (31.0-35.0); Mean Corpuscular Hemoglobin 29.9 pg (27.0-33.0); Mean Corpuscular Volume 85.6 fL (80.0-98.0); NRBC Abs Auto 0.000 X10*3/uL (0.0-0.012); NRBC Pct Auto 0.0 /100WBC (0.0-0.2); Platelet Count 288 X10*3/uL (160-400); Red Blood Count 3.81 X10*6/uL (4.20-5.50); White Blood Count 9.8 X10*3/uL (4.8-10.8)
[2024-11-05 08:39] LABS: Cannabinoid Screen Urine Not Detected (Not Detect)
[2024-11-05 09:15] LABS: HBsAGNum1 0.37 S/CO (0.00-0.99); HIV Num 1 0.05 S/CO (0.00-0.99); Hepatitis B Surface Antigen Negative (Negative); ~HepC Num1 0.07 S/CO (0.00-0.79); ~Hepatitis C Antibody Nonreactive (Nonreactive)
[2024-11-05 09:16] LABS: Syphilis Screen Nonreactive (Nonreactive)
== END 2024-11-05 06:56 | disposition home or self-care (01) ==
LOC: HO.LAB 06:55
PROVIDERS: PCP Internal Medicine; Visit Provider Advanced Practice Midwife
DX: Z32.01 Encounter for pregnancy test, result positive (principal)
CPT/HCPCS: 80307; 81220; 85027; 86762; 86780; 86787; 86803; 87086; 87340; 87389

== ENCOUNTER 2024-11-11 10:27 | Outpatient (AMB) | payer OTHER, SELFPAY ==
--- NOTE | 2024-11-11 10:32 | A.OFFVISPN_ITS ---
Intake Vital Signs 11/11/24 10:34 Height 5 ft 1 in Weight 176 lb 4 oz BMI 33.3 BP 118/70 Blood Pressure Location Lt brachial Position Sitting Intake Visit Reasons: KIERRA Bacon Slicer Required: No Allergies sulfamethoxazole (From BACTRIM) Allergy (Unknown, Verified 11/11/24 10:38) HIVES trimethoprim (From BACTRIM) Allergy (Unknown, Verified 11/11/24 10:38) HIVES Medication List - Last Reconciled 11/11/24 by Poonam Vargas LPN acetaminophen 500 mg PO Q6H PRN 30 days fluticasone propionate 50 mcg/actuation (Flonase Allergy Relief) 1 spray intranasal DAILY 30 days oxycodone 5 mg PO BID PRN 14 days PNV [id number] 90 mg iron- 1 mg-200 mg 1 cap PO DAILY Is last menstrual period known: Yes Last menstrual period: 04/14/24 Post menopausal: No Patient : Yes [facility] Medical History (Updated 11/11/24 @ 11:31 by Chely Redmond CNM) Choroid plexus cyst of fetus affecting care of mother, antepartum Encounter for supervision of other normal , second trimester Chronic pain syndrome Sinusitis Spondylosis, cervical Degeneration, intervertebral disc, cervical Thoracic scoliosis Thoracic spine pain Obesity (BMI 35.0-39.9 without comorbidity) Anxiety Neck pain Allergic rhinitis Ophthalmoplegic migraine Surgical History No pertinent past surgical history Family History Mother COPD (chronic obstructive pulmonary disease) Small cell lung cancer Social History Household Members: Spouse and Children Both parents involved: Yes Caregiver staying overnight: No Housing: Apartment Are you a primary critical care unit manager to a significant other at home: No Do you presently have visiting nurse or other home services: No 75 years or older and lives alone: No Alcohol intake: never Patient Tobacco Use Status: Never used Tobacco e-Cigarette/Vaping Use: Never Used Second Hand Smoke Exposure: No Agree to transfusion: Yes Patient : Yes service: No Current occupational status: unemployed Current occupational exposures/hazards: No Gender identity: Female Cognitive needs: No Hearing needs: No Vision needs: No Female Reproductive History Menstrual Age of Menarche: 15 Date of last menstrual period: 04/14/24 History History 4 Elective abortions 0 Para 3 Spontaneous abortions 0 Hx # Term Pregnancies 3 Ectopic pregnancies 0 Hx # Pregnancies 0 Multiple births 0 Past Pregnancies Del. Date GA/Weeks Outcome Route Wt Inf Gender Labor Dilia Anesthesia Location Provider Complicate 05/13/13 42 live - full term vaginal delivery 9 lb 14 oz Male epidural [facility] none 12/06/17 40 live - full term vaginal delivery 7 lb Female [facility]ural [facility] none 07/26/23 41 live - full term vaginal delivery 9 lb Female 6 epidural [facility] other Visit [facility] Calculator Estimated Delivery Date Method Current WG Current Estimate 01/18/25 Ultrasound #1 30w 2d Other Estimates 01/23/25 LMP (Certain) 29w 4d Expected Delivery Route/Plan Specific Issues/Plans 34 yr. old EDC: 01/24/25 by US at 21.4wks Blood type: O pos Problem List: 1. ambivalence-consult at PP x2., late for care, gaps in care. 2. Hx GBS positive. Testing: Panorama: NT scan: too late AFP: FAS: Choroid plexus cyst seen Glucose: early 28 wk glucose: CBC 1st Tri: 28 wk. CBC: GBS: Vaccinations: Flu: completed Covid: x2 Tdap: RSV: [id number]: Education/Services WIC: enrolled Social Supports/stressors: mom 10/05/24, family feud re: estate. Living situation: Partner, her 3 children. Supports: Partner-Romario Work/school: unemployed Transportation: owns car Labor, and Concerns: Labor support: Romario Plan: Infant Feeding Plans: bottle control: OB Visit Log Initial Weight: 175 lb Date -?-?-?-?-?--?-?-?-?-?-?-?- EGA Weight Gest Week Fundal Ht Present FHR move Efface % Edema BP PrePreg We Weight GTT -?-?-?-?-?-?-?-?-?-?-?-?- Glucose LV Protein Blood Type 10/06/24 -?-?-?-?-?-?-?-?-?-?-?-?- 25w 1d 172 lb (-3 lb) 26 150 active 124/80 172 lb -?-?-?-?-?-?-?-?-?-?-?-?- 11/11/24 -?-?-?-?-?-?-?-?-?-?-?-?- 30w 2d 176 lb 4 oz (+1 lb 4 oz) 30 150 active 118/70 176 lb 4 oz -?-?-?-?-?-?-?-?-?-?-?-?- Notes Visit Date: 11/11/24 Last Updated by: Chely Redmond CNM Note author: Chely Redmond CNM. 30wk. KIERRA. Taking PNV, Doing well with no concerns. Fair appetite-reports stress with family over property ownership in the will of her mom requiring her to be going to court in the future. Stays well hydrated. Denies any LOF, VB, abd. pain or urinary symptoms. Had a glucose on an empty stomach and vomited this week plans to repeat it on Saturday. Her 3 children are present for today's visit. Reviewed: PTL s/s-LOF/Ctx's/VB, when to seek emergent care. discomforts, self help measures. FKC and when to call the office for further eval. Encouraged a healthy well balanced diet, regular walking/exercise in . Hydrate well, 10-12 glasses of water daily. Complete glucose testing. [facility] follow up planned for [facility]. RTO 2wks. Visit Date: 10/06/24 Last Updated by: Chely Redmond CNM Note author: Chely Redmond CNM. 25.1wk. KIERRA. Taking PNV, Doing well with no concerns. Good appetite, stays well hydrated. Denies any LOF, VB, abd. pain or urinary symptoms. Good FM. Her mom yesterday of lung cancer. Reviewed ultrasound findings. Reviewed: PTL s/s-LOF/Ctx's/VB, when to seek emergent care. discomforts, self help measures. FMC and when to call for further evaluation. Encouraged a healthy well balanced diet, regular walking/exercise in . Hydrate well, 10-12 glasses of water daily. Strongly encouraged to do her labs today. Discussed grief and self-care. RTO 3 wks. Results AMB Urinalysis, Automated UA Leukoctes 3.5 Ethan/uL Last Edit by Poonam Vargas LPN on 11/11/24 11 :09 UA Nitrite Negative Last Edit by Poonam Vargas LPN on 11/11/24 11:09 UA Urobilinogen 3.5 mg/dL Last Edit by Ponoam Vargas LPN on 11/11/24 11:09 UA Protein 3 mg/dL Last Edit by Poonam Vargas LPN on 11/11/24 11:09 UA pH 6.0 Last Edit by Poonam Vargas LPN on 11/11/24 11:09 UA Blood 0.5 Ojhn/uL Last Edit by Poonam Vargas LPN on 11/11/24 11:09 UA Specific [place] 1.015 Last Edit by Poonam Vargas LPN on 11/11/24 11:09 UA Ketone Negative Last Edit by Poonam Vargas LPN on 11/11/24 11:09 UA Bilirubin 3.5 mg/dL Last Edit by Poonam Vargas LPN on 11/11/24 11: 09 UA Glucose mg/dL Last Edit by Poonam Vargas LPN on 11/11/24 11:09 Results Reviewed Results Reviewed: Laboratory Last Values Urine pH (Auto) 6.0 11/11/24 11:04 Specific [place] (Auto) 1.015 11/11/24 11:04 Urine Protein (Auto) 3 mg/dL 11/11/24 11:04 Urine Ketones (Auto) Negative 11/11/24 11:04 Urine Blood (Auto) 0.5 John/uL 11/11/24 11:04 Urine Nitrite (Auto) Negative 11/11/24 11:04 Urine Bilirubin (Auto) 3.5 mg/dL 11/11/24 11:04 Urine Urobilinogen (Auto) 3.5 mg/dL 11/11/24 11:04 Leukocyte Esterase (Auto) 3.5 Ethan/uL 11/11/24 11:04 Coding Level of Care Code [place] Diagnoses Choroid plexus cyst of fetus affecting care of mother, antepartum O35.03X0 Assessment & Plan Assessment & Plan (1) Choroid plexus cyst of fetus affecting care of mother, antepartum: Code(s): O35.03X0 - Maternal care for (suspected) central nervous system malformation or damage in fetus, choroid plexus cysts, not applicable or unspecified Category: Medical Orders: Orders ABO RH Type 11/10/24 O35.03X0 - Maternal care for (suspected) central nervous system malformation or damage in fetus, choroid plexus cysts, not applicable or unspecified, Z34.82 - Encounter for supervision of other normal , s econd trimester US OB follow up Today O35.03X0 - Maternal care for (suspected) central nervous system malformation or damage in fetus, choroid plexus cysts, not applicable or unspecified Urine Culture Today R31.29 - Other microscopic hematuria
[2024-11-11 10:34] VITALS: BP 118/70; BMI 33.3
--- NOTE | 2024-11-11 10:44 | A.OFFVISPN_ITS ---
Intake Vital Signs 11/11/24 10:34 Height 5 ft 1 in Weight 176 lb 4 oz BMI 33.3 BP 118/70 Blood Pressure Location Lt brachial Position Sitting Intake Visit Reasons: KIERRA Intake Note: Pt /lo n ajusea decreased appetite.c Bookkeeper Assistant Required: No Watch Dial Printer: Watch Dial Printer Present Allergies sulfamethoxazole (From BACTRIM) Allergy (Unknown, Verified 11/11/24 10:38) HIVES trimethoprim (From BACTRIM) Allergy (Unknown, Verified 11/11/24 10:38) HIVES Medication List - Last Reconciled 11/11/24 by Poonam Vargas LPN acetaminophen 500 mg PO Q6H PRN 30 days fluticasone propionate 50 mcg/actuation (Flonase Allergy Relief) 1 spray intranasal DAILY 30 days oxycodone 5 mg PO BID PRN 14 days PNV [id number] 90 mg iron- 1 mg-200 mg 1 cap PO DAILY Is last menstrual period known: Yes Last menstrual period: 04/14/24 Patient : Yes [facility] Medical History Encounter for supervision of other normal , second trimester Chronic pain syndrome Sinusitis Spondylosis, cervical Degeneration, intervertebral disc, cervical Thoracic scoliosis Thoracic spine pain Obesity (BMI 35.0-39.9 without comorbidity) Anxiety Neck pain Allergic rhinitis Ophthalmoplegic migraine Surgical History No pertinent past surgical history Family History Mother COPD (chronic obstructive pulmonary disease) Small cell lung cancer Social History Household Members: Spouse and Children Both parents involved: Yes Caregiver staying overnight: No Housing: Apartment Are you a primary health care social worker to a significant other at home: No Do you presently have visiting nurse or other home services: No 75 years or older and lives alone: No Alcohol intake: never Patient Tobacco Use Status: Never used Tobacco e-Cigarette/Vaping Use: Never Used Second Hand Smoke Exposure: No Agree to transfusion: Yes Patient : Yes service: No Current occupational status: unemployed Current occupational exposures/hazards: No Gender identity: Female Cognitive needs: No Hearing needs: No Vision needs: No Female Reproductive History Menstrual Age of Menarche: 15 Date of last menstrual period: 04/14/24 History History 4 Elective abortions 0 Para 3 Spontaneous abortions 0 Hx # Term Pregnancies 3 Ectopic pregnancies 0 Hx # Pregnancies 0 Multiple births 0 Past Pregnancies Del. Date GA/Weeks Outcome Route Wt Inf Gender Labor Dilia Anesthesia Location Provider Complicate 05/13/13 42 live - full term vaginal delivery 9 lb 14 oz Male epidural [facility] none 12/06/17 40 live - full term vaginal delivery 7 lb Female [facility] none 07/26/23 41 live - full term vaginal delivery 9 lb Female 6 epidural [facility] other Visit [facility] Calculator Estimated Delivery Date Method Current WG Current Estimate 01/18/25 Ultrasound #1 30w 2d Other Estimates 01/23/25 LMP (Certain) 29w 4d Expected Delivery Route/Plan Specific Issues/Plans Ob template yr. old G P EDC: by Blood type: O pos Problem List: 1. ambivalence, last care. 2. Hx GBS positive. Testing: Panorama: NT scan: AFP: FAS: Choroid plexus cyst seen Glucose: early 28 wk glucose: CBC 1st Tri: 28 wk. CBC: GBS: Vaccinations: Flu: completed Covid: x2 Tdap: RSV: [id number]-January: Education/Services WIC: enrolled Social Supports/stressors: mom 10/05/24 Living situation: Partner, her 3 children. Supports: Partner-Romario Work/school: unemployed Transportation: owns car Labor, and Concerns: Labor support: Romario Plan: Infant Feeding Plans: bottle control: OB Visit Log Initial Weight: 175 lb Date -?-?-?-?-?-?-?-?-?-?-?-?- EGA Weight Gest Week Fundal Ht Present FHR move Efface % Edema BP PrePreg We Weight GTT -?-?-?-?-?-?-?-?-?-?-?-?- Glucose LV Protein Blood Type 10/06/24 -?-?-?-?-?-?-?-?-?-?-?-?- 25w 1d 172 lb (-3 lb) 26 150 active 124/80 172 lb -?-?-?-?-?-?-?-?-?-?-?-?- Notes Visit Date: 10/06/24 Last Updated by: Chely Redmond CNM Note author: Chely Redmond CNM. 25.1wk. KIERRA. Taking PNV, Doing well with no concerns. Good appetite, stays well hydrated. Denies any LOF, VB, abd. pain or urinary symptoms. Good FM. Her mom yesterday of lung cancer. Reviewed ultrasound findings. Reviewed: PTL s/s-LOF/Ctx's/VB, when to seek emergent care. discomforts, self help measures. [facility]MC and when to call for further evaluation. Encouraged a healthy well balanced diet, regular walking/exercise in . Hydrate well, 10-12 glasses of water daily. Strongly encouraged to do her labs today. Discussed grief and self-care. RTO 3 wks. Coding Assessment & Plan Assessment & Plan Orders: Orders ABO RH Type 11/10/24 Z34.82 - Encounter for supervision of other normal , second trimester
--- OUTSIDE RECORDS SUMMARY | 2024-11-11 11:33 | XMS_ITS | Encounter Summary ---
Author Organization [facility] Address [address] [place] [phone] Phone Care Team Providers Care Director Environmental Name Role Phone Daly Canales MD Primary Care Provider Encounter Details Date Type Department Care Team (Late st Contact Info) Description 12/19/2009 Documentation [facility] [facility] [address] [place] [address] Family Medicine, Physician [address] [place], [place] [id number] Social History Tobacco Use Types Packs/Day Years [...] on filedocumented in this encounter Care Teams Director Environmental Relationship Specialty Start Date End Date Daly Canales MD [address] [place] [id number] PCP - General 11/30/16 08/01/22 documented as of this encounter
--- OUTSIDE RECORDS SUMMARY | 2024-11-11 11:33 | XMS_ITS | Clinical Summary ---
Author Organization [facility] Address [address] [facility] [address] [place] [phone] Phone Care Team Providers Care Director Summer Sessions Name Role Phone Madeline Bradford MD Primary Care Provid er Allergies Active Allergy Reactions Criticality Noted Date Comments Sulfamethoxazole-Trimethoprim Hives 2022 Medications No known medications Social History Tobacco Use Types Packs/Day Years Used Date Smoking Tobacco: Never Smokeless Tobacco: Never Tobacco Cessation:Counseling Given: Not Answered Alcohol Use Standard Drinks/Week Comments Not Currently 0 (1 standard drink = 0.6 oz pur e alcohol) Education Answer Date Recorded Are you interested in more education? Not on angel e 08/18/2022 Are you concerned about learning? Not on file 08/18/2022 No 08/18/2022 No 08/18/2022 Digital Access Answer Date Recorded No 09/18/2022 No 09/18/2022 Reliable internet access at home? Not on file 09/18/2022 Device with a working camera? Not on file Intimate Partner Violence Answer Date R ecorded Are you denied basic needs s uch as food, clothing, or medical care? No 06/30/2022 In the past 12 months have y ou been in a relationship with a person who hurts, threatens, or tries to control you? No 06/30/2022 Are you denied basic needs s uch as food, clothing, or medical care? No 06/30/2022 In the past 12 months have y ou been in a relationship with a person who hurts, threatens, or tries to control you? No 06/30/2022 Comments Unknown Sex and Gender Information Value Date Recorded Sex Assigned at Female 06/30/2022 9:35 PM EST Legal Sex Female 9:29 PM EST Gender Identity Female 06/30/2022 9:35 PM EST Sexual Orientation Not on file Last Filed Vital Signs Vital Sign Reading Time Taken Comments Blood Pressure 130/85 06/30/2022 11:58 PM EST Pulse 81 06/30/2022 11:58 PM EST Temperature 36.4 C (97.6 F) 06/30/2022 11:58 PM EST Respiratory Rate 12 06/30/2022 11:58 PM EST Oxygen Saturation 98% 06/30/2022 11:58 PM EST Inhaled Oxygen Concentration - - Weight 81.2 kg (179 lb) 06/30/2022 9:35 PM EST Height 152.4 cm (5') 06/30/2022 9:35 PM EST Body Mass Index 34.96 06/30/2022 9:35 PM EST Plan of Treatment Health Maintenance Due Date Last Done Comments DEPRESSION SCREENING 2003 HEPATITIS C SCREENING 2009 HIV ONE-TIME SCREENING (18-6 5 YEARS) 2009 PAP SMEAR 2012 Adult Td,Tdap Booster 12/14/2018 12/14/2008 COVID-19 VACCINE (2023-2 5 season) 2023 SMOKING STATUS SCREENING (On ce After 26 Yrs) Completed 06/30/2022 HEPATITIS A VACCINES Aged Out No long er eligible based on patient's age to complete this topic HIB VACCINES Aged Out No longer eligi ble based on patient's age to complete this topic MENINGOCOCCAL VACCINES (ACWY) Aged Out No longer eligible based on patient's age to complete this topic MENINGOCOCCAL VACCINES (B) Aged Out N o longer eligible based on patient's age to complete this topic PNEUMOCOCCAL VACCINES (0-49 years) Aged Out No longer eligible based on patient's age to complete this topic Medical Devices Not on file Insurance [facility] ACO ACO [employer] [place] [address] [address] [address] [place] [address] ACO Care Teams Director Summer Sessions Relationship Specialty Start Date End Date Madeline Bradford MD [address] [place] [address] PCP - General Internal Medicine 06/30/22 Additional Source Comments The information contained in this document represents components of the legal health record. It is not the complete legal health record.[facility]
== END 2024-11-11 11:39 | disposition home or self-care (01) ==
LOC: HO.HWS 10:28
PROVIDERS: PCP Internal Medicine; Visit Provider Advanced Practice Midwife
DX: O35.03X0 Maternal care for (suspected) central nervous system malformation or damage in fetus, choroid plexus cysts, not applicable or unspecified (principal)
CPT/HCPCS: 25942

== ENCOUNTER 2024-11-11 10:27 | Outpatient (REF) | payer OTHER, SELFPAY | END 2024-11-11 10:28 | disposition home or self-care (01) | LOC: HO.LNP 10:27 | PROVIDERS: PCP Internal Medicine; Visit Provider Advanced Practice Midwife | DX: O35.03X0 Maternal care for (suspected) central nervous system malformation or damage in fetus, choroid plexus cysts, not applicable or unspecified (principal); O26.893 Other specified pregnancy related conditions, third trimester; R31.29 Other microscopic hematuria; Z79.891 Long term (current) use of opiate analgesic; Z3A.30 30 weeks gestation of pregnancy; Z79.899 Other long term (current) drug therapy | CPT/HCPCS: 87086; 99212 ==

== ENCOUNTER 2024-11-30 06:13 | Outpatient (REF) | payer OTHER, SELFPAY ==
[2024-11-30 09:32] LABS: Glucose 1 Hour PP 50gm Dose 135 mg/dL (60-140)
== END 2024-11-30 06:14 | disposition home or self-care (01) ==
LOC: HO.LAB 06:13
PROVIDERS: PCP Internal Medicine; Visit Provider Advanced Practice Midwife
DX: Z34.82 Encounter for supervision of other normal pregnancy, second trimester (principal)
CPT/HCPCS: 36415; 82950; 86850; 86900; 86901

== ENCOUNTER 2024-12-01 10:42 | Outpatient (REF) | payer OTHER, SELFPAY ==
[2024-12-01 16:59] LABS: Bacterial Vaginosis PCR NEGATIVE (Negative); Candida Group PCR NOT DETECTED (Not Detect); Candida glab krusei PCR NOT DETECTED (Not Detect); Trichomonas vaginalis PCR NOT DETECTED (Not Detect)
[2024-12-01 17:30] LABS: CT PCR NOT DETECTED (Not Detect.); NG PCR NOT DETECTED (Not Detect.)
== END 2024-12-01 10:43 | disposition home or self-care (01) ==
LOC: HO.LNP 10:42
PROVIDERS: PCP Internal Medicine; Visit Provider Advanced Practice Midwife
DX: Z11.3 Encounter for screening for infections with a predominantly sexual mode of transmission (principal); Z11.8 Encounter for screening for other infectious and parasitic diseases; Z11.2 Encounter for screening for other bacterial diseases; Z23 Encounter for immunization
CPT/HCPCS: 81515; 87491; 87591; 90471; 90715; 99212

== ENCOUNTER 2024-12-01 10:42 | Outpatient (AMB) | payer OTHER, SELFPAY ==
--- NOTE | 2024-12-01 11:01 | A.OFFVIS_ITS ---
Vital Signs 12/01/24 11:03 Height 5 ft 1 in Weight 177 lb BMI 33.4 BP 110/66 Intake Visit Reasons: myah Allergies sulfamethoxazole (From BACTRIM) Allergy (Unknown, Verified 11/11/24 10:38) HIVES trimethoprim (From BACTRIM) Allergy (Unknown, Verified 11/11/24 10:38) HIVES [facility] Medical History (Updated 11/11/24 @ 11:31 by Chely Redmond CNM) Choroid plexus cyst of fetus affecting care of mother, antepartum Encounter for supervision of other normal , second trimester Chronic pain syndrome Sinusitis Spondylosis, cervical Degeneration, intervertebral disc, cervical Thoracic scoliosis Thoracic spine pain Obesity (BMI 35.0-39.9 without comorbidity) Anxiety Neck pain Allergic rhinitis Ophthalmoplegic migraine Surgical History No pertinent past surgical history Family History Mother COPD (chronic obstructive pulmonary disease) Small cell lung cancer Social History Household Members: Spouse and Children Both parents involved: Yes Caregiver staying overnight: No Housing: Apartment Are you a primary care director rn to a significant other at home: No Do you presently have visiting nurse or other home services: No 75 years or older and lives alone: No Alcohol intake: never Patient Tobacco Use Status: Never used Tobacco e-Cigarette/Vaping Use: Never Used Second Hand Smoke Exposure: No Agree to transfusion: Yes service: No Current occupational status: unemployed Current occupational exposures/hazards: No Gender identity: Female Cognitive needs: No Hearing needs: No Vision needs: No Female Reproductive History Menstrual Age of Menarche: 15 Coding
[2024-12-01 11:03] VITALS: BP 110/66; BMI 33.4
--- NOTE | 2024-12-01 11:08 | A.OFFVISPN_ITS ---
Intake Vital Signs 12/01/24 11:03 12/01/24 11:09 Height 5 ft 1 in 5 ft 1 in Weight 177 lb 177 lb BMI 33.4 33.4 BP 110/66 110/66 Intake Visit Reasons: myah Intake Note: Patient has concerns of discharge since Saturday. No other symptoms other then occasional nahomi fry. Regional Director: Regional Director Present (Dolly) Accompanied by: Self / Same As Patient Allergies sulfamethoxazole (From BACTRIM) Allergy (Unknown, Verified 12/01/24 11:08) HIVES trimethoprim (From BACTRIM) Allergy (Unknown, Verified 12/01/24 11:08) HIVES Is last menstrual period known: Yes [facility] Medical History Choroid plexus cyst of fetus affecting care of mother, antepartum Encounter for supervision of other normal , second trimester Chronic pain syndrome Sinusitis Spondylosis, cervical Degeneration, intervertebral disc, cervical Thoracic scoliosis Thoracic spine pain Obesity (BMI 35.0-39.9 without comorbidity) Anxiety Neck pain Allergic rhinitis Ophthalmoplegic migraine Surgical History No pertinent past surgical history Family History Mother COPD (chronic obstructive pulmonary disease) Small cell lung cancer Social History Household Members: Spouse and Children Both parents involved: Yes Caregiver staying overnight: No Housing: Apartment Are you a primary care manager to a significant other at home: No Do you presently have visiting nurse or other home services: No 75 years or older and lives alone: No Alcohol intake: never Patient Tobacco Use Status: Never used Tobacco e-Cigarette/Vaping Use: Never Used Second Hand Smoke Exposure: No Agree to transfusion: Yes service: No Current occupational status: unemployed Current occupational exposures/hazards: No Gender identity: Female Cognitive needs: No Hearing needs: No Vision needs: No Female Reproductive History Menstrual Age of Menarche: 15 History History 4 Elective abortions 0 Para 3 Spontaneous abortions 0 Hx # Term Pregnancies 3 Ectopic pregnancies 0 Hx # Pregnancies 0 Multiple births 0 Past Pregnancies Del. Date GA/Weeks Outcome Route Wt Inf Gender Labor Dilia Anesthesia Location Provider Complicate 05/13/13 42 live - full term vaginal delivery 9 lb 14 oz Male epidural [facility] none 12/06/17 40 live - full term vaginal delivery 7 lb Female epidural [facility] [place]- [facility] none 07/26/23 41 live - full term vaginal delivery 9 lb Female 6 epidural [facility] other Visit [facility] Calculator Estimated Delivery Date Method Current WG Current Estimate 01/18/25 Ultrasound #1 33w 1d Other Estimates 01/23/25 LMP (Certain) 32w 3d Expected Delivery Route/Plan Specific Issues/Plans 34 yr. old EDC: 01/24/25 by US at 21.4wks Blood type: O pos Problem List: 1. ambivalence-consult at PP x2., late for care, gaps in care. 2. Hx GBS positive. Testing: Panorama: NT scan: too late AFP: FAS: Choroid plexus cyst seen Glucose: early 28 wk glucose: CBC 1st Tri: 28 wk. CBC: GBS: Vaccinations: Flu: completed Covid: x2 Tdap: given 12/01/24 RSV: [id number]-January: Education/Services WIC: enrolled Social Supports/stressors: mom 10/05/24, family feud re: estate. Living situation: Partner, her 3 children. Supports: Partner-Romario Work/school: unemployed Transportation: owns car Labor, and Concerns: Labor support: Romario Plan: Feeding Plans: bottle control: OB Visit Log Initial Weight: 175 lb Date -?-?-?-?-?-?-?-?-?-?-?-?- EGA Weight Gest Week Fundal Ht Present FHR move Efface % Edema BP PrePreg We Weight GTT -?-?-?-?-?-?-?-?-?-?-?-?- Glucose LV Protein Blood Type 10/06/24 -?-?-?-?-?-?-?-?-?-?-?-?- 25w 1d 172 lb (-3 lb) 26 150 active 124/80 172 lb -?-?-?-?-?-?-?-?-?-?-?-?- 11/11/24 -?-?-?-?-?-?-?-?-?-?-?-?- 30w 2d 176 lb 4 oz (+1 lb 4 oz) 30 150 active 118/70 176 lb 4 oz -?-?-?-?-?-?-?-?-?-?-?-?- 12/01/24 -?-?-?-?-?-?-?-?-?-?-?-?- 33w 1d 177 lb (+2 lb) 177 lb (+2 lb) 34 150 active 110/66 110/66 177 lb 177 lb -?-?-?-?-?-?-?-?-?-?-?-?- Notes Visit Date: 12/01/24 Last Updated by: Chely Redmond CNM OB visit Note author: Chely Redmond CNM. 33wk. MYAH. Taking PNV, Good appetite, stays well hydrated. Denies any LOF, VB, abd. pain or urinary symptoms. Admits to increased discharge without any symptoms wants it checked. Good FM. EPDS=1. Reviewed: PTL s/s-LOF/Ctx's/VB, when to seek emergent care. discomforts, self help measures. FMC and when to call for further evaluation. Encouraged a healthy well balanced diet, regular walking/exercise in . Hydrate well, 10-12 glasses of water daily. Tdap today. GC/CT and BV panel obtained. RTO 2wks. Visit Date: 11/11/24 Last Updated by: Chely Redmond CNM Note author: Chely Redmond CNM. 30wk. MYAH. Taking PNV, Doing well with no concerns. Fair appetite-reports stress with family over property ownership in the will of her mom requiring her to be going to court in the future. Stays well hydrated. Denies any LOF, VB, abd. pain or urinary symptoms. Had a glucose on an empty stomach and vomited this week plans to repeat it on Saturday. Her 3 children are present for today's visit. Reviewed: PTL s/s-LOF/Ctx's/VB, when to seek emergent care. discomforts, self help measures. FKC and when to call the office for further eval. Encouraged a healthy well balanced diet, regular walking/exercise in . Hydrate well, 10-12 glasses of water daily. Complete glucose testing. US follow up planned for [facility]. RTO 2wks. Visit Date: 10/06/24 Last Updated by: Chely Redmond CNM Note author: Chely Redmond CNM. 25.1wk. MYAH. Taking PNV, Doing well with no concerns. Good appetite, stays well hydrated. Denies any LOF, VB, abd. pain or urinary symptoms. Good FM. Her mom yesterday of lung cancer. Reviewed ultrasound findings. Reviewed: PTL s/s-LOF/Ctx's/VB, when to seek emergent care. discomforts, self help measures. FMC and when to call for further evaluation. Encouraged a healthy well balanced diet, regular walking/exercise in . Hydrate well, 10-12 glasses of water daily. Strongly encouraged to do her labs today. Discussed grief and self-care. RTO 3 wks. Review of Systems Const All systems reviewed & are unremarkable except as noted in HPI and below Endo Reports no additional complaints Immunizations Boostrix Tdap 2.5 Lf unit-8 mcg-5 Lf/0.5 mL intramuscular syringe Performing Provider: Chely Redmond CNM Performing Location: [facility] Administered by: Aleksandra Graves LPN on 12/01/24 11:29 Dose Route Admin Location Dispensed Lot Number Expiration Date [facility] Veneer Stock Grader 0.5 mL IM Left Deltoid 0.5 mL [id number] 01/11/26 [id number] Waze Total Dispensed Waste 0.5 mL 0 % VIS Given Date VIS Provided VIS Publication Date 12/01/24 Single Vaccine 20 Eligibility Eligibility Date Funding Source Not [facility] Eligible 12/01/24 Private Exam Const Constitutional General: cooperative, healthy appearing and no acute distress External Female Exam: normal external appearance Speculum exam - vagina: normal appearance of the vagina and normal discharge Psych Appearance: well kempt Attitude: cooperative Thought process: Normal thought process present Coding Level of Care Code [place] Assessment & Plan Assessment & Plan Orders: Orders Bacterial Vaginosis Panel Today Z11.3 - Encounter for screening for infections with a predominantly sexual mode of transmission TDaP Immunization Today Z23 - Encounter for immunization CT NG by PCR Vag/Cerv Today Z11.3 - Encounter for screening for infections with a predominantly sexual mode of transmission Medications: New ferrous sulfate 325 mg PO DAILY 90 tabs 1RF 90 days
[2024-12-01 11:09] VITALS: BP 110/66; BMI 33.4
--- OUTSIDE RECORDS SUMMARY | 2024-12-01 11:48 | XMS_ITS | Clinical Summary ---
Author Organization [facility] Address [address] [place] [address] Phone Care Team Providers Care Boatswains Mate Name Role Phone Madeline Bradford MD Primary [...] in more education? Not on angel e 11/30/2024 Are you concerned about learning? Not on file 11/30/2024 No 11/30/2024 No 11/30/2024 Digital Access Answer Date Recorded No 11/30/2024 No 11/30/2024 Reliable internet access at home? Not on file 11/30/2024 Device with a working camera? Not on file Comments Unknown Sex and Gender Information Value Date Recorded Sex Assigned at Female 11/30/2024 1:54 PM EDT Legal Sex Female 2:25 PM EDT Gender Identity Female 11/30/2024 1:54 PM EDT Sexual Orientation Not on file Last Filed [...] topic Medical Devices Not on file Insurance [facility] ACO ACO ACO [place] [address] [place] [address] ACO Care Teams Boatswains Mate Relationship Specialty Start Date End Date Madeline Bradford MD [address] [place] [address] PCP - General Internal Medicine 06/30/22 Additional Source Comments The information contained in this document represents components of the legal health record. It is not the complete legal health record.[facility]
--- OUTSIDE RECORDS SUMMARY | 2024-12-01 11:48 | XMS_ITS | Encounter Summary ---
Author Organization [facility] Address [address] [place] [address] Phone Care Team Providers Care Brake Lining Curer Name Role Phone Daly Canales MD Primary Care Provider Encounter Details Date Type Department Care Team (Late st Contact Info) Description 12/19/2009 Documentation [facility] [place] Family Medicine [address] [place] [address] Family Medicine, Physician [address] [place], [place] [phone] Social History Tobacco Use Types Packs/Day Years [...] on filedocumented in this encounter Care Teams Brake Lining Curer Relationship Specialty Start Date End Date Daly Canales MD [address] [id number] PCP - General 11/30/16 08/01/22 documented as of this encounter
== END 2024-12-01 12:22 | disposition home or self-care (01) ==
LOC: HO.HWS 10:43
PROVIDERS: PCP Internal Medicine; Visit Provider Advanced Practice Midwife
DX: Z23 Encounter for immunization (principal)
CPT/HCPCS: 25942

== ENCOUNTER 2024-12-15 13:59 | Outpatient (REF) | payer OTHER, SELFPAY ==
[2024-12-15 20:49] LABS: Bacterial Vaginosis PCR NEGATIVE (Negative); Candida Group PCR NOT DETECTED (Not Detect); Candida glab krusei PCR NOT DETECTED (Not Detect); Trichomonas vaginalis PCR NOT DETECTED (Not Detect)
[2024-12-15 22:25] LABS: CT PCR NOT DETECTED (Not Detect.); NG PCR NOT DETECTED (Not Detect.)
== END 2024-12-15 14:00 | disposition home or self-care (01) ==
LOC: HO.LNP 13:59
PROVIDERS: PCP Internal Medicine; Visit Provider Advanced Practice Midwife
DX: Z34.93 Encounter for supervision of normal pregnancy, unspecified, third trimester (principal)
CPT/HCPCS: 81003; 81515; 87081; 87147; 87491; 87591; 99212

== ENCOUNTER 2024-12-15 13:59 | Outpatient (AMB) | payer OTHER, SELFPAY ==
[2024-12-15 14:02] VITALS: BP 114/70; BMI 34.0
--- NOTE | 2024-12-15 14:02 | A.OFFVISPN_ITS ---
Intake Vital Signs 12/15/24 14:02 Height 5 ft 1 in Weight 180 lb BMI 34.0 BP 114/70 Intake Visit Reasons: myah Allergies sulfamethoxazole (From BACTRIM) Allergy (Unknown, Verified 12/15/24 14:02) HIVES trimethoprim (From BACTRIM) Allergy (Unknown, Verified 12/15/24 14:02) HIVES Patient : Yes PFSH Medical History Choroid plexus cyst of fetus affecting care of mother, antepartum Encounter for supervision of other normal , second trimester Chronic pain syndrome Sinusitis Spondylosis, cervical Degeneration, intervertebral disc, cervical Thoracic scoliosis Thoracic spine pain Obesity (BMI 35.0-39.9 without comorbidity) Anxiety Neck pain Allergic rhinitis Ophthalmoplegic migraine Surgical History No pertinent past surgical history Family History Mother COPD (chronic obstructive pulmonary disease) Small cell lung cancer Social History Household Members: Spouse and Children Housing: Apartment Are you a primary child care associate teacher to a significant other at home: No Do you presently have visiting nurse or other home services: No Alcohol intake: never Patient Tobacco Use Status: Never used Tobacco e-Cigarette/Vaping Use: Never Used Second Hand Smoke Exposure: No Agree to transfusion: Yes service: No Current occupational status: unemployed Current occupational exposures/hazards: No Gender identity: Female Cognitive needs: No Hearing needs: No Vision needs: No Female Reproductive History Menstrual Age of Menarche: 15 History History 4 Elective abortions 0 Para 3 Spontaneous abortions 0 Hx # Term Pregnancies 3 Ectopic pregnancies 0 Hx # Pregnancies 0 Multiple births 0 Past Pregnancies Del. Date GA/Weeks Outcome Route Wt Inf Gender Labor Dilia Anesthesia Location Provider Complicate 05/13/13 42 live - full term vaginal delivery 9 lb 14 oz Male epidural [facility] none 12/06/17 40 live - full term vaginal delivery 7 lb Female epidural [facility]- [facility] none 07/26/23 41 live - full term vaginal delivery 9 lb Female 6 epidural [facility] other Visit [facility] Calculator Estimated Delivery Date Method Current WG Current Estimate 01/18/25 Ultrasound #1 35w 1d Other Estimates 01/23/25 LMP (Certain) 34w 3d Expected Delivery Route/Plan Specific Issues/Plans 34 yr. old EDC: 01/24/25 by US at 21.4wks Blood type: O pos Problem List: 1. ambivalence-consult at PP x2., late for care, gaps in care. 2. Hx GBS positive. Testing: Panorama: NT scan: too late AFP: FAS: Choroid plexus cyst seen Glucose: early 28 wk glucose: CBC 1st Tri: 28 wk. CBC: GBS: Vaccinations: Flu: completed Covid: x2 Tdap: RSV: [id number]-January: Education/Services WIC: enrolled Social Supports/stressors: mom 10/05/24, family feud re: estate. Living situation: Partner, her 3 children. Supports: Partner-Romario Work/school: unemployed Transportation: owns car Labor, and Concerns: Labor support: Romario Plan: Infant Feeding Plans: bottle control: OB Visit Log Initial Weight: 175 lb Date -?-?-?-?-?-?-?-?-?-?-?-?- EGA Weight Gest Week Fundal Ht Present FHR move Efface % Edema BP PrePreg We Weight GTT -?-?-?-?-?-?-?-?-?-?-?-?- Glucose LV Protein Blood Type 10/06/24 -?-?-?-?-?-?-?-?-?-?-?-?- 25w 1d 172 lb (-3 lb) 26 150 active 124/80 172 lb -?-?-?-?-?-?-?-?-?-?-?-?- 11/11/24 -?-?-?-?-?-?-?-?-?-?-?-?- 30w 2d 176 lb 4 oz (+1 lb 4 oz) 30 150 active 118/70 176 lb 4 oz -?-?-?-?-?-?-?-?-?-?-?-?- 12/01/24 -?-?-?-?-?-?-?-?-?-?-?-?- 33w 1d 177 lb (+2 lb) 177 lb (+2 lb) 34 150 active 110/66 110/66 177 lb 177 lb -?-?-?-?-?-?-?-?-?-?-?-?- 12/15/24 -?-?-?-?-?-?-?-?-?-?-?-?- 35w 1d 180 lb (+5 lb) 36 145 active 114/70 180 lb -?-?-?-?-?-?-?-?-?-?-?-?- Notes Visit Date: 12/15/24 Last Updated by: Chely Redmond CNM Note author: Chely Redmond CNM. 35.1wk. MYAH. Taking PNV, Doing well with no concerns. Good appetite, stays well hydrated. Denies any LOF, VB, abd. pain or urinary symptoms. Good FM. Follow up US is rescheduled to 12/22/24-at [facility]. Reviewed: PTL s/s-LOF/Ctx's/VB, when to seek emergent care. discomforts, self help measures. FMC and when to call for further evaluation. Encouraged a healthy well balanced diet, regular walking/exercise in . Hydrate well, 10-12 glasses of water daily. GBS, GC/ct and BV panel today-prefers female provider for exams. RTO 1 wks. Visit Date: 12/01/24 Last Updated by: Chely Redmond CNM OB visit Note author: Chely Redmond CNM. 33wk. MYAH. Taking PNV, Good appetite, stays well hydrated. Denies any LOF, VB, abd. pain or urinary symptoms. Admits to increased discharge without any symptoms wants it checked. Good FM. EPDS=1. Reviewed: PTL s/s-LOF/Ctx's/VB, when to seek emergent care. discomforts, self help measures. FMC and when to call for further evaluation. Encouraged a healthy well balanced diet, regular walking/exercise in . Hydrate well, 10-12 glasses of water daily. Tdap today. GC/CT and BV panel obtained. RTO 2wks. Visit Date: 11/11/24 Last Updated by: Chely Redmond CNM Note author: Chely Redmond CNM. 30wk. MYAH. Taking PNV, Doing well with no concerns. Fair appetite-reports stress with family over property ownership in the will of her mom requiring her to be going to court in the future. Stays well hydrated. Denies any LOF, VB, abd. pain or urinary symptoms. Had a glucose on an empty stomach and vomited this week plans to repeat it on Saturday. Her 3 children are present for today's visit. Reviewed: PTL s/s-LOF/Ctx's/VB, when to seek emergent care. discomforts, self help measures. FKC and when to call the office for further eval. Encouraged a healthy well balanced diet, regular walking/exercise in . Hydrate well, 10-12 glasses of water daily. Complete glucose testing. US follow up planned for [facility]. RTO 2wks. Visit Date: 10/06/24 Last Updated by: Chely Redmond CNM Note author: Chely Redmond CNM. 25.1wk. MYAH. Taking PNV, Doing well with no concerns. Good appetite, stays well hydrated. Denies any LOF, VB, abd. pain or urinary symptoms. Good FM. Her mom yesterday of lung cancer. Reviewed ultrasound findings. Reviewed: PTL s/s-LOF/Ctx's/VB, when to seek emergent care. discomforts, self help measures. FMC and when to call for further evaluation. Encouraged a healthy well balanced diet, regular walking/exercise in . Hydrate well, 10-12 glasses of water daily. Strongly encouraged to do her labs today. Discussed grief and self-care. RTO 3 wks. Results AMB Urinalysis, Automated UA Leukoctes 1 Ethan/uL Last Edit by RUSS Barnhart on 12/15/24 14:19 UA Nitrite Negative Last Edit by RUSS Barnhart on 12/15/24 14:19 UA Urobilinogen 0 mg/dL Last Edit by RUSS Barnhart on 12/15/24 14:1 9 UA Protein 0.5 mg/dL Last Edit by RUSS Barnhart on 12/15/24 14:19 UA pH 6.0 Last Edit by Barbara Cullen Maguire Master on 12/15/24 14:19 UA Blood 0 John/uL Last Edit by Barbara Cullen Maguire A on 12/15/24 14:19 UA Specific [place] 1.020 Last Edit by Barbara Cullen Maguire A on 12/15/24 14:19 UA Ketone Negative Last Edit by Barbara Cullen Maguire A on 12/15/24 14:19 UA Bilirubin 0 mg/dL Last Edit by Barbara Cullen Maguire A on 12/15/24 14:19 UA Glucose 0 mg/dL Last Edit by Barbara Maguire A on 12/15/24 14:19 Results Reviewed Results Reviewed: Laboratory Last Values Urine pH (Auto) 6.0 12/15/24 14:17 Specific [place] (Auto) 1.020 12/15/24 14:17 Urine Protein (Auto) 0.5 mg/dL 12/15/24 14:17 Glucose (UA)(Auto) 0 mg/dL 12/15/24 14:17 Urine Ketones (Auto) Negative 12/15/24 14:17 Urine Blood (Auto) 0 John/uL 12/15/24 14:17 Urine Nitrite (Auto) Negative 12/15/24 14:17 Urine Bilirubin (Auto) 0 mg/dL 12/15/24 14:17 Urine Urobilinogen (Auto) 0 mg/dL 12/15/24 14:17 Leukocyte Esterase (Auto) 1 Ethan/uL 12/15/24 14:17 Coding Level of Care Code [place] Assessment & Plan Assessment & Plan Orders: Orders CT NG by PCR Vag/Cerv Today Z34.93 - Encounter for supervision of normal , unspecified, third trimester Group B Strep Culture Today Z34.93 - Encounter for supervision of normal , unspecified, third trimester AMB Urinalysis Automated Today Z34.90 - Encounter for supervision of normal , unspecified, unspecified trimester Bacterial Vaginosis Panel Today Z34.93 - Encounter for supervision of normal , unspecified, third trimester
--- OUTSIDE RECORDS SUMMARY | 2024-12-15 14:57 | XMS_ITS | Encounter Summary ---
Author Organization [facility] Address [address] [place] [address] Phone Care Team Providers Care Coordinator Of Rehabilitation Services Name Role Phone Daly Canales MD Primary Care Provider Encounter Details Date Type Department Care Team (Late st Contact Info) Description 12/19/2009 Documentation [facility] [place] [address] [place] [address] Family Medicine, Physician [address] [place], [place] [phone] Social History Tobacco Use Types Packs/Day Years [...] on filedocumented in this encounter Care Teams Coordinator Of Rehabilitation Services Relationship Specialty Start Date End Date Daly Canales MD [address] [place] [address] PCP - General 11/30/16 08/01/22 documented as of this encounter
--- OUTSIDE RECORDS SUMMARY | 2024-12-15 14:57 | XMS_ITS | Clinical Summary ---
Author Organization [facility] Address [address] [place] [address] Phone Care Team Providers Care Funeral Prearrangement Counselor Name Role Phone Unavailable Primary Care Provider [...] AM EDT Pulse - - Temperature 36.4 C (97.5 F) 01/16/2011 12:00 AM EDT Respiratory Rate - - Oxygen Saturation - [...] 12/14/2018 12/14/2008, 08/26/2003, 04/11/1995, Additional history exists COVID-19 Vaccine () 12/22/2023 Influenza Vaccines (#1) 2024 HIB Vaccines Completed 07/21/1992, 10/20, 1991, Additional [...] complete this topic Procedures * Due to [place] [employer] law, this organization might not be sharing sensitive test results. Procedure Name Priority Date/Time Associated Diagnosis Comments CHLAMYDIA AND GONORRHEA, AMPLIFIED Routine 07/19/2011 1:02 PM EDT from Last 3 Months or Most Recently Relevant to Health Maintenance Results * Due to [place] [employer] law, this organization might not be sharing sensitive test results. * Chlamydia and Gonorrhoea, Amplified (07/19/2011 1:02 PM EDT) Pathologist [facility] URINE GC AMP PROBE NEGATIVE [facility] Comment: NO NEISSERIA GONORRHOEAE RNA DETECTED IN THIS PATIENT'S SAMPLE. (REFERENCE RANGE/NORMAL VALUE: NOT DETECTED) NOTE: THIS TEST USES PERFORATOR MEDIATED AMPLIFICATION METHOD TO DETECT rRNA FROM [...] OTHER AGENTS. URINE CHLAMYDIA AMP PROBE NEGATIVE [facility] Comment: NO CHLAMYDIA TRACHOMATIS RNA DETECTED IN THIS PATIENT'S SAMPLE. (REFERENCE RANGE/NORMAL VALUE: NOT DETECTED) 07/19/2011 1:02 PM EDT Narrative [facility] - 07/19/2011 1:02 PM EDT URINE CHLAMYDIA GC AMP PROBE us Daly Canales MD LAB MICROBIOLOGY - GENERAL ORDERABLES Final Result [facility] [address] [place] [address], [place] from Last 3 Months or Most Recently Relevant to Health Maintenance
--- OUTSIDE RECORDS SUMMARY | 2024-12-15 14:57 | XMS_ITS | Clinical Summary ---
Author Organization [facility] Address [address] [place] [address] Phone Care Team Providers Care Escrow Clerk Name Role Phone Madeline Bradford MD Primary [...] topic Medical Devices Not on file Insurance [facility] ACO ACO [place] [address] [place] [address] ACO Care Teams Escrow Clerk Relationship Specialty Start Date End Date Madeline Bradford MD [address] [place] [address] PCP - General Internal Medicine 06/30/22 Additional Source Comments The information contained in this document represents components of the legal health record. It is not the complete legal health record.[facility]
--- OUTSIDE RECORDS SUMMARY | 2024-12-15 14:57 | XMS_ITS | Encounter Summary ---
Author Organization [facility] Address [address] [place] [address] Phone Care Team Providers Care Cooperative Education Coordinator Name Role Phone Daly Canales MD Primary Care Provider Encounter Details Date Type Department Care Team (Late st Contact Info) Description 12/06/2016 Conversion Encounter [facility] [place] [address] [place] [address] Social History Tobacco Use Types Packs/Day Years [...] on filedocumented in this encounter Care Teams Cooperative Education Coordinator Relationship Specialty Start Date End Date Daly Canales MD [address] [place] [address] PCP - General 11/30/16 08/01/22 documented as of this encounter
--- OUTSIDE RECORDS SUMMARY | 2024-12-15 14:57 | XMS_ITS | Encounter Summary ---
Author Organization [facility] Address [address] [place] [address] Phone Care Team Providers Care President And Ceo Name Role Phone Daly Canales MD Primary Care Provider Encounter Details Date Type Department Care Team (Late st Contact Info) Description 09/16/2013 Documentation [facility] [place] [address] [place] [address] Family Medicine, Physician [address] [place], [place] [phone] Social History Tobacco Use Types Packs/Day Years [...] on filedocumented in this encounter Care Teams President And Ceo Relationship Specialty Start Date End Date Daly Canales MD [address] [place] [address] PCP - General 11/30/16 08/01/22 documented as of this encounter
--- OUTSIDE RECORDS SUMMARY | 2024-12-15 14:57 | XMS_ITS | Encounter Summary ---
Author Organization [facility] Address [address] [place] [address] Phone Care Team Providers Care Deputy Sheriff Generalist/Bailiff Name Role Phone Daly Canales MD Primary Care Provider Encounter Details Date Type Department Care Team (Late st Contact Info) Description 12/19/2009 Documentation [facility] Family Medicine [address] [place] [address] Family Medicine, Physician [address] [place], [place] [phone] Social History Tobacco Use Types Packs/Day Years [...] on filedocumented in this encounter Care Teams Deputy Sheriff Generalist/Bailiff Relationship Specialty Start Date End Date Daly Canales MD [address] [place] [phone] PCP - General 11/30/16 08/01/22 documented as of this encounter
== END 2024-12-15 14:49 | disposition home or self-care (01) ==
LOC: HO.HWS 14:00
PROVIDERS: PCP Internal Medicine; Visit Provider Advanced Practice Midwife
DX: Z34.90 Encounter for supervision of normal pregnancy, unspecified, unspecified trimester (principal)
CPT/HCPCS: 25942

== ENCOUNTER 2024-12-15 14:41 | Outpatient (REF) | payer OTHER, SELFPAY | END 2024-12-15 14:42 | disposition home or self-care (01) | LOC: HO.LAB 14:41 | PROVIDERS: Visit Provider Advanced Practice Midwife | DX: Z13.89 Encounter for screening for other disorder (principal) ==

== ENCOUNTER 2024-12-30 11:23 | Outpatient (AMB) | payer OTHER, SELFPAY ==
--- NOTE | 2024-12-30 11:44 | A.OFFVISPN_ITS ---
Intake Vital Signs 12/30/24 11:45 Height 5 ft 1 in Weight 179 lb BMI 33.8 BP 118/68 Intake Visit Reasons: KIERRA Allergies sulfamethoxazole (From BACTRIM) Allergy (Unknown, Verified 12/30/24 11:44) HIVES trimethoprim (From BACTRIM) Allergy (Unknown, Verified 12/30/24 11:44) HIVES Patient : Yes PFSH Medical History Choroid plexus cyst of fetus affecting care of mother, antepartum Encounter for supervision of other normal , second trimester Chronic pain syndrome Sinusitis Spondylosis, cervical Degeneration, intervertebral disc, cervical Thoracic scoliosis Thoracic spine pain Obesity (BMI 35.0-39.9 without comorbidity) Anxiety Neck pain Allergic rhinitis Ophthalmoplegic migraine Surgical History No pertinent past surgical history Family History Mother COPD (chronic obstructive pulmonary disease) Small cell lung cancer Social History Household Members: Spouse and Children Both parents involved: Yes Caregiver staying overnight: No Housing: Apartment Are you a primary respiratory care assistant to a significant other at home: No Do you presently have visiting nurse or other home services: No 75 years or older and lives alone: No Alcohol intake: never Patient Tobacco Use Status: Never used Tobacco e-Cigarette/Vaping Use: Never Used Second Hand Smoke Exposure: No Agree to transfusion: Yes service: No Current occupational status: unemployed Current occupational exposures/hazards: No Gender identity: Female Cognitive needs: No Hearing needs: No Vision needs: No Female Reproductive History Menstrual Age of Menarche: 15 History History 4 Elective abortions 0 Para 3 Spontaneous abortions 0 Hx # Term Pregnancies 3 Ectopic pregnancies 0 Hx # Pregnancies 0 Multiple births 0 Past Pregnancies Del. Date GA/Weeks Outcome Route Wt Inf Gender Labor Dilia Anesthesia Location Provider Complicate 05/13/13 42 live - full term vaginal delivery 9 lb 14 oz Male epidural [facility] none 12/06/17 40 live - full term vaginal delivery 7 lb Female epidural [facility] none 07/26/23 41 live - full term vaginal delivery 9 lb Female 6 epidural [facility] other Visit DELORES Calculator Estimated Delivery Date Method Current WG Current Estimate 01/18/25 Ultrasound #1 37w 2d Other Estimates 01/23/25 LMP (Certain) 36w 4d Expected Delivery Route/Plan Specific Issues/Plans 34 yr. old EDC: 01/24/25 by US at 21.4wks Blood type: O pos Problem List: 1. ambivalence-consult at [facility] x2., late for care, gaps in care. 2. Hx GBS positive. Testing: Panorama: NT scan: too late AFP: FAS: Choroid plexus cyst seen Glucose: early 28 wk glucose: CBC 1st Tri: 28 wk. CBC: GBS: Negative Vaccinations: Flu: completed Covid: x2 Tdap: RSV: [id number]: Education/Services WIC: enrolled Social Supports/stressors: mom 10/05/24, family feud re: estate. Living situation: Partner, her 3 children. Supports: Partner-Romario Work/school: unemployed Transportation: owns car Labor, and Concerns: Labor support: Betsy Plan: epidural Infant Feeding Plans: bottle control: PPTL at [facility] [place] OCP's OB Visit Log Initial Weight: 175 lb Date -?-?-?-?-?-?-?-?-?-?-?-?- EGA Weight Gest Week Fundal Ht Present FHR move Efface % Edema BP PrePreg We Weight GTT -?-?-?-?-?-?-?-?-?-?-?-?- Glucose LV Protein Blood Type 10/06/24 -?-?-?-?-?-?-?-?-?-?-?-?- 25w 1d 172 lb (-3 lb) 26 150 active 124/80 172 lb -?-?-?-?-?-?-?-?-?-?-?-?- 11/11/24 -?-?-?-?-?-?-?-?-?-?-?-?- 30w 2d 176 lb 4 oz (+1 lb 4 oz) 30 150 active 118/70 176 lb 4 oz -?-?-?-?-?-?-?-?-?-?-?-?- 12/01/24 -?-?-?-?-?-?-?-?-?-?-?-?- 33w 1d 177 lb (+2 lb) 177 lb (+2 lb) 34 150 active 110/66 110/66 177 lb 177 lb -?-?-?-?-?-?-?-?-?-?-?-?- 12/15/24 -?-?-?-?-?-?-?-?-?-?-?-?- 35w 1d 180 lb (+5 lb) 36 145 active 114/70 180 lb -?-?-?-?-?-?-?-?-?-?-?-?- 12/30/24 -?-?-?-?-?-?-?-?-?-?-?-?- 37w 2d 179 lb (+4 lb) 36 150 active 118/68 179 lb -?-?-?-?-?-?-?-?-?-?-?-?- Notes Visit Date: 12/30/24 Last Updated by: Chely Redmond CNM Note author: Chely Redmond CNM. 37.2 wk. KIERRA. Taking PNV, Doing well with no concerns. Good appetite, stays well hydrated. Denies any LOF, VB, abd. pain or urinary symptoms. Good FM, ultrasound at [facility] was 12/22/2024 no copies on hand we will request today a copy to be forward to the o. Reviewed: Labor s/s-LOF/Ctx's/VB, when to seek emergent care. discomforts, self help measures. Flu vaccine when available. Discuss tubal ligation consult, can schedule any time. [facility] and when to call for further evaluation. Encouraged a healthy well balanced diet, regular walking/exercise in pre gnancy. Hydrate well, 10-12 glasses of water daily. RTO 1wks. Visit Date: 12/15/24 Last Updated by: Chely Redmond CNM Note author: Chely Redmond CNM. 35.1wk. KIERRA. Taking PNV, Doing well with no concerns. Good appetite, stays well hydrated. Denies any LOF, VB, abd. pain or urinary symptoms. Good FM. Follow up US is rescheduled to 12/22/24-at [facility]. Reviewed: PTL s/s-LOF/Ctx's/VB, when to seek emergent care. discomforts, self help measures. [facility] and when to call for further evaluation. Encouraged a healthy well balanced diet, regular walking/exercise in . Hydrate well, 10-12 glasses of water daily. GBS, GC/ct and BV panel today-prefers female provider for exams. RTO 1 wks. Visit Date: 12/01/24 Last Updated by: Chely Redmond CNM OB visit Note author: Chely Redmond CNM. 33wk. KIERRA. Taking PNV, Good appetite, stays well hydrated. Denies any LOF, VB, abd. pain or urinary symptoms. Admits to increased discharge without any symptoms wants it checked. Good FM. EPDS=1. Reviewed: PTL s/s-LOF/Ctx's/VB, when to seek emergent care. discomforts, self help measures. [facility] and when to call for further evaluation. Encouraged a healthy well balanced diet, regular walking/exercise in . Hydrate well, 10-12 glasses of water daily. Tdap today. GC/CT and BV panel obtained. RTO 2wks. Visit Date: 11/11/24 Last Updated by: Chely Redmond CNM Note author: Chely Redmond CNM. 30wk. KIERRA. Taking PNV, Doing well with no concerns. Fair appetite-reports stress with family over property ownership in the will of her mom requiring her to be going to court in the future. Stays well hydrated. Denies any LOF, VB, abd. pain or urinary symptoms. Had a glucose on an empty stomach and vomited this week plans to repeat it on Saturday. Her 3 children are present for today's visit. Reviewed: PTL s/s-LOF/Ctx's/VB, when to seek emergent care. discomforts, self help measures. [facility] and when to call the office for further eval. Encouraged a healthy well balanced diet, regular walking/exercise in . Hydrate well, 10-12 glasses of water daily. Complete glucose testing. US follow up planned for [facility]. RTO 2wks. Visit Date: 10/06/24 Last Updated by: Chely Redmond CNM Note author: Chely Redmond CNM. 25.1wk. KIERRA. Taking PNV, Doing well with no concerns. Good appetite, stays well hydrated. Denies any LOF, VB, abd. pain or urinary symptoms. Good FM. Her mom yesterday of lung cancer. Reviewed ultrasound findings. Reviewed: PTL s/s-LOF/Ctx's/VB, when to seek emergent care. discomforts, self help measures. [facility] and when to call for further evaluation. Encouraged a healthy well balanced diet, regular walking/exercise in . Hydrate well, 10-12 glasses of water daily. Strongly encouraged to do her labs today. Discussed grief and self-care. RTO 3 wks. Results AMB Urinalysis, Automated UA Leukoctes 1 Ethan/uL Last Edit by Barbara Maguire [facility] on 12/30/24 11:47 UA Nitrite Negative Last Edit by Barbara Maguire [facility] on 12/30/24 11:47 UA Urobilinogen 0 mg/dL Last Edit by Barbara Maguire [facility] on 12/30/24 11:4 7 UA Protein 0.5 mg/dL Last Edit by Barbara Maguire [facility] on 12/30/24 11:47 UA pH 6 Last Edit by Barbara Maguire [facility] on 12/30/24 11:47 UA Blood 0 John/uL Last Edit by Barbara Maguire [facility] on 12/30/24 11:47 UA Specific [place] 1.020 Last Edit by Barbara Maguire [facility] on 12/30/24 11:47 UA Ketone Negative Last Edit by Barbara Maguire [facility] on 12/30/24 11:47 UA Bilirubin 0 mg/dL Last Edit by Barbara Maguire [facility] on 12/30/24 11:47 UA Glucose 0 mg/dL Last Edit by Barbara Maguire [facility] on 12/30/24 11:47 Results Reviewed Results Reviewed: Laboratory Last Values Urine pH (Auto) 6 12/30/24 11:42 Specific [place] (Auto) 1.020 12/30/24 11:42 Urine Protein (Auto) 0.5 mg/dL 12/30/24 11:42 Glucose (UA)(Auto) 0 mg/dL 12/30/24 11:42 Urine Ketones (Auto) Negative 12/30/24 11:42 Urine Blood (Auto) 0 John/uL 12/30/24 11:42 Urine Nitrite (Auto) Negative 12/30/24 11:42 Urine Bilirubin (Auto) 0 mg/dL 12/30/24 11:42 Urine Urobilinogen (Auto) 0 mg/dL 12/30/24 11:42 Leukocyte Esterase (Auto) 1 Ethan/uL 12/30/24 11:42 Coding Level of Care Code [place] Assessment & Plan Assessment & Plan Orders: Orders AMB Urinalysis Automated Today O09.43 - Supervision of with grand multiparity, third trimester
[2024-12-30 11:45] VITALS: BP 118/68; BMI 33.8
--- OUTSIDE RECORDS SUMMARY | 2024-12-30 14:31 | XMS_ITS | Clinical Summary ---
Author Organization [facility] Address [address] [place] [id number] Phone Care Team Providers Care Ballistics Laboratory Gunsmith Name Role Phone Madeline Bradford MD Primary [...] SMEAR 2012 Adult Td,Tdap Booster 12/14/2018 12/14/2008 INFLUENZA VACCINE (#1) 2024 COVID-19 VACCINE (2023-2 5 season) 2024 SMOKING STATUS SCREENING (On ce After 26 [...] topic Medical Devices Not on file Insurance ACO ACO ACO ACO ACO [facility] ACO Care Teams Ballistics Laboratory Gunsmith Relationship Specialty Start Date End Date Madeline Bradford MD [address] [place] [address] PCP - General Internal Medicine 06/30/22 Additional Source Comments The information contained in this document represents components of the legal health record. It is not the complete legal health record.[facility]
--- OUTSIDE RECORDS SUMMARY | 2024-12-30 14:31 | XMS_ITS | Clinical Summary ---
Author Organization [facility] Address [address] [place] [phone] Phone Care Team Providers Care Wide Load Escort Name Role Phone Unavailable Primary Care Provider [...] 04/11/1995, Additional history exists Influenza Vaccines (#1) 2024 COVID-19 Vaccine ( season) 2024 HIB Vaccines Completed 07/21/1992, 10/20, 1991, [...] complete this topic Procedures * Due to [place] [employer] law, this organization might not be sharing sensitive test results. Procedure Name Priority Date/Time Associated Diagnosis Comments CHLAMYDIA AND GONORRHEA, AMPLIFIED Routine 07/19/2011 1:02 PM EDT from Last 3 Months or Most Recently Relevant to Health Maintenance Results * Due to [place] [employer] law, this organization might not be sharing sensitive test results. * Chlamydia and Gonorrhoea, Amplified (07/19/2011 1:02 PM EDT) Pathologist [facility] URINE GC AMP PROBE NEGATIVE [facility] Comment: NO NEISSERIA GONORRHOEAE RNA DETECTED IN THIS PATIENT'S SAMPLE. (REFERENCE RANGE/NORMAL VALUE: NOT DETECTED) NOTE: THIS TEST USES JUNIOR SOFTWARE ENGINEER MEDIATED AMPLIFICATION METHOD TO DETECT rRNA FROM [...] OTHER AGENTS. URINE CHLAMYDIA AMP PROBE NEGATIVE [facility] Comment: NO CHLAMYDIA TRACHOMATIS RNA DETECTED IN THIS PATIENT'S SAMPLE. (REFERENCE RANGE/NORMAL VALUE: NOT DETECTED) 07/19/2011 1:02 PM EDT Narrative [facility] - 07/19/2011 1:02 PM EDT URINE CHLAMYDIA GC AMP PROBE us Daly Canales MD LAB MICROBIOLOGY - GENERAL ORDERABLES Final Result [facility] [address] [place] [address], [place] from Last 3 Months or Most Recently Relevant to Health Maintenance
--- OUTSIDE RECORDS SUMMARY | 2024-12-30 14:31 | XMS_ITS | Encounter Summary ---
Author Organization [facility] Address [address] [place] [phone] Phone Care Team Providers Care Booster Pump Oiler Name Role Phone Daly Canales MD Primary Care Provider Encounter Details Date Type Department Care Team (Late st Contact Info) Description 09/16/2013 Documentation [facility] [place] Family Medicine [address] [place] [address] Family Medicine, Physician [address] [place], [place] [phone] Social History Tobacco Use Types Packs/Day Years [...] on filedocumented in this encounter Care Teams Booster Pump Oiler Relationship Specialty Start Date End Date Daly Canales MD [address] [place] [phone] PCP - General 11/30/16 08/01/22 documented as of this encounter
--- OUTSIDE RECORDS SUMMARY | 2024-12-30 14:31 | XMS_ITS | Encounter Summary ---
Author Organization [facility] Address [address] [place] [address] Phone Care Team Providers Care Bag Worker Name Role Phone Daly Canales MD Primary Care Provider Encounter Details Date Type Department Care Team (Late st Contact Info) Description 12/19/2009 Documentation [facility] [place] [address] [place] [address] Family Medicine, Physician [address] [place], [place] [phone] Social History Tobacco Use Types Packs/Day Years [...] on filedocumented in this encounter Care Teams Bag Worker Relationship Specialty Start Date End Date Daly Canales MD [address] [place] [id number] PCP - General 11/30/16 08/01/22 documented as of this encounter
--- OUTSIDE RECORDS SUMMARY | 2024-12-30 14:31 | XMS_ITS | Encounter Summary ---
Author Organization [facility] Address [address] [place] [address] Phone Care Team Providers Care Sales Representative Advertising Name Role Phone Daly Canales MD Primary Care Provider [phone] Encounter Details Date Type Department Care Team (Late st Contact Info) Description 12/06/2016 Conversion Encounter [facility] [place] [address] [place] [address] Social History Tobacco Use Types Packs/Day Years [...] on filedocumented in this encounter Care Teams Sales Representative Advertising Relationship Specialty Start Date End Date Daly Canales MD [address] [place] [address] PCP - General 11/30/16 08/01/22 documented as of this encounter
--- OUTSIDE RECORDS SUMMARY | 2024-12-30 14:31 | XMS_ITS | Encounter Summary ---
Author Organization [facility] Address [address] [place] [address] Phone Care Team Providers Care Associate [employer] Name Role Phone Daly Canales MD Primary Care Provider Encounter Details Date Type Department Care Team (Late st Contact Info) Description 12/19/2009 Documentation [facility] [place] [address] [place] [address] Family Medicine, Physician [address] [place], [place] [phone] Social History Tobacco Use Types Packs/Day Years [...] on filedocumented in this encounter Care Teams Associate [employer] Relationship Specialty Start Date End Date Daly Canales MD [address] [place] [phone] PCP - General 11/30/16 08/01/22 documented as of this encounter
== END 2024-12-30 12:13 | disposition home or self-care (01) ==
LOC: HO.HWS 11:23
PROVIDERS: PCP Internal Medicine; Visit Provider Advanced Practice Midwife
DX: O09.43 Supervision of pregnancy with grand multiparity, third trimester (principal)
CPT/HCPCS: 25942

== ENCOUNTER → 2024-12-30 11:23 | Outpatient (BNVA) | payer OTHER, SELFPAY | PROVIDERS: PCP Internal Medicine; Visit Provider Advanced Practice Midwife | DX: O09.43 Supervision of pregnancy with grand multiparity, third trimester (principal); Z3A.37 37 weeks gestation of pregnancy | CPT/HCPCS: 81003; 99212 ==

== ENCOUNTER 2025-01-14 09:00 | Outpatient (AMB) | payer OTHER, SELFPAY ==
[2025-01-14 09:08] VITALS: BP 128/76; BMI 35.0
--- NOTE | 2025-01-14 09:08 | MHC.OFFVIS ---
Vital Signs 01/14/25 09:08 Height 5 ft 1 in Weight 185 lb BMI 35.0 BP 128/76 Blood Pressure Location Rt brachial Position Sitting Intake Visit Reasons: OB Intake Note: 39 wks and 3 days . has been feeling pressure in the vaginal area. Ice Seller Required: No Information Interpreted: non-clinical & clinical Funeral Pre Arrangement Counselor: Funeral Pre Arrangement Counselor Present (alfred) Accompanied by: Significant Other Allergies sulfamethoxazole (From BACTRIM) Allergy (Unknown, Verified 01/14/25 09:13) HIVES trimethoprim (From BACTRIM) Allergy (Unknown, Verified 01/14/25 09:13) HIVES Medication List - Last Reconciled 01/14/25 by Aleksandra Graves LPN acetaminophen 500 mg PO Q6H PRN 30 days amoxicillin 500 mg PO BID 7 days ferrous sulfate 325 mg PO DAILY 90 days fluticasone propionate 50 mcg/actuation (Flonase Allergy Relief) 1 spray intranasal DAILY 30 days oxycodone 5 mg PO BID PRN 14 days PNV [id number] 90 mg iron- 1 mg-200 mg 1 cap PO DAILY Patient : Yes Do you need a note to return to daycare/school/sports/work: No PFSH Medical History Choroid plexus cyst of fetus affecting care of mother, antepartum Encounter for supervision of other normal , second trimester Chronic pain syndrome Sinusitis Spondylosis, cervical Degeneration, intervertebral disc, cervical Thoracic scoliosis Thoracic spine pain Obesity (BMI 35.0-39.9 without comorbidity) Anxiety Neck pain Allergic rhinitis Ophthalmoplegic migraine Surgical History No pertinent past surgical history Family History Mother COPD (chronic obstructive pulmonary disease) Small cell lung cancer Social History Household Members: Spouse and Children Both parents involved: Yes Caregiver staying overnight: No Housing: Apartment Are you a primary customer care manager to a significant other at home: No Do you presently have visiting nurse or other home services: No 75 years or older and lives alone: No Alcohol intake: never Patient Tobacco Use Status: Never used Tobacco e-Cigarette/Vaping Use: Never Used Second Hand Smoke Exposure: No Agree to transfusion: Yes service: No Current occupational status: unemployed Current occupational exposures/hazards: No Gender identity: Female Cognitive needs: No Hearing needs: No Vision needs: No Female Reproductive History Menstrual Age of Menarche: 15 Physical Exam Vital Signs: Last Vital Signs BP 128/76 01/14/25 09:08 BMI result Body Mass Index 35.0 Coding
--- NOTE | 2025-01-14 09:16 | MHC.OFFVISPN ---
Intake Vital Signs 01/14/25 09:08 Height 5 ft 1 in Weight 185 lb BMI 35.0 BP 128/76 Blood Pressure Location Rt brachial Position Sitting Intake Visit Reasons: OB Intake Note: patient here for ob appt. patient feeling vaginal pressure Information Interpreted: non-clinical & clinical General Maintenance Mechanic: General Maintenance Mechanic Present (alfred) Accompanied by: Significant Other Allergies sulfamethoxazole (From BACTRIM) Allergy (Unknown, Verified 01/14/25 09:22) HIVES trimethoprim (From BACTRIM) Allergy (Unknown, Verified 01/14/25 09:22) HIVES Medication List - Last Reconciled 01/14/25 by Aleksandra Graves LPN acetaminophen 500 mg PO Q6H PRN 30 days amoxicillin 500 mg PO BID 7 days ferrous sulfate 325 mg PO DAILY 90 days fluticasone propionate 50 mcg/actuation (Flonase Allergy Relief) 1 spray intranasal DAILY 30 days oxycodone 5 mg PO BID PRN 14 days PNV [id number]-dha 90 mg iron- 1 mg-200 mg 1 cap PO DAILY Patient : Yes Do you need a note to return to daycare/school/sports/work: No PFSH Medical History (Updated 01/14/25 @ 09:35 by Chely Redmond CNM) Small for dates affecting management of mother Choroid plexus cyst of fetus affecting care of mother, antepartum Encounter for supervision of other normal , second trimester Chronic pain syndrome Sinusitis Spondylosis, cervical Degeneration, intervertebral disc, cervical Thoracic scoliosis Thoracic spine pain Obesity (BMI 35.0-39.9 without comorbidity) Anxiety Neck pain Allergic rhinitis Ophthalmoplegic migraine Surgical History No pertinent past surgical history Family History Mother COPD (chronic obstructive pulmonary disease) Small cell lung cancer Social History Household Members: Spouse and Children Both parents involved: Yes Caregiver staying overnight: No Housing: Apartment Are you a primary respiratory care specialist to a significant other at home: No Do you presently have visiting nurse or other home services: No 75 years or older and lives alone: No Alcohol intake: never Patient Tobacco Use Status: Never used Tobacco e-Cigarette/Vaping Use: Never Used Second Hand Smoke Exposure: No Agree to transfusion: Yes service: No Current occupational status: unemployed Current occupational exposures/hazards: No Gender identity: Female Cognitive needs: No Hearing needs: No Vision needs: No Female Reproductive History Menstrual Age of Menarche: 15 History History 4 Elective abortions 0 Para 3 Spontaneous abortions 0 Hx # Term Pregnancies 3 Ectopic pregnancies 0 Hx # Pregnancies 0 Multiple births 0 Past Pregnancies Del. Date GA/Weeks Outcome Route Wt Inf Gender Labor Dilia Anesthesia Location Provider Complicate 05/13/13 42 live - full term vaginal delivery 9 lb 14 oz Male epidural [facility] none 12/06/17 40 live - full term vaginal delivery 7 lb Female epidural [facility] none 07/26/23 41 live - full term vaginal delivery 9 lb Female 6 epidural [facility] other Visit [facility] Calculator Estimated Delivery Date Method Current WG Current Estimate 01/18/25 Ultrasound #1 39w 3d Other Estimates 01/23/25 LMP (Certain) 38w 5d Expected Delivery Route/Plan Specific Issues/Plans 34 yr. old EDC: 01/24/25 by US at 21.4wks Blood type: O pos Problem List: 1. ambivalence-consult at [facility] x2., late for care, gaps in care. 2. Hx GBS positive. Testing: Panorama: NT scan: too late AFP: FAS: Choroid plexus cyst seen Glucose: early 28 wk glucose: CBC 1st Tri: 28 wk. CBC: GBS: Negative Vaccinations: Flu: completed Covid: x2 Tdap: RSV: 30-70ibu-Nneluibhe-April: Education/Services WIC: enrolled Social Supports/stressors: mom 10/05/24, family feud re: estate. Living situation: Partner, her 3 children. Supports: Partner-Romario Work/school: unemployed Transportation: owns car Labor, and Concerns: Labor support: Romarioffluis eduardo Plan: epidural Infant Feeding Plans: bottle control: PPTL at [facility], OCP's, counseled regarding Lilita IUD at [facility]-01/14 OB Visit Log Initial Weight: 175 lb Date <del>?</del> EGA Weight Gest Week Fundal Ht Present FHR move Efface % Edema BP PrePreg We Weight GTT <del>?</del> Glucose LV Protein Blood Type 10/06/24 <del>?</del> 25w 1d 172 lb (-3 lb) 26 150 active 124/80 172 lb <del>?</del> 11/11/24 <del>?</del> 30w 2d 176 lb 4 oz (+1 lb 4 oz) 30 150 active 118/70 176 lb 4 oz <del>?</del> 12/01/24 <del>?</del> 33w 1d 177 lb (+2 lb) 177 lb (+2 lb) 34 150 active 110/66 110/66 177 lb 177 lb <del>?</del> 12/15/24 <del>?</del> 35w 1d 180 lb (+5 lb) 36 145 active 114/70 180 lb <del>?</del> 12/30/24 <del>?</del> 37w 2d 179 lb (+4 lb) 36 150 active 118/68 179 lb <del>?</del> 01/14/25 <del>?</del> 39w 3d 185 lb (+10 lb) 37 150 active 128/76 185 lb <del>?</del> Notes Visit Date: 01/14/25 Last Updated by: Chely Redmond CNM Note author: Chely Redmond CNM. 39.2wk. KIERRA. Taking PNV, Doing well with no concerns. Tired, ready to have the baby, present today. Good appetite, tries to stays hydrated. Denies any LOF, VB, abd. pain or urinary symptoms. Plans PPTL, no consents have been signed. Reviewed: Labor s/s-LOF/Ctx's/VB, when to seek emergent care. discomforts, self help measures. Small for dates plan growth check as soon as possible. FKC and when to call the office for further eval. Cervical exam 1 cm firm/ 20%/-3/vtx Encouraged a healthy well balanced diet, regular walking/exercise in . Hydrate well, 10-12 glasses of water daily. RTO 1wks. Visit Date: 12/30/24 Last Updated by: Chely Redmond CNM Note author: Chely Redmond CNM. 37.2 wk. KIERRA. Taking PNV, Doing well with no concerns. Good appetite, stays well hydrated. Denies any LOF, VB, abd. pain or urinary symptoms. Good FM, ultrasound at [facility] was 12/22/2024 no copies on hand we will request today a copy to be forward to the o. Reviewed: Labor s/s-LOF/Ctx's/VB, when to seek emergent care. discomforts, self help measures. Flu vaccine when available. Discuss tubal ligation consult, can schedule any time. FMC and when to call for further evaluation. Encouraged a healthy well balanced diet, regular walking/exercise in . Hydrate well, 10-12 glasses of water daily. RTO 1wks. Visit Date: 12/15/24 Last Updated by: Chely Redmond CNM Note author: Chely Redmond CNM. 35.1wk. KIERRA. Taking PNV, Doing well with no concerns. Good appetite, stays well hydrated. Denies any LOF, VB, abd. pain or urinary symptoms. Good FM. Follow up US is rescheduled to 12/22/24-at [facility]. Reviewed: PTL s/s-LOF/Ctx's/VB, when to seek emergent care. discomforts, self help measures. FMC and when to call for further evaluation. Encouraged a healthy well balanced diet, regular walking/exercise in . Hydrate well, 10-12 glasses of water daily. GBS, GC/ct and BV panel today-prefers female provider for exams. RTO 1 wks. Visit Date: 12/01/24 Last Updated by: Chely Redmond, CNM OB visit Note author: Chely Redmond CNM. 33wk. KIRERA. Taking PNV, Good appetite, stays well hydrated. Denies any LOF, VB, abd. pain or urinary symptoms. Admits to increased discharge without any symptoms wants it checked. Good FM. EPDS=1. Reviewed: PTL s/s-LOF/Ctx's/VB, when to seek emergent care. discomforts, self help measures. FMC and when to call for further evaluation. Encouraged a healthy well balanced diet, regular walking/exercise in . Hydrate well, 10-12 glasses of water daily. Tdap today. GC/CT and BV panel obtained. RTO 2wks. Visit Date: 11/11/24 Last Updated by: Chely Redmond CNM Note author: Chely Redmond CNM. 30wk. KIERRA. Taking PNV, Doing well with no concerns. Fair appetite-reports stress with family over property ownership in the will of her mom requiring her to be going to court in the future. Stays well hydrated. Denies any LOF, VB, abd. pain or urinary symptoms. Had a glucose on an empty stomach and vomited this week plans to repeat it on Saturday. Her 3 children are present for today's visit. Reviewed: PTL s/s-LOF/Ctx's/VB, when to seek emergent care. discomforts, self help measures. FKC and when to call the office for further eval. Encouraged a healthy well balanced diet, regular walking/exercise in . Hydrate well, 10-12 glasses of water daily. Complete glucose testing. US follow up planned for [facility]. RTO 2wks. Visit Date: 10/06/24 Last Updated by: Chely Redmond CNM Note author: Chely Redmond CNM. 25.1wk. KIERRA. Taking PNV, Doing well with no concerns. Good appetite, stays well hydrated. Denies any LOF, VB, abd. pain or urinary symptoms. Good FM. Her mom yesterday of lung cancer. Reviewed ultrasound findings. Reviewed: PTL s/s-LOF/Ctx's/VB, when to seek emergent care. discomforts, self help measures. FMC and when to call for further evaluation. Encouraged a healthy well balanced diet, regular walking/exercise in . Hydrate well, 10-12 glasses of water daily. Strongly encouraged to do her labs today. Discussed grief and self-care. RTO 3 wks. Results AMB Urinalysis, Automated UA Leukoctes Ethan/uL Last Edit by Aleksandra Graves LPN on 01/14/25 09:31 UA Nitrite Last Edit by Aleksandra Graves LPN on 01/14/25 09:31 UA Urobilinogen 17 mg/dL Last Edit by Aleksandra Graves LPN on 01/14/25 09:31 UA Protein 0.3 mg/dL Last Edit by Aleksandra Graves LPN on 01/14/25 09:31 UA pH 6.0 Last Edit by Aleksandra Graves LPN on 01/14/25 09:31 UA Blood John/uL Last Edit by Aleksandra Graves LPN on 01/14/25 09:31 UA Specific [place] 1.020 Last Edit by Aleksandra Graves LPN on 01/14/25 09:31 UA Ketone Positive Last Edit by Aleksandra Graves LPN on 01/14/25 09:31 UA Bilirubin mg/dL Last Edit by Aleksandra Graves LPN on 01/14/25 09:31 UA Glucose mg/dL Last Edit by Aleksandra Graves LPN on 01/14/25 09:31 Results Reviewed Results Reviewed: Laboratory Last Values Urine pH (Auto) 6.0 01/14/25 09:23 Specific [place] (Auto) 1.020 01/14/25 09:23 Urine Protein (Auto) 0.3 mg/dL 01/14/25 09:23 Urine Ketones (Auto) Positive 01/14/25 09:23 Urine Urobilinogen (Auto) 17 mg/dL 01/14/25 09:23 Coding Level of Care Code [place] Diagnoses Small for dates affecting management of mother O36.5990 Assessment & Plan Assessment & Plan (1) Small for dates affecting management of mother: Code(s): O36.5990 - Maternal care for other known or suspected poor growth, unspecified trimester, not applicable or unspecified Category: Medical Orders: Orders AMB Urinalysis Automated Today Z78.9 - Other specified health status OB follow up Today O36.5990 - Maternal care for other known or suspected poor growth, unspecified trimester, not applicable or unspecified
--- OUTSIDE RECORDS SUMMARY | 2025-01-14 09:44 | XMS_ITS | Encounter Summary ---
Author Organization [facility] Address [address] [place] [address] Phone Care Team Providers Care Masonry Teacher Name Role Phone Daly Canales MD Primary Care Provider [phone] Encounter Details Date Type Department Care Team (Late st Contact Info) Description 12/06/2016 Conversion Encounter [facility] [place] [address] [place] [address] Social History Tobacco Use Types Packs/Day Years [...] on filedocumented in this encounter Care Teams Masonry Teacher Relationship Specialty Start Date End Date Daly Canales MD [address] [place] [address] PCP - General 11/30/16 08/01/22 documented as of this encounter
--- OUTSIDE RECORDS SUMMARY | 2025-01-14 09:44 | XMS_ITS | Clinical Summary ---
Author Organization [facility] Address [address] [place] [address] Phone Care Team Providers Care Appeals Analyst Name Role Phone Unavailable Primary Care Provider [...] this topic Procedures * Due to [place] DeRev law, this organization might not be sharing sensitive test results. Procedure Name Priority Date/Time Associated Diagnosis Comments CHLAMYDIA AND GONORRHEA, AMPLIFIED Routine 07/19/2011 1:02 PM EDT from Last 3 Months or Most Recently Relevant to Health Maintenance Results * Due to [place] DeRev law, this organization might not be sharing sensitive test results. * Chlamydia and Gonorrhoea, Amplified (07/19/2011 1:02 PM EDT) Pathologist [facility] URINE GC AMP PROBE NEGATIVE [facility] Comment: NO NEISSERIA GONORRHOEAE RNA DETECTED IN THIS PATIENT'S SAMPLE. (REFERENCE RANGE/NORMAL VALUE: NOT DETECTED) NOTE: THIS TEST USES LOAN REVIEW OFFICER MEDIATED AMPLIFICATION METHOD TO DETECT rRNA FROM [...] OTHER AGENTS. URINE CHLAMYDIA AMP PROBE NEGATIVE [facility] Comment: NO CHLAMYDIA TRACHOMATIS RNA DETECTED IN THIS PATIENT'S SAMPLE. (REFERENCE RANGE/NORMAL VALUE: NOT DETECTED) 07/19/2011 1:02 PM EDT Narrative [facility] - 07/19/2011 1:02 PM EDT URINE CHLAMYDIA GC AMP PROBE us Daly Canales MD LAB MICROBIOLOGY - GENERAL ORDERABLES Final Result [facility] [address] [place] [address], [place] from Last 3 Months or Most Recently Relevant to Health Maintenance
--- OUTSIDE RECORDS SUMMARY | 2025-01-14 09:44 | XMS_ITS | Encounter Summary ---
Author Organization [facility] Address [address] [place] [place] [phone] Phone Care Team Providers Care Supervisor Commissary Production Name Role Phone Daly Canales MD Primary Care Provider Encounter Details Date Type Department Care Team (Late st Contact Info) Description 12/19/2009 Documentation [facility] [place] Family Medicine [address] [place] [address] Family Medicine, Physician [address] [place], [place] [phone] Social History Tobacco Use Types Packs/Day Years [...] on filedocumented in this encounter Care Teams Supervisor Commissary Production Relationship Specialty Start Date End Date Daly Canales MD [address] [place] [id number] PCP - General 11/30/16 08/01/22 documented as of this encounter
--- OUTSIDE RECORDS SUMMARY | 2025-01-14 09:44 | XMS_ITS | Encounter Summary ---
Author Organization [facility] Address [address] [place] [address] Phone Care Team Providers Care Surface Boss Name Role Phone Daly Canales MD Primary Care Provider Encounter Details Date Type Department Care Team (Late st Contact Info) Description 12/19/2009 Documentation [facility] [place] Family Medicine [address] [place] [address] Family Medicine, Physician [address] [place], [place] [phone] Social History Tobacco Use Types Packs/Day Years [...] on filedocumented in this encounter Care Teams Surface Boss Relationship Specialty Start Date End Date Daly Canales MD [address] [place] [address] PCP - General 11/30/16 08/01/22 documented as of this encounter
--- OUTSIDE RECORDS SUMMARY | 2025-01-14 09:44 | XMS_ITS | Encounter Summary ---
Author Organization [facility] Address [address] [place] [address] Phone Care Team Providers Care Claims Representative Name Role Phone Daly Canales MD Primary Care Provider Encounter Details Date Type Department Care Team (Late st Contact Info) Description 09/16/2013 Documentation [facility] [place] [address] [place] [address] Family Medicine, Physician [address] [place], [place] [phone] Social History Tobacco Use Types Packs/Day Years [...] on filedocumented in this encounter Care Teams Claims Representative Relationship Specialty Start Date End Date Daly Canales MD [address] [place] [address] PCP - General 11/30/16 08/01/22 documented as of this encounter
== END 2025-01-14 09:39 | disposition home or self-care (01) ==
LOC: HO.HWS 09:00
PROVIDERS: PCP Internal Medicine; Visit Provider Advanced Practice Midwife
DX: O36.5990 Maternal care for other known or suspected poor fetal growth, unspecified trimester, not applicable or unspecified (principal); Z78.9 Other specified health status
CPT/HCPCS: 25942

== ENCOUNTER → 2025-01-14 09:00 | Outpatient (BNVA) | payer OTHER, SELFPAY | PROVIDERS: PCP Internal Medicine; Visit Provider Advanced Practice Midwife | DX: O36.5931 Maternal care for other known or suspected poor fetal growth, third trimester, fetus 1 (principal) | CPT/HCPCS: 81003; 99212 ==

== ENCOUNTER 2025-01-19 07:54 | Outpatient (AMB) | payer OTHER, SELFPAY ==
--- OUTSIDE RECORDS SUMMARY | 2025-01-19 08:01 | XMS_ITS | Clinical Summary ---
Author Organization [facility] Address [address] [place] [address] Phone Care Team Providers Care Systems Manager Name Role Phone Madeline Bradford MD Primary Care Provid er Allergies Active Allergy Reactions Criticality Noted Date Comments Sulfamethoxazole-Trimethoprim Hives 2022 Medications amoxicillin (AMOXIL) 500 MG capsule Take 1 capsule (500 mg total) by mouth 3 (three) times a day for 10 days. 30 capsule 01/06/2025 01/17/20 25 Active Problems No known active problems Encounters Date Type Department Care Team Description 01/06/2025 7:00 AM EDT Telemedicine [facility] [address] [place] [address] Alice Peñaloza, DANTE Acute pharyngitis, unspecified etiology (Primary Dx) from Last 3 Months Social History Tobacco Use Types Packs/Day Years [...] Health Maintenance Due Date Last Done Comments Adult Td,Tdap Booster 1991 DEPRESSION SCREENING 2003 HEPATITIS C SCREENING 2009 HIV ONE-TIME SCREENING (18-6 5 YEARS) 2009 PAP SMEAR 2012 INFLUENZA VACCINE (#1) 2024 COVID-19 VACCINE (2023-2 [...] topic Medical Devices Not on file Insurance [employer] ACO ACO [employer]IANCE ACO ACO ACO Care Teams Systems Manager Relationship Specialty Start Date End Date Madeline Bradford MD [address] [place] [address] PCP - General Internal Medicine 06/30/22 Additional Source Comments The information contained in this document represents components of the legal health record. It is not the complete legal health record.[facility]
--- OUTSIDE RECORDS SUMMARY | 2025-01-19 08:01 | XMS_ITS | Encounter Summary ---
Author Organization [facility] Address [address] [place] [address] Phone Care Team Providers Care Senior Receptionist Name Role Phone Daly Canales MD Primary Care Provider [phone] Encounter Details Date Type Department Care Team (Late st Contact Info) Description 12/19/2009 Documentation [facility] [place] [address] [place] [address] Family Medicine, Physician [address] [place], [place] [phone] Social History Tobacco Use Types Packs/Day Years [...] on filedocumented in this encounter Care Teams Senior Receptionist Relationship Specialty Start Date End Date Daly Canales MD [address] [place] [address] PCP - General 11/30/16 08/01/22 documented as of this encounter
--- OUTSIDE RECORDS SUMMARY | 2025-01-19 08:01 | XMS_ITS | Clinical Summary ---
Author Organization [facility] Address [address] [place] [phone] Phone Care Team Providers Care Chair Car Attendant Name Role Phone Unavailable Primary Care [...] complete this topic Procedures * Due to [place] law, this organization might not be sharing sensitive test results. Procedure Name Priority Date/Time Associated Diagnosis Comments CHLAMYDIA AND GONORRHEA, AMPLIFIED Routine 07/19/2011 1:02 PM EDT from Last 3 Months or Most Recently Relevant to Health Maintenance Results * Due to [place] law, this organization might not be sharing sensitive test results. * Chlamydia and Gonorrhoea, Amplified (07/19/2011 1:02 PM EDT) Pathologist [facility] URINE GC AMP PROBE NEGATIVE [facility] Comment: NO NEISSERIA GONORRHOEAE RNA DETECTED IN THIS PATIENT'S SAMPLE. (REFERENCE RANGE/NORMAL VALUE: NOT DETECTED) NOTE: THIS TEST USES LUBE ATTENDANT MEDIATED AMPLIFICATION METHOD TO DETECT rRNA FROM [...] Result [facility] [address] [place] [address], [place] from Last 3 Months or Most Recently Relevant to Health Maintenance
--- OUTSIDE RECORDS SUMMARY | 2025-01-19 08:01 | XMS_ITS | Encounter Summary ---
Author Organization [facility] Address [address] [place] [address] Phone Care Team Providers Care Manager Core Name Role Phone Daly Canales MD Primary Care Provider Encounter Details Date Type Department Care Team (Late st Contact Info) Description 09/16/2013 Documentation [facility] [place] Family Medicine [address] [place] [address] Family Medicine, Physician [address] [place], [place] [phone] Social History Tobacco Use Types Packs/Day Years [...] on filedocumented in this encounter Care Teams Manager Core Relationship Specialty Start Date End Date Daly Canales MD [address] [place] [address] PCP - General 11/30/16 08/01/22 documented as of this encounter
--- OUTSIDE RECORDS SUMMARY | 2025-01-19 08:01 | XMS_ITS | Encounter Summary ---
Author Organization [facility] Address [address] [place] [address] Phone Care Team Providers Care Tear Down Matcher Name Role Phone Daly Canales MD Primary Care Provider Encounter Details Date Type Department Care Team (Late st Contact Info) Description 12/19/2009 Documentation [facility] [place] Family Medicine [address] [place] [address] Family Medicine, Physician [address] [place], [place] [phone] Social History Tobacco Use Types Packs/Day Years [...] on filedocumented in this encounter Care Teams Tear Down Matcher Relationship Specialty Start Date End Date Daly Canales MD [address] [place] [phone] PCP - General 11/30/16 08/01/22 documented as of this encounter
--- OUTSIDE RECORDS SUMMARY | 2025-01-19 08:01 | XMS_ITS | Encounter Summary ---
Author Organization [facility] Address [address] [place] [address] Phone Care Team Providers Care Fitter Hand Name Role Phone Daly Canales MD Primary Care Provider Encounter Details Date Type Department Care Team (Late st Contact Info) Description 12/06/2016 Conversion Encounter [facility] [place] [address] [place] [address] Social History Tobacco Use Types Packs/Day Years [...] on filedocumented in this encounter Care Teams Fitter Hand Relationship Specialty Start Date End Date Daly Canales MD [address] [place] [address] PCP - General 11/30/16 08/01/22 documented as of this encounter
--- NOTE | 2025-01-19 08:07 | MHC.OFFVISPN ---
Intake Vital Signs 01/19/25 08:21 Height 5 ft 1 in Weight 189 lb BMI 35.7 BP 108/62 Intake Visit Reasons: myah Allergies sulfamethoxazole (From BACTRIM) Allergy (Unknown, Verified 01/14/25 09:22) HIVES trimethoprim (From BACTRIM) Allergy (Unknown, Verified 01/14/25 09:22) HIVES [facility] Medical History Small for dates affecting management of mother Choroid plexus cyst of fetus affecting care of mother, antepartum Encounter for supervision of other normal , second trimester Chronic pain syndrome Sinusitis Spondylosis, cervical Degeneration, intervertebral disc, cervical Thoracic scoliosis Thoracic spine pain Obesity (BMI 35.0-39.9 without comorbidity) Anxiety Neck pain Allergic rhinitis Ophthalmoplegic migraine Surgical History No pertinent past surgical history Family History Mother COPD (chronic obstructive pulmonary disease) Small cell lung cancer Social History Household Members: Spouse and Children Both parents involved: Yes Caregiver staying overnight: No Housing: Apartment Are you a primary ambulatory care nurse to a significant other at home: No Do you presently have visiting nurse or other home services: No 75 years or older and lives alone: No Alcohol intake: never Patient Tobacco Use Status: Never used Tobacco e-Cigarette/Vaping Use: Never Used Second Hand Smoke Exposure: No Agree to transfusion: Yes service: No Current occupational status: unemployed Current occupational exposures/hazards: No Gender identity: Female Cognitive needs: No Hearing needs: No Vision needs: No Female Reproductive History Menstrual Age of Menarche: 15 History History 4 Elective abortions 0 Para 3 Spontaneous abortions 0 Hx # Term Pregnancies 3 Ectopic pregnancies 0 Hx # Pregnancies 0 Multiple births 0 Past Pregnancies Del. Date GA/Weeks Outcome Route Wt Inf Gender Labor Dilia Anesthesia Location Provider Complicate 05/13/13 42 live - full term vaginal delivery 9 lb 14 oz Male epidural [facility] none 12/06/17 40 live - full term vaginal delivery 7 lb Female epidural [facility] none 07/26/23 41 live - full term vaginal delivery 9 lb Female 6 epidural [facility] other Visit [facility] Calculator Estimated Delivery Date Method Current WG Current Estimate 01/23/25 LMP (Uncertain) 39w 3d Other Estimates 01/18/25 Ultrasound #1 40w 1d Expected Delivery Route/Plan Specific Issues/Plans 34 yr. old EDC: 01/24/25 by US at 21.4wks Blood type: O pos Problem List: 1. ambivalence-consult at [facility] x2., late for care, gaps in care. 2. Hx GBS positive. Testing: Panorama: NT scan: too late AFP: FAS: Choroid plexus cyst seen Glucose: early 28 wk glucose: CBC 1st Tri: 28 wk. CBC: GBS: Negative Vaccinations: Flu: completed Covid: x2 Tdap: RSV: [id number]-April: Education/Services WIC: enrolled Social Supports/stressors: mom 10/05/24, family feud re: estate. Living situation: Partner, her 3 children. Supports: Partner-Romario Work/school: unemployed Transportation: owns car Labor, and Concerns: Labor support: Romario Plan: epidural Infant Feeding Plans: bottle control: PPTL at [facility], OCP's, counseled regarding Lilita IUD at [facility]-01/14 OB Visit Log Initial Weight: 175 lb Date <del>?</del> EGA Weight Gest Week Fundal Ht Present FHR move Efface % Edema BP PrePreg We Weight GTT <del>?</del> Glucose LV Protein Blood Type 10/06/24 <del>?</del> 24w 3d 172 lb (-3 lb) 26 150 active 124/80 172 lb <del>?</del> 11/11/24 <del>?</del> 29w 4d 176 lb 4 oz (+1 lb 4 oz) 30 150 active 118/70 176 lb 4 oz <del>?</del> 12/01/24 <del>?</del> 32w 3d 177 lb (+2 lb) 177 lb (+2 lb) 34 150 active 110/66 110/66 177 lb 177 lb <del>?</del> 12/15/24 <del>?</del> 34w 3d 180 lb (+5 lb) 36 145 active 114/70 180 lb <del>?</del> 12/30/24 <del>?</del> 36w 4d 179 lb (+4 lb) 36 150 active 118/68 179 lb <del>?</del> 01/14/25 <del>?</del> 38w 5d 185 lb (+10 lb) 37 150 active 128/76 185 lb <del>?</del> 01/19/25 <del>?</del> 39w 3d 189 lb (+14 lb) 38 145 active 108/62 189 lb <del>?</del> Notes Visit Date: 01/19/25 Last Updated by: Chely Redmond CNM OB Note author: Chely Redmond CNM. 40.1 wk. MYAH. Taking PNV, Doing well with no concerns. Good appetite, stays well hydrated. Denies any LOF, VB, abd. pain or urinary symptoms. She went to [facility] for her ultrasound and was not seen. Confirmed after appt. pt. missed her appt. Rebooked today for 3:30. SVE: 1cm/50%/softer/-2-3 vtx well applied. Reviewed: Labor, LOF/Ctx's/VB, when to seek emergent care. discomforts, self help measures. FKC and when to call the office for further eval. Encouraged a healthy well balanced diet, regular walking/exercise in . Hydrate well, 10-12 glasses of water daily. Reschedule BPP. Send [facility]C reports for conformation. Consider IOL next week if undelivered. RTO 1wks. Visit Date: 01/14/25 Last Updated by: Chely Redmond CNM Note author: Chely Redmond CNM. 39.2wk. MYHA. Taking PNV, Doing well with no concerns. Tired, ready to have the baby, present today. Good appetite, tries to stays hydrated. Denies any LOF, VB, abd. pain or urinary symptoms. Plans PPTL, no consents have been signed. Reviewed: Labor s/s-LOF/Ctx's/VB, when to seek emergent care. discomforts, self help measures. Small for dates plan growth check as soon as possible. FKC and when to call the office for further eval. Cervical exam 1 cm firm/ 20%/-3/vtx Encouraged a healthy well balanced diet, regular walking/exercise in . Hydrate well, 10-12 glasses of water daily. RTO 1wks. Visit Date: 12/30/24 Last Updated by: Chely Redmond CNM Note author: Cheyl Redmond CNM. 37.2 wk. MYAH. Taking PNV, Doing well with no concerns. Good appetite, stays well hydrated. Denies any LOF, VB, abd. pain or urinary symptoms. Good FM, ultrasound at [facility] was 12/22/2024 no copies on hand we will request today a copy to be forward to the o. Reviewed: Labor s/s-LOF/Ctx's/VB, when to seek emergent care. discomforts, self help measures. Flu vaccine when available. Discuss tubal ligation consult, can schedule any time. FMC and when to call for further evaluation. Encouraged a healthy well balanced diet, regular walking/exercise in . Hydrate well, 10-12 glasses of water daily. RTO 1wks. Visit Date: 12/15/24 Last Updated by: Chely Redmond CNM Note author: Chely Redmond CNM. 35.1wk. MYAH. Taking PNV, Doing well with no concerns. Good appetite, stays well hydrated. Denies any LOF, VB, abd. pain or urinary symptoms. Good FM. Follow up US is rescheduled to 12/22/24-at [facility]. Reviewed: PTL s/s-LOF/Ctx's/VB, when to seek emergent care. discomforts, self help measures. FMC and when to call for further evaluation. Encouraged a healthy well balanced diet, regular walking/exercise in . Hydrate well, 10-12 glasses of water daily. GBS, GC/ct and BV panel today-prefers female provider for exams. RTO 1 wks. Visit Date: 12/01/24 Last Updated by: Chely Redmond CNM OB visit Note author: Chely Redmond CNM. 33wk. MYAH. Taking PNV, Good appetite, stays well hydrated. Denies any LOF, VB, abd. pain or urinary symptoms. Admits to increased discharge without any symptoms wants it checked. Good FM. EPDS=1. Reviewed: PTL s/s-LOF/Ctx's/VB, when to seek emergent care. discomforts, self help measures. FMC and when to call for further evaluation. Encouraged a healthy well balanced diet, regular walking/exercise in . Hydrate well, 10-12 glasses of water daily. Tdap today. GC/CT and BV panel obtained. RTO 2wks. Visit Date: 11/11/24 Last Updated by: Chely Redmond CNM Note author: Chely Redmond CNM. 30wk. MYAH. Taking PNV, Doing well with no concerns. Fair appetite-reports stress with family over property ownership in the will of her mom requiring her to be going to court in the future. Stays well hydrated. Denies any LOF, VB, abd. pain or urinary symptoms. Had a glucose on an empty stomach and vomited this week plans to repeat it on Saturday. Her 3 children are present for today's visit. Reviewed: PTL s/s-LOF/Ctx's/VB, when to seek emergent care. discomforts, self help measures. FKC and when to call the office for further eval. Encouraged a healthy well balanced diet, regular walking/exercise in . Hydrate well, 10-12 glasses of water daily. Complete glucose testing. US follow up planned for [facility]. RTO 2wks. Visit Date: 10/06/24 Last Updated by: Chely Redmond CNM Note author: Chely Redmond CNM. 25.1wk. MYAH. Taking PNV, Doing well with no concerns. Good appetite, stays well hydrated. Denies any LOF, VB, abd. pain or urinary symptoms. Good FM. Her mom yesterday of lung cancer. Reviewed ultrasound findings. Reviewed: PTL s/s-LOF/Ctx's/VB, when to seek emergent care. discomforts, self help measures. FMC and when to call for further evaluation. Encouraged a healthy well balanced diet, regular walking/exercise in . Hydrate well, 10-12 glasses of water daily. Strongly encouraged to do her labs today. Discussed grief and self-care. RTO 3 wks. Results AMB Urinalysis, Automated UA Leukoctes 3 Ethan/uL Last Edit by Barbara Maguire Master on 01/19/25 08:22 UA Nitrite Negative Last Edit by Barbara Maguire [facility] on 01/19/25 08:22 UA Urobilinogen 0 mg/dL Last Edit by Barbara Maguire [facility] on 01/19/25 08:22 UA Protein 0 mg/dL Last Edit by Barbara Maguire [facility] on 01/19/25 08:22 UA pH 6.5 Last Edit by Barbara Maguire [facility] on 01/19/25 08:22 UA Blood 0 John/uL Last Edit by Barbara Maguire [facility] on 01/19/25 08:22 UA Specific [place] 1.015 Last Edit by Barbara Maguire Master on 01/19/25 08:22 UA Ketone Negative Last Edit by Barbara Maguire [facility] on 01/19/25 08:22 UA Bilirubin 0 mg/dL Last Edit by Barbara Maguire [facility] on 01/19/25 08:22 UA Glucose 0 mg/dL Last Edit by Barbara Maguire [facility] on 01/19/25 08:22 Results Reviewed Results Reviewed: Laboratory Last Values Urine pH (Auto) 6.5 01/19/25 08:20 Specific [place] (Auto) 1.015 01/19/25 08:20 Urine Protein (Auto) 0 mg/dL 01/19/25 08:20 Glucose (UA)(Auto) 0 mg/dL 01/19/25 08:20 Urine Ketones (Auto) Negative 01/19/25 08:20 Urine Blood (Auto) 0 John/uL 01/19/25 08:20 Urine Nitrite (Auto) Negative 01/19/25 08:20 Urine Bilirubin (Auto) 0 mg/dL 01/19/25 08:20 Urine Urobilinogen (Auto) 0 mg/dL 01/19/25 08:20 Leukocyte Esterase (Auto) 3 Ethan/uL 01/19/25 08:20 Coding Level of Care Code [place] Assessment & Plan Assessment & Plan Orders: Orders AMB Urinalysis Automated Today Z34.90 - Encounter for supervision of normal , unspecified, unspecified trimester
[2025-01-19 08:21] VITALS: BP 108/62; BMI 35.7
== END 2025-01-19 08:48 | disposition home or self-care (01) ==
LOC: HO.HWS 07:55
PROVIDERS: PCP Internal Medicine; Visit Provider Advanced Practice Midwife
DX: Z34.93 Encounter for supervision of normal pregnancy, unspecified, third trimester (principal)
CPT/HCPCS: 59426

== ENCOUNTER → 2025-01-19 07:54 | Outpatient (BNVA) | payer OTHER, SELFPAY | PROVIDERS: PCP Internal Medicine; Visit Provider Advanced Practice Midwife | DX: O09.33 Supervision of pregnancy with insufficient antenatal care, third trimester (principal) | CPT/HCPCS: 81003 ==

== ENCOUNTER 2025-02-09 11:26 | Outpatient (REF) | payer OTHER, SELFPAY ==
[2025-02-09 17:08] LABS: CT PCR NOT DETECTED (Not Detect.); NG PCR NOT DETECTED (Not Detect.)
[2025-02-10 05:31] LABS: Bacterial Vaginosis PCR NEGATIVE (Negative); Candida Group PCR NOT DETECTED (Not Detect); Candida glab krusei PCR NOT DETECTED (Not Detect); Trichomonas vaginalis PCR NOT DETECTED (Not Detect)
== END 2025-02-09 11:27 | disposition home or self-care (01) ==
LOC: HO.LNP 11:26
PROVIDERS: PCP Internal Medicine; Visit Provider Advanced Practice Midwife
DX: O86.13 Vaginitis following delivery (principal); Z20.2 Contact with and (suspected) exposure to infections with a predominantly sexual mode of transmission; O90.89 Other complications of the puerperium, not elsewhere classified; R03.0 Elevated blood-pressure reading, without diagnosis of hypertension
CPT/HCPCS: 81515; 87491; 87591; 99212

== ENCOUNTER 2025-02-09 11:26 | Outpatient (AMB) | payer OTHER, SELFPAY ==
--- NOTE | 2025-02-09 11:30 | A.OFFVIS_ITS ---
Vital Signs 02/09/25 12:17 BP 126/68 Intake Visit Reasons: vag inf Intake Note: pt states [facility] treated her vaginal infection at time of delivery 01/26/25. Still having discharge and irritation. Beauty Culturist: Beauty Culturist Present (Crystal) Allergies sulfamethoxazole (From BACTRIM) Allergy (Unknown, Verified 02/09/25 11:32) HIVES trimethoprim (From BACTRIM) Allergy (Unknown, Verified 02/09/25 11:32) HIVES Is last menstrual period known: Yes HPI Comments Details: Patient is here today with concerns of vaginal discharge, with slight external irritation. She is unsure if it is because she is bleeding and wearing Bushra pads or if she has BV. She had a vaginal delivery, no repair, 01/26/2025, baby girl, Rabia, 8 lb 9 oz. Bottle-feeding. She reports elevated blood pressure throughout her hospitalization, and home monitoring blood pressures range from 122/86, 122/94, 131/91, 127/67. She started control pills in the hospital sounds like norethindrone. Previously she wanted a tubal ligation but is undecided. [facility] Medical History (Updated 02/09/25 @ 12:29 by Chely Redmond CNM) Vaginitis Small for dates affecting management of mother Choroid plexus cyst of fetus affecting care of mother, antepartum Encounter for supervision of other normal , second trimester Chronic pain syndrome Sinusitis Spondylosis, cervical Degeneration, intervertebral disc, cervical Thoracic scoliosis Thoracic spine pain Obesity (BMI 35.0-39.9 without comorbidity) Anxiety Neck pain Allergic rhinitis Ophthalmoplegic migraine Surgical History No pertinent past surgical history Family History Mother COPD (chronic obstructive pulmonary disease) Small cell lung cancer Social History Household Members: Spouse and Children Both parents involved: Yes Caregiver staying overnight: No Housing: Apartment Are you a primary resident care associate to a significant other at home: No Do you presently have visiting nurse or other home services: No 75 years or older and lives alone: No Alcohol intake: never Patient Tobacco Use Status: Never used Tobacco e-Cigarette/Vaping Use: Never Used Second Hand Smoke Exposure: No Agree to transfusion: Yes service: No Current occupational status: unemployed Current occupational exposures/hazards: No Gender identity: Female Cognitive needs: No Hearing needs: No Vision needs: No Female Reproductive History Menstrual Age of Menarche: 15 Review of Systems Const All systems reviewed & are unremarkable except as noted in HPI and below Endo Reports no additional complaints Physical Exam Vital Signs: Last Vital Signs BP 126/68 02/09/25 12:17 Const General: cooperative, healthy appearing and no acute distress GI Inspection: Yes normal to inspection Palpation (GI): Soft to palpation External Female Exam: normal external appearance Speculum Exam - Vagina: normal appearance of the vagina and vaginal bleeding OB/external & speculum: vaginal bleeding Psych Appearance: well kempt Attitude: cooperative Thought process: Normal thought process present Assessment & Plan Assessment & Plan (1) Vaginitis: Code(s): N76.0 - Acute vaginitis Category: Medical Qualifiers: Chronicity: acute Qualified Code(s): N76.0 - Acute vaginitis Plan chlamydia and BV panel obtained await results for final plan of care. Patient has follow up for exam. Continue home monitoring for blood pressure. Reviewed [facility] warnings and went to seek immediate care at [facility]. Awaiting hospital notes from [facility]. The patient expressed understanding and agreement with the plan of care. All of her questions and concerns were addressed to the best of my ability. This note is constructed using voice recognition software. While every effort has been made to ensure accuracy, manager laboratory errors may have been included. Orders: Orders CT NG by PCR Vag/Cerv Today A59.9 - Trichomoniasis, unspecified Bacterial Vaginosis Panel Today A59.9 - Trichomoniasis, unspecified Coding Level of Care Code Est Pt Level 3 (50265) Diagnoses Acute vaginitis N76.0 Chronicity: acute
[2025-02-09 12:17] VITALS: BP 126/68
== END 2025-02-09 12:17 | disposition home or self-care (01) ==
LOC: HO.HWS 11:26
PROVIDERS: PCP Internal Medicine; Visit Provider Advanced Practice Midwife
DX: N76.0 Acute vaginitis (principal)
CPT/HCPCS: 99213

== ENCOUNTER 2025-03-09 08:42 | Outpatient (AMB) | payer OTHER, SELFPAY ==
[2025-03-09 08:49] VITALS: BP 118/62; BMI 32.3
--- NOTE | 2025-03-09 08:49 | A.OFFVISPN_ITS ---
Intake Vital Signs 03/09/25 08:49 Height 5 ft 1 in Weight 171 lb 2 oz BMI 32.3 BP 118/62 Blood Pressure Location Lt brachial Position Sitting Intake Visit Reasons: 6 week post partrum Intake Note: no c/o Brusher Required: No Allergies sulfamethoxazole (From BACTRIM) Allergy (Unknown, Verified 03/09/25 08:52) HIVES trimethoprim (From BACTRIM) Allergy (Unknown, Verified 03/09/25 08:52) HIVES Medication List - Last Reconciled 03/09/25 by Poonam Vargas LPN acetaminophen 500 mg PO Q6H PRN 30 days fluticasone propionate 50 mcg/actuation (Flonase Allergy Relief) 1 spray intranasal DAILY 90 days norethindrone (contraceptive) (Susan) 0.35 mg PO DAILY Is last menstrual period known: Yes Last menstrual period: 03/06/25 Post menopausal: No Patient : No Do you need a note to return to daycare/school/sports/work: No PFSH Medical History (Updated 03/09/25 @ 10:38 by Chely Redmond CNM) Fatigue Vaginitis Small for dates affecting management of mother Choroid plexus cyst of fetus affecting care of mother, antepartum Encounter for supervision of other normal , second trimester Chronic pain syndrome Sinusitis Spondylosis, cervical Degeneration, intervertebral disc, cervical Thoracic scoliosis Thoracic spine pain Obesity (BMI 35.0-39.9 without comorbidity) Anxiety Neck pain Allergic rhinitis Ophthalmoplegic migraine Surgical History No pertinent past surgical history Family History (Updated 03/09/25 @ 08:54 by Poonam Vargas LPN) Mother Small cell lung cancer COPD (chronic obstructive pulmonary disease) Social History Household Members: Spouse and Children Both parents involved: Yes Caregiver staying overnight: No Housing: Apartment Are you a primary primary care provider to a significant other at home: No Do you presently have visiting nurse or other home services: No 75 years or older and lives alone: No Alcohol intake: never Patient Tobacco Use Status: Never used Tobacco e-Cigarette/Vaping Use: Never Used Second Hand Smoke Exposure: No Agree to transfusion: Yes service: No Current occupational status: unemployed Current occupational exposures/hazards: No Gender identity: Female Cognitive needs: No Hearing needs: No Vision needs: No Female Reproductive History Menstrual Age of Menarche: 15 Duration of menses: 3-5 days Date of last menstrual period: 03/06/25 control method: pills Total pregnancies: 4 Full term: 4 Number of Living Children: 4 Date of last pap smear: 12/21/22 History of abnormal pap smear: No History of STI: Yes History History 4 Elective abortions 0 Para 3 Spontaneous abortions 0 Hx # Term Pregnancies 4 Ectopic pregnancies 0 Hx # Pregnancies 0 Multiple births 0 Past Pregnancies Del. Date GA/Weeks Outcome Route Wt Inf Gender Labor Dilia Anesthesia Location Provider Complicate 05/13/13 42 live - full term vaginal delivery 9 lb 14 oz Male epidural [facility] none 12/06/17 40 live - full term vaginal delivery 7 lb Female epidural [facility] none 07/26/23 41 live - full term vaginal delivery 9 lb Female 6 epidural [facility] other Questionnaire History History : 4 [place] Depression [place] Depression Scale I have been able to laugh and see the funny side of things: As much as I always could I have looked forward with enjoyment to things: As much as I ever did I have blamed myself unnecessarily when things went wrong: No, never I have been anxious or worried for no reason: No, not at all I have felt scared of panicky for no good reason: No, not at all Things have been getting to me: No, I have been coping as well as ever I have been so unhappy that I have had difficulty sleeping: No, not at all I have felt sad or miserable: No, not at all I have been so unhappy that I have been crying: No, never The thought of harming myself has occurred to me: Never 0 Visit DELORES Calculator Estimated Delivery Date Method Current WG Current Estimate 01/23/25 LMP (Uncertain) 46w 3d Other Estimates 01/18/25 Ultrasound #1 47w 1d Expected Delivery Route/Plan Specific Issues/Plans 34 yr. old EDC: 01/24/25 by US at 21.4wks Blood type: O pos Problem List: 1. ambivalence-consult at PP x2., late for care, gaps in care. 2. Hx GBS positive. Testing: Panorama: NT scan: too late AFP: FAS: Choroid plexus cyst seen Glucose: early 28 wk glucose: CBC 1st Tri: 28 wk. CBC: GBS: Negative Vaccinations: Flu: completed Covid: x2 Tdap: RSV: [id number]: Education/Services WIC: enrolled Social Supports/stressors: mom 10/05/24, family feud re: estate. Living situation: Partner, her 3 children. Supports: Partner-Romario Work/school: unemployed Transportation: owns car Labor, and Concerns: Labor support: Romario Plan: epidural Infant Feeding Plans: bottle control: PPTL at [facility] [place], OCP's, counseled regarding Lilita IUD at [facility]-01/14 OB Visit Log Initial Weight: 175 lb Date -?-?-?-?-?-?-?-?-?-?-?-?- EGA Weight Gest Week Fundal Ht Present FHR move Efface % Edema BP PrePreg We Weight GTT -?-?-?-?-?-?-?-?-?-?-?-?- Glucose LV Protein Blood Type 10/06/24 -?-?-?-?--?-?-?-?-?-?-?-?- 24w 3d 172 lb (-3 lb) 26 150 active 124/80 172 lb -?-?-?-?-?-?-?-?-?-?-?-?- 11/11/24 -?-?-?-?-?-?-?-?-?-?-?-?- 29w 4d 176 lb 4 oz (+1 lb 4 oz) 30 150 active 118/70 176 lb 4 oz -?-?-?-?-?-?-?-?-?-?-?-?- 12/01/24 -?-?-?-?-?-?-?-?-?-?-?-?- 32w 3d 177 lb (+2 lb) 177 lb (+2 lb) 34 150 active 110/66 110/66 177 lb 177 lb -?-?-?-?-?-?-?-?-?-?-?-?- 12/15/24 -?-?-?-?-?-?-?-?-?-?-?-?- 34w 3d 180 lb (+5 lb) 36 145 active 114/70 180 lb -?-?-?-?-?-?-?-?-?-?-?-?- 12/30/24 -?-?-?-?-?-?-?-?-?-?-?-?- 36w 4d 179 lb (+4 lb) 36 150 active 118/68 179 lb -?-?-?-?-?-?-?-?-?-?-?-?- 01/14/25 -?-?-?-?-?-?-?-?-?-?-?-?- 38w 5d 185 lb (+10 lb) 37 150 active 128/76 185 lb -?-?-?-?-?-?-?-?-?-?-?-?- 01/19/25 -?-?-?-?-?-?-?-?-?-?-?-?- 39w 3d 189 lb (+14 lb) 38 145 active 108/62 189 lb -?-?-?-?-?-?-?-?-?-?-?-?- Notes Visit Date: 01/19/25 Last Updated by: Chely Redmond CNM OB Note author: Chely Redmond CNM. 40.1 wk. KIERRA. Taking PNV, Doing well with no concerns. Good appetite, stays well hydrated. Denies any LOF, VB, abd. pain or urinary symptoms. She went to [facility] for her ultrasound and was not seen. Confirmed after appt. pt. missed her appt. Rebooked today for 3:30. SVE: 1cm/50%/softer/-2-3 vtx well applied. Reviewed: Labor, LOF/Ctx's/VB, when to seek emergent care. discomforts, self help measures. FKC and when to call the office for further eval. Encouraged a healthy well balanced diet, regular walking/exercise in . Hydrate well, 10-12 glasses of water daily. Reschedule BPP. Send [facility] EDC reports for conformation. Consider IOL next week if undelivered. RTO 1wks. Visit Date: 01/14/25 Last Updated by: Chely Redmond CNM Note author: Chely Redmond CNM. 39.2wk. KIERRA. Taking PNV, Doing well with no concerns. Tired, ready to have the baby, present today. Good appetite, tries to stays hydrated. Denies any LOF, VB, abd. pain or urinary symptoms. Plans PPTL, no consents have been signed. Reviewed: Labor s/s-LOF/Ctx's/VB, when to seek emergent care. discomforts, self help measures. Small for dates plan growth check as soon as possible. FKC and when to call the office for further eval. Cervical exam 1 cm firm/ 20%/-3/vtx Encouraged a healthy well balanced diet, regular walking/exercise in . Hydrate well, 10-12 glasses of water daily. RTO 1wks. Visit Date: 12/30/24 Last Updated by: Chely Redmond CNM Note author: Chely Redmond CNM. 37.2 wk. KIERRA. Taking PNV, Doing well with no concerns. Good appetite, stays well hydrated. Denies any LOF, VB, abd. pain or urinary symptoms. Good FM, ultrasound at [facility] was 12/22/2024 no copies on hand we will request today a copy to be forward to the o. Reviewed: Labor s/s-LOF/Ctx's/VB, when to seek emergent care. discomforts, self help measures. Flu vaccine when available. Discuss tubal ligation consult, can schedule any time. FMC and when to call for further evaluation. Encouraged a healthy well balanced diet, regular walking/exercise in . Hydrate well, 10-12 glasses of water daily. RTO 1wks. Visit Date: 12/15/24 Last Updated by: Chely Redmond CNM Note author: Chely Redmond CNM. 35.1wk. KIERRA. Taking PNV, Doing well with no concerns. Good appetite, stays well hydrated. Denies any LOF, VB, abd. pain or urinary symptoms. Good FM. Follow up US is rescheduled to 12/22/24-at [facility]. Reviewed: PTL s/s-LOF/Ctx's/VB, when to seek emergent care. discomforts, self help measures. FMC and when to call for further evaluation. Encouraged a healthy well balanced diet, regular walking/exercise in pregn riki. Hydrate well, 10-12 glasses of water daily. GBS, GC/ct and BV panel today-prefers female provider for exams. RTO 1 wks. Visit Date: 12/01/24 Last Updated by: Chely Redmond CNM OB visit Note author: Chely Redmond CNM. 33wk. KIERRA. Taking PNV, Good appetite, stays well hydrated. Denies any LOF, VB, abd. pain or urinary symptoms. Admits to increased discharge without any symptoms wants it checked. Good FM. EPDS=1. Reviewed: PTL s/s-LOF/Ctx's/VB, when to seek emergent care. discomforts, self help measures. FMC and when to call for further evaluation. Encouraged a healthy well balanced diet, regular walking/exercise in . Hydrate well, 10-12 glasses of water daily. Tdap today. GC/CT and BV panel obtained. RTO 2wks. Visit Date: 11/11/24 Last Updated by: Chely Redmond CNM Note author: Chely Redmond CNM. 30wk. KIERRA. Taking PNV, Doing well with no concerns. Fair appetite-reports stress with family over property ownership in the will of her mom requiring her to be going to court in the future. Stays well hydrated. Denies any LOF, VB, abd. pain or urinary symptoms. Had a glucose on an empty stomach and vomited this week plans to repeat it on Saturday. Her 3 children are present for today's visit. Reviewed: PTL s/s-LOF/Ctx's/VB, when to seek emergent care. discomforts, self help measures. FKC and when to call the office for further eval. Encouraged a healthy well balanced diet, regular walking/exercise in . Hydrate well, 10-12 glasses of water daily. Complete glucose testing. US follow up planned for [facility]. RTO 2wks. Visit Date: 10/06/24 Last Updated by: Chely Redmond CNM Note author: Chely Redmond CNM. 25.1wk. KIERRA. Taking PNV, Doing well with no concerns. Good appetite, stays well hydrated. Denies any LOF, VB, abd. pain or urinary symptoms. Good FM. Her mom yesterday of lung cancer. Reviewed ultrasound findings. Reviewed: PTL s/s-LOF/Ctx's/VB, when to seek emergent care. discomforts, self help measures. FMC and when to call for further evaluation. Encouraged a healthy well balanced diet, regular walking/exercise in . Hydrate well, 10-12 glasses of water daily. Strongly encouraged to do her labs today. Discussed grief and self-care. RTO 3 wks. Review of Systems Const All systems reviewed & are unremarkable except as noted in HPI and below Reports as per HPI Eyes Reports no additional complaints ENT Reports no additional complaints Card Reports no additional complaints Resp Reports no additional complaints GI Reports as per HPI and Reports no additional complaints Reports as per HPI Musc Reports no additional complaints Skin/Breast Reports as per HPI Neuro Reports no additional complaints Psych Reports no additional complaints Endo Reports no additional complaints Vincent/Lymph Reports no additional complaints Aller/Immun Reports no additional complaints Exam Const Constitutional General: cooperative, healthy appearing, no acute distress, well developed and alert Orientation/consciousness: patient oriented x3 HENMT Head: normal to inspection Eyes General: appearance normal, both eyes and all related structures Neck Neck: normal visual inspection Thyroid: Thyroid normal Chest Chest palpation & inspection: normal inspection of the chest and other (no puckering, dimpling, peau de orange, retraction, discharge, masses) Breast/axilla inspection: normal inspection of the breasts Breast/axilla palpation: normal palpation of the breasts Resp Effort & Inspection: normal respiratory effort GI Inspection (GI): normal to inspection Palpation (GI): Soft to palpation General Exam: Yes bladder normal to palpation External Female Exam: normal external appearance and normal appearance of the urethra Urethra: normal appearance of the urethra Speculum exam - vagina: normal appearance of the vagina, normal discharge and vaginal bleeding Speculum Exam - Cervix: normal appearance of the cervix Bimanual exam- vagina & uterus: normal bimanual exam, normal palpation, uterine size normal, bladder normal to palpation, normal palpation and non-tender Bimanual Exam- Adnexa, other: no masses OB/external & speculum: vaginal bleeding Speculum Exam: vaginal bleeding Skin General skin exam: no rashes or lesions noted Rashes: no rashes Neuro Cognition (Neuro): normal cognition Extrem General: normal to inspection Psych Attitude: cooperative Thought process: Normal thought process present Coding Diagnoses Fatigue, unspecified type R53. Fatigue type: unspecified Well woman exam with routine gynecological exam Z01.419 Assessment & Plan Assessment & Plan (1) Fatigue: Code(s): R5. - Other fatigue Category: Medical Qualifiers: Fatigue type: unspecified Qualified Code(s): R53. - Other fatigue (2) Well woman exam with routine gynecological exam: Code(s): Z01.419 - Encounter for gynecological examination (general) (routine) without abnormal findings Category: Medical Orders: Orders Thyroid Stimulating Hormone Today N92.1 - Excessive and frequent menstruation with irregular cycle, R5.83 - Other fatigue Vitamin D 25-OH (D2 and D3) Today R53.83 - Other fatigue Complete Blood Count no Diff Today R5.83 - Other fatigue Medications: New norethindrone (contraceptive) (Susan) 0.35 mg PO DAILY 84 tabs 0RF
--- NOTE | 2025-03-09 11:51 | A.OFFVIS_ITS ---
Vital Signs 03/09/25 08:49 Height 5 ft 1 in Weight 171 lb 2 oz BMI 32.3 BP 118/62 Blood Pressure Location Lt brachial Position Sitting Intake Visit Reasons: Annual Allergies sulfamethoxazole (From BACTRIM) Allergy (Unknown, Verified 03/09/25 08:52) HIVES trimethoprim (From BACTRIM) Allergy (Unknown, Verified 03/09/25 08:52) HIVES Medication List - Last Reconciled 03/09/25 by Poonam Vargas LPN acetaminophen 500 mg PO Q6H PRN 30 days fluticasone propionate 50 mcg/actuation (Flonase Allergy Relief) 1 spray intranasal DAILY 90 days norethindrone (contraceptive) (Susan) 0.35 mg PO DAILY HPI Comments Details: Patient is a premenopausal woman presenting for annual examination. 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 EPDS -0. Darlene user, reports 1 cycle since delivery. History of HTN while at hospital. Currently is sexually active. She denies vaginal itching or irritation. She tries to eat healthy and stays active with exercise. Denies family history of breast, ovarian or colon cancer. Last pap smear 2022, negative. [facility] Medical History (Updated 03/09/25 @ 12:37 by Chely Redmond CNM) Fatigue Chronic pain syndrome Sinusitis Spondylosis, cervical Degeneration, intervertebral disc, cervical Thoracic scoliosis Thoracic spine pain Obesity (BMI 35.0-39.9 without comorbidity) Anxiety Neck pain Allergic rhinitis Ophthalmoplegic migraine Surgical History No pertinent past surgical history Family History Mother Small cell lung cancer COPD (chronic obstructive pulmonary disease) Social History Household Members: Spouse and Children Both parents involved: Yes Caregiver staying overnight: No Housing: Apartment Are you a primary home health caregiver to a significant other at home: No Do you presently have visiting nurse or other home services: No 75 years or older and lives alone: No Alcohol intake: never Patient Tobacco Use Status: Never used Tobacco e-Cigarette/Vaping Use: Never Used Second Hand Smoke Exposure: No Agree to transfusion: Yes service: No Current occupational status: unemployed Current occupational exposures/hazards: No Gender identity: Female Cognitive needs: No Hearing needs: No Vision needs: No Female Reproductive History Menstrual Age of Menarche: 15 Review of Systems Const All systems reviewed & are unremarkable except as noted in HPI and below Reports as per HPI Eyes Reports no additional complaints ENT Reports no additional complaints Card Reports no additional complaints Resp Reports no additional complaints GI Reports as per HPI and Reports no additional complaints Reports as per HPI Musc Reports no additional complaints Skin/Breast Reports as per HPI Neuro Reports no additional complaints Psych Reports no additional complaints Endo Reports no additional complaints Vincent/Lymph Reports no additional complaints Aller/Immun Reports no additional complaints Physical Exam Vital Signs: Last Vital Signs BP 118/62 03/09/25 08:49 BMI result Body Mass Index 32.3 Const General: cooperative, healthy appearing, no acute distress, well developed and alert Orientation/consciousness: patient oriented x3 HEENT Head: Yes normal to inspection Eyes General: appearance normal, both eyes and all related structures Neck Neck: Yes normal visual inspection Thyroid: Thyroid normal Chest Chest palpation & inspection: normal inspection of the chest and other (no pu ckering, dimpling, peau de orange, retraction, discharge, masses) Breast/axilla inspection: normal inspection of the breasts Breast/axilla palpation: normal palpation of the breasts Resp Effort & Inspection: normal respiratory effort GI Inspection: Yes normal to inspection Palpation (GI): Soft to palpation Rectal Exam - Female: deferred General: Yes bladder normal to palpation External Female Exam: normal external appearance and normal appearance of the urethra Speculum Exam - Vagina: normal appearance of the vagina, normal palpation and normal vaginal discharge Speculum Exam - Cervix: normal appearance of the cervix and normal palpation Bimanual exam- vagina & uterus: normal bimanual exam, normal palpation, uterine size normal, bladder normal to palpation, normal palpation and non-tender Bimanual Exam- Adnexa, other: no masses Skin General skin exam: no rashes or lesions noted Rashes: no rashes Neuro General: patient oriented x3 Cognition (Neuro): normal cognition Extrem General: Yes normal to inspection Psych Attitude: cooperative Thought process: Normal thought process present Results AMB Test Urine AMB Test Urine Negative Last Edit by Poonam Vargas LPN on 03/09/25 14:10 Results Reviewed Results Reviewed: Laboratory Last Values Tst Clinic Negative 03/09/25 09:09 Assessment & Plan Assessment & Plan (1) Fatigue: Code(s): R53.83 - Other fatigue Category: Medical Qualifiers: Fatigue type: unspecified Qualified Code(s): R53.83 - Other fatigue (2) Well woman exam with routine gynecological exam: Code(s): Z01.419 - Encounter for gynecological examination (general) (routine) without abnormal findings Category: Medical Plan Discussed: Current recommendations for pap smears per ASCCP guidelines. Breast awareness and periodic breast exams. Maintain a healthy lifestyle including a well balanced diet and routine exercise. Consider control change for efficacy purposes, desires tubal ligation we will schedule a consult appointment. Pill check in 2-3 months for consideration of options if not planning for tubal. Patient verbalizes understanding and agrees to the plan of care. She was given opportunity to ask questions and all questions were answered to the best of my ability. 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 This note is constructed using voice recognition software. While every effort has been made to ensure accuracy, court stenographer errors may have been included. Orders: Orders Thyroid Stimulating Hormone Today N92.1 - Excessive and frequent menstruation with irregular cycle, R53.83 - Other fatigue Vitamin D 25-OH (D2 and D3) Today R53.83 - Other fatigue Complete Blood Count no Diff Today R53.83 - Other fatigue Medications: New norethindrone (contraceptive) (Susan) 0.35 mg PO DAILY 84 tabs 0RF Coding Level of Care Code Est Pt Prev Care 18-39y(31363) Diagnoses Fatigue, unspecified type R53.83 Fatigue type: unspecified Well woman exam with routine gynecological exam Z01.419
== END 2025-03-09 09:32 | disposition home or self-care (01) ==
LOC: HO.HWS 08:43
PROVIDERS: PCP Internal Medicine; Visit Provider Advanced Practice Midwife
DX: Z01.419 Encounter for gynecological examination (general) (routine) without abnormal findings (principal); R53.83 Other fatigue
CPT/HCPCS: 99395; 99459

== ENCOUNTER → 2025-03-09 08:42 | Outpatient (BNVA) | payer OTHER, SELFPAY | PROVIDERS: PCP Internal Medicine; Visit Provider Advanced Practice Midwife | DX: Z01.419 Encounter for gynecological examination (general) (routine) without abnormal findings (principal); R53.83 Other fatigue | CPT/HCPCS: 99395 ==